=== PATIENT | female | born 1940 | race Caucasian/White ===

== ENCOUNTER → 2018-06-01 08:27 | Outpatient (CLI) | payer OTHER, SELFPAY ==
[2018-06-01 11:57] LABS: Absolute Lymphocyte Count 2.39 X10^3/ul (0.83-4.51); Absolute Neutrophil Count 1.6 X10^3/uL (2.0-7.7); Basophil# 0.02 X10^3/uL; Basophil% 0.4 % (0-1); Eosinophil# 0.08 X10^3/uL; Eosinophils% 1.8 % (0-5); Hemoglobin 12.6 g/dl (12.0-15.0); Lymphocyte # 2.39 X10^3/ul (4.0); Mean Corp Hgb Conc 31.5 g/gl (32-36); Mean Corpuscular Hgb 29.8 pg (27.0-32.0); Mean Corpuscular Volume 94.6 fL (81-99); Mean Platelet Vol. 10.2 fl (6.2-12.0); Monocyte# 0.42 X10^3/uL; Monocyte% 9.3 % (0-10); Neutrophil % 35.5 % (47-70); Platelet Count 282 K/mm3 (150-450); RBC Distribution Width CV 12.6 % (11.6-14.6); RBC Distribution Width SD 42.9 fl (35.1-43.9); Red Blood Count 4.23 M/mm3 (4.2-5.4); White Blood Count 4.5 K/mm3 (4.4-11.0)
[2018-06-01 12:04] LABS: POSITIVE COUNT NO; POSITIVE DIFFERENTIAL NO; POSITIVE MORPHOLOGY NO
[2018-06-01 12:12] LABS: ALB/GLOB Ratio 0.9 RATIO (0.9-2.4); AST(SGOT) 27 U/L (15-37); Alanine Aminotransfer ALT/SGPT 33 U/L (13-56); Albumin, Serum 3.6 g/dL (3.2-5.0); Alkaline Phosphatase 55 U/L (45-117); Anion Gap 6 (5-15); BUN 13 mg/dL (7-18); BUN/Creat Ratio 17.9 RATIO (10-20); Calcium,Total 8.7 mg/dL (8.5-10.1); Chloride 105 mmol/L (98-107); Cholesterol 168 mg/dL (200); Creatinine, Serum 0.73 mg/dL (0.55-1.02); EST Glomerular Filtration Rate 83 mL/min (>60); Est Glom Filt Rate - Afr Amer 100 mL/min (>60); Globulin 3.8 g/dL (2.2-4.2); Glucose 91 mg/dL (74-106); High Density Lipoprotein 55 mg/dL; Potassium 3.9 mmol/L (3.5-5.1); Protein, Total 7.4 g/dL (6.4-8.2); Sodium Level 142 mmol/L (136-145); Triglycerides 97 mg/dL; Very Low Density Lipoprotein 19 mg/dL (5-40)
== END ==
PROVIDERS: Family Provider Family Medicine; PCP Family Medicine; Visit Provider Family Medicine
DX: E78.5 Hyperlipidemia, unspecified (principal); R53.83 Other fatigue
CPT/HCPCS: 36415; 80053; 80061; 85025

== ENCOUNTER → 2018-12-27 13:20 | Outpatient (CLI) | payer MEDICARE, SELFPAY ==
--- NOTE | 2018-12-27 | LES_PTH ---
PATIENT: MARIE PRATT LOC: [facility] U#:[id number] AGE/SX: 85/F ROOM: RE12/27/[address]: Dr. Nichole Fisher DO : 1940 BED: DIS: SPEC #: [id number] RECD: 12/27/18 15:40 STATUS: BLAS JENNA #: [id number] PENNY: 12/27/18 00:[address]: Nichole Fisher DEPT: SURGICAL PATHOLOGY RECD BY: Fortunato Alfaro Tissues: Skin of arm Procedures: Surgery Specimen Level IV HEADER OPERATION: Excision lesion right upper arm PRE-OP DIAGNOSIS: SCC vs BCC TISSUE SUBMITTED: Right upper arm MICROSCOPIC DIAGNOSIS Skin lesion of right upper arm, biopsy: Minimal invasive squamous cell carcinoma, well differentiated and verrucoid type. Solar elastosis. See comment. AM:luke 12/29/18 COMMENT The lesion measures 4 mm in greatest dimension and is completely excised in the planes examined. MICROSCOPIC DESCRIPTION Slides are reviewed. GROSS DESCRIPTION Received is one container labeled with the patient's name and not further designated. The specimen consists of a single nodular fragment of light saini soft tissue measuring 0.6 x 0.5 x 0.3 cm. The specimen is inked, bisected and totally submitted in one cassette. / AM:luke 12/28/18 TC:0 CPT: 24167
== END ==
PROVIDERS: Family Provider Family Medicine; PCP Family Medicine; Referring Provider Family Medicine; Visit Provider Family Medicine
DX: C44.622 Squamous cell carcinoma of skin of right upper limb, including shoulder (principal)
CPT/HCPCS: 88305

== ENCOUNTER → 2019-08-15 08:17 | Outpatient (CLI) | payer MEDICARE, SELFPAY ==
[2019-02-20 09:53] VITALS: BMI 18.8
[2019-08-15 12:15] LABS: Absolute Lymphocyte Count 1.98 X10^3/uL (0.83-4.51); Absolute Neutrophil Count 2.3 X10^3/uL (2.0-7.7); Basophil# 0.04 X10^3/uL; Basophil% 0.8 % (0-1); Eosinophil# 0.08 X10^3/uL; Eosinophils% 1.7 % (0-5); Hematocrit 40.7 % (37-47); Lymphocyte # 1.98 X10^3/ul (4.0); Lymphocyte % 41.4 % (19-41); Mean Corp Hgb Conc 31.9 g/dL (32-36); Mean Corpuscular Hgb 29.9 pg (27.0-32.0); Mean Corpuscular Volume 93.6 fL (81-99); Mean Platelet Vol. 10.2 fl (6.2-12.0); Monocyte# 0.35 X10^3/uL; Monocyte% 7.3 % (0-10); NRBC Flagged by Analyzer 0 % (0-5); Neutrophil # 2.33 X10^3/uL (2.7-7.7); Neutrophil % 48.8 % (47-70); Platelet Count 268 K/mm3 (150-450); RBC Distribution Width CV 11.9 % (11.6-14.6); RBC Distribution Width SD 41.2 fl (35.1-43.9); Red Blood Count 4.35 M/mm3 (4.2-5.4); White Blood Count 4.8 K/mm3 (4.4-11.0)
[2019-08-15 12:49] LABS: AST(SGOT) 22 U/L (15-37); Alanine Aminotransfer ALT/SGPT 25 U/L (13-56); Albumin, Serum 3.7 g/dL (3.2-5.0); Alkaline Phosphatase 55 U/L (45-117); Anion Gap 3 (5-15); BUN 12 mg/dL (7-18); BUN/Creat Ratio 16.5 RATIO (10-20); Chloride 106 mmol/L (98-107); Cholesterol 178 mg/dL (200); Creatinine, Serum 0.73 mg/dL (0.55-1.02); EST Glomerular Filtration Rate 82 mL/min (>60); Est Glom Filt Rate - Afr Amer 99 mL/min (>60); Free T3 2.7 pg/mL (2.18-3.98); Globulin 3.7 g/dL (2.2-4.2); Glucose 90 mg/dL (74-106); High Density Lipoprotein 62 mg/dL; Potassium 3.9 mmol/L (3.5-5.1); Protein, Total 7.4 g/dL (6.4-8.2); Sodium Level 141 mmol/L (136-145); T4 Free Direct 0.97 ng/dL (0.76-1.46); Thyroid Stim Hormone (TSH) 3.52 uIU/mL (0.358-3.74); Triglycerides 69 mg/dL; Very Low Density Lipoprotein 14 mg/dL (5-40)
== END ==
PROVIDERS: Family Provider Family Medicine; PCP Family Medicine; Visit Provider Family Medicine
DX: E78.5 Hyperlipidemia, unspecified (principal); R53.83 Other fatigue
CPT/HCPCS: 36415; 80053; 80061; 84439; 84443; 84481; 85025

== ENCOUNTER → 2019-09-05 09:19 | Outpatient (CLI) | payer MEDICARE, SELFPAY ==
[2019-02-20 09:53] VITALS: BMI 18.8
--- NOTE | 2019-09-05 09:26 | BD_ITS ---
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 COMPARISON: Comparison is made with prior examination dated October 05, 2016. FINDINGS: Lumbar Spine (L1-L4): g/cm2 (0.877) / T-score (-2.5) / Z-score (-0.7) Findings are suggestive of osteoporosis with a high fracture risk. Left Femur Total: g/cm2 (0.794) / T-score (-1.7) / Z-score (0.2) Left Femoral Neck: g/cm2 (0.786) / T-score (-1.8) / Z-score (0.3) Right Femur Total: g/cm2 (0.812) / T-score (-1.6) / Z-score (0.4) Right Femoral Neck: g/cm2 (0.805) / T-score (-1.7) / Z-score (0.4) The T-Scores on the most recent prior examination were: Lumbar Spine (L1-L4): There has been worsening of bone density since the previous examination. Left Femur Total: which represents a worsening of 0.1%. Right Femur Total: which represents a worsening of 3.7%. BD/Dexa Bone Density Study IMPRESSION: The patient is considered osteoporotic as outlined below according to World Justin Organization (WHO) criteria with a high fracture risk. There has been worsening of bone density since the previous examination. Reference Information: The T-score is the number of standard deviations above or below the standard which is normal for young adults at their peak bone mineral density. The World Health Organization (WHO) interprets the T-scores as follows: Above -1 Normal bone density Between -1 and -2.5 Osteopenia Equal to / or below -2.5 Osteoporosis As a practical clinical guideline, osteopenia may be graded as follows: Mild -1 through -1.5 Moderate -1.6 through -2.0 Severe -2.1 through -2.4 The Z-score is the number of standard deviations above or below age-matched controls. A Z-score of less than -1.5 would be considered abnormal. References: 1. NIH Osteoporosis and Related Bone Diseases http://www.osteo.org 2. International Society for Clinical Densitometry http://www.iscd.org 3. National Osteoporosis Foundation http://www.nof.org Electronically Signed: Jd Courtney, at 16:54 EST , Service support ,
== END ==
LOC: OPBD 09:20
PROVIDERS: PCP Family Medicine; Referring Provider Family Medicine; Visit Provider Family Medicine
DX: Z78.0 Asymptomatic menopausal state (principal); M85.80 Other specified disorders of bone density and structure, unspecified site; M81.0 Age-related osteoporosis without current pathological fracture
CPT/HCPCS: 77080

== ENCOUNTER 2020-09-29 03:33 | Observation (INO) | payer MEDICARE, SELFPAY ==
[2020-09-29] VITALS (16 sets, daily range): BP systolic 91–174; BP diastolic 46–70; PULSE 60–147; RESP 10–20; TEMP 36.4–36.8; O2SAT 95–99; BMI 18.3; BMI 17.4
--- NOTE | 2020-09-29 03:41 | RAD_ITS ---
STUDY: X-RAY CHEST REASON FOR EXAM: Female, 80 years old. chest pain TECHNIQUE: AP COMPARISON: None. FINDINGS: The lungs are clear and expanded. There is no demonstrated pleural abnormality. Normal size heart. Normal mediastinum and sarah. Normal visualized pulmonary arteries. Normal visualized aortic arch and descending thoracic aorta. There are diffuse degenerative changes of the visualized thoracic spine. Normal visualized ribs, clavicles, and shoulders. There is no demonstrated abnormality of the visualized soft tissue structures of the upper abdomen. RAD/Chest 1 View (Portable) IMPRESSION: Negative x-ray examination of the chest. No focal lung consolidative changes. Electronically Signed: Gasper Ross MD at 5:04 EST Tel , Service support ,
--- NOTE | 2020-09-29 03:41 | EKG12_ITS ---
Test Reason : PALPITATIONS Blood Pressure : / mmHG Vent. Rate : 136 BPM Atrial Rate : 147 BPM P-R Int : 000 ms QRS Dur : 088 ms QT Int : 328 ms P-R-T Axes : 000 001 067 degrees QTc Int : 493 ms Atrial fibrillation with rapid ventricular response Nonspecific ST abnormality Abnormal ECG Confirmed by MEHRDAD GRACIA, EMA ([id number]), offline editor DESTINI TOVAR ([id number]) on 09/30/2020 10:34:39 AM Referred By: TANISHA Confirmed By:EMA CRONIN MD
[2020-09-29 03:49] LABS: Absolute Lymphocyte Count 3.04 X10^3/uL (0.83-4.51); Absolute Neutrophil Count 2.2 X10^3/uL (2.0-7.7); Basophil# 0.05 X10^3/uL; Basophil% 0.8 % (0-1); Eosinophil# 0.13 X10^3/uL; Eosinophils% 2.2 % (0-5); Hematocrit 41.6 % (37-47); Lymphocyte # 3.04 X10^3/ul (4.0); Lymphocyte % 51.5 % (19-41); Mean Corp Hgb Conc 31.3 g/dL (32-36); Mean Corpuscular Hgb 29.7 pg (27.0-32.0); Mean Platelet Vol. 9.5 fl (6.2-12.0); Monocyte# 0.52 X10^3/uL; Monocyte% 8.8 % (0-10); NRBC Flagged by Analyzer 0 % (0-5); Neutrophil # 2.15 X10^3/uL (2.7-7.7); Neutrophil % 36.5 % (47-70); Platelet Count 267 K/mm3 (150-450); RBC Distribution Width CV 11.8 % (11.6-14.6); RBC Distribution Width SD 41.1 fl (35.1-43.9); Red Blood Count 4.38 M/mm3 (4.2-5.4); White Blood Count 5.9 K/mm3 (4.4-11.0)
--- NOTE | 2020-09-29 03:53 | ED.DCSUM_ITS ---
- ER Visit Summary Date of Service: 09/29/20 Chief Complaint: Palpitations History of Present Illness: The patient is a [address] Fisher. Patient states approximately an hour and a half ago she had the onset of palpitations. She denies any chest pain. No nausea, vomiting, diaphoresis, shortness of breath. States that she has had atrial fibrillation twice in the past, but has never lasted this long. Review of systems: General: No fever, chills, cold sweats. Cardiovascular: No chest pain. Respiratory: No cough, shortness of breath, dyspnea on exertion. Gastrointestinal: No abdominal pain, nausea, vomiting, diarrhea, melena, or hematochezia. Genitourinary: No dysuria, frequency, hematuria. Skin: No rash. Neuro: No headache, numbness, weakness. Physical Examination: Vitals: Stable. Afebrile. General: Well-nourished and well-developed. Head: Normocephalic atraumatic. Neck: Supple, no lymphadenopathy. No JVD. Nontender. Cardiovascular: Tachycardic irregular rhythm. No murmurs. Respiratory: No respiratory distress. Clear to auscultation bilaterally. Abdominal: Soft, nontender, nondistended, normal bowel sounds. No guarding, rebound, or peritoneal signs. Back: Nontender. Extremities: Nontender, no edema. Skin: Normal color, no rash. Neurologic: Alert and oriented ?3. Cranial nerves II through XII are intact. Normal strength and sensation. Psych: Normal affect. Test Results: EKG shows A. fib at [address] changes. This is a change from 2001. CBC shows second neutrophils of 37 lymphocytes 52. Chem-7 shows a potassium of 3.2 and glucose 133. TSH is 7.68. Magnesium is 2.3. Troponin is negative. Chest x-ray shows chronic changes. Emergency Department Course and Treatment: Patient was given aspirin p.o. and Cardizem IV. Her rate decreased into the 80s, but she remained in atrial fibrillation. It then gradually increase back into the low 100s. She was given another 20 mg of Cardizem IV. She is resting more comfortably. Treatment Plan: Patient is quite sure that this began an hour and 1/2 to 2 hours before coming to the emergency department. However, she does not want to be cardioverted. She was discussed with Dr. Fiore and will be admitted for further evaluation and treatment. Disposition: Admitted in improved condition. Impression: 1. Atrial fibrillation with RVR. 2. Elevated TSH. This note was generated with [employer] dictation software. It may contain incorrect words, spelling, and punctuation that were not noted in review of the chart prior to signing ED Disposition - Plan for ED Patient: Referrals: Nichole Fisher DO [Primary Care Provider] -
[2020-09-29] MEDS: Aspirin 81 MG TAB.CHEW 324 MG PO (03:54)
[2020-09-29] MEDS: dilTIAZem 25 MG/5 ML Vial 20 MG IV BOLUS ×2 (03:54→04:54)
[2020-09-29 04:11] LABS: Anion Gap 6 (5-15); BUN 13 mg/dL (7-18); BUN/Creat Ratio 18.7 RATIO (10-20); Calcium,Total 9.1 mg/dL (8.5-10.1); Chloride 104 mmol/L (98-107); EST Glomerular Filtration Rate 86 mL/min (>60); Est Glom Filt Rate - Afr Amer 105 mL/min (>60); Estimated Creatinine Clearance 35.93 ml/min; Glucose 133 mg/dL (74-106); Magnesium 2.3 mg/dL (1.6-2.6); Potassium 3.2 mmol/L (3.5-5.1); Sodium Level 141 mmol/L (136-145); Thyroid Stim Hormone (TSH) 7.68 uIU/mL (0.358-3.74)
--- NOTE | 2020-09-29 04:53 | HP.PCM_ITS ---
Problem List (1) Atrial fibrillation with RVR Status: Acute (2) PAF (paroxysmal atrial fibrillation) Status: Chronic (3) Hypothyroidism Status: Chronic Qualifiers: Hypothyroidism type: unspecified Qualified Code(s): E03.9 - Hypothyroidism, unspecified History of Present Illness Date of Admission: 09/29/20 Chief Complaint: Palpitations The patient is a 80 y/o F w/ PMHx: GERD, PAF, Hypothyroidism who presents to the [facility] ED on 09/29/20 with history of awakening approximately 1.5 hours prior to ED presentation with racing heart with no associated chest discomfort, diaphoresis, dyspnea, sensation of palpitations prompting ED referral. Patient does have a history of paroxysmal atrial fibrillation prior but is never had episodes that have lasted as long. Work-up in the ED included T 97.8, heart rate initially 147, BP 174/70, respiratory rate 20, 99% on room air, CBC with WBC 5.9, hemoglobin 13, platelet 267 without marked shift, BMP with potassium 3.2, glucose 133, troponin less than 0.015, magnesium 2.3, TSH 7.68, chest x-ray with no acute cardiopulmonary findings, EKG with atrial fibrillation with RVR. In the ED patient administered Cardizem bolus 20 mg IV x1 as well as aspirin 324 mg p.o. x1. Past Medical History Past Medical History (Chronic Problems): Chronic Problems (Last Reviewed 05/19/20 @ 12:29 by Ronda Dunn) PAF (paroxysmal atrial fibrillation) (Chronic) Hypothyroidism (Chronic) Medical History: Medical History (Last Reviewed 05/19/20 @ 12:29 by Ronda Dunn) Glaucoma H40.9 Allergies oxytetracycline [From Terramycin] Allergy (Verified 09/29/20 03:33) Unknown Penicillins Allergy (Verified 09/29/20 03:33) Unknown Home Medications: Ambulatory Orders Medication Instructions Recorded timolol maleate 0.25 % eye drops 1 drp OPHTHALMIC BID 10/01/17 Levothyroxine [Synthroid] 25 mcg PO DAILY 09/29/20 Surgical History: cholecystectomy Psychiatric History: No pertinent psych hx GUIDANCE SERVICES COORDINATOR History: No pertinent GUIDANCE SERVICES COORDINATOR history Lives: Spouse/ Significant Other Smoking Status: Never smoker Tobacco Use: Non-smoker Alcohol: None Drugs: None - *Family History Maternal History Items: Heart Disease - PAF suspected. Paternal History Items: Cancer - Father with history of Lung CA, tobacco use history., Pulmonary Disease Review of Systems Constitutional: Reports: Fatigue. Denies: Anorexia, Chills, Fever, Malaise, Weakness, Weight Change HEENT: Denies: Head Aches, Sinus Congestion, Sinus Drainage Cardiovascular: Reports: Palpitations. Denies: Chest Pain Respiratory: Denies: Cough, Shortness of breath at rest, Sputum production Gastrointestinal: Denies: Abdominal Pain, Nausea, Vomiting Genitourinary: Denies: Dysuria Musculoskeletal: Denies: Joint Pain, Joint Tenderness Skin: Denies: Rash, Wounds Neurological: Denies: Numbness, Tingling, Focal weakness Psychiatric: Denies: Anxiety, Depression, Homicidal Ideations, Suicidal Ideations Hematologic/ Lymphatic: Denies: Easy Bruising, Easy Bleeding VTE Information - Inpt Only VTE Present on Admission: No VTE Mechan Device Prophylaxis: SCD's VTE Pharm Prophylaxis ordered?: Yes Patient Problems: Active and Suspected Problems (Last Reviewed 05/19/20 @ 12:29 by Ronda Dunn) Atrial fibrillation with RVR (Acute) Subjective: Seated upright in the ED bed, fatigued, notes feeling better with rate improvement. Objective: Physical Examination: General: awake, alert, oriented x 3 and cooperative, seated upright in the ED bed in no apparent distress, rate fluctuating between 80 and 110. Skin: normal color, turgor, no icterus, cyanosis. HEENT: AT/NC, EOMI, PERRLA, MMM, no carotid bruits or JVD noted. Lungs: CTA bilaterally, moderate effort, mild decrease BL bases, no rales, ronchi or wheezing. Heart: Irregular irregular; no gallop, rub audible. Abdomen: soft, NTTP, ND, normal BS, no HSM. Extremities: no cyanosis, clubbing, or edema. Neurological: patient awake, alert, oriented as noted; cognitive function intact; pupils equally reactive to light and accomodation; cranial nerves II-XII grossly normal, moving all 4 extremities, no focal deficits, strength preserved. Psychiatric: affect appears fatigued otherwise normal, no acute evidence of depressive or anxiety feelings. - Physical Exam Vitals/I&O's: Vital Signs Temp Pulse Resp BP Pulse Ox 97.8 F 95 13 130/69 H 97 09/29/20 03:34 09/29/20 04:37 03/01/21 04:37 09/29/20 04:37 09/29/20 04:37 Oxygen Delivery Method Room Air Weight: 110 lb 0.171 oz Body Mass Index (BMI) 18.3 Laboratory Results 09/29/20 03:40: WBC 5.9, RBC 4.38, Hgb 13.0, Hct 41.6, MCV 95.0, MCH 29.7, MCHC 31.3 L, RDW Std Deviation 41.1, RDW Coeff of Namita 11.8, Plt Count 267, MPV 9.5, Immature Gran % (Auto) 0.200, Neut % (Auto) 36.5 L, Lymph % (Auto) 51.5 H, Parke % (Auto) 8.8, Eos % (Auto) 2.2, Baso % (Auto) 0.8, Absolute Neuts (auto) 2.2, Absolute Lymphs (auto) 3.04, Nucleated RBC % 0 09/29/20 03:40: Sodium 141, Potassium 3.2 L, Chloride 104, Carbon Dioxide 31.0, Anion Gap 6, BUN 13, Creatinine 0.70, Estim Creat Clear Calc 35.93, Est GFR (MDRD) Af Amer 105, Est GFR (MDRD) Non-Af 86, BUN/Creatinine Ratio 18.7, Glucose 133 H, Calcium 9.1, Magnesium 2.3, Troponin I < 0.015, TSH 7.68 H Assessment/Plan All Active Problems (Last Reviewed 05/19/20 @ 12:29 by Ronda Dunn) Atrial fibrillation with RVR (Acute) Otitis media (Acute) Sinusitis, acute (Acute) The patient is a 80 y/o F w/ PMHx: GERD, PAF, Hypothyroidism who presents to the [facility] ED on 09/29/20 with history of awakening approximately 1.5 hours prior to ED presentation with racing heart with no associated chest discomfort, diaphoresis, dyspnea, sensation of palpitations prompting ED referral. 1. New onset, Paroxsymal atrial fibrillation: EKG in ED w/ atrial fibrillation w/ RVR. Patient administered cardizem bolus in ED. Will admit to PCU, maintain on telemetry, obtain cardiac enzyme serial set, obtain magnesium level, obtain ECHO, obtain TSH level. Will initiate therapeutic Lovenox. Given improvement of rate with IV Cardizem bolus will initiate oral beta-ginny therapy however if necessary may consider transition to Cardizem drip. 2. Hypokalemia: Admission K+ 3.2, magnesium normal level, supplementation given, repeat level in AM. 3. Hypothyroidism with abnormal TSH: Continue home synthroid regimen, TSH elevated 7.68, will obtain free T4. 4. GERD: We will maintain on famotidine. 5. DVT prophylaxis: SCDs, therapeutic Lovenox as noted. 6. CODE status: Patient BLAYNE is her who is present and living will is currently in place. Discussed CODE status at length including difference between FULL code, DNR-CCA and DNR-CC status. Following discussions about the differences in these status decision to remain Full Code status; however, she was hesitant and encouraged her and her spouse to further discuss these items following her discharge. Advanced Care Planning Face to Face Time: 16 minutes. OBSV E&M: 89749 Initial observation care L3 Procedures: 51867 Advncd Care Plan 30 Min
--- NOTE | 2020-09-29 05:58 | EKG12_ITS ---
Test Reason : RHYTHM CHANGE Blood Pressure : / mmHG Vent. Rate : 074 BPM Atrial Rate : 074 BPM P-R Int : 166 ms QRS Dur : 082 ms QT Int : 392 ms P-R-T Axes : 078 005 057 degrees QTc Int : 435 ms Normal sinus rhythm Normal ECG Confirmed by MEHRDAD GRACIA, EMA ([id number]), acquisition editor DESTINI TOVAR ([id number]) on 09/30/2020 10:37:29 AM Referred By: TANISHA Confirmed By:EMA CRONIN MD
--- NOTE | 2020-09-29 06:16 | ECHOD_ITS ---
Reason For Study: AFIB/FLUTTER Procedure This was a 2D Doppler, Color Flow transthoracic echocardiogram. Exam performed portable in patient room. Left Ventricle Normal LV size. Left ventricular systolic function is normal. The estimated ejection fraction is 65 %. Stage 3 diastolic dysfunction. No regional wall motion abnormalities noted. Right Ventricle Normal RV size. Normal systolic function. Atria Normal left atrium. Normal right atrium. Bubble contrast study negative for right to left interatrial shunt. Mitral Valve Normal mitral valve. Tricuspid Valve Normal tricuspid valve. Mild (1+) tricuspid valve insufficiency. Pulmonary artery systolic pressure is 26 mmHg. Aortic Valve Normal aortic valve. Trisinus/trileaflet aortic valve. Pulmonic Valve Normal pulmonic valve. Great Vessels Normal aortic root. The pulmonary artery is normal size. Normal inferior vena cava. Pericardium/Pleural No pericardial effusion. Medication Performed a rapid injection of agitated mix of 9 cc saline and 1cc air to assess for atrial septal defect. MMode/2D Measurements & Calculations LVIDd: 3.8 cm IVSd: 0.81 cm Ao root diam: 3.1 cm LVIDs: 2.4 cm LVPWd: 0.88 cm RVDd: 2.9 cm FS: 36.0 % LAV(MOD-bp): 33.3 ml LA A4 area: 13.0 cm2 LA dimension(2D): 2.8 cm LAV(MOD-bp) Indexed: 22.2 ml/m2 LAV(MOD-sp2): 37.6 ml LAV(MOD-sp4): 25.0 ml RA A4 area: 17.7 cm2 Time Measurements MV dec time: 0.20 sec Doppler Measurements & Calculations MV E max alex: 70.6 cm/sec Lat Peak E' Alex: 8.5 cm/sec Med Peak E' Alex: 7.8 cm/sec MV A max alex: 40.7 cm/sec E/E' lat: 8.3 E/E' med: 9.0 MV E/A: 1.7 Ao V2 max: 110.6 cm/sec LV V1 max: 82.3 cm/sec PA V2 max: 54.4 cm/sec Ao max P.9 mmHg LV V1 max P.7 mmHg Ao V2 mean: 80.3 cm/sec LV V1 mean P.5 mmHg Ao mean P.8 mmHg LV V1 mean: 58.8 cm/sec Ao V2 VTI: 25.0 cm LV V1 VTI: 20.4 cm TR max alex: 236.8 cm/sec TR max P.6 mmHg Interpretation Summary Normal LV size. Left ventricular systolic function is normal. The estimated ejection fraction is 65 %. Stage 3 diastolic dysfunction. Bubble contrast study negative for right to left interatrial shunt. Structurally normal valves. Ordering Physician: Delmi Fiore Referring Physician: Nichole Fisher Performed By: Marilu Wells, TAD, RVT
[2020-09-29 06:34] LABS: T4 Free Direct 1.05 ng/dL (0.76-1.46)
[2020-09-29] MEDS: Metoprolol Tartrate 25 MG Tablet PO ×2 (06:39→21:01)
[2020-09-29] MEDS: Levothyroxine 25 MCG TABLET PO (06:58)
[2020-09-29] MEDS: Enoxaparin 60 MG/0.6 ML Syringe 50 MG SC (07:58)
[2020-09-29] MEDS: Aspirin 81 MG TAB.CHEW PO (07:58)
[2020-09-29] MEDS: Famotidine 20 MG Tablet PO ×2 (07:58→21:00)
--- NOTE | 2020-09-29 08:08 | PCM.PN.BLA ---
Progress Note This is a 80 years old female patient presented to the emergency room because of palpitation, found to have new onset A. fib with RVR. Today, patient was seen and examined. She has no more complaints. She received IV Cardizem bolus. Now, she is in sinus rhythm, heart rate stable. She denies any more palpitation, no other complaints. Denied chest pain or shortness of breath. Her vital signs are stable. EKG reviewed, remarkable for A. fib with RVR, no acute ischemic changes. Troponin was negative x2. TSH was slight elevated, free T4 was normal. Potassium was 3.2. 2D echocardiogram ordered. She was started on metoprolol for rate control and Lovenox for anticoagulation. Plan to replace potassium, 2D echocardiogram, monitor, anticipate discharge home tomorrow. STROKE Vital Signs/Narrative: Vital Signs Temp Pulse Resp BP Pulse Ox 09/29/20 07:56 98.1 F 60 18 91/46 L 97 09/29/20 07:00 79 09/29/20 06:39 71 129/60 H 09/29/20 06:31 80 09/29/20 06:20 98.2 F 71 18 129/60 H 97 09/29/20 05:55 78 14 112/65 95 09/29/20 05:36 97.6 F L 79 20 H 119/58 L 96 09/29/20 05:03 73 10 L 101/52 L 97 09/29/20 04:54 113 H 20 H 138/65 H 95 09/29/20 04:37 95 13 130/69 H 97
[2020-09-29] MEDS: Potassium Chloride Oral Tablet 20 MEQ 60 MEQ PO (09:31)
[2020-09-29] MEDS: Acetaminophen 325 MG Tablet 650 MG PO (15:10)
[2020-09-29] MEDS: APIXABAN 5 MG TABLET PO (21:00)
[2020-09-29] MEDS: Timolol 0.25% 5ML OPTH.BTL 1 DRP OPHTHALMIC (21:01)
[2020-09-30 03:00] VITALS: BP 102/45; PULSE 62; PULSE 66; RESP 18; TEMP 36.7; O2SAT 99
[2020-09-30] MEDS: Levothyroxine 25 MCG TABLET PO (05:08)
[2020-09-30 06:09] LABS: Absolute Lymphocyte Count 2.25 X10^3/uL (0.83-4.51); Absolute Neutrophil Count 2.2 X10^3/uL (2.0-7.7); Basophil# 0.05 X10^3/uL; Eosinophil# 0.08 X10^3/uL; Eosinophils% 1.6 % (0-5); Hematocrit 37.7 % (37-47); Hemoglobin 11.9 g/dL (12.0-15.0); Lymphocyte # 2.25 X10^3/ul (4.0); Lymphocyte % 45.3 % (19-41); Mean Corp Hgb Conc 31.6 g/dL (32-36); Mean Corpuscular Hgb 30.2 pg (27.0-32.0); Mean Corpuscular Volume 95.7 fL (81-99); Mean Platelet Vol. 9.7 fl (6.2-12.0); Monocyte# 0.43 X10^3/uL; Monocyte% 8.7 % (0-10); NRBC Flagged by Analyzer 0 % (0-5); Neutrophil # 2.15 X10^3/uL (2.7-7.7); Neutrophil % 43.2 % (47-70); Platelet Count 251 K/mm3 (150-450); RBC Distribution Width CV 11.9 % (11.6-14.6); RBC Distribution Width SD 41.4 fl (35.1-43.9); Red Blood Count 3.94 M/mm3 (4.2-5.4)
[2020-09-30 06:35] LABS: AST(SGOT) 19 U/L (15-37); Alanine Aminotransfer ALT/SGPT 21 U/L (13-56); Albumin, Serum 3.2 g/dL (3.2-5.0); Alkaline Phosphatase 46 U/L (45-117); Anion Gap 5 (5-15); BUN 16 mg/dL (7-18); BUN/Creat Ratio 23.6 RATIO (10-20); Calcium,Total 8.7 mg/dL (8.5-10.1); Chloride 108 mmol/L (98-107); Cholesterol 157 mg/dL (200); Creatinine, Serum 0.68 mg/dL (0.55-1.02); EST Glomerular Filtration Rate 89 mL/min (>60); Est Glom Filt Rate - Afr Amer 107 mL/min (>60); Estimated Creatinine Clearance 34.28 ml/min; Globulin 3.3 g/dL (2.2-4.2); Glucose 95 mg/dL (74-106); High Density Lipoprotein 62 mg/dL; Potassium 4.3 mmol/L (3.5-5.1); Protein, Total 6.5 g/dL (6.4-8.2); Sodium Level 141 mmol/L (136-145); Triglycerides 56 mg/dL; Very Low Density Lipoprotein 11 mg/dL (5-40)
[2020-09-30 07:08] VITALS: PULSE 82
--- NOTE | 2020-09-30 08:37 | DCINST_ITS ---
- Discharge Diagnoses Current Active Problems: Current Active and Chronic Problems (Last Reviewed 05/19/20 @ 12:29 by Ronda Dunn) Atrial fibrillation with RVR (Acute) PAF (paroxysmal atrial fibrillation) (Chronic) Hypothyroidism (Chronic) You will use the following diet at home:: Cardiac Your food should be the consistency of: Regular Weight Bearing Status: Weight bearing as tolerated Call your doctor if you observe: Fever of 101 or Higher, Shortness of breath, Dizziness, Fainting spells, Chest pain, Increased palpitations (irregular heartbeat), Uncontrolled pain Instructions: Atrial Fibrillation, Apixaban Oral tablet Allergies/Adverse Reactions: Allergies oxytetracycline [From Terramycin] Allergy (Verified 09/29/20 06:22) Unknown Penicillins Allergy (Verified 09/29/20 06:22) Unknown Medications to take at Discharge timolol maleate 0.25 % eye drops 1 drp OPHTHALMIC QHS 10/01/17 Levothyroxine [Synthroid] 25 mcg PO DAILY 09/29/20 Apixaban [Eliquis] 5 mg PO BID #90 tab 09/30/20 Metoprolol Tartrate [Lopressor (beta ginny)] 25 mg PO BID #90 tab 09/30/20 The following prescriptions were given: Apixaban [Eliquis] 5 mg PO BID #90 tab Transmission Status: Pending to [facility] Metoprolol Tartrate [Lopressor (beta ginny)] 25 mg PO BID #90 tab Transmission Status: Pending to [facility] Primary Care Physician: Nichole Fisher DO [Primary Care Provider] - Please follow up with your Primary Care Physician in: 1 week. Test Results: Test results from this visit will be discussed in further detail at your follow- up appointment, if applicable. Please Follow Up With: Adi Tomas MD When: 2 weeks.
[2020-09-30 09:22] VITALS: BP 107/53; PULSE 66; RESP 16; TEMP 36.6; O2SAT 97
[2020-09-30 09:25] VITALS: PULSE 66
[2020-09-30] MEDS: Metoprolol Tartrate 25 MG Tablet PO (09:25)
[2020-09-30] MEDS: APIXABAN 5 MG TABLET PO (09:25)
[2020-09-30] MEDS: Famotidine 20 MG Tablet PO (09:26)
[2020-09-30] MEDS: Aspirin 81 MG TAB.CHEW PO (09:26)
--- NOTE | 2020-09-30 09:38 | CASEMGMT ---
HILTON VEGA to room with GARZA form at this time, explanation done-pt voices understanding, and signs GARZA form at this time. Original to chart and copy to pt at this time. Pt has MCR IP vs OBS booklet at bedside. Pt voices no further questions/concerns/needs. SStaten HILTON VEGA
--- NOTE | 2020-09-30 10:05 | PHA.DC.MC ---
Pharmacy Service has performed discharge medication reconciliation and counseling for this patient. 1. APIXABAN 5MG PO BID 2. METOPROLOL TARTRATE 25MG PO BID The patient's discharge medication list was reviewed for discrepancies and discrepancies were resolved. Home Medications timolol maleate 0.25 % eye drops 1 drp OPHTHALMIC QHS 10/01/17 Levothyroxine [Synthroid] 25 mcg PO DAILY 09/29/20 Apixaban [Eliquis] 5 mg PO BID #90 tab 09/30/20 Metoprolol Tartrate [Lopressor (beta ginny)] 25 mg PO BID #90 tab 09/30/20 The patient was counseled on the following discharge medications and changes in medications for homegoing were reviewed. The Reason for Use, instructions for use, and potential side effects were reviewed for all new medications. The patient's questions regarding all of their medications were answered. The patient was able to verbally demonstrate an understanding of their discharge medications.
--- NOTE | 2020-09-30 10:06 | CASEMGMT ---
Pt to be sent home on Eliquis at discharge and med previously e-scribed to [facility] retail pharmacy. Call to [facility] pharmacy and per Frederic, pt's co-pay for 45 day supply is $94. Eliquis 30 day free trial card tubed to retail pharmacy at this time. Pt updated on all, voices understanding. Pt voices no further concerns/needs. Jennifer CANELA CM
--- NOTE | 2020-09-30 11:49 | PCM.DC.SUM ---
Discharge Date and Diagnosis - Problem List Patient Problems: Active and Suspected Problems (Last Reviewed 05/19/20 @ 12:29 by Ronda Dunn) Atrial fibrillation with RVR (Acute) Date of Admission: 09/29/20 Date of Discharge: 09/30/20 - Primary Discharge Diagnosis Acute Problems: Active Problems (Last Reviewed 05/19/20 @ 12:29 by Ronda Dunn) New onset atrial fibrillation with RVR (Acute) - Secondary Discharge Diagnosis Chronic Problems: Chronic Problems (Last Reviewed 05/19/20 @ 12:29 by Ronda Dunn) PAF (paroxysmal atrial fibrillation) (Chronic) Hypothyroidism (Chronic) Hospital Course and Treatment Imaging Results: Clinical Impression(s) from Imaging Studies Chest X-Ray 09/29/20 03:41 IMPRESSION: Negative x-ray examination of the chest. No focal lung consolidative changes. Electronically Signed: Gasper Ross MD at 5:04 EST Tel , Service support , Operations: None Procedures: 2-D Echocardiogram, EKG Summary of Care Provided: Patient seen and examined on the day of discharge and appeared to be stable to be discharged home. She remained in sinus rhythm, heart rate has been stable. She has no complaints. Vital signs are stable. The patient is a 80 year old F presented to the emergency room because of palpitation and she was found to have new onset A. fib with RVR. She received IV Cardizem bolus in the ED and her heart rate slowed down. She converted back to sinus rhythm. She was started on metoprolol for rate control and on Lovenox injection twice daily for anticoagulation. She was at high risk for stroke based on [id number] score. She was switched to Eliquis 5 mg p.o. twice daily. Routine blood work was remarkable for mild hypokalemia. Her potassium was replaced and corrected. Other routine blood work was unremarkable. Serum calcium, magnesium were normal. LFT was unremarkable. Troponin was negative x3. TSH was slight elevated at 7.68 but her free T4 was normal. She did have a history of hypothyroidism and she has been on levothyroxine. 2D echocardiogram revealed normal LV size and function, ejection fraction 65%, stage III diastolic dysfunction and structurally normal heart valves. Patient remained stable and had no more complaints. She was discharged home in a stable medical condition, discharged on metoprolol for rate control and Eliquis for anticoagulation, plan to follow-up with cardiology in 2 weeks, recommended follow-up with PCP in 1 week. Patient Problems: Active and Suspected Problems (Last Reviewed 05/19/20 @ 12:29 by Ronda Dunn) Atrial fibrillation with RVR (Acute) - Physical Exam Vitals/I&O's: Vital Signs Temp Pulse Resp BP Pulse Ox 97.8 F 66 16 107/53 L 97 09/30/20 09:22 09/30/20 09:25 09/30/20 09:22 09/30/20 09:22 09/30/20 09:22 Oxygen Delivery Method Room Air Weight: 104 lb 15.04 oz Body Mass Index (BMI) 17.4 Intake and Output for Last 24 Hours 09/28/20 09/29/20 09/30/20 23:59 23:59 23:59 Intake Total 1020 / 1020 100 / 100 Balance 1020 / 1020 100 / 100 General: Alert, Oriented x3, Cooperative, No apparent distress HEENT: Atraumatic, PERRLA, EOMI, Normocephalic Oral: Moist Mucosa, No Gingival or Mucosal Lesions/ Ulcerations Neck: Supple, No JVD, Negative Carotid Bruits, Trachea Midline, Thyroid Normal Size and Texture Lungs: Clear to auscultation, Normal air movement, No rhonchi, No wheeze, No rales Cardiovascular: Regular rate, Regular Rhythm, Normal S1, Normal S2, PMI Normal Abdomen: Bowel Sounds Present, Soft, Non Tender, Non-Distended, No Hepato-splenomegaly Extremities: No clubbing, No cyanosis, No edema Skin: No rashes, No breakdown Lymphatic: No Cervical, Supraclavicular, or Inguinal Adenopathy Neurological: Cranial nerves II-XII grossly intact, Neuro grossly intact Psych/Mental Status: Normal Affect, Appropriate Laboratory Results 09/30/20 05:50: WBC 5.0, RBC 3.94 L, Hgb 11.9 L, Hct 37.7, MCV 95.7, MCH 30.2, MCHC 31.6 L, RDW Std Deviation 41.4, RDW Coeff of Namita 11.9, Plt Count 251, MPV 9.7, Immature Gran % (Auto) 0.200, Neut % (Auto) 43.2 L, Lymph % (Auto) 45.3 H, [place] % (Auto) 8.7, Eos % (Auto) 1.6, Baso % (Auto) 1.0, Absolute Neuts (auto) 2.2, Absolute Lymphs (auto) 2.25, Nucleated RBC % 0 09/30/20 05:50: Sodium 141, Potassium 4.3, Chloride 108 H, Carbon Dioxide 28.0, Anion Gap 5, BUN 16, Creatinine 0.68, Estim Creat Clear Calc 34.28, Est GFR (MDRD) Af Amer 107, Est GFR (MDRD) Non-Af 89, BUN/Creatinine Ratio 23.6 H, Glucose 95, Calcium 8.7, Total Bilirubin 0.40, AST 19, ALT 21, Alkaline Phosphatase 46, Total Protein 6.5, Albumin 3.2, Globulin 3.3, Albumin/Globulin Ratio 1.0, Triglycerides 56, Cholesterol 157, LDL Cholesterol 84, VLDL Cholesterol 11, HDL Cholesterol 62 Weight Bearing Status: Weight bearing as tolerated Call your doctor if you observe: Fever of 101 or Higher, Shortness of breath, Dizziness, Fainting spells, Chest pain, Increased palpitations (irregular heartbeat), Uncontrolled pain Home Medications: Medications to take at Discharge timolol maleate 0.25 % eye drops 1 drp OPHTHALMIC QHS 10/01/17 Levothyroxine [Synthroid] 25 mcg PO DAILY 09/29/20 Apixaban [Eliquis] 5 mg PO BID #90 tab 09/30/20 Metoprolol Tartrate [Lopressor (beta ginny)] 25 mg PO BID #90 tab 09/30/20 Following Prescriptions Were Given to Patient: Apixaban [Eliquis] 5 mg PO BID #90 tab Transmission Status: Received by [facility] Metoprolol Tartrate [Lopressor (beta ginny)] 25 mg PO BID #90 tab Transmission Status: Received by [facility] Primary Care Physician: Nichole Fisher DO [Primary Care Provider] - Please follow up with your Primary Care Physician in: 1 week. Please Follow Up With: Adi Tomas MD When: 2 weeks. Patient Instructions: Apixaban Oral tablet, Atrial Fibrillation Disposition: Home Minutes spent on discharge:: 27 Patient Condition:: Stable Medical Necessity - Tobacco Use Smoking Status: Never smoker Tobacco Use: Non-smoker Meaningful Use Info Meaningful Use Diagnoses (Choose all that apply): None applicable OBSV E&M: 71869 Observation care discharge
== END 2020-09-30 08:38 | disposition home or self-care (01) ==
LOC: ED 04:25 → PCU 05:37
PROVIDERS: Admitting Provider Family Medicine; Emergency Provider Emergency Medicine; PCP Family Medicine; Visit Provider Hospitalist
DX: I48.0 Paroxysmal atrial fibrillation (principal); E03.9 Hypothyroidism, unspecified; K21.9 Gastro-esophageal reflux disease without esophagitis; Z79.899 Other long term (current) drug therapy; E87.6 Hypokalemia
CPT/HCPCS: 36415; 71045; 80048; 80053; 80061; 83735; 84439; 84443; 84484; 85025; 93005; 93306; 96372; 96374; 96375; 99218; 99251; 99285; A4216; G0378; G0463

== ENCOUNTER → 2020-11-19 06:28 | Outpatient (CLI) | payer MEDICARE, SELFPAY ==
[2020-11-06 10:56] VITALS: BMI 18.9
--- NOTE | 2020-11-19 18:27 | STRESSREP ---
Stress Test Report Date: Procedure: Pharmacologic stress nuclear imaging study Indications: Atrial fibrillation; abnormal ECG Consent: Per the patient Procedure: The patient underwent pharmacologic (Regadenoson 0.4mg ) evaluation with a peak heart rate of 122 beats per minute (86%predicted maximal heart rate) and a peak blood pressure of 144/72 mmHg. The baseline ECG demonstrated sinus rhythm. The peak pharmacologic ECG demonstrated approximately 0.[address] segment depression in leads II, III, aVF, and V3 through V6 with subsequent resolution to baseline in recovery. There were no cardiac dysrhythmias pretest, during pharmacologic infusion, or recovery. There was no complaint of chest discomfort during pharmacologic infusion or recovery. The examination was discontinued secondary to completion of protocol. Impression: 1. Pharmacologic (Regadenoson) evaluation 2. Peak pharmacologic ECG with approximately 0.[address] segment depression in leads II, III, aVF, and V3 through V6 with subsequent resolution to baseline in recovery. 3. There were no cardiac dysrhythmias pretest, during pharmacologic infusion, or recovery. 4. Nuclear images pending Myocardial perfusion imaging study: Technique: The patient was injected with 11.5 millicuries of technetium 99m Cardiolite and subsequently rest SPECT Cardiolite nuclear imaging was obtained in the horizontal long, vertical long, and short axis views. The patient underwent pharmacologic (Regadenoson) evaluation with a peak heart rate of 122 beats per minute (86% percent predicted maximal heart rate) and a peak blood pressure of 144/72 mmHg. The patient was injected with 32.2 millicuries of technetium 99m Cardiolite and subsequently stress SPECT Cardiolite nuclear imaging was obtained in the horizontal long, vertical long, and short axis views. A gated Cardiolite study at peak stress was obtained. Interpretation: Rest and stress SPECT Cardiolite nuclear imaging status post realignment, normalization, and attenuation correction demonstrate relative uniform tracer uptake and myocardial perfusion appearing within normal limits. There is end systolic thickening and brightening. The gated Cardiolite study demonstrates myocardial thickening and inward wall motion. The reported LVEF is 95%. Impression: 1. Rest and stress SPECT Cardiolite nuclear imaging demonstrate relative uniform tracer uptake and myocardial perfusion appearing within normal limits. 2. The gated Cardiolite study reports an LVEF of 95%. This note was generated with LocalSort software. It may contain incorrect words, spelling, and punctuation that were not noted in checking the note before signing.
== END ==
PROVIDERS: PCP Family Medicine; Referring Provider Internal Medicine Cardiovascular Disease; Visit Provider Internal Medicine Cardiovascular Disease
DX: I48.91 Unspecified atrial fibrillation (principal); R94.31 Abnormal electrocardiogram [ECG] [EKG]
CPT/HCPCS: 78452; 93017; A9500; A4216; J2785

== ENCOUNTER → 2022-02-12 | Outpatient (CLI) | payer MEDICARE, SELFPAY ==
[2022-02-12 13:22] LABS: Anion Gap 4 (5-15); BUN 13 mg/dL (7-18); BUN/Creat Ratio 19.5 RATIO (10-20); Calcium,Total 9.3 mg/dL (8.5-10.1); Chloride 104 mmol/L (98-107); Creatinine, Serum 0.67 mg/dL (0.55-1.02); EST Glomerular Filtration Rate 91 mL/min (>60); Est Glom Filt Rate - Afr Amer 110 mL/min (>60); Glucose 125 mg/dL (74-106); Magnesium 2.3 mg/dL (1.6-2.6); Potassium 4.2 mmol/L (3.5-5.1); Sodium Level 138 mmol/L (136-145)
== END | disposition home or self-care (01) ==
PROVIDERS: PCP Family Medicine; Referring Provider Internal Medicine Cardiovascular Disease; Visit Provider Internal Medicine Cardiovascular Disease
DX: I48.0 Paroxysmal atrial fibrillation (principal)
CPT/HCPCS: 36415; 80048; 83735

== ENCOUNTER → 2023-02-14 | Outpatient (CLI) | payer MEDICARE, SELFPAY ==
[2023-02-14 16:28] LABS: Absolute Lymphocyte Count 2.87 X10^3/uL (0.83-4.51); Absolute Neutrophil Count 2.3 X10^3/uL (2.0-7.7); Basophil# 0.04 X10^3/uL; Basophil% 0.7 % (0-1); Eosinophil# 0.15 X10^3/uL; Eosinophils% 2.6 % (0-5); Hematocrit 40.8 % (37-47); Hemoglobin 12.8 g/dL (12.0-15.0); Lymphocyte # 2.87 X10^3/ul (0.83-4.51); Lymphocyte % 50.3 % (19-41); Mean Corp Hgb Conc 31.4 g/dL (32-36); Mean Corpuscular Volume 95.6 fL (81-99); Mean Platelet Vol. 9.8 fl (6.2-12.0); Monocyte# 0.38 X10^3/uL; Monocyte% 6.7 % (0-10); NRBC Flagged by Analyzer 0 % (0-5); Neutrophil # 2.26 X10^3/uL (2.7-7.7); Neutrophil % 39.5 % (47-70); Platelet Count 272 K/mm3 (150-450); RBC Distribution Width CV 12.1 % (11.6-14.6); RBC Distribution Width SD 42.6 fl (35.1-43.9); Red Blood Count 4.27 M/mm3 (4.2-5.4); White Blood Count 5.7 K/mm3 (4.4-11.0)
== END | disposition home or self-care (01) ==
LOC: LAB 15:54
PROVIDERS: PCP Family Medicine; Referring Provider Physician Assistant Medical; Visit Provider Physician Assistant Medical
DX: I48.91 Unspecified atrial fibrillation (principal)
CPT/HCPCS: 36415; 85025

== ENCOUNTER 2023-07-23 03:15 | Emergency (ER) | payer MEDICARE, SELFPAY ==
[2023-07-23 03:17] VITALS: BP 153/72; PULSE 71; RESP 16; TEMP 36.1; O2SAT 97; BMI 19.2
--- NOTE | 2023-07-23 03:21 | EKG12_ITS ---
Test Reason : DYSRHYTHMIA Blood Pressure : / mmHG Vent. Rate : 069 BPM Atrial Rate : 069 BPM P-R Int : 152 ms QRS Dur : 088 ms QT Int : 396 ms P-R-T Axes : 079 -12 064 degrees QTc Int : 424 ms Normal sinus rhythm Normal ECG Confirmed by MEHRDAD GRACIA, EMA ([id number]), assistant film editor ARSALAN MARKS ([id number]) on 08/02/2023 8:48:26 AM Referred By: LIZBETH Confirmed By:EMA CRONIN MD
[2023-07-23 03:42] LABS: Absolute Lymphocyte Count 3.56 X10^3/uL (0.83-4.51); Absolute Neutrophil Count 2.2 X10^3/uL (2.0-7.7); Basophil# 0.06 X10^3/uL; Basophil% 0.9 % (0-1); Eosinophil# 0.25 X10^3/uL; Eosinophils% 3.9 % (0-5); Hematocrit 41.6 % (37-47); Lymphocyte # 3.56 X10^3/ul (0.83-4.51); Lymphocyte % 55.1 % (19-41); Mean Corp Hgb Conc 31.3 g/dL (32-36); Mean Corpuscular Hgb 29.5 pg (27.0-32.0); Mean Corpuscular Volume 94.3 fL (81-99); Mean Platelet Vol. 9.8 fl (6.2-12.0); Monocyte# 0.43 X10^3/uL; Monocyte% 6.7 % (0-10); NRBC Flagged by Analyzer 0 % (0-5); Neutrophil # 2.15 X10^3/uL (2.7-7.7); Neutrophil % 33.2 % (47-70); Platelet Count 265 K/mm3 (150-450); RBC Distribution Width CV 11.9 % (11.6-14.6); RBC Distribution Width SD 41.6 fl (35.1-43.9); Red Blood Count 4.41 M/mm3 (4.2-5.4); White Blood Count 6.5 K/mm3 (4.4-11.0)
--- NOTE | 2023-07-23 03:45 | RAD_ITS ---
INDICATION: chest pain EXAMINATION/TECHNIQUE: X-RAY - XR Chest 1 View COMPARISON: Prior study dated: 09/29/2020 FINDINGS: LINES/DEVICES: Cardiac leads overlie the chest. LUNGS: The lungs are hyperexpanded. No consolidation, edema or effusion. No pneumothorax. MEDIASTINUM AND CARDIOVASCULAR STRUCTURES: Cardiac silhouette not enlarged. Central airways and mediastinal contour are unremarkable. BONES AND SOFT TISSUES: No acute abnormality. RAD/Chest 1 View (Portable) IMPRESSION: No acute pulmonary finding. Electronically Signed: Sonu De La Rosa MD at 4:26 EST ,
[2023-07-23 03:52] LABS: International Normalized Ratio 1.2; Prothrombin Time (Protime)PT. 15.4 SECONDS (11.7-14.9)
[2023-07-23 04:00] LABS: Anion Gap 6 (5-15); BUN 17 mg/dL (7-18); BUN/Creat Ratio 22.5 RATIO (10-20); Calcium,Total 9.3 mg/dL (8.5-10.1); Chloride 107 mmol/L (98-107); Creatinine, Serum 0.76 mg/dL (0.55-1.02); EST Glomerular Filtration Rate 78 mL/min (>60); Est Glom Filt Rate - Afr Amer 94 mL/min (>60); Estimated Creatinine Clearance 34.78 ml/min; Glucose 110 mg/dL (74-106); Potassium 3.5 mmol/L (3.5-5.1); Sodium Level 142 mmol/L (136-145); Troponin-I HS (w/2H Reflex) 6 pg/mL (3.0-54.0)
--- NOTE | 2023-07-23 04:29 | EX.ED.DYSGE1 ---
HPI History of Present Illness Chief Complaint: Palpitations Informant: patient Onset/Context/Timing Onset: Today Context: Sudden Onset Timing: Lasts (Approximately 90 minutes) Quality: Irregular Location: Chest Worsened by: Nothing Relieved by: Nothing Narrative Narrative: Patient presents with palpitations that began this morning. Patient states she woke up and felt like she was in atrial fibrillation. Patient states she has a history of paroxysmal atrial fibrillation. Patient states this lasted approxione and half hours. Patient states she felt her heart beating irregularly. Patient states nothing made it better nothing made it worse. Patient denies any chest pain or shortness of breath. Patient denies any nausea or vomiting. [facility] Medical History Atrial fibrillation with RVR Glaucoma Hypothyroidism PAF (paroxysmal atrial fibrillation) Home Medications levothyroxine 25 mcg tablet 25 mcg PO DAILY 09/29/20 [History Last Taken 09/28/20] latanoprost 0.005 % eye drops 1 drp ophthalmic (eye) DAILY 11/06/20 [History Last Taken Unknown] loratadine 10 mg tablet 10 mg PO DAILY 02/03/21 [History Last Taken Unknown] acetaminophen 325 mg tablet 325 mg PO ONCE PRN fever or pain 02/12/22 [History Last Taken Unknown] fluticasone propionate 50 mcg/actuation nasal spray,suspension 1 spray intranasal DAILY PRN allergy symptoms 02/12/22 [History Last Taken Unknown] metoprolol tartrate 25 mg tablet 25 mg PO BID #180 tabs 09/13/22 [Rx Last Taken Unknown] apixaban 5 mg tablet (Eliquis) 5 mg PO BID #60 tabs 01/27/23 [Rx Last Taken Unknown] Allergy/AdvReac Type Severity Reaction Status Date / Time oxytetracycline Allergy Unknown Verified 07/23/23 03:16 [From Terramycin] Penicillins Allergy Unknown Verified 07/23/23 03:16 Family History Mother Heart disease Paroxysmal atrial fibrillation Father Cancer Lung Sister Heart disease Surgical History History of cholecystectomy Social History Smoking Status: Never smoker alcohol intake: never substance use type: does not use caffeine: Yes Type: coffee Number of servings: 1 ROS ROS ED Constitutional Constitutional ED: Denies chills or fever(s) Eyes Eyes: Denies blurry vision or change in vision ENT ENT ED: Denies rhinorrhea or sore throat Cardiovascular Cardiovascular: Reports palpitations; Denies chest pain Respiratory/Chest Respiratory/Chest: Denies cough or dyspnea Gastrointestinal Gastrointestinal: Denies nausea or vomiting Genitourinary Genitourinary ED: Denies dysuria or hematuria Musculoskeletal Musculoskeletal: Denies back pain or neck pain Integumentary Denies abscess or rash Neurologic Neurologic: Denies headache(s) or weakness Allergic/Immunologic Allergic/Immunologic ED: Denies mouth swelling or urticaria EXAM Physical Exam Const Vital Signs: 07/23/23 03:17 07/23/23 06:06 07/23/23 06:07 Temperature 97 F L Temperature Source Temporal Pulse Rate 71 66 Respiratory Rate 16 16 Blood Pressure 153/72 H 118/66 Blood Pressure Mean 99 83 Pulse Ox 97 99 Oxygen Delivery Method Room Air 07/23/23 08:13 Temperature 97.6 F L Temperature Source Pulse Rate 64 Respiratory Rate 14 Blood Pressure 115/76 Blood Pressure Mean 89 Pulse Ox 98 Oxygen Delivery Method Positive well nourished and well developed General Appearance ED: well developed and NAD HEENT Reports moist mucous membranes Neck supple and no JVD Resp normal respiratory effort and clear to auscultation bilaterally Cardio regular rate and regular rhythm GI non-tender and non-distended Palpation: soft Neuro oriented x3, CN's II-XII intact bilaterally and no sensory deficits noted Sensorium / Orientation: alert Motor Exam: strength 5/5 throughout Psych mental status grossly normal MDM MDM MDM Narrative Medical decision making narrative: Differential diagnosis includes cardiac dysrhythmia, cardiac ischemia, electrolyte abnormality, pneumonia, anemia, and anxiety. EKG will be obtained to assess for cardiac dysrhythmia and cardiac ischemia. Chest x-ray will be obtained to assess for pneumonia and pneumothorax. CBC will be obtained to assess for leukocytosis and anemia. PT with INR will be obtained to assess for coagulopathy. Basic metabolic profile will be obtained to assess for electrolyte abnormality and renal function. High-sensitivity troponin will be obtained to assess for cardiac ischemia. 2-hour repeat high-sensitivity troponin will be obtained to assess for ongoing cardiac ischemia. Lab Data Attestation: I reviewed the patient's lab results. Lab results narrative: CBC was reviewed and was within normal limits. PT was INR was reviewed. Pro time was 15.4 and INR is 1.2. Basic metabolic profile was reviewed and was within normal limits. High-sensitivity troponin was reviewed and was normal at 6. 2-hour repeat high-sensitivity troponin was reviewed and was normal at 10. Labs: Laboratory Results - last 24 hr 07/23/23 07/23/23 03:34 06:00 WBC 6.5 RBC 4.41 Hgb 13.0 Hct 41.6 MCV 94.3 MCH 29.5 MCHC 31.3 L RDW Std Deviation 41.6 RDW Coeff of Namita 11.9 Plt Count 265 MPV 9.8 Immature Gran % (Auto) 0.200 Neut % (Auto) 33.2 L Lymph % (Auto) 55.1 H [place] % (Auto) 6.7 Eos % (Auto) 3.9 Baso % (Auto) 0.9 Absolute Neuts (auto) 2.2 Absolute Lymphs (auto) 3.56 Nucleated RBC % 0 PT 15.4 H INR 1.2 Sodium 142 Potassium 3.5 Chloride 107 Carbon Dioxide 29.0 Anion Gap 6 BUN 17 Creatinine 0.76 Estim Creat Clear Calc 34.78 Est GFR (MDRD) Af Amer 94 Est GFR (MDRD) Non-Af 78 BUN/Creatinine Ratio 22.5 H Glucose 110 H Calcium 9.3 Troponin I High Sens 6 10 Radiography Chest X-Ray - ED: 1 View, Read by ED Physician, Read by Radiologist and No Acute Disease Diagnostic Testing: Clinical Impression(s) from Imaging Studies Chest X-Ray 07/23/23 03:45 IMPRESSION: No acute pulmonary finding. Electronically Signed: Sonu De La Rosa MD at 4:26 EST , Portable 1 view chest x-ray was obtained. On my independent interpretation, lung mendoza are clear. There is normal cardiac silhouette. Bony thorax is normal. There is no acute process noted. Radiologist also interpreted the x-ray and agrees. EKG Initial EKG: Attestation: I personally reviewed and interpreted this EKG as follows: Interpretation: Sinus Rhythm (69) and No Acute Injury Pattern Comments: EKG was obtained. On my independent interpretation, it showed a normal sinus rhythm with a rate of 69. [place] interval, QRS interval, and QTc intervals were all normal. [address] was normal. There are no acute ST or T wave changes. Prior EKG tracings: available for review Prior: Unchanged (11/06/2020) Treatment and Re-Evaluation :: Patient was advised of her findings. Patient remained in normal sinus rhythm during her entire emergency department visit. Patient was advised to follow-up with her primary care physician and triage technician in 5 to 7 days. Patient was instructed return if worse in any way. Patient understood and was agreeable with the plan. All questions were answered. Discharge Plan Triage Chief Complaint: Palpitations ED Provider: Josemanuel Barbosa Dx/Rx/DC Orders Clinical Impression: PAF (paroxysmal atrial fibrillation), Heart palpitations Instructions: ED AFIB Prescriptions: No Action latanoprost 0.005 % drops 1 drp OPHTHALMIC DAILY loratadine 10 mg tablet 10 mg PO DAILY fluticasone propionate 50 mcg/actuation spray,suspension 1 spray intranasal DAILY PRN (Reason: allergy symptoms) acetaminophen 325 mg tablet 325 mg PO ONCE PRN (Reason: fever or pain) levothyroxine 25 MCG tablet 25 mcg PO DAILY metoprolol tartrate 25 mg tablet 25 mg PO BID Qty: 180 3RF Eliquis 5 mg tablet 5 mg PO BID Qty: 60 11RF Primary Care Provider: Adolph Omer Referrals: Adolph Omer MD [Primary Care Provider] - 5-7 Days Disposition Disposition: Home, Self Care Discharge Date/Time: 07/23/23 08:14
[2023-07-23 05:39] LABS: Reflex Troponin-HS? (from REC) Y
[2023-07-23 06:07] VITALS: BP 118/66; PULSE 66; RESP 16; O2SAT 99
[2023-07-23 06:32] LABS: Troponin-I HS 10 pg/mL (3.0-54.0)
[2023-07-23 08:13] VITALS: BP 115/76; PULSE 64; RESP 14; TEMP 36.4; O2SAT 98
== END 2023-07-23 08:14 | disposition home or self-care (01) ==
PROVIDERS: Emergency Provider Emergency Medicine; PCP Family Medicine; Visit Provider Emergency Medicine
DX: I48.0 Paroxysmal atrial fibrillation (principal); E03.9 Hypothyroidism, unspecified; Z79.01 Long term (current) use of anticoagulants; Z79.890 Hormone replacement therapy; Z79.899 Other long term (current) drug therapy
CPT/HCPCS: 71045; 80048; 84484; 85025; 85610; 93005; 99284; A4216

== ENCOUNTER → 2024-02-08 | Outpatient (CLI) | payer MEDICARE, SELFPAY ==
[2024-02-08 13:16] LABS: Absolute Lymphocyte Count 2.12 X10^3/uL (0.83-4.51); Absolute Neutrophil Count 2.3 X10^3/uL (2.0-7.7); Basophil# 0.03 X10^3/uL; Basophil% 0.6 % (0-1); Eosinophil# 0.11 X10^3/uL; Eosinophils% 2.2 % (0-5); Hemoglobin 12.8 g/dL (12.0-15.0); Lymphocyte # 2.12 X10^3/ul (0.83-4.51); Lymphocyte % 42.4 % (19-41); Mean Corpuscular Hgb 29.9 pg (27.0-32.0); Mean Corpuscular Volume 93.5 fL (81-99); Mean Platelet Vol. 10.2 fl (6.2-12.0); Monocyte# 0.37 X10^3/uL; Monocyte% 7.4 % (0-10); NRBC Flagged by Analyzer 0 % (0-5); Neutrophil # 2.34 X10^3/uL (2.7-7.7); Neutrophil % 46.8 % (47-70); Platelet Count 249 K/mm3 (150-450); RBC Distribution Width SD 41.2 fl (35.1-43.9); Red Blood Count 4.28 M/mm3 (4.2-5.4)
[2024-02-08 13:52] LABS: Anion Gap 5 (5-15); BUN 14 mg/dL (7-18); BUN/Creat Ratio 19.5 RATIO (10-20); Calcium,Total 9.3 mg/dL (8.5-10.1); Chloride 103 mmol/L (98-107); Creatinine, Serum 0.72 mg/dL (0.55-1.02); EST Glomerular Filtration Rate 83 mL/min (>60); Est Glom Filt Rate - Afr Amer 100 mL/min (>60); Glucose 97 mg/dL (74-106); Potassium 4.9 mmol/L (3.5-5.1); Sodium Level 137 mmol/L (136-145)
== END | disposition home or self-care (01) ==
PROVIDERS: PCP Family Medicine; Referring Provider Internal Medicine Cardiovascular Disease; Visit Provider Internal Medicine Cardiovascular Disease
DX: I48.0 Paroxysmal atrial fibrillation (principal)
CPT/HCPCS: 36415; 80048; 85025

== ENCOUNTER 2024-08-05 02:48 | Emergency (ER) | payer MEDICARE, SELFPAY ==
[2024-08-05 02:49] VITALS: BP 154/97; PULSE 122; RESP 16; TEMP 36.6; O2SAT 96; BMI 17.6
--- NOTE | 2024-08-05 03:11 | EKG12_ITS ---
Test Reason : PALPS Blood Pressure : */* mmHG Vent. Rate : 104 BPM Atrial Rate : * BPM P-R Int : * ms QRS Dur : 74 ms QT Int : 350 ms P-R-T Axes : * 24 62 degrees QTcB Int : 460 ms Atrial fibrillation with rapid ventricular response Nonspecific ST abnormality Abnormal ECG When compared with ECG of 23-Jul-2023 03:20, Atrial fibrillation has replaced Sinus rhythm Vent. rate has increased by 35 bpm Confirmed by Juan Manuel Abebe ([id number]), assistant editor DESTINI TOVAR ([id number]) on 08/07/2024 1:32:07 PM Referred By: Confirmed By: Juan Manuel Abebe
[2024-08-05 03:18] LABS: Absolute Lymphocyte Count 3.72 X10^3/uL (0.83-4.51); Basophil# 0.06 X10^3/uL; Basophil% 0.9 % (0-1); Eosinophils% 3.1 % (0-5); Hematocrit 39.8 % (37-47); Hemoglobin 13.1 g/dL (12.0-15.0); Lymphocyte # 3.72 X10^3/ul (0.83-4.51); Lymphocyte % 58.4 % (19-41); Mean Corp Hgb Conc 32.9 g/dL (32-36); Mean Corpuscular Hgb 30.3 pg (27.0-32.0); Mean Corpuscular Volume 91.9 fL (81-99); Mean Platelet Vol. 9.9 fl (6.2-12.0); Monocyte# 0.41 X10^3/uL; Monocyte% 6.4 % (0-10); NRBC Flagged by Analyzer 0 % (0-5); Neutrophil # 1.97 X10^3/uL (2.7-7.7); Platelet Count 254 K/mm3 (150-450); RBC Distribution Width CV 11.9 % (11.6-14.6); RBC Distribution Width SD 40.5 fl (35.1-43.9); Red Blood Count 4.33 M/mm3 (4.2-5.4); White Blood Count 6.4 K/mm3 (4.4-11.0)
[2024-08-05 03:22] VITALS: BP 125/75; PULSE 96
[2024-08-05] MEDS: dilTIAZem 25 MG/5 ML Vial 15 MG IV BOLUS (03:23)
[2024-08-05] MEDS: 0.9% Normal Saline (1000mL) 1,000 ML 999 ML IV (03:24)
[2024-08-05 03:28] VITALS: BP 87/57; PULSE 67; RESP 20; O2SAT 97
[2024-08-05 03:30] VITALS: BP 93/58; PULSE 69; RESP 23; O2SAT 97
[2024-08-05 03:43] LABS: Anion Gap 4 (5-15); BUN 11 mg/dL (7-18); BUN/Creat Ratio 14.5 RATIO (10-20); Calcium,Total 9.6 mg/dL (8.5-10.1); Chloride 108 mmol/L (98-107); Creatinine, Serum 0.76 mg/dL (0.55-1.02); EST Glomerular Filtration Rate 77 mL/min (>60); Est Glom Filt Rate - Afr Amer 93 mL/min (>60); Estimated Creatinine Clearance 40.54 ml/min; Glucose 132 mg/dL (74-106); Magnesium 2.3 mg/dL (1.6-2.6); Potassium 3.3 mmol/L (3.5-5.1); Sodium Level 142 mmol/L (136-145)
--- NOTE | 2024-08-05 04:38 | EDS_ITS ---
HPI History of Present Illness Chief Complaint: Palpitations Informant: patient and spouse/S.O. Narrative Narrative: Patient is an 84-year-old female with past medical history of paroxysmal atrial fibrillation currently on Eliquis and hypothyroidism. She states she awoke this evening to go to the bathroom and after laying back down began to feel like her heart was racing and skipping beats. She states that her honing machine operator semiautomatic informed her when this occurs she can take another half dose of her metoprolol. She states she did this but there was no resolution of her symptoms and therefore she comes in for evaluation. Patient states that prior to the palpitations beginning she is felt normal and denies any recent fevers chills nausea vomiting diarrhea or known sick contacts [facility] Medical History Hypothyroidism PAF (paroxysmal atrial fibrillation) Atrial fibrillation with RVR Glaucoma Home Medications ?Medication ?Instructions ?Recorded ?Last Taken ?Type levothyroxine 25 mcg tablet 25 mcg PO DAILY 09/29/20 09/28/20 History latanoprost 0.005 % eye drops 1 drp ophthalmic (eye) DAILY 11/06/20 Unknown History acetaminophen 325 mg tablet 325 mg PO ONCE PRN fever or pain 02/12/22 Unknown History loratadine 10 mg tablet 10 mg PO DAILY PRN allergy symptoms 08/12/23 Unknown History apixaban 5 mg tablet (Eliquis) 5 mg PO BID #60 tabs 01/24/24 Unknown Rx metoprolol tartrate 50 mg tablet 25 mg (1/2 x 50 mg) PO BID #90 tabs 07/02/24 Unknown Rx Allergy/AdvReac Type Severity Reaction Status Date / Time oxytetracycline (From Allergy Unknown Verified 08/05/24 02:55 Terramycin) Penicillins Allergy Unknown Verified 08/05/24 02:55 Family History Mother Heart disease Paroxysmal atrial fibrillation Father Cancer Lung Sister Heart disease Surgical History History of cholecystectomy Social History Smoking Status: Never smoker alcohol intake: never substance use type: does not use caffeine: Yes Type: coffee Number of servings: 1 ROS ROS ED Constitutional Constitutional ED: Denies chills or fever(s) Eyes Eyes: Denies blurry vision or change in vision ENT ENT ED: Denies sore throat Cardiovascular Cardiovascular: Reports palpitations and racing heartbeat; Denies chest pain Respiratory/Chest Respiratory/Chest: Denies cough or dyspnea Gastrointestinal Gastrointestinal: Denies abdominal pain, diarrhea, nausea or vomiting Genitourinary Genitourinary ED: Denies dysuria Musculoskeletal Musculoskeletal: Denies myalgias Integumentary Denies rash Neurologic Neurologic: Denies headache(s) Hematologic/Lymphatic Hematologic/Lymphatic: Reports easy bleeding and easy bruising EXAM Physical Exam Const Vital Signs: 08/05/24 02:49 08/05/24 03:22 08/05/24 03:28 Temperature 97.8 F Temperature Source Oral Pulse Rate 122 H 96 67 Respiratory Rate 16 20 H Blood Pressure 154/97 H 125/75 H 87/57 L Blood Pressure Mean 116 91 67 Pulse Ox 96 97 Oxygen Delivery Method Room Air Room Air 08/05/24 03:30 Temperature Temperature Source Pulse Rate 69 Respiratory Rate 23 H Blood Pressure 93/58 L Blood Pressure Mean 69 Pulse Ox 97 Oxygen Delivery Method Room Air Positive well nourished and well developed General Appearance ED: well developed; Negative for pallor HEENT HEENT Narrative: Normocephalic atraumatic Eyes PERRL and EOMs intact bilaterally General Eye ED: Negative for scleral icterus Neck supple Resp normal respiratory effort and clear to auscultation bilaterally Cardio Rate: other Other Details: Irregularly irregular rhythm with slightly tachycardic rate consistent with atrial fibrillation GI normal to inspection, nondistended, normoactive bowel sounds, non-tender, non- distended and no masses Auscultation: normoactive bowel sounds Palpation: soft Extremity normal to inspection Extremity Narrative: No asymmetric edema no pitting edema negative Homans' sign bilaterally Neuro oriented x3, CN's II-XII intact bilaterally and no sensory deficits noted Sensorium / Orientation: alert Motor Exam: strength 5/5 throughout Psych mental status grossly normal Skin no rashes or lesions noted General Skin Exam: Negative for jaundice or pallor MDM MDM MDM Narrative Medical decision making narrative: Patient arrived to the ER mildly hypertensive and tachycardic. EKG displayed atrial fibrillation technically with RVR as she was over 100. However chart review reveals she does have a past medical history of this. In order to check for potential cause such as acute blood loss anemia acute kidney injury or electrolyte abnormality basic labs were obtained. Labs revealed no clinically significant finding. As patient is currently on metoprolol and had a bout of breakthrough A-fib I did elect to give her a dose of Cardizem. Cardizem reduce the heart rate but despite washing the patient in the ER for 1 to 2 hours the there was no spontaneous conversion. I discussed electrical synchronized cardioversion with the patient. She is hemodynamically stable and mentating normally and she is low risk for clot formation/stroke or PE as she is on Eliquis. Therefore this time we will hold off on performing cardioversion and have her take her metoprolol at home to control her heart rate and see if she converts spontaneously over the next few days. Plan of care was discussed with patient and significant other and they are agreeable to it History & Record Review Discussion w/independent historian: Patient and Significant other Lab Data Attestation: I reviewed the patient's lab results. Labs: Laboratory Results - last 24 hr 08/05/24 03:06 WBC 6.4 RBC 4.33 Hgb 13.1 Hct 39.8 MCV 91.9 MCH 30.3 MCHC 32.9 RDW Std Deviation 40.5 RDW Coeff of Namita 11.9 Plt Count 254 MPV 9.9 Immature Gran % (Auto) 0.200 Neut % (Auto) 31.0 L Lymph % (Auto) 58.4 H [place] % (Auto) 6.4 Eos % (Auto) 3.1 Baso % (Auto) 0.9 Absolute Neuts (auto) 2.0 Absolute Lymphs (auto) 3.72 Nucleated RBC % 0 Sodium 142 Potassium 3.3 L Chloride 108 H Carbon Dioxide 31.0 Anion Gap 4 L BUN 11 Creatinine 0.76 Estim Creat Clear Calc 40.54 Est GFR (MDRD) Af Amer 93 Est GFR (MDRD) Non-Af 77 BUN/Creatinine Ratio 14.5 Glucose 132 H Calcium 9.6 Magnesium 2.3 TSH 7.060 H Discharge Plan Triage Chief Complaint: Palpitations ED Provider: Tai Clark Dx/Rx/DC Orders Clinical Impression: PAF (paroxysmal atrial fibrillation), Hypothyroidism, Current use of intermediate project manager anticoagulation Instructions: AFib Dc Prescriptions: No Action latanoprost 0.005 % drops 1 drp OPHTHALMIC DAILY loratadine 10 mg tablet 10 mg PO DAILY PRN (Reason: allergy symptoms) acetaminophen 325 mg tablet 325 mg PO ONCE PRN (Reason: fever or pain) levothyroxine 25 MCG tablet 25 mcg PO DAILY Eliquis 5 mg tablet 5 mg PO BID Qty: 60 11RF metoprolol tartrate 50 mg tablet 25 mg PO BID Qty: 90 3RF Primary Care Provider: Adolph Omer Referrals: Adolph Omer MD [Primary Care Provider] - Juan Manuel Abebe MD [Med Staff - Active Staff] - Activity Restrictions/Additional Instructions: For the next 2 or 3 days please increase your metoprolol/heart medication to 3 times a day in order to help control your heart rate and hopefully lead to spo ntaneous cardioversion. If adding the extra dose of your heart medication makes you feel lightheaded or weak then you may go back to the twice a day dosing. Please follow-up with your honing machine operator semiautomatic for repeat evaluation and return to the ER should you have any further concern Print Language: Faroese Disposition Disposition: Home, Self Care
[2024-08-05 04:49] VITALS: BP 102/52; PULSE 65; RESP 16; TEMP 36.6; O2SAT 97
== END 2024-08-05 04:52 | disposition home or self-care (01) ==
PROVIDERS: Emergency Provider Emergency Medicine; PCP Family Medicine; Visit Provider Emergency Medicine
DX: I48.0 Paroxysmal atrial fibrillation (principal); E03.9 Hypothyroidism, unspecified; H40.9 Unspecified glaucoma; Z79.01 Long term (current) use of anticoagulants; Z79.890 Hormone replacement therapy; Z79.899 Other long term (current) drug therapy
CPT/HCPCS: 80048; 83735; 84443; 85025; 93005; 96361; 96374; 99283; A4216

== ENCOUNTER 2024-10-11 03:40 | Emergency (ER) | payer MEDICARE, SELFPAY ==
[2024-10-11 03:42] VITALS: BP 155/81; PULSE 122; RESP 16; TEMP 36.5; O2SAT 98; BMI 17.7
--- NOTE | 2024-10-11 04:15 | EKG12_ITS ---
Test Reason : Blood Pressure : */* mmHG Vent. Rate : 109 BPM Atrial Rate : * BPM P-R Int : * ms QRS Dur : 86 ms QT Int : 328 ms P-R-T Axes : * -3 64 degrees QTcB Int : 441 ms Atrial fibrillation with rapid ventricular response with premature ventricular or aberrantly conducted complexes Nonspecific ST abnormality Abnormal ECG Confirmed by ELIZABETH GRACIA, TC ([id number]), editor trade journal DESTINI TOVAR ([id number]) on 10/15/2024 10:54:12 AM Referred By: Confirmed By: TC JOHNSON MD
--- NOTE | 2024-10-11 04:30 | RAD_ITS ---
PROCEDURE: CHEST PA AND LATERAL REASON FOR EXAM: PALPITATIONS TECHNIQUE: Frontal and lateral views of the chest. COMPARISON: Chest x-ray dated 07/23/2023. FINDINGS: The lungs are hyperlucent and hyperexpanded. This may be due to COPD type changes. This is stable finding. There is no pneumothorax. No focal consolidation is seen within the lungs. The cardiac silhouette is within normal limits. No acute osseous abnormalities identified. RAD/Chest PA and Lateral IMPRESSION: No new infiltrate or consolidation is seen within the lungs. Reading Location: [id number]
[2024-10-11 04:41] VITALS: BP 113/78; PULSE 108; RESP 16; O2SAT 97
[2024-10-11 04:46] LABS: Absolute Lymphocyte Count 3.99 X10^3/uL (0.83-4.51); Absolute Neutrophil Count 1.9 X10^3/uL (2.0-7.7); Basophil# 0.06 X10^3/uL; Basophil% 0.9 % (0-1); Eosinophil# 0.24 X10^3/uL; Eosinophils% 3.6 % (0-5); Hematocrit 41.2 % (37-47); Hemoglobin 13.3 g/dL (12.0-15.0); Lymphocyte # 3.99 X10^3/ul (0.83-4.51); Lymphocyte % 60.2 % (19-41); Mean Corp Hgb Conc 32.3 g/dL (32-36); Mean Corpuscular Hgb 29.9 pg (27.0-32.0); Mean Corpuscular Volume 92.6 fL (81-99); Mean Platelet Vol. 10.5 fl (6.2-12.0); Monocyte# 0.47 X10^3/uL; Monocyte% 7.1 % (0-10); NRBC Flagged by Analyzer 0 % (0-5); Neutrophil # 1.86 X10^3/uL (2.7-7.7); Platelet Count 284 K/mm3 (150-450); RBC Distribution Width SD 40.9 fl (35.1-43.9); Red Blood Count 4.45 M/mm3 (4.2-5.4); White Blood Count 6.6 K/mm3 (4.4-11.0)
[2024-10-11 05:00] VITALS: BP 111/72; PULSE 97; RESP 18; O2SAT 96
[2024-10-11] MEDS: Metoprolol Tartrate 5 MG/5 ML Vial IV ×2 (05:05→05:22)
[2024-10-11 05:21] VITALS: BP 116/73; PULSE 95; RESP 16; O2SAT 97
--- NOTE | 2024-10-11 05:24 | EX.ED.DYSGE1 ---
HPI History of Present Illness Chief Complaint: Palpitations Informant: patient Narrative Narrative: Patient is a 4-year-old female with history of hypothyroidism and proximal atrial fibrillation presenting with palpitations. Patient states she got up to use restroom tonight and felt that her heart was racing. She took an extra dose of her metoprolol (25 mg) but continued to feel that her heart was going fast. She is also on Eliquis states has been compliant. She states she has had similar episodes in the past and had come to the ER for rate control. She denies associated chest pain, shortness of breath or swelling of her legs. She states she has been in her normal state of health and overall been feeling well. States she was actually quite active yesterday. She did have an increased 2 months ago of her thyroid medication from 20 to 50 mcg. States she had labs on Tuesday for this but does not know the results. No other complaints or concerns reported at this time. Prior similar symptoms: Yes [facility] Medical History Hypothyroidism PAF (paroxysmal atrial fibrillation) Atrial fibrillation with RVR Glaucoma Home Medications ?Medication ?Instructions ?Recorded ?Last Taken ?Type latanoprost 0.005 % eye drops 1 drp ophthalmic (eye) DAILY 11/06/20 Unknown History acetaminophen 325 mg tablet 325 mg PO ONCE PRN fever or pain 02/12/22 Unknown History loratadine 10 mg tablet 10 mg PO DAILY PRN allergy symptoms 08/12/23 Unknown History apixaban 5 mg tablet (Eliquis) 5 mg PO BID #60 tabs 01/24/24 Unknown Rx metoprolol tartrate 50 mg tablet 25 mg (1/2 x 50 mg) PO BID #90 tabs 07/02/24 Unknown Rx levothyroxine 50 mcg tablet 50 mcg PO DAILY 10/11/24 Unknown History Allergy/AdvReac Type Severity Reaction Status Date / Time oxytetracycline (From Allergy Unknown Verified 10/11/24 03:41 Terramycin) Penicillins Allergy Unknown Verified 10/11/24 03:41 Family History Mother Heart disease Paroxysmal atrial fibrillation Father Cancer Lung Sister Heart disease Surgical History History of cholecystectomy Social History Smoking Status: Never smoker alcohol intake: never substance use type: does not use caffeine: Yes Type: coffee Number of servings: 1 ROS ROS ED Constitutional Constitutional ED: Denies chills or fever(s) Eyes Eyes: Denies blurry vision Cardiovascular Cardiovascular: Reports palpitations and racing heartbeat; Denies chest pain Respiratory/Chest Respiratory/Chest: Denies cough or dyspnea Gastrointestinal Gastrointestinal: Denies abdominal pain, nausea or vomiting Neurologic Neurologic: Denies paresthesias or weakness Hematologic/Lymphatic Hematologic/Lymphatic: Reports easy bleeding, easy bruising and other Details: On Eliquis EXAM Physical Exam Const Vital Signs: 10/11/24 03:42 10/11/24 03:46 10/11/24 04:41 Temperature 97.7 F L Temperature Source Oral Pulse Rate 122 H 108 H Respiratory Rate 16 16 Respiratory Effort Normal Non-Labored Respiratory Pattern Normal Blood Pressure 155/81 H 113/78 Blood Pressure Mean 105 89 Pulse Ox 98 97 Oxygen Delivery Method Room Air Room Air 10/11/24 05:00 10/11/24 05:21 10/11/24 06:00 Temperature Temperature Source Pulse Rate 97 95 89 Respiratory Rate 18 16 16 Respiratory Effort Respiratory Pattern Blood Pressure 111/72 116/73 112/78 Blood Pressure Mean 85 87 89 Pulse Ox 96 97 96 Oxygen Delivery Method Room Air Room Air Room Air Positive well nourished and well developed General Appearance ED: well developed and NAD; Negative for pallor HEENT Reports moist mucous membranes Eyes PERRL Neck supple and no JVD Chest Wall inspection of chest normal and palpation of chest normal Resp normal respiratory effort and clear to auscultation bilaterally Auscultation: Negative for rales or rhonchi Cardio no murmurs Rate: tachycardic Rhythm: abnormal rhythm irregularly irregular GI normal to inspection, nondistended, normoactive bowel sounds and non-tender Extremity normal to inspection General Extremety ED: Negative for edema General Extremity: Negative for edema Neuro oriented x3 Sensorium / Orientation: alert Motor Exam: Negative for general weakness Psych mental status grossly normal Mood & Affect: anxious Skin no rashes or lesions noted General Skin Exam: Negative for pallor MDM MDM MDM Narrative Medical decision making narrative: Patient evaluated for palpitations and racing heartbeat. She is tachycardic upon arrival and mildly hypertensive. She denies any chest pain, shortness of breath or other associated symptoms. Differential includes atrial fibrillation with RVR, symptomatic anemia, dehydration, thyroid abnormality, SILVINA. EKG does not show any ischemic changes low suspicion for ACS. Patient is given IV metoprolol for further rate control. Will obtain basic labs include CBC and BMP and reevaluate. Patient received 2 doses of 5 mg IV metoprolol. She is improvement of her heart rate. It remains asymptomatic. Has no chest pain. Workup largely normal and her TSH is now normalized. Two-view chest x-ray viewed by myself as well as radiology does not show any acute process. She is not have any electrolyte abnormalities. Case discussed with cardiology, Dr. Abebe, who recommends increasing her metoprolol to 50 mg twice daily and close outpatient follow-up. Patient is agreeable with this. Is discharged home in improved and stable condition. Is given return precautions History & Record Review Additional record(s) reviewed:: Prior outpatient record (Cardiology visit from 08/22/2024-plan to take additional dose of metoprolol if recurrence of A-fib with fast heart rate. Can consider antiarrhythmic if this continue) Lab Data Attestation: I reviewed the patient's lab results. Labs: Laboratory Results - last 24 hr 10/11/24 03:48 WBC 6.6 RBC 4.45 Hgb 13.3 Hct 41.2 MCV 92.6 MCH 29.9 MCHC 32.3 RDW Std Deviation 40.9 RDW Coeff of Namita 12.0 Plt Count 284 MPV 10.5 Immature Gran % (Auto) 0.200 Neut % (Auto) 28.0 L Lymph % (Auto) 60.2 H [place] % (Auto) 7.1 Eos % (Auto) 3.6 Baso % (Auto) 0.9 Absolute Neuts (auto) 1.9 L Absolute Lymphs (auto) 3.99 Nucleated RBC % 0 Sodium 142 Potassium 3.3 Chloride 102 Carbon Dioxide 24.6 Anion Gap 15 BUN 16 Creatinine 0.85 Estim Creat Clear Calc 38.24 L Est GFR (MDRD) Non-Af 68 BUN/Creatinine Ratio 18.3 Glucose 142 H Calcium 9.6 Magnesium 2.2 TSH 2.820 Radiography Diagnostic Testing: Clinical Impression(s) from Imaging Studies Chest X-Ray 10/11/24 04:30 IMPRESSION: No new infiltrate or consolidation is seen within the lungs. Reading Location: [id number] Rhythm Strip Rhythm Strip: A-fib Rate: 109 Ectopy: PVC(s) EKG Initial EKG: Attestation: I personally reviewed and interpreted this EKG as follows: Interpretation: Atrial Fibrillation Comments: Atrial fibrillation at a rate of 109 bpm Normal axis PVC present Normal QRS and QTc Normal ST segments Prior EKG tracings: available for review Prior: Unchanged Discharge Plan Triage Chief Complaint: Palpitations ED Provider: Brittany Jimenez Dx/Rx/DC Orders Clinical Impression: PAF (paroxysmal atrial fibrillation) Instructions: ED AFIB Prescriptions: No Action latanoprost 0.005 % drops 1 drp OPHTHALMIC DAILY loratadine 10 mg tablet 10 mg PO DAILY PRN (Reason: allergy symptoms) acetaminophen 325 mg tablet 325 mg PO ONCE PRN (Reason: fever or pain) levothyroxine 50 mcg tablet 50 mcg PO DAILY Eliquis 5 mg tablet 5 mg PO BID Qty: 60 11RF metoprolol tartrate 50 mg tablet 25 mg PO BID Qty: 90 3RF Primary Care Provider: Sebastian Teixeira Referrals: Sebastian Teixeira MD [Primary Care Provider] - Juan Manuel Abebe MD [Med Staff - Active Staff] - Activity Restrictions/Additional Instructions: Please increase your metoprolol to 50 mg (1 entire tablet) twice a day. Call the cardiology office later this afternoon to set an appointment for close follow-up. Let them know you are seen in the ER and Dr. Abebe wanted you seen soon. Print Language: Lao Disposition Disposition: Home, Self Care
[2024-10-11 06:00] VITALS: BP 112/78; PULSE 89; RESP 16; O2SAT 96
[2024-10-11 06:08] LABS: Anion Gap 15 (5-15); BUN 16 mg/dL (4-19); BUN/Creat Ratio 18.3 RATIO (10-20); Calcium,Total 9.6 mg/dL (7.6-11.0); Carbon Dioxide 24.6 mmol/L (21.0-32.0); Chloride 102 mmol/L (98-108); Creatinine, Serum 0.85 mg/dL (0.70-1.20); EST Glomerular Filtration Rate 68 (>60); Estimated Creatinine Clearance 38.24 ml/min (50-250); Glucose 142 mg/dL (70-99); Magnesium 2.2 mg/dL (1.5-2.2); Potassium 3.3 mmol/L (3.3-5.1); Sodium Level 142 mmol/L (133-145)
[2024-10-11 07:00] VITALS: BP 104/69; PULSE 94; PULSE 95; RESP 16; TEMP 36.7; O2SAT 96
== END 2024-10-11 07:16 | disposition home or self-care (01) ==
PROVIDERS: Emergency Provider Emergency Medicine; PCP Family Medicine; Visit Provider Emergency Medicine
DX: I48.0 Paroxysmal atrial fibrillation (principal); H40.9 Unspecified glaucoma; Z79.01 Long term (current) use of anticoagulants; Z79.899 Other long term (current) drug therapy
CPT/HCPCS: 71046; 80048; 83735; 84443; 85025; 93005; 96374; 99284; A4216

== ENCOUNTER → 2024-11-22 | Outpatient (CLI) | payer MEDICARE, SELFPAY ==
[2024-11-22 18:01] LABS: Anion Gap 8 (5-15); BUN 13 mg/dL (4-19); Calcium,Total 9.3 mg/dL (7.6-11.0); Carbon Dioxide 28.6 mmol/L (21.0-32.0); Chloride 102 mmol/L (98-108); Creatinine, Serum 0.61 mg/dL (0.70-1.20); EST Glomerular Filtration Rate 89 (>60); Glucose 102 mg/dL (70-99); Magnesium 2.4 mg/dL (1.5-2.2); Potassium 4.1 mmol/L (3.3-5.1); Sodium Level 138 mmol/L (133-145)
== END | disposition home or self-care (01) ==
LOC: LAB 16:12
PROVIDERS: PCP Family Medicine; Referring Provider Nurse Practitioner Family; Visit Provider Nurse Practitioner Family
DX: I48.0 Paroxysmal atrial fibrillation (principal)
CPT/HCPCS: 36415; 80048; 83735

== ENCOUNTER 2025-01-03 07:29 | Emergency (ER) | payer MEDICARE, SELFPAY ==
[2025-01-03 07:30] VITALS: BP 117/76; PULSE 89; RESP 17; TEMP 36.5; O2SAT 98; BMI 17.4
--- NOTE | 2025-01-03 07:55 | EKG12_ITS ---
Test Reason : Blood Pressure : */* mmHG Vent. Rate : 92 BPM Atrial Rate : * BPM P-R Int : * ms QRS Dur : 82 ms QT Int : 352 ms P-R-T Axes : * -7 39 degrees QTcB Int : 435 ms Atrial fibrillation Abnormal ECG Confirmed by ELIZABETH GRACIA, TC ([id number]), photographic editor DESTINI TOVAR ([id number]) on 01/07/2025 6:25:05 AM Referred By: Confirmed By: TC JOHNSON MD
--- NOTE | 2025-01-03 07:55 | EX.ED.DYSGE1 ---
HPI History of Present Illness Chief Complaint: Palpitations Informant: patient and spouse/S.O. Narrative Narrative: 84-year-old female presenting to the emergency room with a chief complaint of atrial fibrillation. Patient has a history of paroxysmal atrial fibrillation states that her last known A-fib was in September. She states that she is on apixaban as well as metoprolol. Over the past couple days she has been doing well and outside mulching. This morning she got up to utilize the bathroom and when she got back in bed she felt her heart racing. She states she took an extra dose of her metoprolol and lay down. States her A-fib continues. She denies any chest pain or significant shortness of breath. She denies fever or cough. She notes that she does not wish a cardioversion. She would like to know more information about electrophysiology and ablation. She denies missing any doses of her apixaban in the last month. [facility] Medical History Hypothyroidism PAF (paroxysmal atrial fibrillation) Atrial fibrillation with RVR Glaucoma Home Medications ?Medication ?Instructions ?Recorded ?Last Taken ?Type latanoprost 0.005 % eye drops 1 drp ophthalmic (eye) Q 11/06/20 01/02/25 History acetaminophen 325 mg tablet 325 mg PO ONCE PRN fever or pain 02/12/22 Unknown History levothyroxine 50 mcg tablet 50 mcg PO DAILY 10/17/24 01/03/25 History apixaban 2.5 mg tablet 2.5 mg PO BID #60 tabs 11/26/24 01/02/25 Rx metoprolol tartrate 50 mg tablet 50 mg PO BID #180 tabs 01/02/25 01/03/25 Rx Allergy/AdvReac Type Severity Reaction Status Date / Time oxytetracycline (From Allergy Unknown Verified 01/03/25 07:30 Terramycin) Penicillins Allergy Unknown Verified 01/03/25 07:30 Family History Mother Heart disease Paroxysmal atrial fibrillation Father Cancer Lung Sister Heart disease Surgical History History of cholecystectomy Social History Smoking Status: Never smoker alcohol intake: never substance use type: does not use caffeine: Yes Type: coffee Number of servings: 1 ROS ROS ED Constitutional Constitutional ED: Denies chills, fever(s) or weight loss Eyes Eyes: Denies change in vision or diplopia ENT ENT ED: Denies ear pain, rhinorrhea or sore throat Cardiovascular Cardiovascular: Reports palpitations and racing heartbeat; Denies chest pain or orthopnea Respiratory/Chest Respiratory/Chest: Denies cough, dyspnea or orthopnea Gastrointestinal Gastrointestinal: Denies abdominal pain, diarrhea, nausea or vomiting Genitourinary Genitourinary ED: Denies dysuria, hematuria or urinary frequency Musculoskeletal Musculoskeletal: Denies arthralgias or myalgias Integumentary Denies abscess or rash Neurologic Neurologic: Denies headache(s) or weakness Psychiatric Psychiatric: Denies anxiety, depression, suicidal ideation or suicidal thoughts Endocrine Endocrinology: Denies polydipsia, polyphagia or polyuria Allergic/Immunologic Allergic/Immunologic ED: Denies mouth swelling, tongue swelling or urticaria EXAM Physical Exam Const Vital Signs: 01/03/25 07:30 01/03/25 08:30 01/03/25 09:00 Temperature 97.7 F L Temperature Source Temporal Pulse Rate 89 97 98 Respiratory Rate 17 18 18 Blood Pressure 117/76 108/55 L 110/65 Blood Pressure Mean 89 72 80 Pulse Ox 98 99 99 Oxygen Delivery Method Room Air 01/03/25 10:00 Temperature Temperature Source Pulse Rate 100 Respiratory Rate 18 Blood Pressure 95/60 Blood Pressure Mean 71 Pulse Ox 99 Oxygen Delivery Method Positive well nourished and well developed General Appearance ED: well developed and NAD HEENT Reports normocephalic, head/scalp atraumatic and moist mucous membranes Eyes PERRL and EOMs intact bilaterally Neck no lymphadenopathy, supple and no JVD Resp normal respiratory effort and clear to auscultation bilaterally Cardio no murmurs Rate: tachycardic Rhythm: abnormal rhythm irregularly irregular GI normal to inspection, nondistended, normoactive bowel sounds and non-tender Palpation: soft Back/Spine no CVA tenderness and normal ROM Extremity normal to inspection General Extremety ED: Negative for edema General Extremity: Negative for edema Neuro oriented x3 and CN's II-XII intact bilaterally Sensorium / Orientation: alert Motor Exam: strength 5/5 throughout Psych mental status grossly normal Mood & Affect: Negative for depressed or tearful Skin no rashes or lesions noted and no wounds MDM MDM MDM Narrative Medical decision making narrative: Differential diagnosis includes but not limited to cardiac dysrhythmia electrolyte abnormalities thyroid abnormality dehydration On the monitor the patient is in A-fib with RVR with rates ranging from 90-120. EKG confirms atrial fibrillation. Basic blood work including TSH magnesium sodium and potassium is within normal limits. Patient received two 5 mg doses of metoprolol and heart rate has been 90-100. Blood pressure has been around 100 systolic. Patient states that she is typically around [id number] systolic. I spoke with on-call cardiology Dr. Fonseca. She can increase to 75 mg twice a day and follow-up in the office. Patient had questions regarding cardiac ablation therapy which I will defer to cardiology for. History & Record Review Discussion w/independent historian: Patient and Significant other Additional record(s) reviewed:: Prior outpatient record, Prior ED visit and Prior labs Lab Data Attestation: I reviewed the patient's lab results. Labs: Laboratory Results - last 24 hr 01/03/25 07:40 WBC 4.8 RBC 4.46 Hgb 13.5 Hct 41.0 MCV 91.9 MCH 30.3 MCHC 32.9 RDW Std Deviation 40.0 RDW Coeff of Namita 11.9 Plt Count 256 MPV 10.2 Immature Gran % (Auto) 0.000 Neut % (Auto) 51.6 Lymph % (Auto) 38.2 Hunt % (Auto) 6.9 Eos % (Auto) 2.7 Baso % (Auto) 0.6 Absolute Neuts (auto) 2.5 Absolute Lymphs (auto) 1.82 Nucleated RBC % 0 Sodium 141 Potassium 3.6 Chloride 104 Carbon Dioxide 24.8 Anion Gap 13 BUN 16 Creatinine 0.76 Estim Creat Clear Calc 40.02 L Est GFR (MDRD) Non-Af 78 BUN/Creatinine Ratio 20.5 H Glucose 117 H Calcium 9.1 Magnesium 2.2 TSH 1.770 EKG Initial EKG: Attestation: I personally reviewed and interpreted this EKG as follows: Comments: Atrial fibrillation with ventricular rate of 92 bpm. Management Discussion w/another healthcare provider: Certified Medical Records Coder (Dr. Fonseca) Discharge Plan Triage Chief Complaint: Palpitations ED Provider: Shiva Sims Dx/Rx/DC Orders Clinical Impression: PAF (paroxysmal atrial fibrillation), Anticoagulated, Heart palpitations Instructions: AFib Prescriptions: No Action latanoprost 0.005 % drops 1 drp OPHTHALMIC QHS acetaminophen 325 mg tablet 325 mg PO ONCE PRN (Reason: fever or pain) levothyroxine 50 mcg tablet 50 mcg PO DAILY apixaban 2.5 mg tablet 2.5 mg PO BID Qty: 60 11RF metoprolol tartrate 50 mg tablet 50 mg PO BID Qty: 180 3RF Primary Care Provider: Sebastian Teixeira Referrals: Sebastian Teixeira MD [Primary Care Provider] - Juan Manuel Abebe MD [Med Staff - Active Staff] - As soon as possible Activity Restrictions/Additional Instructions: While you are in atrial fibrillation you may wish to increase your metoprolol to 75 mg twice a day. The stamp on your new prescription pills which reads C 74 is metoprolol 50 mg. Please continue your Eliquis. 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
[2025-01-03] MEDS: Metoprolol Tartrate 5 MG/5 ML Vial IV ×2 (08:02→09:36)
[2025-01-03 08:06] LABS: Absolute Lymphocyte Count 1.82 X10^3/uL (0.83-4.51); Absolute Neutrophil Count 2.5 X10^3/uL (2.0-7.7); Basophil# 0.03 X10^3/uL; Basophil% 0.6 % (0-1); Eosinophil# 0.13 X10^3/uL; Eosinophils% 2.7 % (0-5); Hemoglobin 13.5 g/dL (12.0-15.0); Lymphocyte # 1.82 X10^3/ul (0.83-4.51); Lymphocyte % 38.2 % (19-41); Mean Corp Hgb Conc 32.9 g/dL (32-36); Mean Corpuscular Hgb 30.3 pg (27.0-32.0); Mean Corpuscular Volume 91.9 fL (81-99); Mean Platelet Vol. 10.2 fl (6.2-12.0); Monocyte# 0.33 X10^3/uL; Monocyte% 6.9 % (0-10); NRBC Flagged by Analyzer 0 % (0-5); Neutrophil # 2.45 X10^3/uL (2.7-7.7); Neutrophil % 51.6 % (47-70); Platelet Count 256 K/mm3 (150-450); RBC Distribution Width CV 11.9 % (11.6-14.6); Red Blood Count 4.46 M/mm3 (4.2-5.4); White Blood Count 4.8 K/mm3 (4.4-11.0)
[2025-01-03 08:30] VITALS: BP 108/55; PULSE 97; RESP 18; O2SAT 99
[2025-01-03 09:00] VITALS: BP 110/65; PULSE 98; RESP 18; O2SAT 99
[2025-01-03 09:27] LABS: Anion Gap 13 (5-15); BUN 16 mg/dL (4-19); BUN/Creat Ratio 20.5 RATIO (10-20); Calcium,Total 9.1 mg/dL (7.6-11.0); Carbon Dioxide 24.8 mmol/L (21.0-32.0); Chloride 104 mmol/L (98-108); Creatinine, Serum 0.76 mg/dL (0.70-1.20); EST Glomerular Filtration Rate 78 (>60); Estimated Creatinine Clearance 40.02 ml/min (50-250); Glucose 117 mg/dL (70-99); Magnesium 2.2 mg/dL (1.5-2.2); Potassium 3.6 mmol/L (3.3-5.1); Sodium Level 141 mmol/L (133-145)
[2025-01-03 10:00] VITALS: BP 95/60; PULSE 100; RESP 18; O2SAT 99
[2025-01-03 11:00] VITALS: BP 98/59; PULSE 90; RESP 18; O2SAT 99
[2025-01-03 11:03] VITALS: BP 98/59; PULSE 94; RESP 16; TEMP 36.6; O2SAT 98
== END 2025-01-03 11:15 | disposition home or self-care (01) ==
PROVIDERS: Emergency Provider Emergency Medicine; PCP Family Medicine; Visit Provider Emergency Medicine
DX: I48.0 Paroxysmal atrial fibrillation (principal); R00.2 Palpitations; E03.9 Hypothyroidism, unspecified; Z79.01 Long term (current) use of anticoagulants; Z79.890 Hormone replacement therapy; Z79.899 Other long term (current) drug therapy
CPT/HCPCS: 80048; 83735; 84443; 85025; 93005; 96374; 96375; 99284; A4216

== ENCOUNTER 2025-01-26 02:03 | Emergency (ER) | payer MEDICARE, SELFPAY ==
[2025-01-26] VITALS (18 sets, daily range): BP systolic 100–141; BP diastolic 56–101; PULSE 87–100; RESP 12–25; TEMP 36.4–36.7; O2SAT 95–100; BMI 17.5
--- NOTE | 2025-01-26 02:06 | EDS_ITS ---
HPI History of Present Illness Chief Complaint: Palpitations [facility] Medical History Hypothyroidism PAF (paroxysmal atrial fibrillation) Atrial fibrillation with RVR Glaucoma Home Medications ?Medication ?Instructions ?Recorded ?Last Taken ?Type latanoprost 0.005 % eye drops 1 drp ophthalmic (eye) Q HS 11/06/20 01/02/25 History acetaminophen 325 mg tablet 325 mg PO ONCE PRN fever o r pain 02/12/22 Unknown History levothyroxine 50 mcg tablet 50 mcg PO DAILY 10/17/24 0 01/03/25 History apixaban 2.5 mg tablet 2.5 mg PO BID #60 tabs 11/2601/02/25 Rx metoprolol tartrate 50 mg tablet 50 mg PO BID #180 tab s 01/02/25 01/03/25 Rx Allergy/AdvReac Type Severity Reaction Status Date / Time oxytetracycline (From Allergy Unknown Verified 01/26/25 02:06 Terramycin) Penicillins Allergy Unknown Verified 01/26/25 02:06 Family History Mother Heart disease Paroxysmal atrial fibrillation Father Cancer Lung Sister Heart disease Surgical History History of cholecystectomy Social History Smoking Status: Never smoker alcohol intake: never substance use type: does not use caffeine: Yes Type: coffee Number of servings: 1 EXAM Physical Exam Const Vital Signs: 01/26/25 02:03 01/26/25 02:06 01/26/25 02:13 Temperature 98.1 F Temperature Source Oral Pulse Rate 93 Respiratory Rate 18 Respiratory Effort Normal Non-Labored Blood Pressure 141/71 H Blood Pressure Mean 94 Pulse Ox 97 Oxygen Delivery Method Room Air Room Air 01/26/25 02:23 01/26/25 02:30 01/26/25 02:38 Temperature Temperature Source Pulse Rate 94 92 Respiratory Rate 22 H 22 H Respiratory Effort Blood Pressure 121/74 H 129/79 H Blood Pressure Mean 89 95 Pulse Ox 96 98 Oxygen Delivery Method 01/26/25 02:40 01/26/25 02:45 01/26/25 02:46 Temperature Temperature Source Pulse Rate 95 91 98 Respiratory Rate 25 H 24 H 16 Respiratory Effort Blood Pressure 129/79 H 134/101 H 134/101 H Blood Pressure Mean 95 112 112 Pulse Ox 98 100 98 Oxygen Delivery Method Room Air Room Air 01/26/25 03:00 01/26/25 03:03 01/26/25 03:16 Temperature Temperature Source Pulse Rate 91 88 100 Respiratory Rate 18 13 16 Respiratory Effort Blood Pressure 124/67 H 117/71 Blood Pressure Mean 84 86 Pulse Ox 97 100 Oxygen Delivery Method Room Air 01/26/25 03:20 01/26/25 03:30 01/26/25 03:46 Temperature Temperature Source Pulse Rate 93 94 98 Respiratory Rate 17 16 12 Respiratory Effort Blood Pressure 117/71 Blood Pressure Mean 82 Pulse Ox 98 100 Oxygen Delivery Method 01/26/25 03:52 01/26/25 03:53 01/26/25 04:00 Temperature Temperature Source Pulse Rate 94 93 87 Respiratory Rate 21 H 17 19 H Respiratory Effort Blood Pressure 123/56 H 123/56 H Blood Pressure Mean 76 78 Pulse Ox 97 97 95 Oxygen Delivery Method Room Air 01/26/25 04:06 Temperature Temperature Source Pulse Rate 95 Respiratory Rate 17 Respiratory Effort Blood Pressure 123/56 H Blood Pressure Mean 78 Pulse Ox 98 Oxygen Delivery Method MDM MDM MDM Narrative Medical decision making narrative: HISTORY OF PRESENT ILLNESS: Chief complaint: Palpitations 84-year-old female history of A-fib, hypothyroidism presents with palpitations says my A-fib is acting up again. She states this began this evening. Denies chest pain or shortness of breath. Denies leg swelling. Denies missed doses of Eliquis or metoprolol. Notes she actually took an extra dose of metoprolol just prior to arrival. REVIEW OF SYSTEMS: Pertinent positives: Palpitations Pertinent negatives: Chest pain PHYSICAL EXAM: Nursing triage notes reviewed, Vital signs reviewed Constitutional: please see mdm HENT: MMM Eyes: Pupils equal round and reactive to light, Extraocular muscles intact Neck: No stridor, no JVD, full neck ROM Lungs: Clear to auscultation, No wheezing or rales. No increased work of breathing, no conversational dyspnea, no accessory muscle use, no nasal flaring. No respiratory distress noted Heart: Irregularly irregular rate and rhythm, No murmurs, No rubs and No gallops, 2+ distal pulses (radial, femoral, posterior tibial) in all extremities Abdomen: Soft, there is no tenderness, rigidity, rebound or guarding, no obvious peritoneal signs, no palpable pulsatile abdominal masses, no auscultated abdominal bruit : No CVAT Extremities: No edema Neuro: No new focal neurological deficits, cranial nerves II through XII intact, 5/5 strength in all present extremities. Intact sensation to light touch in all present extremities, 2+ reflexes bilateral patella tendons. Skin: No rash or lesions noted MEDICAL DECISION MAKING: Chief Complaint: please see HPI External records reviewed: Reviewed prior outpatient cardiology note. Reviewed echocardiogram from 2020 which shows ejection fraction of 65% Factors affecting care: as per HPI Social determinants of health: none History obtained from others: none Consults: none MDM Narrative: The patient was initially hemodynamically stable, afebrile and nontoxic- appearing. Exam with irregularly irregular rhythm. Otherwise no other focal cardiopulmonary abnormalities. I considered the following differential diagnosis: Arrhythmia (A-fib), anemia, electrolyte disturbance, ACS, pneumonia, thyroid dysfunction I obtained a broad lab and imaging workup to further determine if the patient was suffering from a life-threatening etiology. Initially treated the patient with 500 cc bolus and metoprolol to the IV ALL IMAGES (IF OBTAINED) HAVE BEEN PERSONALLY REVIEWED AND INTERPRETED BY MYSELF. EKG with atrial fibrillation rate of 104, normal axis, normal intervals, no STEMI CBC without leukocytosis, severe anemia, no thrombocytopenia. BMP without evidence of significant electrolyte abnormalities, no anion gap, no acute kidney injury. TSH within normal limits making thyroid dysfunction less likely High-sensitivity troponin is negative, no evidence of myocardial ischemia x2 (ACS ruled out based on high-sensitivity troponin protocol) I have personally reviewed the patient's chest x-ray. Chest x-ray is unremarkable for pulmonary edema, pneumothorax, pneumonia or focal cardiopulmonary abnormality. (Radiologist agrees with my interpretation) The synthesis of the patient's history, physical exam, labs images suggest A-fib as a precipitating cause for palpitations. Upon reassessment metoprolol and fluids patient noted symptomatic improvement however she still in A-fib she was encouraged to continue metoprolol and Eliquis. She was given cardiology and EP follow-up. The patient and/or family, caregivers express understanding. The patient and/or family, caregivers agrees with the plan. Shared decision making: I will have a discussion with the patient and or visitors regarding risk/benefits of further testing or admission. They will be made aware of of the risk/benefits inherent in this decision they will be given the opportunity to voice understanding. Total critical care time today provided was at least 0 minutes. This excludes separately billable procedures. Critical care time (if documented) is secondary to the patient having high probability of clinically significant/life threatening deterioration in the patient's condition which required my urgent intervention. Impression: 1. Palpitations 2. History of atrial fibrillation 3. History of chronic anticoagulation Dispo: Discharge home This note was generated with [employer]aste[employer] dictation software. It may contain incorrect words, spelling, and punctuation that were not noted in review of the chart prior to signing. Lab Data Labs: Laboratory Results - last 24 hr 01/26/25 01/26/25 02:05 04:03 WBC 6.3 RBC 4.50 Hgb 13.5 Hct 41.2 MCV 91.6 MCH 30.0 MCHC 32.8 RDW Std Deviation 40.1 RDW Coeff of Namita 12.0 Plt Count 254 MPV 9.7 Immature Gran % (Auto) 0.200 Neut % (Auto) 41.9 L Lymph % (Auto) 47.9 H [place] % (Auto) 6.7 Eos % (Auto) 2.5 Baso % (Auto) 0.8 Absolute Neuts (auto) 2.6 Absolute Lymphs (auto) 3.02 Nucleated RBC % 0 Sodium 139 Potassium 3.8 Chloride 101 Carbon Dioxide 26.5 Anion Gap 12 BUN 13 Creatinine 0.79 Estim Creat Clear Calc 40.21 L Est GFR (MDRD) Non-Af 74 BUN/Creatinine Ratio 16.3 Glucose 116 H Calcium 9.7 Troponin T High Sens < 6 Troponin T Hi Sens 2 Hr 7 TSH 2.540 Free T4 1.60 H Radiography Diagnostic Testing: Clinical Impression(s) from Imaging Studies Chest X-Ray 01/26/25 02:08 IMPRESSION: No acute findings Reading Location: [facility] Discharge Plan Triage Chief Complaint: Palpitations ED Provider: Phil Miller Dx/Rx/DC Orders Instructions: ED AFIB Prescriptions: No Action latanoprost 0.005 % drops 1 drp OPHTHALMIC QHS acetaminophen 325 mg tablet 325 mg PO ONCE PRN (Reason: fever or pain) levothyroxine 50 mcg tablet 50 mcg PO DAILY apixaban 2.5 mg tablet 2.5 mg PO BID Qty: 60 11RF metoprolol tartrate 50 mg tablet 50 mg PO BID Qty: 180 3RF Primary Care Provider: Sebastian Teixeira Referrals: Sebastian Teixeira MD [Primary Care Provider] - Activity Restrictions/Additional Instructions: Thank you for trusting us with your care today! Your exam, labs images were consistent with atrial fibrillation. The remainder of your labs are reassuring in terms of significant anemia, electrolyte imbala nce, thyroid dysfunction or damage to your heart. You are safe for discharge at this time. Please continue take metoprolol and Eliquis as prescribed. You should take your morning dose. Please return to the emergency department if your symptoms change or worsen. Please follow with your dance choreographer for further outpatient evaluation and management. If you are interested in electrophysiology (EP/research electrician of the heart) evaluation you can call [phone] to make an appointment Print Language: Danish Disposition Disposition: Home, Self Care
--- NOTE | 2025-01-26 02:08 | RAD_ITS ---
PROCEDURE: CHEST 1 VIEW (PORTABLE) 01/26/2025 REASON FOR EXAM: CHEST PAIN TECHNIQUE: Frontal view of the chest. COMPARISON: 10/11/2024 FINDINGS: Scoliosis. Borderline enlarged heart. Well inflated overall. Linear scar/atelectasis medial left base. No consolidation, pneumothorax, or pleural effusion. RAD/Chest 1 View (Portable) IMPRESSION: No acute findings Reading Location: [facility]
[2025-01-26 02:20] LABS: Absolute Lymphocyte Count 3.02 X10^3/uL (0.83-4.51); Absolute Neutrophil Count 2.6 X10^3/uL (2.0-7.7); Basophil# 0.05 X10^3/uL; Basophil% 0.8 % (0-1); Eosinophil# 0.16 X10^3/uL; Eosinophils% 2.5 % (0-5); Hematocrit 41.2 % (37-47); Hemoglobin 13.5 g/dL (12.0-15.0); Lymphocyte # 3.02 X10^3/ul (0.83-4.51); Lymphocyte % 47.9 % (19-41); Mean Corp Hgb Conc 32.8 g/dL (32-36); Mean Corpuscular Volume 91.6 fL (81-99); Mean Platelet Vol. 9.7 fl (6.2-12.0); Monocyte# 0.42 X10^3/uL; Monocyte% 6.7 % (0-10); NRBC Flagged by Analyzer 0 % (0-5); Neutrophil # 2.64 X10^3/uL (2.7-7.7); Neutrophil % 41.9 % (47-70); Platelet Count 254 K/mm3 (150-450); RBC Distribution Width SD 40.1 fl (35.1-43.9); White Blood Count 6.3 K/mm3 (4.4-11.0)
[2025-01-26] MEDS: 0.9% Normal Saline (500mL Bag) 500 ML 999 ML IV (02:27)
[2025-01-26] MEDS: Metoprolol Tartrate 5 MG/5 ML Vial IV ×3 (02:27→02:44)
--- OUTSIDE RECORDS SUMMARY | 2025-01-26 02:27 | XMS RPT_ITS | CCD ---
Author Organization [facility] CliniSynv Care Team Providers Care Suction Plate Roller Hand Name Role Phone Maharaj TAIL BOARD MAN Pauline E Unavailable Unavailable Maharaj BABAK Pauline E Unavailable Unavailable Heri Teixeira MD Primary Care Provider Heri Teixeira MD Primary Care Provider Heri Teixeira MD Primary Care Provider Dr. Adolph Omer Primary Care Provider Dr. Adolph Omer Referring Provider RANDALL Cespedes Attending Provider Dr. Adolph Omer Primary Care Provider Dr. Adolph Omer Referring Provider RANDALL Cespedes Attending Provider Doctor, No Consulting Unavailable Doctor, No Primary Care Unavailable Juan Manuel Norman Attending Unavailable Doctor, No Consulting Unavailable Doctor, No Primary Care Unavailable Delon Roman Attending Unavailable Heri Teixeira MD Primary Care Provider Podlogar SLICE PLUG CUTTER OPERATOR.HSE COORDINATOR, Connie Unavailable Knoble SLICE PLUG CUTTER OPERATOR.HSE COORDINATOR, Jonah Unavailable Dr. Adolph Omer MD Primary Care Provider Dr. Tai Clark DO Attending Provider Dr. Tai Clark DO Emergency Provider Dr. Adolph Omer MD Referring Provider Romy Cespedes Attending Provider Dr. Sebastian Teixeira MD Primary Care Provider Tony AMADOR, Dr. Soto Emergency Provider Faith SLICE PLUG CUTTER OPERATOR.HSE COORDINATOR, Jonah Unavailable Puneet GRACIA, Dr. Cortes Primary Care Provider Dr. Brittany Jimenez DO Attending Provider Puneet GRACIA, Dr. Cortes Referring Provider Lalo Ndiaye Attending Provider [phone] Bijal Amor Attending Provider Unavailable Roof HIGH SCHOOL GUIDANCE COUNSELOR-C, Rex H Attending Provider Grace HIGH SCHOOL GUIDANCE COUNSELOR-C, Rex H Referring Provider Dr. Shiva Sims DO Emergency Provider Kan GRACIA, Dr. Farfan Referring Provider Macario HIGH SCHOOL GUIDANCE COUNSELOR-C, Jolie Attending Provider Faith SLICE PLUG CUTTER OPERATOR.HSE COORDINATOR, Jonah Unavailable Bijal Amor Attending Unavailable Bursley, Sebastian Primary Care Unavailable Macario LOUIS, Jolie Attending Unavailable Bursley, Sebastian Primary Care Unavailable Kan, Adolph Referring Unavailable Juan Manuel Abebe Attending Unavailable Bursley, Sebastian Primary Care Unavailable Demiter, Lalo Referring Unavailable Bursley, Sebastian Primary Care Unavailable Roof HIGH SCHOOL GUIDANCE COUNSELOR, Rex H Attending Unavailable Roof HIGH SCHOOL GUIDANCE COUNSELOR, Rex H Referring Unavailable Bursley, Sebastian Primary Care Unavailable Shiva Sims Attending Unavailable Bursley, Sebastian Primary Care Unavailable Roof HIGH SCHOOL GUIDANCE COUNSELOR, Rex H Attending Unavailable Roof HIGH SCHOOL GUIDANCE COUNSELOR, Rex H Referring Unavailable Bursley, Sebastian Primary Care Unavailable Bursley, Sebastian Referring Unavailable Demiter, Lalo Attending Unavailable Bursley, Sebastian Primary Care Unavailable Bursley, Sebastian Referring Unavailable Roof HIGH SCHOOL GUIDANCE COUNSELOR, Rex H Attending Unavailable Juan Manuel Abebe Attending Unavailable Juan Manuel Abebe Referring Unavailable Kan, Adolph Primary Care Unavailable Tai Clark Attending Unavailable Kan, Adolph Primary Care Unavailable Bursley, Sebastian Primary Care Unavailable Brittany Jimenez Attending Unavailable Kan, Adolph Referring Unavailable Romy Cespedes Attending Unavail able Kan, Adolph Primary Care Unavailable Romy Cespedes Attending Unavail able Bursley, Sebastian Primary Care Unavailable Adolph Omer Referring Unavailable HERI TEIXEIRA Referring Unavailab HERI Nguyen Primary Care Unavailab HERI Nguyen Referring Unavailab HERI Nguyen Primary Care Unavailab le HERI TEIXEIRA Attending Unavailab HERI Nguyen Primary Care Unavailab HERI Nguyen Attending Unavailab le SELF Referring Unavailable HERI TEIXEIRA Primary Care Unavailab HERI Nguyen Attending Unavailab HERI Nguyen Primary Care Unavailab carla CANOJONAH NELSON Attending Unavailable HERI TEIXEIRA Primary Care Unavailab le Allergies Allergy Classification Reported Allergen(s) Allergy Type Date of Onset Reaction(s) Facility (2 sources) oxytetracycline drug allergy 12-31-19 16 hands peeled [facility] Work Phone: (2 sources) penicillin v drug allergy 11-11-19 16 Rash [facility] Work Phone: (4 sources) Penicillins; Translations: [PENICILLINS] Drug Allergy 01-05-20 06 Intolerance [facility] (9 sources) teramycin [Other] Propensity to adverse reactions 01-05-20 06 [facility] (15 sources) Penicillins Drug Allergy 01-05-20 06 Intolerance [facility] (17 sources) Oxytetracycline; Translations: [OXYTETRACYCLINE] Drug Allergy 02-13-20 22 Intolerance [facility] (6 sources) Penicillins Allergy to substance 02-13-20 22 Unknown [facility] (3 sources) Oxytetracycline Drug Allergy 11-06-19 24 [facility] (3 sources) Penicillins Drug allergy (disorder) 11-06-19 24 [facility] (2 sources) Penicillins Drug Allergy 01-05-20 06 Intolerance [facility] Medications Current Medications Medication Drug Class(es) Dates Sig (Normalized) Sig (Original) acetaminophen 325 mg oral tablet (6 sources) Start: 02-12-2022 take 1 tablet by mouth once as needed for pain Acetaminophen 325 mg tablet Active 325 mg PO ONCE as needed for fever or pain February 12, 2022 12:00am apixaban 2.5 mg oral tablet (20 sources) Factor Xa Inhibitor Start: 11-26-2024 take 1 tablet by mouth twice daily Apixaban 2.5 mg tablet Active 2.5 mg PO TWICE A DAY 60 November 26, 2024 8:42am Start: 09-30-2020 End: 11-26-2024 take 1 tablet by mouth twice daily apixaban (ELIQUIS) 5 mg tab(s) Take 1 tablet by mouth twice daily. 10/31/2020 Active Comment on above: Take 1 tablet by sanya th twice daily. Zkcmiqv-Ehboppkse-Fl tamin D2 500-50-100 mg-mg-unit ORAL Chew (20 sources) Start: take 1 tablet by mouth once daily Lazvenz-Zzgcdzfhg-I itamin D2 500-50-100 mg-mg-unit ORAL Chew Take one(1) tablet two(2) times daily. 0 05/15/2007 Active Comment on above: Take one(1) tablet t wo(2) times daily. latanoprost 0.05 mg/ml ophthalmic solution (6 sources) Prostaglandin Analog Start: Latanoprost 0.005 % drops Active 1 NMA OPHTHALMIC AT BEDTIME November 06, 2020 12:00am metoprolol tartrate 50 mg oral tablet (20 sources) beta-Adrenergic Ginny Start: End: take 1 tablet by mouth twice daily Metoprolol Tartrate 50 mg tablet Active 50 mg PO TWICE A DAY 180 January 02, 2025 2:15pm Start: 08-10-2024 take 0.5 tablet by m outh twice daily metoprolol tartrate, short acting, (LOPRESSOR) 50 mg tablet Take 0.5 tablets by mouth two times a day. 08/10/2024 Active Start: 02-13-2024 End: 10-17-2024 Metoprolol Tartrate 50 mg ta blet Discontinued 25 mg PO TWICE A DAY July 02, 2024 2:00pm October 17, 2024 9:27am Start: 12-21-2023 End: 08-10-2024 take 1 tablet by mouth twice daily Metoprolol Tartrate 50 mg tablet Discontinued 50 mg PO TWICE A DAY January 26, 2024 10:52am February 13, 2024 1:52pm Start: 11-28-2023 End: 01-26-2024 take 2 tablets by mouth twice daily Metoprolol Tartrate 25 mg tablet Discontinued 50 mg PO TWICE A DAY November 28, 2023 10:34am January 26, 2024 10:53am Start: 09-30-2020 End: 12-21-2023 take 1 tablet by mouth twice daily Metoprolol Tartrate 25 mg tablet Discontinued 25 mg PO TWICE A DAY 180 October 27, 2023 4:00pm November 28, 2023 10:35am Comment on above: Take 25 mg by mouth twice daily. multivitamin (DAILY MULTIVITAMIN) ORAL Tab (20 sources) Start: take 1 tablet by mouth once daily multivitamin (DAILY MULTIVITAMIN) ORAL Tab Take one(1) tablet daily. 0 05/15/2007 Active Comment on above: Take one(1) tablet d aily. levothyroxine sodium 0.05 mg oral tablet (20 sources) l-Thyroxine Start: End: take 2 tablets by mouth once daily Levothyroxine 25 mcg tablet Discontinued 50 ug PO DAILY August 22, 2024 9:31am October 11, 2024 3:46am Start: 08-10-2024 End: 05-08-2025 take 1 tablet by mouth once daily levothyroxine (SYNTHROID) 50 mcg tablet Indications: Hypothyroidism, acquired Take 1 tablet by mouth once daily. 90 tablet 1 11/09/2024 05/08/2025 Active Start: 09-29-2020 End: 08-22-2024 take 1 tablet by mouth once daily Levothyroxine 25 MCG tablet Discontinued 25 ug PO DAILY September 29, 2020 1:00am August 22, 2024 9:31am Start: 11-11-2015 End: 11-17-2015 take 1 tablet by mouth once daily LEVOTHYROXINE SODIUM 25 MCG TABS One tablet by mouth daily LEVOTHYROXINE SODIUM [id number] Dillon Chiang DO End: 04-12-2022 take 1 capsule by mouth once daily LEVOTHYROXINE SODIUM (SYNTHROID ORAL) Take 1 capsule by mouth once daily. 25 mcgs 0 04/12/2022 Discontinued take 1 capsule by [facility] once daily LEVOTHYROXINE SODIUM (SYNTHROID ORAL) Take 1 capsule by mouth once daily. 25 mcgs 0 Active Comment on above: Take 1 capsule by mo uth once daily. 25 mcgs Take 1 tablet by sanya th once daily. 25 mcgs tiZANidine 2 mg oral capsule (1 source) Central alpha-2 Adrenergic Agonist Start: 01-14-2025 take 1 capsule by mouth every twelve hours as needed tiZANidine HCl (ZANAFLEX) 2 mg capsule Take 1 capsule by mouth two times a day as needed for muscle spasm. 60 capsule 01/14/2025 Active Completed/Discontinued Medications Medication Drug Class(es) Dates Sig (Normalized) Sig (Original) azithromycin 250 mg oral tablet (16 sources) Macrolide Antimicrobial Start: 07-13-2018 End: 05-19-2020 Azithromycin 250 mg tablet Discontinued 250 mg PO daily July 13, 2018 1:00am May 19, 2020 12:29pm 2 tablets today, then 1 tablet daily on days 2 through 11 Start: 10-01-2017 End: 10-06-2017 Azithromycin 250 mg tablet D iscontinued 250 mg PO daily 6 October 01, 2017 1:00am October 05, 2017 1:00am October 06, 2017 1:06am Take 2 tabs once on day one then take one tablet once daily for the next 4 days. Start: 12-31-2015 End: 03-18-2017 ZITHROMAX Z-REINA 250 MG TABS take as directed on pack AZITHROMYCIN [id number] Christie Wilson PA-C calcium carbonate / vitamin D (4 sources) Start: 11-11-2015 End: 03-18-2017 take 1 tablet by mouth twice daily CALCIUM 500/VITAMIN D 500-125 MG-UNIT TABS One tablet by mouth twice daily CALCIUM CARBONATE-VITAMIN D [id number] Pauline Maharaj LPN Start: 11-11-2015 take 1 tablet by sanya th twice daily CALCIUM 500/VITAMIN D 500-125 MG-UNIT TABS One tablet by mouth twice daily CALCIUM CARBONATE-VITAMIN D [id number] Dillon Chiang DO fish oil (4 sources) Start: 11-11-2015 End: 03-18-2017 take 1 capsule by mouth once daily FISH OIL 1000 MG CAPS one capsule by mouth daily OMEGA-3 FATTY ACIDS [id number] Pauline Maharaj LPN Start: 11-11-2015 take 1 capsule by mo [facility] once daily FISH OIL 1000 MG CAPS one capsule by mouth daily OMEGA-3 FATTY ACIDS [id number] Dillon Chiang DO fluticasone propionate 0.05 mg/actuat metered dose nasal spray (20 sources) Corticosteroid Start: 02-12-2022 Fluticasone Pr opionate Active 1 SPRAY INTRANASAL DAILY February 11, 2022 11:00pm Start: 11-06-2021 End: 08-05-2024 take 2 spray(s) by mouth once daily fluticasone (FLONASE) 50 mcg/actuation nasal spray Indications: Post-nasal drainage Use 2 Sprays in each nostril once daily. Rinse mouth after use. 16 g 2 11/06/2021 Active Comment on above: Use 2 Sprays in each nostril once daily. Rinse mouth after use. guaiFENesin 600 mg oral tablet (2 sources) Start: 03-18-2017 MUCINEX 600 MG [id number] take as directed GUAIFENESIN [id number] Pauline Maharaj LPN loratadine 10 mg oral tablet (20 sources) Start: 02-03-2021 End: 10-17-2024 take 1 tablet by mouth once daily as needed Loratadine 10 mg tablet Discontinued 10 mg PO DAILY as needed for allergy symptoms August 12, 2023 11:27am October 17, 2024 8:57am Start: 11-11-2015 End: 03-18-2017 take 1 tablet by mouth once daily CLARITIN 10 MG TABS One tablet by mouth daily LORATADINE [id number] Dillon Hatfiledutzkya AMADOR MULTIPLE VITAMINS-MINERALS (4 sources) Start: 11-11-2015 End: 03-18-2017 take 1 tablet by mouth once daily MULTIVITAMIN ADULT TABS One tablet by mouth daily MULTIPLE VITAMINS-MINERALS [id number] Pauline Maharaj LPN Start: 11-11-2015 take 1 tablet by sanya once daily MULTIVITAMIN ADULT TABS One tablet by mouth daily MULTIPLE VITAMINS-MINERALS [id number] Dillon Chiang DO predniSONE 20 mg oral tablet (4 sources) Start: 06-04-2023 End: 06-09-2023 take 2 tablets by mouth once daily Prednisone 20 mg tablet Discontinued 40 mg PO DAILY 05 05June 04, 2023 12:00am June 08, 2023 1:00am June 09, 2023 1:05am Start: 06-04-2023 End: 06-09-2023 take 40 mg by mouth once daily Prednisone Discontinued 40 MG PO DAILY 05 05June 03, 2023 11:00pm June 09, 2023 12:05am sulfamethoxazole 800 mg / trimethoprim 160 mg oral tablet (18 sources) Dihydrofolate Reductase Inhibitor Antibacterial, Sulfonamide Antimicrobial Start: 05-19-2020 End: 05-26-2020 Sulfamethoxazole-Trimethopri m (Bactrim Ds) 800-160 mg tablet Discontinued 1 {tbl} PO Q12H 14 May 19, 2020 12:00am May 25, 2020 12:00am May 26, 2020 12:03am Start: 02-20-2019 End: 02-27-2019 Sulfamethoxazole-Trimethopri m (Bactrim Ds) 800-160 mg tablet Discontinued 1 {tbl} PO Q12H 14 7 February 20, 2019 12:00am February 26, 2019 12:00am February 27, 2019 12:07am Start: 04-07-2018 End: 04-14-2018 Sulfamethoxazole-Trimethopri m (Bactrim Ds) 800-160 mg tablet Discontinued 1 {tbl} PO Q12H 14 April 07, 2018 12:00am April 13, 2018 12:00am April 14, 2018 12:10am timolol 2.5 mg/ml ophthalmic solution (20 sources) beta-Adrenergic Ginny Start: 10-01-2017 End: 11-06-2020 take 0.25 drop(s) into the eye(s) at bedtime Timolol Maleate (Timoptic) 0.25 % drops Discontinued 1 NMA OPHTHALMIC AT BEDTIME October 01, 2017 1:00am November 06, 2020 10:57am Start: 10-01-2017 End: 11-06-2020 take 0.25 drop(s) into the eye(s) at bedtime Timolol Maleate (Timoptic) 0.25 % drops Discontinued 1 DRP OPHTHALMIC AT BEDTIME October 01, 2017 12:00am November 06, 2020 9:57am Start: 03-18-2017 TIMOLOL MALEAT E 0.25 % SOLG take as directed TIMOLOL MALEATE [id number] Pauline E Nicko LUUN Start: 08-08-2006 TIMOPTIC 0.5 % EYE DROPS One drop in each eye at night. 0 08/08/2006 Active Comment on above: One drop in each eye at night. B COMPLEX VITAMINS (4 sources) Start: 11-11-2015 take 1 tablet by mouth once daily VITAMIN B COMPLEX TABS One tablet by mouth daily B COMPLEX VITAMINS [id number] Dillon Chiang DO Start: 11-11-2015 End: 03-18-2017 take 1 tablet by mouth once daily VITAMIN B COMPLEX TABS One tablet by mouth daily B COMPLEX VITAMINS [id number] Pauline Rodgers Maharaj TAIL BOARD MAN Problems Active Problems Problem Classification Problem Date Documented Date Episodic/Chronic Cardiac dysrhythmias (20 sources) Paroxysmal atrial fibrillation; Translations: [Paroxysmal atrial fibrillation] Onset: 02-27-2021 Chronic Cardiac dysrhythmias (7 sources) Palpitations; Translations: [Palpitations] Onset: 01-15-2025 07-23-2023 Episodic Disorders of lipid metabolism (20 sources) Hyperlipidemia; Translations: [Hyperlipidemia, unspecified] Onset: 08-08-2006 08-08-2006 Chronic Glaucoma (20 sources) Unspecified glaucoma; Translations: [Unspecified glaucoma] Onset: 08-08-2006 08-08-2006 Chronic Other aftercare (3 sources) Long-term current use of anticoagulant; Translations: [detention (current) use of anticoagulants] 08-13-2024 Episodic Other aftercare (2 sources) Drug therapy finding; Translations: [detention (current) use of anticoagulants] 01-03-2025 Episodic Other connective tissue disease (6 sources) Cramp in lower limb; Translations: [Cramp and spasm] 02-12-2022 Episodic Other ear and sense organ disorders (1 source) Impacted cerumen in right ear; Translations: [Impacted cerumen, right ear] 12-21-2023 Episodic Other ear and sense organ disorders (1 source) Impacted cerumen of bilateral ears; Translations: [Impacted cerumen, bilateral] 12-21-2023 Episodic Other injuries and conditions due to external causes (2 sources) Injury of toe of left foot; Translations: [Unspecified injury of left foot, initial encounter] Episodic Other nervous system disorders (1 source) Numbness and tingling sensation of skin; Translations: [Anesthesia of skin] 01-14-2025 Episodic Other nervous system disorders (1 source) Anesthesia of skin; Translations: [Numbness and tingling sensation of skin] Onset: 01-14-2025 Episodic Other nervous system disorders (1 source) Paresthesia of skin; Translations: [Numbness and tingling sensation of skin] Onset: 01-14-2025 Episodic Other upper respiratory disease (2 sources) Allergic rhinitis; Translations: [Allergic rhinitis, unspecified] Onset: 11-11-2015 11-11-2015 Chronic Other upper respiratory infections (1 source) Nasal discharge; Translations: [Postnasal drip] Episodic Otitis media and related conditions (1 source) Dysfunction of bilateral eustachian tubes; Translations: [Other specified disorders of Eustachian tube, bilateral] Episodic Residual codes; unclassified (1 source) Postmenopausal state; Translations: [Asymptomatic menopausal state] Episodic Spondylosis; intervertebral disc disorders; other back problems (1 source) Acute low back pain; Translations: [Acute right-sided low back pain without sciatica] 01-14-2025 Episodic Thyroid disorders (14 sources) Hypothyroidism; Translations: [Acquired hypothyroidism] Onset: 11-11-2015 11-11-2015 Chronic Unclassified (1 source) Acute right-sided low back pain without sciatica; Translations: [Acute right-sided low back pain without sciatica] Onset: 01-14-2025 Past or Other Problems Problem Classification Problem Date Documented Da te Episodic/Chronic Allergic reactions (20 sources) Radiation-induced dermatosis; Translations: [Other skin changes due to chronic exposure to nonionizing radiation] Onset: 03-11-2008 06-04-2010 Episodic Fluid and electrolyte disorders (2 sources) Hypokalemia; Translations: [Hypokalemia] Onset: 08-10-2024 08-10-2024 Episodic Other and unspecified benign neoplasm (20 sources) Senile angioma; Translations: [Hemangioma of skin and subcutaneous tissue] Onset: 11-24-2013 11-24-2013 Episodic Other bone disease and musculoskeletal deformities (3 sources) Disorder of skeletal system; Translations: [Disorder of bone, unspecified] Onset: 08-08-2006 08-08-2006 Episodic Other bone disease and musculoskeletal deformities (18 sources) Senile osteopenia; Translations: [Other specified disorders of bone density and structure, unspecified site] Onset: 08-08-2006 Episodic Other ear and sense organ disorders (2 sources) Impacted cerumen; Translations: [Impacted cerumen, bilateral] Onset: 11-11-2015 11-11-2015 Episodic Other non-epithelial cancer of skin (20 sources) History of malignant neoplasm of skin; Translations: [Personal history of other malignant neoplasm of skin] Onset: 03-11-2008 03-11-2008 Episodic Other nutritional; endocrine; and metabolic disorders (2 sources) Dyslipidemia; Translations: [Hyperlipidemia, unspecified] Onset: 11-11-2015 Resolved: 11-25-2015 11-11-2015 Chronic Other screening for suspected conditions (not mental disorders or infectious disease) (20 sources) Patient encounter status; Translations: [Encounter for screening for lipoid disorders] Onset: 08-08-2006 Episodic Other skin disorders (20 sources) Actinic keratosis; Translations: [Actinic keratosis] Onset: 03-11-2008 06-04-2010 Episodic Other skin disorders (20 sources) Seborrheic keratosis; Translations: [Other seborrheic keratosis] Onset: 03-11-2008 11-21-2013 Episodic Other skin disorders (20 sources) Scar conditions and fibrosis of skin; Translations: [Scar conditions and fibrosis of skin] Onset: 03-11-2008 03-11-2008 Episodic Other skin disorders (20 sources) Inflamed seborrheic keratosis; Translations: [Inflamed seborrheic keratosis] Onset: 06-06-2009 12-21-2011 Episodic Other skin disorders (20 sources) Sebaceous cyst of skin; Translations: [Sebaceous cyst] Onset: 06-06-2009 06-06-2009 Episodic Other skin disorders (20 sources) Solar lentigo; Translations: [Other melanin hyperpigmentation] Onset: 11-24-2013 11-24-2013 Episodic Other skin disorders (11 sources) Disorder of skin pigmentation; Translations: [Disorder of pigmentation, unspecified] Onset: 03-11-2008 Resolved: 11-21-2013 11-21-2013 Episodic Residual codes; unclassified (20 sources) Family history of breast cancer; Translations: [Family history of malignant neoplasm of breast] Onset: 08-08-2006 08-08-2006 Episodic Varicose veins of lower extremity (2 sources) Varicose veins of lower extremity; Translations: [Asymptomatic varicose veins of unspecified lower extremity] Onset: 11-11-2015 11-11-2015 Episodic Viral infection (20 sources) Verruca vulgaris; Translations: [Viral wart, unspecified] Onset: 06-06-2009 06-06-2010 Episodic Results Test Name Value Interpretation Reference Range Facility CNOVon 01-14-2025 CNOV Office Visit (FAMPWS ) MARIE ASHLEY ([id number]) 1940 F Date Time Provider Department 01/14/25 10:00 AM HERI TEIXEIRA During your visit today, we recorded the following information about you: Pulse Blood pressure Weight Height 60/minute 110/62 48 kg 1.625 m Heri Teixeira MD 01/14/2025 10:25 AM Signed Chief Complaint Patient presents with: Hip Pain Recording using Posse software for draft documentation of the visit was discussed with the patient/authorized dairy supplies sales representative; all questions welcomed and answered. Patient/authorized dairy supplies sales representative agreed to proceed HPI Marie Ashley is a 84 year old female who presents here today for Above Complaints.. Right Hip Pain: - Onset last week. - Described as soreness in the right lower back, with numbness radiating down the right leg to the toes. - Numbness also noted in the big toes bilaterally. - Pain rated as 5/10 today. - Aggravated by sitting in a soft chair and bending without flexing knees. - Denies pain with coughing or sneezing. - No significant improvement with Tylenol; some relief with topical arthritis cream. - Pain remains unchanged over the past week. - Denies radicular pain down the leg. - Denies loss of bowel or bladder control. - Denies groin numbness. - Denies leg weakness; reports soreness in legs. - Recent episode of foot cramping upon waking, resolved with movement. - Recent labs showed normal magnesium and potassium levels. - Recent increase in physical activity, including mulching, involving frequent bending. Past medical history, appointments, medications, allergies reviewed. Previous Medical History PAST MEDICAL HISTORY Diagnosis Date Acquired hypothyroidism Herpes zoster without complication Osteopenia Other specified glaucoma Paroxysmal atrial fibrillation (HCC) [facility] cardiology Previous Surgical History PAST SURGICAL HISTORY Procedure Laterality Date CHOLECYSTECTOMY 02/05/2002 Family History FAMILY HISTORY Problem Relation Age of Onset Heart Mother Cancer Father lung Breast Cancer Sister Hypertension Maternal Grandmother Tuberculosis Maternal Grandfather Stroke Paternal Grandfather Patient Allergies ALLERGIES Allergen Reactions Penicillins Intolerance Teramycin [Oxytetra* Intolerance Rash Current Medications Current Outpatient Medications on File Prior to Visit Medication Sig levothyroxine (SYNTHROID) 50 mcg tablet Take 1 tablet by mouth once daily. metoprolol tartrate, short acting, (LOPRESSOR) 50 mg tablet Take 0.5 tablets by mouth two times a day. loratadine (CLARITIN) 10 mg tablet Take 10 mg by mouth once daily. As needed fluticasone (FLONASE) 50 mcg/actuation nasal spray Use 2 Sprays in each nostril once daily. Rinse mouth after use. apixaban (ELIQUIS) 5 mg tab(s) Take 1 tablet by mouth twice daily. (Patient taking differently: Take 2.5 mg by mouth two times a day.) multivitamin (DAILY MULTIVITAMIN) ORAL Tab Take one(1) tablet daily. Buatorz-Zkqkkjgkh-Qyzct in D2 500-50-100 mg-mg-unit ORAL Chew Take one(1) tablet two(2) times daily. TIMOPTIC 0.5 % EYE DROPS One drop in each eye at night. No current facility-administered medications on file prior to visit. Social History Social History Tobacco Use Smoking status: Never Smokeless tobacco: Never Vaping Use Vaping status: Never Used Substance Use Topics Alcohol use: No Drug use: No Review of Symptoms REVIEW OF SYSTEMS See HPI EXAM: BP 110/62 Pulse 60 Ht 162.5 cm (5' 3.98) Wt 48 kg (105 lb 12.8 oz) SpO2 98% BMI 18.17 kg/m? General Appearance: Well appearing, alert, in no acute distress, well-hydrated, well nourished.. Skin: Skin color, texture, turgor normal, no suspicious rashes or lesions. Back:no pain to palpation of vertebrae, good flexion and extension, good range of motion, reflexes are 2+ and symmetric, motor and sensory appear to be normal, no evidence of scoliosis. Positive TTP over right lumbar paraspinal muscles. Positive SLR on right. HIP: Location: Right Range of motion: WNL Tenderness over trochanteric bursa: No Pain with movement: No. Health Maintenance List Advance Directive Discussion due on 08/01/2024 Medicare Advantage Annual Wellness Visit Never done Depression Screening due on 12/20/2024 Anxiety Screening due on 12/20/2024 DTaP,Tdap,Td Vaccine(1 - Tdap) due on 08/10/2025 RSV Vaccine(1 - 1-dose 75+ series) due on 08/10/2025 Shingrix Vaccine(1 of 2) due on 08/10/2025 Covid-19 Vaccine( - season) due on 08/10/2025 Pneumococcal Vaccine: 50+(2 of 2 - PCV) due on 08/10/2025 Influenza Vaccine(Season Ended) due on 04/01/2025 Diabetes Screening due on 10/27/2025 Bone Density Screening Addressed 1. Acute right-sided low back pain without sciatica (M54.50) 2. Numbness and tingling sensation of skin (R20.0) - On (more content not included)... Normal [facility] Cardiology Visit Reporton Cardiology Visit Report [facility] [address] [place] [address]. [address] [place], [place] [id number] OFFICE VISIT Date of Service: 01/04/25 MR#: [id number] Acct: [id number] Name: MARIE ASHLEY Rep #: [id number] : 1940 Provider: MARAL leong Age/Sex: 84/F Location: [facility] Status: Signed HPI HPI History of Present Illness Details: Marie Ashley is an 84-year-old female who presents to office today for an urgent appointment. Patient presented to the emergency room yesterday with atrial fibrillation. Patient attempted extra dose of metoprolol 25 mg but continued to notice rapid heart rate. Patient has a known history of paroxysmal atrial fibrillation. She has a history of atrial fibrillation on rate limiting medication and anticoagulant. Patient has a history of hypothyroidism in which her TSH was elevated in August 2024 and patient's hypothyroid medication was increased. From a cardiac standpoint, the patient is doing well. She does acknowledge slight palpations. She describes this as a hard beat. She denies chest pain, pressure or heaviness. She denies SOB, Orthopnea, and PND. She does not have bleeding issues; no blood in urine, stool, or nosebleeds. She does acknowledge a slight decrease in energy level. She denies any myalgias, or claudication. She does not have edema, or sudden weight gain. She denies lightheadedness, dizziness, syncopal or near syncopal episodes, and headaches. Intake Vital Signs 02/13/24 13:32 01/03/25 07:30 01/04/25 07:16 Height 5 ft 4 in 5 ft 5 in 5 ft 5 in Weight: 106 lb BMI 17.6 BP 105/61 Blood Pressure Location Lt brachial Position Sitting Respiration 18 Pulse 60 Pulse Source Monitor Pulse Oximetry (%) 96 Intake Visit Reasons: 1 Y FU Record Producer Required: No Is patient in pain?: No Allergies oxytetracycline (From Terramycin) Allergy (Verified 01/04/25 13:22) Unknown Penicillins Allergy (Verified 01/04/25 13:22) Unknown Medications ???Medication ???Instructions ???Recorded ???Confirmed ???Type latanoprost 0.005 % eye drops 1 drp ophthalmic (eye) [facility] 1 01/04/25 History acetaminophen 325 mg tablet 325 mg PO ONCE PRN fever or pain 0 02/12/22 01/04/25 History levothyroxine 50 mcg tablet 50 mcg PO DAILY 10/17/24 01/04/25 History apixaban 2.5 mg tablet 2.5 mg PO BID #60 tabs 11/26/24 Rx metoprolol tartrate 50 mg tablet 50 mg PO BID #180 tabs 01/02/25 Rx Ejection fraction %: 65 Have you fallen in the past year?: No [facility] Medical History Hypothyroidism PAF (paroxysmal atrial fibrillation) Atrial fibrillation with RVR Glaucoma Surgical History History of cholecystectomy Family History Mother Heart disease Paroxysmal atrial fibrillation Father Cancer Lung Sister Heart disease Social History Smoking Status: Never smoker alcohol intake: never substance use type: does not use caffeine: Yes Type: coffee Number of servings: 1 ROS Const Const: Positive for fatigue and weakness; Negative for headache(s) or frequent falls Eyes Eyes: Negative for blurry vision ENT ENT: Negative for headache(s), dizziness or Nosebleed/epistaxis Cardio Chest Pain: No Palpitations: Yes Edema: None Muscle aches with walking: None Resp Respiratory: Negative for SOB with activity, SOB at rest or SOB orthopnea SOB lying down GI GI: Negative nausea, vomiting, heartburn, bright, red blood in stools or black,tarry stools : Negative for hematuria Neuro Neuro: Positive for weakness; Negative for dizziness, lightheadedness, near syncope, syncope, frequent falls, headache(s) or blurry vision Endo Endo: Positive for fatigue Cardiology Exam Const Appearance: cooperative, healthy appearing, comfortable and no acute distress Nutritional Appearance: average body habitus, well nourished and thin Orientation: alert, awake and oriented x3 Head Head: normal to inspection Ears: hearing grossly normal bilaterally Nose: external nose normal Face and Sinus: face symmetric Eyes General: appearance normal, both eyes and all related structures Eyelids: eyelids normal EOM: EOM intact bilaterally Neck Neck: normal visual inspection and no JVD Carotids: normal carotid upstroke Chest Chest inspection: normal inspection of the chest, symmetric chest movement and normal respiratory effort; Negative cough Auscultation: Bilateral: Clear to Auscultation Cardio Rate: regular rate Rhythm: regular rhythm Heart sounds: S1 normal and S2 normal; Negative rub, gallop or murmur GI GI: normal to inspection (more content not included)... Normal [facility] 12 Lead EKGon 01-03-2025 12 Lead EKG [facility] Cardiovascular Services [address] [place] [address] 12 Lead EKG 01/03/25 0740 MR#: [id number] Acct: [id number] Name: MARIE ASHLEY Rep #: [id number] : 1940 84 From: Sujata Fonseca MD Attending Dr: Status: DEP ER Ordering Dr: Shiva Sims DO Date: 01/03/25 Location: ED Sex: F C Admitted: Test Reason : Blood Pressure : */* mmHG Vent. Rate : 92 BPM Atrial Rate : * BPM P-R Int : * ms QRS Dur : 82 ms QT Int : 352 ms P-R-T Axes : * -7 39 degrees QTcB Int : 435 ms Atrial fibrillation Abnormal ECG Confirmed by ELIZABETH GRACIA, TC ([id number]), editor publications DESTINI TOVAR ([id number]) on 01/07/2025 6:25:05 AM Referred By: Confirmed By: TC FONSECA MD 01/07/25624 Date Sujata Fonseca MD CC: Dr. Sebastian Teixeira MD; Dr. Shiva Sims, Signed Normal [facility] Absolute lymphocyte countOrd ered By: Shiva Sims on 01-03-2025 Lymphocytes Auto (Unsp spec) [#/Vol] 1.82 10*3/uL 0.83-4.51 [facility] Absolute neutrophil countOrd ered By: Shiva Sims on 01-03-2025 Neutrophils (Bld) [#/Vol] 2.5 10*3/uL 2.0-7.7 [facility] Anion gap in Serum or Plasma Ordered By: Shiva Sims on 01-03-2025 Anion gap [Moles/Vol] 13 mmol/L 5-15 [facility] Automated lymphocyte count a s percentage of total leukocytesOrdered By: Shiva Sims on 01-03-2025 Lymphocytes/100 WBC Auto (Unsp spec) 38.2 % - [facility] BUN/creatinine ratioOrdered By: Shiva Sims on 01-03-2025 Urea nitrogen/Creatinine [Mass ratio] 20.5 mg/mg High - [facility] Basic Metabolic Profile (BMP )on 01-03-2025 BUN/CRE 20.5 RATIO High - [facility] Comment on above: Performed By: #### L 500.2500, L100.0100, L501.5200, L501.9520 ####[facility] [address] [place], [address] Calcium [Mass/Vol] 9.1 mg/dL Normal 7.6-11.0 [facility] Comment on above: Performed By: #### L 500.2500, L100.0100, L501.5200, L501.9520 ####[facility] [address] [place], [address] Chloride [Moles/Vol] 104 mmol/L Normal 98-108 [facility] Comment on above: Performed By: #### L 500.2500, L100.0100, L501.5200, L501.9520 ####[facility] [address] [place], [address] CO2 [Moles/Vol] 24.8 mmol/L Normal 21.0-32.0 [facility] Comment on above: Performed By: #### L 500.2500, L100.0100, L501.5200, L501.9520 ####[facility] [address] [place], [address] Creatinine [Mass/Vol] 0.76 mg/dL Normal 0.70-1.20 [facility] Comment on above: Performed By: #### L 500.2500, L100.0100, L501.5200, L501.9520 ####[facility] [address] [place], [address] ECRCL 40.02 ml/min Low 50-250 [facility] Comment on above: Performed By: #### L 500.2500, L100.0100, L501.5200, L501.9520 ####[facility] [address] [place], [address] GAP 13 Normal 5-15 [facility] Comment on above: Performed By: #### L 500.2500, L100.0100, L501.5200, L501.9520 ####[facility] [address] [place], [address] GFR/1.73 sq M.predicted among non-blacks MDRD (S/P/Bld) [Vol rate/Area] 78 mL/min/{1.73_m2} Normal >60 [facility] Comment on above: Result Comment: mL/m in/1.73m2 CKD-EPI Creatinine Equation (2020) Performed By: #### L 500.2500, L100.0100, L501.5200, L501.9520 ####[facility] [address] [place], [address] Glucose [Mass/Vol] 117 mg/dL High 70-99 [facility] Comment on above: Performed By: #### L 500.2500, L100.0100, L501.5200, L501.9520 ####[facility] [address] [place], [address] Potassium [Moles/Vol] 3.6 mmol/L Normal 3.3-5.1 [facility] Comment on above: Performed By: #### L 500.2500, L100.0100, L501.5200, L501.9520 ####[facility] [address] [place], [address] Sodium [Moles/Vol] 141 mmol/L Normal 133-145 [facility] Comment on above: Performed By: #### L 500.2500, L100.0100, L501.5200, L501.9520 ####[facility] [address] [place], [address] Urea nitrogen [Mass/Vol] 16 mg/dL Normal 4-19 [facility] Comment on above: Performed By: #### L 500.2500, L100.0100, L501.5200, L501.9520 ####[facility] [address] [place], [address] Basophil percentageOrdered B y: Shiva Sims on 01-03-2024 Basophils/100 WBC (Bld) 0.6 % 0-1 [facility] CBC W/Diff, Automatedon -2024 Absolute Lymph 1.82 X10 3/uL Normal 0.83-4.51 [facility] Comment on above: Performed By: #### L 500.2500, L100.0100, L501.5200, L501.9520 ####[facility] [address] [place], [address] Absolute Neut 2.5 X10 3/uL Normal 2.0-7.7 [facility] Comment on above: Performed By: #### L 500.2500, L100.0100, L501.5200, L501.9520 ####[facility] [address] [place], [address] Basophils/100 WBC (Bld) 0.6 % Normal 0-1 [facility] Comment on above: Performed By: #### L 500.2500, L100.0100, L501.5200, L501.9520 ####[facility] [address] [place], [address] Eosinophils/100 WBC (Bld) 2.7 % Normal 0-5 [facility] Comment on above: Performed By: #### L 500.2500, L100.0100, L501.5200, L501.9520 ####[facility] [address] [place], [address] Erythrocyte distribution width (RBC) [Ratio] 11.9 % Normal 11.6-14.6 [facility] Comment on above: Performed By: #### L 500.2500, L100.0100, L501.5200, L501.9520 ####[facility] [address] [place], [address] Hematocrit (Bld) [Volume fraction] 41.0 % Normal 37-47 [facility] Comment on above: Performed By: #### L 500.2500, L100.0100, L501.5200, L501.9520 ####[facility] [address] [place], [address] Hemoglobin (Bld) [Mass/Vol] 13.5 g/dL Normal 12.0-15.0 [facility] Comment on above: Performed By: #### L 500.2500, L100.0100, L501.5200, L501.9520 ####[facility] [address] [place], [address] IG% 0.000 Normal 0.0-0.9 [facility] Comment on above: Result Comment: IG% - Immature Granulocytes (promyelocytes, myelocytes and metamyelocytes) > 1% indicates that a LEFT SHIFT is Present. Performed By: #### L 500.2500, L100.0100, L501.5200, L501.9520 ####[facility] [address] [place], [address] Lymphocytes/100 WBC (Bld) 38.2 % Normal 19-41 [facility] Comment on above: Performed By: #### L 500.2500, L100.0100, L501.5200, L501.9520 ####[facility] [address] [place], [address] MCH (RBC) [Entitic mass] 30.3 pg Normal 27.0-32.0 [facility] Comment on above: Performed By: #### L 500.2500, L100.0100, L501.5200, L501.9520 ####[facility] [address] [place], [address] MCHC (RBC) [Mass/Vol] 32.9 g/dL Normal 32-36 [facility] Comment on above: Performed By: #### L 500.2500, L100.0100, L501.5200, L501.9520 ####[facility] [address] [place], [address] MCV (RBC) [Entitic vol] 91.9 fL Normal 81-99 [facility] Comment on above: Performed By: #### L 500.2500, L100.0100, L501.5200, L501.9520 ####[facility] [address] [place], [address] Monocytes/100 WBC (Bld) 6.9 % Normal 0-10 [facility] Comment on above: Performed By: #### L 500.2500, L100.0100, L501.5200, L501.9520 ####[facility] [address] [place], [address] Neutrophils/100 WBC (Bld) 51.6 % Normal 47-70 [facility] Comment on above: Performed By: #### L 500.2500, L100.0100, L501.5200, L501.9520 ####[facility] [address] [place], [address] Nucleated RBC (Bld) [#/Vol] 0 10*3/uL Normal 0-5 [facility] Comment on above: Performed By: #### L 500.2500, L100.0100, L501.5200, L501.9520 ####[facility] [address] [place], [address] Platelet mean volume (Bld) [Entitic vol] 10.2 fL Normal 6.2-12.0 [facility] Comment on above: Performed By: #### L 500.2500, L100.0100, L501.5200, L501.9520 ####[facility] [address] [place], [address] Platelets (Bld) [#/Vol] 256 10*3/uL Normal 150-450 [facility] Comment on above: Performed By: #### L 500.2500, L100.0100, L501.5200, L501.9520 ####[facility] [address] [place], [address] RBC (Bld) [#/Vol] 4.46 10*6/uL Normal 4.2-5.4 [facility] Comment on above: Performed By: #### L 500.2500, L100.0100, L501.5200, L501.9520 ####[facility] [address] [place], [address] RDW SD 40.0 fl Normal 35.1-43.9 [facility] Comment on above: Performed By: #### L 500.2500, L100.0100, L501.5200, L501.9520 ####[facility] [address] [place], [address] WBC (Bld) [#/Vol] 4.8 10*3/uL Normal 4.4-11.0 [facility] Comment on above: Performed By: #### L 500.2500, L100.0100, L501.5200, L501.9520 ####[facility] [address] [place], [address] Carbon dioxide, total [Moles /volume] in Central venous bloodOrdered By: Shiva Sims on 01-03-2025 CO2 [Moles/Vol] 24.8 mmol/L 21.0-32.0 [facility] Chloride assayOrdered By: Petr Sims on 01-03-2025 Chloride [Moles/Vol] 104 mmol/L 98-108 [facility] Emergency Department Summary on 01-03-2025 Emergency Department Summary [facility] Medical Records Department [address] [place] [address] Emergency Department Summary 01/03/25 MR#: [id number] Acct: [id number] Name: MARIE ASHLEY Rep #: [id number] : 1940 84 From: Shiva Sims DO PCP: Dr. Sebastian Teixeira MD Status:DEP ER Location: ED HPI History of Present Illness Chief Complaint: Palpitations Informant: patient and spouse/S.O. Narrative Narrative: 84-year-old female presenting to the emergency room with a chief complaint of atrial fibrillation. Patient has a history of paroxysmal atrial fibrillation states that her last known A-fib was in September. She states that she is on apixaban as well as metoprolol. Over the past couple days she has been doing well and outside mulching. This morning she got up to utilize the bathroom and when she got back in bed she felt her heart racing. She states she took an extra dose of her metoprolol and lay down. States her A-fib continues. She denies any chest pain or significant shortness of breath. She denies fever or cough. She notes that she does not wish a cardioversion. She would like to know more information about electrophysiology and ablation. She denies missing any doses of her apixaban in the last month. [facility] Medical History Hypothyroidism PAF (paroxysmal atrial fibrillation) Atrial fibrillation with RVR Glaucoma Home Medications ???Medication ???Instructions ???Recorded ???Last Taken ???Type latanoprost 0.005 % eye drops 1 drp ophthalmic (eye) [facility] 1 01/02/25 History acetaminophen 325 mg tablet 325 mg PO ONCE PRN fever or pain 0 02/12/22 Unknown History levothyroxine 50 mcg tablet 50 mcg PO DAILY 10/17/24 01/03/25 History apixaban 2.5 mg tablet 2.5 mg PO BID #60 tabs 11/26/24 Rx metoprolol tartrate 50 mg tablet 50 mg PO BID #180 tabs 01/02/25 Rx Allergy/AdvReac Type Severity Reaction Status Date / Time oxytetracycline (From Allergy Unknown Verified 01/03/25 07:30 Terramycin) Penicillins Allergy Unknown Verified 01/03/25 07:30 Family History Mother Heart disease Paroxysmal atrial fibrillation Father Cancer Lung Sister Heart disease Surgical History History of cholecystectomy Social History Smoking Status: Never smoker alcohol intake: never substance use type: does not use caffeine: Yes Type: coffee Number of servings: 1 ROS ROS ED Constitutional Constitutional ED: Denies chills, fever(s) or weight loss Eyes Eyes: Denies change in vision or diplopia ENT ENT ED: Denies ear pain, rhinorrhea or sore throat Cardiovascular Cardiovascular: Reports palpitations and racing heartbeat; Denies chest pain or orthopnea Respiratory/Chest Respiratory/Chest: Denies cough, dyspnea or orthopnea Gastrointestinal Gastrointestinal: Denies abdominal pain, diarrhea, nausea or vomiting Genitourinary Genitourinary ED: Denies dysuria, hematuria or urinary frequency Musculoskeletal Musculoskeletal: Denies arthralgias or myalgias Integumentary Denies abscess or rash Neurologic Neurologic: Denies headache(s) or weakness Psychiatric Psychiatric: Denies anxiety, depression, suicidal ideation or suicidal thoughts Endocrine Endocrinology: Denies polydipsia, polyphagia or polyuria Allergic/Immunologic Allergic/Immunologic ED: Denies mouth swelling, tongue swelling or urticaria EXAM Physical Exam Const Vital Signs: 01/03/25 07:30 01/03/25 08:30 01/03/25 09:00 Temperature 97.7 F L Temperature Source Temporal Pulse Rate 89 97 98 Respiratory Rate 17 18 18 Blood Pressure 117/76 108/55 L 110/65 Blood Pressure Mean 89 72 80 Pulse Ox 98 99 99 Oxygen Delivery Method Room Air 01/03/25 10:00 Temperature Temperature Source Pulse Rate 100 Respiratory Rate 18 Blood Pressure 95/60 Blood Pressure Mean 71 Pulse Ox 99 Oxygen Delivery Method Positive well nourished and well developed General Appearance ED: well developed and NAD HEENT Reports normocephalic, head/scalp atraumatic and moist mucous membranes Eyes PERRL and EOMs intact bilaterally Neck no lymphadenopathy, supple and no JVD Resp normal respiratory effort and clear to auscultation bilaterally Cardio no murmurs Rate: tachycardic Rhythm: abnormal rhythm irregularly irregular GI normal to inspection, nondistended, normoactive bowel sounds and non-tender Palpation: soft Back/Spine no CVA tenderness and normal ROM Extremity normal to inspection General Extremety ED: Negative for edema General Extremity: Negative for edema Neuro o (more content not included)... Normal [facility] Eosinophil percentageOrdered By: Shiva Sims on 01-03-2025 Eosinophils/100 WBC (Bld) 2.7 % 0-5 [facility] Erythrocyte distribution wid th ratioOrdered By: Shiva Sims on 01-03-2025 Erythrocyte distribution width (RBC) [Ratio] 11.9 % 11.6-14.6 [facility] Erythrocyte distribution wid th standard deviationOrdered By: Shiva Sims on 01-03-2025 Erythrocyte distribution width (RBC) [Ratio] 40.0 fl 35.1-43.9 [facility] Glomerular filtration rate ( GFR) estimation/1.73 sq m using serum, plasma, or whole bOrdered By: Shiva Sims on 01-03-2025 GFR/1.73 sq M.predicted among non-blacks MDRD (S/P/Bld) [Vol rate/Area] 78 mL/min/{1.73_m2} >60 [facility] Comment on above: mL/min/1.73m2 CKD-EP I Creatinine Equation (2020) Hematocrit Auto (Bld) [Volum e fraction]Ordered By: Shiva Sism on 01-03-2025 Hematocrit (Bld) [Volume fraction] 41.0 % 37-47 [facility] Hemoglobin measurementOrdere d By: Shiva Sims on 01-03-2025 Hemoglobin (Bld) [Mass/Vol] 13.5 g/dL 12.0-15.0 [facility] Immature granulocytes/100 WB C Auto (Bld)Ordered By: Shiva Sims on 01-03-2025 Immature granulocytes/100 WBC (Bld) 0.000 % 0.0-0.9 [facility] Comment on above: IG% - Immature Granu locytes (promyelocytes, myelocytes and metamyelocytes) > 1% indicates that a LEFT SHIFT is Present. MCV (mean corpuscular volume ) determinationOrdered By: Shiva Sims on 01-03-2025 MCV (RBC) [Entitic vol] 91.9 fL 81-99 [facility] Magnesiumon 01-03-2025 Magnesium [Mass/Vol] 2.2 mg/dL Normal 1.5-2.2 [facility] Comment on above: Performed By: #### L 500.2500, L100.0100, L501.5200, L501.9520 ####[facility] [address] [place], [address] Magnesium measurement (mass/ volume)Ordered By: Shiva Sims on 01-03-2025 Magnesium (Unsp spec) [Mass/Vol] 2.2 mg/dL 1.5-2.2 [facility] Mean corpuscular hemoglobin (MCH) determinationOrdered By: Shiva Sims on 01-03-2025 MCH (RBC) [Entitic mass] 30.3 pg 27.0-32.0 [facility] Mean corpuscular hemoglobin concentration (MCHC) determinationOrdered By: Shiva Sims on 01-03-2025 MCHC (RBC) [Mass/Vol] 32.9 g/dL 32-36 [facility] Mean platelet volume determi nationOrdered By: Shiva Sims on 01-03-2025 Platelet mean volume (Bld) [Entitic vol] 10.2 fL 6.2-12.0 [facility] Monocyte percentageOrdered B y: Shiva Sims on 01-03-2025 Monocytes/100 WBC (Bld) 6.9 % 0-10 [facility] Neutrophil percentageOrdered By: Shiva Sims on 01-03-2025 Neutrophils/100 WBC (Bld) 51.6 % 47-70 [facility] Nucleated red blood cell per centageOrdered By: Shiva Sims on 01-03-2025 Nucleated RBC/100 WBC (Bld) [Ratio] 0 % 0-5 [facility] Platelet countOrdered By: Petr Sims on 01-03-2025 Platelets (Bld) [#/Vol] 256 10*3/uL 150-450 [facility] Potassium measurement (mass/ volume)Ordered By: Shiva Sims on 01-03-2025 Potassium (Unsp spec) [Mass/Vol] 3.6 mmol/L 3.3-5.1 [facility] RBC Auto (Bld) [#/Vol]Ordere d By: Shiva Sims on 01-03-2025 RBC (Bld) [#/Vol] 4.46 10*6/uL 4.2-5.4 [facility] Serum creatinine measurement (mass/volume)Ordered By: Shiva Sims on 01-03-2025 Creatinine [Mass/Vol] 0.76 mg/dL 0.70-1.20 [facility] Serum glucose measurement (m ass/volume)Ordered By: Shiva Sims on 01-03-2025 Glucose [Mass/Vol] 117 mg/dL High 70-99 [facility] Serum or plasma calcium estevan urement (mass/volume)Ordered By: Shiva Sims on 01-03-2025 Calcium [Mass/Vol] 9.1 mg/dL 7.6-11.0 [facility] Serum or plasma urea nitroge n measurement (mass/volume)Ordered By: Shiva Sims on 01-03-2025 Urea nitrogen [Mass/Vol] 16 mg/dL 4-19 [facility] Sodium levelOrdered By: Isaac Sims on 01-03-2025 Sodium [Moles/Vol] 141 mmol/L 133-145 [facility] TSH DL <= 0.005 mIU/L QnOrde red By: Shiva Sims on 01-03-2025 TSH Qn 1.770 uIU/mL 0.300-4.200 [facility] Thyroid Stim Hormone (TSH)on 01-03-2025 TSH 1.770 uIU/mL Normal 0.300-4.200 [facility] Comment on above: Performed By: #### L 500.2500, L100.0100, L501.5200, L501.9520 ####[facility] [address] [place], [address] White blood cell (WBC) count Ordered By: Shiva Sims on 01-03-2025 WBC (Bld) [#/Vol] 4.8 10*3/uL 4.4-11.0 [facility] Anion gap in Serum or Plasma Ordered By: Rex Edwards on 11-22-2024 Anion gap [Moles/Vol] 8 mmol/L - [facility] BUN/creatinine ratioOrdered By: Rex Edwards on 11-22-2024 Urea nitrogen/Creatinine [Mass ratio] 21.0 mg/mg High 05-20 [facility] Basic Metabolic Profile (BMP )on 11-22-2024 BUN/CRE 21.0 RATIO High 05-20 [facility] Comment on above: Performed By: #### L 501.5200, L500.2500 ####[facility] [address] [place], [address] Calcium [Mass/Vol] 9.3 mg/dL Normal 7.6-11.0 [facility] Comment on above: Performed By: #### L 501.5200, L500.2500 ####[facility] [address] [place], [address] Chloride [Moles/Vol] 102 mmol/L Normal 98-108 [facility] Comment on above: Performed By: #### L 501.5200, L500.2500 ####[facility] [address] [place], [address] CO2 [Moles/Vol] 28.6 mmol/L Normal 21.0-32.0 [facility] Comment on above: Performed By: #### L 501.5200, L500.2500 ####[facility] [address] [place], [address] Creatinine [Mass/Vol] 0.61 mg/dL Low 0.70-1.20 [facility] Comment on above: Performed By: #### L 501.5200, L500.2500 ####[facility] [address] [place], [address] GAP 8 Normal 5-15 [facility] Comment on above: Performed By: #### L 501.5200, L500.2500 ####[facility] [address] [place], [address] GFR/1.73 sq M.predicted among non-blacks MDRD (S/P/Bld) [Vol rate/Area] 89 mL/min/{1.73_m2} Normal >60 [facility] Comment on above: Result Comment: mL/m in/1.73m2 CKD-EPI Creatinine Equation (2020) Performed By: #### L 501.5200, L500.2500 ####[facility] [address] [place], [address] Glucose [Mass/Vol] 102 mg/dL High 70-99 [facility] Comment on above: Performed By: #### L 501.5200, L500.2500 ####[facility] [address] [place], [address] Potassium [Moles/Vol] 4.1 mmol/L Normal 3.3-5.1 [facility] Comment on above: Performed By: #### L 501.5200, L500.2500 ####[facility] [address] [place], [address] Sodium [Moles/Vol] 138 mmol/L Normal 133-145 [facility] Comment on above: Performed By: #### L 501.5200, L500.2500 ####[facility] [address] [place], [address] Urea nitrogen [Mass/Vol] 13 mg/dL Normal 4-19 [facility] Comment on above: Performed By: #### L 501.5200, L500.2500 ####[facility] [address] [place], [address] Carbon dioxide, total [Moles /volume] in Central venous bloodOrdered By: Rex Edwards on 11-22-2024 CO2 [Moles/Vol] 28.6 mmol/L 21.0-32.0 [facility] Cardiology Visit Reporton Cardiology Visit Report [facility] [address] [place] [address] OFFICE VISIT Date of Service: 11/22/24 MR#: [id number] Acct: [id number] Name: MARIE ASHLEY Rep #: [id number] : 1940 Provider: MARAL rodriguez Age/Sex: 84/F Location: [facility] Status: Signed HPI HPI History of Present Illness Details: Marie Ashley is an 84-year-old female who presents to office today for an urgent appointment. Patient presented to the emergency room 10/11/2024 with concerns of palpitations and rapid heart rate. Patient reported she got up to use the restroom overnight and felt her heart racing when returning to bed. Patient attempted extra dose of metoprolol 25 mg but continued to notice rapid heart rate. Patient has a known history of paroxysmal atrial fibrillation. EKG performed in the ED revealed atrial fibrillation with RVR. Patient required 2 doses of IV metoprolol in which heart rate improved. Insurance Clerk recommended increasing metoprolol to 50 mg twice daily with close outpatient follow-up. Of note, electrolytes were WNL and TSH was WNL in the ED. She has a history of atrial fibrillation on rate limiting medication and anticoagulant. Patient has a history of hypothyroidism in which her TSH was elevated in August 2024 and patient's hypothyroid medication was increased. She contacted our office earlier today expressing concerns that her heart was acting funny along with low blood pressure. She was asked to present for further evaluation. She denies chest, arm, jaw, or neck discomfort. She denies palpitations, bilateral lower extremity edema, or claudication. She acknowledges shortness breath with activity and shortness of breath at rest. She denies orthopnea, cough, or PND. She denies lightheadedness, dizziness, near-syncope, or syncope. She denies fatigue. Intake Vital Signs 10/17/24 07:29 11/22/24 15:16 Height 5 ft 5 in 5 ft 5 in Weight: 105 lb 105 lb BMI 17.4 17.4 BP 108/65 106/65 Blood Pressure Location Lt brachial Lt brachial Position Sitting Sitting Respiration 18 18 Pulse 62 59 L Pulse Source Monitor Monitor Pulse Oximetry (%) 99 96 Intake Visit Reasons: Hypotension Record Producer Required: No Is patient in pain?: No Allergies oxytetracycline (From Terramycin) Allergy (Verified 11/22/24 15:39) Unknown Penicillins Allergy (Verified 11/22/24 15:39) Unknown Medications ???Medication ???Instructions ???Recorded ???Confirmed ???Type latanoprost 0.005 % eye drops 1 drp ophthalmic (eye) DAILY 11/0611/22/24 History acetaminophen 325 mg tablet 325 mg PO ONCE PRN fever or pain 0 02/12/22 11/22/24 History levothyroxine 50 mcg tablet 25 mcg PO DAILY 10/17/24 11/22/24 History metoprolol tartrate 50 mg tablet 50 mg PO BID #90 tabs 10/17/24 Rx apixaban 5 mg tablet (Eliquis) 5 mg PO BID #60 tabs 11/19/2410/31 Rx Ejection fraction %: 65 Have you fallen in the past year?: No PFSH Medical History Hypothyroidism PAF (paroxysmal atrial fibrillation) Atrial fibrillation with RVR Glaucoma Surgical History History of cholecystectomy Family History Mother Heart disease Paroxysmal atrial fibrillation Father Cancer Lung Sister Heart disease Social History Smoking Status: Never smoker alcohol intake: never substance use type: does not use caffeine: Yes Type: coffee Number of servings: 1 ROS Const Const: Negative for fatigue, weakness, headache(s) or frequent falls Eyes Eyes: Negative for blurry vision ENT ENT: Negative for headache(s), dizziness or Nosebleed/epistaxis Cardio Chest Pain: No Palpitations: No Edema: None Muscle aches with walking: None Resp Respiratory: Positive for SOB with activity and SOB at rest; Negative for SOB orthopnea SOB lying down GI GI: Negative nausea, vomiting, heartburn, bright, red blood in stools or black,tarry stools : Negative for hematuria Musc Musc: Negative for muscle aches/ myalgia Skin Skin: Negative non-healing lesions or rash Neuro Neuro: Negative for dizziness, lightheadedness, near syncope, syncope, frequent falls, headache(s), weakness or blurry vision Endo Endo: Negative for fatigue Allergy Allergy/Immunology: Negative for rash Cardiology Exam Const Appearance: cooperative, healthy appearing, comfortable and no acute distress Nutritional Appearance: average body habitus and well nourished Orientation: alert, awake and oriented x3 Head Head: normal to inspection Ears: hearing grossly normal bilaterally Nose: external nose normal Face and Sinus: face symmetr (more content not included)... Normal [facility] Chloride assayOrdered By: Agnes Edwards on 11-22-2024 Chloride [Moles/Vol] 102 mmol/L 98-108 [facility] Glomerular filtration rate ( GFR) estimation/1.73 sq m using serum, plasma, or whole bOrdered By: Rex Edwards on 11-22-2024 GFR/1.73 sq M.predicted among non-blacks MDRD (S/P/Bld) [Vol rate/Area] 89 mL/min/{1.73_m2} >60 [facility] Comment on above: mL/min/1.73m2 CKD-EP I Creatinine Equation (2020) Magnesiumon 11-22-2024 Magnesium [Mass/Vol] 2.4 mg/dL High 1.5-2.2 [facility] Comment on above: Performed By: #### L 501.9150, L500.2500 ####[facility] [address] [place], [address] Magnesium measurement (mass/ volume)Ordered By: Rex Edwards on 11-22-2024 Magnesium (Unsp spec) [Mass/Vol] 2.4 mg/dL High 1.5-2.2 [facility] Potassium measurement (mass/ volume)Ordered By: Rex Edwards on 11-22-2024 Potassium (Unsp spec) [Mass/Vol] 4.1 mmol/L 3.3-5.1 [facility] Serum creatinine measurement (mass/volume)Ordered By: Rex Edwards on 11-22-2024 Creatinine [Mass/Vol] 0.61 mg/dL Low 0.70-1.20 [facility] Serum glucose measurement (m ass/volume)Ordered By: Rex Edwards on 11-22-2024 Glucose [Mass/Vol] 102 mg/dL High 70-99 [facility] Serum or plasma calcium estevan urement (mass/volume)Ordered By: Rex Edwards on 11-22-2024 Calcium [Mass/Vol] 9.3 mg/dL 7.6-11.0 [facility] Serum or plasma urea nitroge n measurement (mass/volume)Ordered By: Rex Edwards on 11-22-2024 Urea nitrogen [Mass/Vol] 13 mg/dL 4-19 [facility] Sodium levelOrdered By: Rex Edwards on 11-22-2024 Sodium [Moles/Vol] 138 mmol/L 133-145 [facility] CNOVon 11-09-2024 [facility] MARIE ASHLEY Rajan ([id number]) 1940 F Date Time Provider Department 11/09/24 10:40 AM HERI TEIXEIRAOLGA During your visit today, we recorded the following information about you: Pulse Respiration Blood pressure Weight 54/minute 16/minute 100/58 48.3 kg Heri Teixeira MD 11/13/2024 7:50 AM Signed Chief Complaint Patient presents with: Follow Up: 3 month HPI Marie Rajan Dion is a 84 year old female who presents here today for Above Complaints. Noted patient evaluated in the ER last month for A fib with RVR and Dr. Abebe increased her dosage of metoprolol to 50 mg BID. Has had a f/u with [facility] cardiology since then and they recommended she continue on this regimen. Not checking HR at home. BP running in the 100-120/60's. Denies lightheadedness or dizziness, chest pain, SOB, palpitations, LE edema. No bleeding symptoms with the eliquis. CBC normal in the ER. Has f/u with cardiology in January. TSH 2.8 in the ER. Taking synthroid daily without side effects. Needs refill. Past medical history, appointments, medications, allergies reviewed. Previous Medical History PAST MEDICAL HISTORY Diagnosis Date Acquired hypothyroidism Herpes zoster without complication Osteopenia Other specified glaucoma Paroxysmal atrial fibrillation (HCC) [facility] cardiology Previous Surgical History PAST SURGICAL HISTORY Procedure Laterality Date CHOLECYSTECTOMY 02/05/2002 Family History FAMILY HISTORY Problem Relation Age of Onset Heart Mother Cancer Father lung Breast Cancer Sister Hypertension Maternal Grandmother Tuberculosis Maternal Grandfather Stroke Paternal Grandfather Patient Allergies ALLERGIES Allergen Reactions Penicillins Intolerance Teramycin [Oxytetra* Intolerance Rash Current Medications Current Outpatient Medications on File Prior to Visit Medication Sig metoprolol tartrate, short acting, (LOPRESSOR) 50 mg tablet Take 0.5 tablets by mouth two times a day. levothyroxine (SYNTHROID) 50 mcg tablet Take 1 tablet by mouth once daily. loratadine (CLARITIN) 10 mg tablet Take 10 mg by mouth once daily. As needed fluticasone (FLONASE) 50 mcg/actuation nasal spray Use 2 Sprays in each nostril once daily. Rinse mouth after use. apixaban (ELIQUIS) 5 mg tab(s) Take 1 tablet by mouth twice daily. multivitamin (DAILY MULTIVITAMIN) ORAL Tab Take one(1) tablet daily. Sdnpphw-Xlojrrrwt-Bsono in D2 500-50-100 mg-mg-unit ORAL Chew Take one(1) tablet two(2) times daily. TIMOPTIC 0.5 % EYE DROPS One drop in each eye at night. No current facility-administered medications on file prior to visit. Social History Social History Tobacco Use Smoking status: Never Smokeless tobacco: Never Vaping Use Vaping status: Never Used Substance Use Topics Alcohol use: No Drug use: No Review of Symptoms REVIEW OF SYSTEMS GENERAL: No weight loss, malaise or fevers RESPIRATORY: Negative for cough, hemoptysis, wheezing, COPD, dyspnea or shortness of breath CARDIOVASCULAR: Negative for chest pain, leg swelling, hypertension, CHF or palpitations GI: No nausea, vomiting, or diarrhea SKIN: Negative for lesions, rash, and itching EXAM: BP 100/58 Pulse (!) 54 Resp 16 Wt 48.3 kg (106 lb 6.4 oz) SpO2 98% BMI 18.28 kg/m? General Appearance: Well appearing, alert, in no acute distress, well-hydrated, well nourished.. Skin: Skin color, texture, turgor normal, no suspicious rashes or lesions. Ears: External ears normal, canals clear. TMs normal. Lungs: Lungs clear to auscultation. No wheezing, rhonchi, rales.. Heart: RRR without murmur, gallop, or rubs. No ectopy. Abdomen: Normal abdominal exam, Abdomen soft, non-tender. Bowel sounds normal. No masses, organomegaly. Extremities: No deformities, edema, skin discoloration, clubbing or cyanosis. Good capillary refill. . Health Maintenance List Advance Directive Discussion due on 08/01/2024 Influenza Vaccine(1) due on 01/28/2025 DTaP,Tdap,Td Vaccine(1 - Tdap) due on 08/10/2025 RSV Vaccine(1 - 1-dose 75+ series) due on 08/10/2025 Shingrix Vaccine(1 of 2) due on 08/10/2025 Covid-19 Vaccine(1 - 2023- season) due on 08/10/2025 Pneumococcal Vaccine: 50+(2 of 2 - PCV) due on 08/10/2025 Depression Screening due on 12/20/2024 Anxiety Screening due on 12/20/2024 Diabetes Screening due on 10/27/2025 Bone Density Screening Addressed Data reviewed Latest Ref Rng 08/08/2023 08/10/2024 10/08/2024 TSH 0.270 - 4.200 mIU/L 1.400 0.544 Magnesium 1.7 - 2.3 mg/dL 2.3 Potassium 3.7 - 5.1 mmol/L 4.2 ASSESSMENT/PLAN: 1. Paroxysmal atrial fibrillation (HCC) - ICD9: 427.31, ICD10: I48.0 (primary diagnosis) Asymptomatic. Rate controlled on current regimen. Continue anticoagulation with Eliquis. F/u with cardiology recommendations. 2. Hypothyroidism, acquired - ICD9: 244.9, ICD10: E03.9 - Instructed pa (more content not included)... Normal [facility] 12 Lead EKG performed by [facility] on 10-17-2024 12 Lead EKG performed by [facility] [address] [place] [address] 12 Lead EKG performed by [facility] 10/17/24825 MR#: [id number] Acct: [id number] Name: MARIE ASHLEY Rep #: [id number] : 1940 84 From: Lalo PEREIRA Attending Dr: RANDALL Pringle Status: DEP AM B Ordering Dr: Lalo Pichardo Date: 10/17/24 Location: [facility] Sex: F C Admitted: BMS/12 Lead EKG performed by [facility] ECG Report Interpretation ---Sinus Rhythm -RSR(V1) -nondiagnostic. PROBABLY NORMALElectronically signed on 10/18/2024 at 07:35 by Jordan [employer] Software Version 8610 10/18/2440 Date Lalo PEREIRA CC: Dr. Sebastian Teixeira MD Date Dictated: 10/17/24825 Date Transcribed: 10/17/24825 Policyholder Information Clerk: RHODA Signed Normal [facility] Cardiology Visit Reporton Cardiology Visit Report [facility] [address] [place] [address] OFFICE VISIT Date of Service: 10/17/24 MR#: [id number] Acct: [id number] Name: MARIE ASHLEY Rep #: [id number] : 1940 Provider: RANDALL Pringle Age/Sex: 84/F Location: [facility] Status: Signed I reviewed the document and I agree with the assessment and plan as outlined. HPI HPI History of Present Illness Details: Marie Ashley is an 84-year-old female who presents to office today for hospital follow-up. Patient presented to the emergency room 10/11/2024 with concerns of palpitations and rapid heart rate. Patient reported she got up to use the restroom overnight and felt her heart racing when returning to bed. Patient attempted extra dose of metoprolol 25 mg but continued to notice rapid heart rate. Patient has a known history of paroxysmal atrial fibrillation. EKG performed in the ED revealed atrial fibrillation with RVR. Patient required 2 doses of IV metoprolol in which heart rate improved. Insurance Clerk recommended increasing metoprolol to 50 mg twice daily with close outpatient follow-up. Of note, electrolytes were WNL and TSH was WNL in the ED. Patient has a history of atrial fibrillation on rate limiting medication and anticoagulant. Patient has a history of hypothyroidism in which her TSH was elevated in August 2024 and patient's hypothyroid medication was increased. In office today, patient reports doing well since ED visit. Patient denies any recurrence of atrial fibrillation or frequent palpitations since ED visit. Patient expresses concerns that the 3 episodes of atrial fibrillation she has experienced/noticed over the last 1 year may be associated with her getting worked up/worried at home. Patient reports taking a calm supplement to help with her anxiety at home. Further ROS below. Intake Vital Signs 10/11/24 03:42 10/17/24 07:29 Height 5 ft 5 in 5 ft 5 in Weight: 105 lb BMI 17.4 BP 108/65 Blood Pressure Location Lt brachial Position Sitting Respiration 18 Pulse 62 Pulse Source Monitor Pulse Oximetry (%) 99 Intake Visit Reasons: S/P [facility] 10/11 Record Producer Required: No Is patient in pain?: No Allergies oxytetracycline (From Terramycin) Allergy (Verified 10/11/24 03:41) Unknown Penicillins Allergy (Verified 10/11/24 03:41) Unknown Medications ???Medication ???Instructions ???Recorded ???Confirmed ???Type latanoprost 0.005 % eye drops 1 drp ophthalmic (eye) DAILY 11/0610/17/24 History acetaminophen 325 mg tablet 325 mg PO ONCE PRN fever or pain 0 02/12/22 10/17/24 History apixaban 5 mg tablet (Eliquis) 5 mg PO BID #60 tabs 01/24/2409/29 Rx levothyroxine 50 mcg tablet 25 mcg PO DAILY 10/17/24 10/17/24 History metoprolol tartrate 50 mg tablet 50 mg PO BID #90 tabs 10/17/24 Rx Ejection fraction %: 65 Have you fallen in the past year?: No PFSH Medical History Hypothyroidism PAF (paroxysmal atrial fibrillation) Atrial fibrillation with RVR Glaucoma Surgical History History of cholecystectomy Family History Mother Heart disease Paroxysmal atrial fibrillation Father Cancer Lung Sister Heart disease Social History Smoking Status: Never smoker alcohol intake: never substance use type: does not use caffeine: Yes Type: coffee Number of servings: 1 ROS Const Const: Negative for fatigue, weakness, headache(s) or frequent falls Eyes Eyes: Negative for blurry vision ENT ENT: Negative for headache(s), dizziness or Nosebleed/epistaxis Cardio Chest Pain: No Palpitations: Yes (ocasionally) Edema: None Muscle aches with walking: None Resp Respiratory: Negative for SOB with activity, SOB at rest or SOB orthopnea SOB lying down GI GI: Negative nausea, vomiting, heartburn, bright, red blood in stools or black,tarry stools : Negative for hematuria Neuro Neuro: Negative for dizziness, lightheadedness, near syncope, syncope, frequent falls, headache(s), weakness or blurry vision Endo Endo: Negative for fatigue Cardiology Exam Const Appearance: no acute distress and well developed; Negative diaphoretic or ill appearing Nutritional Appearance: average body habitus Orientation: alert and oriented x3 Ambulating without assistive device Head Head: normocephalic and atraumatic Nose: external nose normal and Negative epistaxis Face and Sinus: face symmetric Eyes General: appearance normal, both eyes and all related structures Conjunctivae: Negative scleral icterus EOM: EOM intact bilaterally Neck Neck: no JVD Neck Mass (more content not included)... Normal [facility] CNOVon 10-15-2024 CNOV Office Visit ([facility] ) MARIE ASHLEY ([id number]) 1940 F Date Time Provider Department 10/15/24 1:20 PM JONAH VALIENTEWS During your visit today, we recorded the following information about you: Pulse Blood pressure Weight 59/minute 119/71 47 kg Jonah Valiente, ANTONIA.HSE COORDINATOR 10/15/2024 1:51 PM Signed Chief Complaint No chief complaint on file. [facility] Marie Ashley is a 84 year old female who presents here today for Above Complaints.. Patient presents today for hospital follow up. Patient was in the emergency department for Afib. She was discharged the same day patient states she has been feeling good she has been taking Metop 50mg twice per day. Patient states she hasn't had any episode of afib since being in the emergency department. Patient denies lightheaded, dizziness and chest pain. Past medical history, appointments, medications, allergies reviewed. Previous Medical History PAST MEDICAL HISTORY Diagnosis Date Acquired hypothyroidism Herpes zoster without complication Osteopenia Other specified glaucoma Paroxysmal atrial fibrillation (HCC) [facility] cardiology Previous Surgical History PAST SURGICAL HISTORY Procedure Laterality Date CHOLECYSTECTOMY 02/05/2002 Family History FAMILY HISTORY Problem Relation Age of Onset Heart Mother Cancer Father lung Breast Cancer Sister Hypertension Maternal Grandmother Tuberculosis Maternal Grandfather Stroke Paternal Grandfather Patient Allergies ALLERGIES Allergen Reactions Penicillins Intolerance Teramycin [Oxytetra* Intolerance Rash Current Medications Current Outpatient Medications on File Prior to Visit Medication Sig metoprolol tartrate, short acting, (LOPRESSOR) 50 mg tablet Take 0.5 tablets by mouth two times a day. levothyroxine (SYNTHROID) 50 mcg tablet Take 1 tablet by mouth once daily. loratadine (CLARITIN) 10 mg tablet Take 10 mg by mouth once daily. As needed fluticasone (FLONASE) 50 mcg/actuation nasal spray Use 2 Sprays in each nostril once daily. Rinse mouth after use. apixaban (ELIQUIS) 5 mg tab(s) Take 1 tablet by mouth twice daily. multivitamin (DAILY MULTIVITAMIN) ORAL Tab Take one(1) tablet daily. Hfxwgbs-Knoewioml-Ryvyi in D2 500-50-100 mg-mg-unit ORAL Chew Take one(1) tablet two(2) times daily. TIMOPTIC 0.5 % EYE DROPS One drop in each eye at night. No current facility-administered medications on file prior to visit. Social History Social History Tobacco Use Smoking status: Never Smokeless tobacco: Never Vaping Use Vaping status: Never Used Substance Use Topics Alcohol use: No Drug use: No Review of Symptoms REVIEW OF SYSTEMS GENERAL: No weight loss, malaise or fevers RESPIRATORY: Negative for cough, hemoptysis, wheezing, COPD, dyspnea or shortness of breath CARDIOVASCULAR: Negative for chest pain, leg swelling, hypertension, CHF or palpitations EXAM: BP 119/71 Pulse (!) 59 Wt 47 kg (103 lb 9.9 oz) BMI 17.80 kg/m? General Appearance: Well appearing, alert, in no acute distress, well-hydrated, well nourished.. Lungs: Lungs clear to auscultation. No wheezing, rhonchi, rales.. Heart: RRR without murmur, gallop, or rubs. No ectopy. Health Maintenance List Advance Directive Discussion due on 08/01/2024 Influenza Vaccine(1) due on 01/28/2025 DTaP,Tdap,Td Vaccine(1 - Tdap) due on 08/10/2025 RSV Vaccine(1 - 1-dose 75+ series) due on 08/10/2025 Shingrix Vaccine(1 of 2) due on 08/10/2025 Covid-19 Vaccine(1 - season) due on 08/10/2025 Pneumococcal Vaccine: 50+(2 of 2 - PCV) due on 08/10/2025 Depression Screening due on 12/20/2024 Anxiety Screening due on 12/20/2024 Diabetes Screening due on 10/27/2025 Bone Density Screening Addressed ASSESSMENT/PLAN: 1. Paroxysmal atrial fibrillation (HCC) - ICD9: 427.31, ICD10: I48.0 -Continue current medications -Follow up with cardiology as scheduled 10/17 Jonah Valiente APRN.HSE COORDINATOR Allergies As of Date: 10/15/2024 Noted Allergy Reaction PENICILLINS 01/04/2006 5 - Intolerance TERAMYCIN (OXYTETRACYCLINE) 12/21/2023 5 - Intolerance Comments: Rash Date Reviewed: 10/15/2024 Reviewed by: Radha Schmitz MA - Fully Assessed Reason for Visit: ER F/U [41] Primary Visit Diagnosis:Paroxysmal atrial fibrillation (HCC) [I48.0] Prescriptions as of 10/15/2024 - metoprolol tartrate, short acting, (LOPRESSOR) 50 mg tablet Take 0.5 tablets by mouth two times a day. - levothyroxine (SYNTHROID) 50 mcg tablet Take 1 tablet by mouth once daily. - loratadine (CLARITIN) 10 mg tablet Take 10 mg by mouth once daily. As needed - fluticasone (FLONASE) 50 mcg/actuation nasal spray Use 2 Sprays in each nostril once daily. Rinse mouth after use. - apixaban (ELIQUIS) 5 mg tab(s) Take 1 tablet by mouth twice daily. - multivitamin (DAILY MULTIVITAMIN) ORAL Tab Take one(1) tablet daily. - Mkqhpgf-Bzqsowbwh-Zgjfp in (more content not included)... Normal [facility] 12 Lead EKGon 10-11-2024 12 Lead EKG [facility] Cardiovascular Services [address] [place] [address] 12 Lead EKG 10/11/24 0341 MR#: [id number] Acct: [id number] Name: MARIE ASHLEY Rep #: [id number] : 1940 84 From: Sujata Fonseca MD Attending Dr: Status: DEP ER Ordering Dr: Brittany Jimenez DO Date: 10/11/24 Location: ED Sex: F C Admitted: Test Reason : Blood Pressure : */* mmHG Vent. Rate : 109 BPM Atrial Rate : * BPM P-R Int : * ms QRS Dur : 86 ms QT Int : 328 ms P-R-T Axes : * -3 64 degrees QTcB Int : 441 ms Atrial fibrillation with rapid ventricular response with premature ventricular or aberrantly conducted complexes Nonspecific ST abnormality Abnormal ECG Confirmed by ELIZABTEH GRACIA, TC ([id number]), editor publications DESTINI TOVAR ([id number]) on 10/15/2024 10:54:12 AM Referred By: Confirmed By: TC FONSECA MD 10/15/24 1054 Date Sujata Fonseca MD CC: Dr. Sebastian Teixeira MD; Dr. Brittany Jimenez, DO Signed Normal [facility] Absolute lymphocyte countOrd ered By: Brittany Jimenez on 10-11-2024 Lymphocytes Auto (Unsp spec) [#/Vol] 3.99 10*3/uL 0.83-4.51 [facility] Absolute neutrophil countOrd ered By: Brittany Jimenez on 10-11-2024 Neutrophils (Bld) [#/Vol] 1.9 10*3/uL Low 2.0-7.7 [facility] Anion gap in Serum or Plasma Ordered By: Brittany Jimenez on 10-11-2024 Anion gap [Moles/Vol] 15 mmol/L 5-15 [facility] Automated lymphocyte count a s percentage of total leukocytesOrdered By: Brittany Jimenez on 10-11-2024 Lymphocytes/100 WBC Auto (Unsp spec) 60.2 % High 19-41 [facility] BUN/creatinine ratioOrdered By: Brittany Jimenez on 10-11-2024 Urea nitrogen/Creatinine [Mass ratio] 18.3 mg/mg 10- [facility] Basic Metabolic Profile (BMP )on 10-11-2024 BUN/CRE 18.3 RATIO Normal - [facility] Comment on above: Performed By: #### L 501.5200, L100.0100, L501.9220, L500.2500 #### [facility] [address] [place], [address] Calcium [Mass/Vol] 9.6 mg/dL Normal 7.6-11.0 [facility] Comment on above: Performed By: #### L 501.5200, L100.0100, L501.9520, L500.2500 #### [facility] [address] [place], [address] Chloride [Moles/Vol] 102 mmol/L Normal 98-108 [facility] Comment on above: Performed By: #### L 501.5200, L100.0100, L501.9520, L500.2500 #### [facility] [address] [place], [address] CO2 [Moles/Vol] 24.6 mmol/L Normal 21.0-32.0 [facility] Comment on above: Performed By: #### L 501.5200, L100.0100, L501.9520, L500.2500 #### [facility] [address] [place], [address] Creatinine [Mass/Vol] 0.85 mg/dL Normal 0.70-1.20 [facility] Comment on above: Performed By: #### L 501.5200, L100.0100, L501.9520, L500.2500 #### [facility] [address] [place], [address] ECRCL 38.24 ml/min Low 50-250 [facility] Comment on above: Performed By: #### L 501.5200, L100.0100, L501.9520, L500.2500 #### [facility] [address] [place], [address] GAP 15 Normal 5-15 [facility] Comment on above: Performed By: #### L 501.5200, L100.0100, L501.9520, L500.2500 #### [facility] [address] [place], [address] GFR/1.73 sq M.predicted among non-blacks MDRD (S/P/Bld) [Vol rate/Area] 68 mL/min/{1.73_m2} Normal >60 [facility] Comment on above: Result Comment: mL/m in/1.73m2 CKD-EPI Creatinine Equation (2020) Performed By: #### L 501.5200, L100.0100, L501.9520, L500.2500 #### [facility] [address] [place], [address] Glucose [Mass/Vol] 142 mg/dL High 70-99 [facility] Comment on above: Performed By: #### L 501.5200, L100.0100, L501.9520, L500.2500 #### [facility] [address] [place], [address] Potassium [Moles/Vol] 3.3 mmol/L Normal 3.3-5.1 [facility] Comment on above: Performed By: #### L 501.5200, L100.0100, L501.9520, L500.2500 #### [facility] [address] [place], [address] Sodium [Moles/Vol] 142 mmol/L Normal 133-145 [facility] Comment on above: Performed By: #### L 501.5200, L100.0100, L501.9520, L500.2500 #### [facility] [address] [place], [address] Urea nitrogen [Mass/Vol] 16 mg/dL Normal 4-19 [facility] Comment on above: Performed By: #### L 501.5200, L100.0100, L501.9520, L500.2500 #### [facility] [address] [place], [address] Basophil percentageOrdered B y: Brittanymichela Jimenez on 10-11-2024 Basophils/100 WBC (Bld) 0.9 % 0-1 [facility] CBC W/Diff, Automatedon 09-29 Absolute Lymph 3.99 X10 3/uL Normal 0.83-4.51 [facility] Comment on above: Performed By: #### L 501.5200, L100.0100, L501.9520, L500.2500 #### [facility] [address] [place], [address] Absolute Neut 1.9 X10 3/uL Low 2.0-7.7 [facility] Comment on above: Performed By: #### L 501.5200, L100.0100, L501.9520, L500.2500 #### [facility] [address] [place], [address] Basophils/100 WBC (Bld) 0.9 % Normal 0-1 [facility] Comment on above: Performed By: #### L 501.5200, L100.0100, L501.9520, L500.2500 #### [facility] [address] [place], [address] Eosinophils/100 WBC (Bld) 3.6 % Normal 0-5 [facility] Comment on above: Performed By: #### L 501.5200, L100.0100, L501.9520, L500.2500 #### [facility] [address] [place], [address] Erythrocyte distribution width (RBC) [Ratio] 12.0 % Normal 11.6-14.6 [facility] Comment on above: Performed By: #### L 501.5200, L100.0100, L501.9520, L500.2500 #### [facility] [address] [place], [address] Hematocrit (Bld) [Volume fraction] 41.2 % Normal 37-47 [facility] Comment on above: Performed By: #### L 501.5200, L100.0100, L501.9520, L500.2500 #### [facility] [address] [place], [address] Hemoglobin (Bld) [Mass/Vol] 13.3 g/dL Normal 12.0-15.0 [facility] Comment on above: Performed By: #### L 501.5200, L100.0100, L501.9520, L500.2500 #### [facility] [address] [place], [address] IG% 0.200 Normal 0.0-0.9 [facility] Comment on above: Result Comment: IG% - Immature Granulocytes (promyelocytes, myelocytes and metamyelocytes) > 1% indicates that a LEFT SHIFT is Present. Performed By: #### L 501.5200, L100.0100, L501.9520, L500.2500 #### [facility] [address] [place], [address] Lymphocytes/100 WBC (Bld) 60.2 % High 19-41 [facility] Comment on above: Performed By: #### L 501.5200, L100.0100, L501.9520, L500.2500 #### [facility] [address] [place], [address] MCH (RBC) [Entitic mass] 29.9 pg Normal 27.0-32.0 [facility] Comment on above: Performed By: #### L 501.5200, L100.0100, L501.9520, L500.2500 #### [facility] [address] [place], [address] MCHC (RBC) [Mass/Vol] 32.3 g/dL Normal 32-36 [facility] Comment on above: Performed By: #### L 501.5200, L100.0100, L501.9520, L500.2500 #### [facility] [address] [place], [address] MCV (RBC) [Entitic vol] 92.6 fL Normal 81-99 [facility] Comment on above: Performed By: #### L 501.5200, L100.0100, L501.9520, L500.2500 #### [facility] [address] [place], [address] Monocytes/100 WBC (Bld) 7.1 % Normal 0-10 [facility] Comment on above: Performed By: #### L 501.5200, L100.0100, L501.9520, L500.2500 #### [facility] [address] [place], [address] Neutrophils/100 WBC (Bld) 28.0 % Low 47-70 [facility] Comment on above: Performed By: #### L 501.5200, L100.0100, L501.9520, L500.2500 #### [facility] [address] [place], [address] Nucleated RBC (Bld) [#/Vol] 0 10*3/uL Normal 0-5 [facility] Comment on above: Performed By: #### L 501.5200, L100.0100, L501.9520, L500.2500 #### [facility] [address] [place], [address] Platelet mean volume (Bld) [Entitic vol] 10.5 fL Normal 6.2-12.0 [facility] Comment on above: Performed By: #### L 501.5200, L100.0100, L501.9520, L500.2500 #### [facility] [address] [place], [address] Platelets (Bld) [#/Vol] 284 10*3/uL Normal 150-450 [facility] Comment on above: Performed By: #### L 501.5200, L100.0100, L501.9520, L500.2500 #### [facility] [address] [place], [address] RBC (Bld) [#/Vol] 4.45 10*6/uL Normal 4.2-5.4 [facility] Comment on above: Performed By: #### L 501.5200, L100.0100, L501.9520, L500.2500 #### [facility] [address] [place], [address] RDW SD 40.9 fl Normal 35.1-43.9 [facility] Comment on above: Performed By: #### L 501.5200, L100.0100, L501.9520, L500.2500 #### [facility] [address] [place], [address] WBC (Bld) [#/Vol] 6.6 10*3/uL Normal 4.4-11.0 [facility] Comment on above: Performed By: #### L 501.5200, L100.0100, L501.9520, L500.2500 #### [facility] [address] [place], [address] Carbon dioxide, total [Moles /volume] in Central venous bloodOrdered By: Brittany Jimenez on 10-11-2024 CO2 [Moles/Vol] 24.6 mmol/L 21.0-32.0 [facility] Chest PA and Lateralon 10-11 Chest PA and Lateral [facility] Imaging Services [address] [place] [address] Chest PA and Lateral MR#: [id number] Acct: [id number] Name: MARIE ASHLEY Rep #: [id number] : 1940 F 84 From: Juan Manuel Rodriguez i, MD PCP: Dr. Sebastian Teixeira MD Status: PRE ER Study: Chest PA and Lateral Date of Exam: 10/11/24 Exam# [id number] Ordering Dr: Brittany Jimenez DO PROCEDURE: CHEST PA AND LATERAL REASON FOR EXAM: PALPITATIONS TECHNIQUE: Frontal and lateral views of the chest. COMPARISON: Chest x-ray dated 07/23/2023. FINDINGS: The lungs are hyperlucent and hyperexpanded. This may be due to COPD type changes. This is stable finding. There is no pneumothorax. No focal consolidation is seen within the lungs. The cardiac silhouette is within normal limits. No acute osseous abnormalities identified. RAD/Chest PA and Lateral IMPRESSION: No new infiltrate or consolidation is seen within the lungs. Reading Location: [id number] CC: Dr. Sebastian Teixeira MD; Dr. Brittany Jimenez DO Policyholder Information Clerk: Signed Normal [facility] Chloride assayOrdered By: Vic Jimenez on 10-11-2024 Chloride [Moles/Vol] 102 mmol/L 98-108 [facility] Emergency Department Summary on 10-11-2024 Emergency Department Summary [facility] Medical Records Department [address] [place] [address] Emergency Department Summary 10/11/24 MR#: [id number] Acct: [id number] Name: MARIE ASHLEY Rep #: [id number] : 1940 84 From: Brittany Jimenez DO PCP: Dr. Sebastian Teixeira MD Status:REG ER Location: ED HPI History of Present Illness Chief Complaint: Palpitations Informant: patient Narrative Narrative: Patient is a 4-year-old female with history of hypothyroidism and proximal atrial fibrillation presenting with palpitations. Patient states she got up to use restroom tonight and felt that her heart was racing. She took an extra dose of her metoprolol (25 mg) but continued to feel that her heart was going fast. She is also on Eliquis states has been compliant. She states she has had similar episodes in the past and had come to the ER for rate control. She denies associated chest pain, shortness of breath or swelling of her legs. She states she has been in her normal state of health and overall been feeling well. States she was actually quite active yesterday. She did have an increased 2 months ago of her thyroid medication from 20 to 50 mcg. States she had labs on Tuesday for this but does not know the results. No other complaints or concerns reported at this time. Prior similar symptoms: [facility] Medical History Hypothyroidism PAF (paroxysmal atrial fibrillation) Atrial fibrillation with RVR Glaucoma Home Medications ???Medication ???Instructions ???Recorded ???Last Taken ???Type latanoprost 0.005 % eye drops 1 drp ophthalmic (eye) DAILY 11/06 Unknown History acetaminophen 325 mg tablet 325 mg PO ONCE PRN fever or pain 0 02/12/22 Unknown History loratadine 10 mg tablet 10 mg PO DAILY PRN allergy symptom s 08/12/23 Unknown History apixaban 5 mg tablet (Eliquis) 5 mg PO BID #60 tabs 01/24/24 Unkn own Rx metoprolol tartrate 50 mg tablet 25 mg (1/2 x 50 mg) PO BID #90 tab s 07/02/24 Unknown Rx levothyroxine 50 mcg tablet 50 mcg PO DAILY 10/11/24 Unknown H istory Allergy/AdvReac Type Severity Reaction Status Date / Time oxytetracycline (From Allergy Unknown Verified 10/11/24 03:41 Terramycin) Penicillins Allergy Unknown Verified 10/11/24 03:41 Family History Mother Heart disease Paroxysmal atrial fibrillation Father Cancer Lung Sister Heart disease Surgical History History of cholecystectomy Social History Smoking Status: Never smoker alcohol intake: never substance use type: does not use caffeine: Yes Type: coffee Number of servings: 1 ROS ROS ED Constitutional Constitutional ED: Denies chills or fever(s) Eyes Eyes: Denies blurry vision Cardiovascular Cardiovascular: Reports palpitations and racing heartbeat; Denies chest pain Respiratory/Chest Respiratory/Chest: Denies cough or dyspnea Gastrointestinal Gastrointestinal: Denies abdominal pain, nausea or vomiting Neurologic Neurologic: Denies paresthesias or weakness Hematologic/Lymphatic Hematologic/Lymphatic: Reports easy bleeding, easy bruising and other Details: On Eliquis EXAM Physical Exam Const Vital Signs: 10/11/24 03:42 10/11/24 03:46 10/11/24 04:41 Temperature 97.7 F L Temperature Source Oral Pulse Rate 122 H 108 H Respiratory Rate 16 16 Respiratory Effort Normal Non-Labored Respiratory Pattern Normal Blood Pressure 155/81 H 113/78 Blood Pressure Mean 105 89 Pulse Ox 98 97 Oxygen Delivery Method Room Air Room Air 10/11/24 05:00 10/11/24 05:21 10/11/24 06:00 Temperature Temperature Source Pulse Rate 97 95 89 Respiratory Rate 18 16 16 Respiratory Effort Respiratory Pattern Blood Pressure 111/72 116/73 112/78 Blood Pressure Mean 85 87 89 Pulse Ox 96 97 96 Oxygen Delivery Method Room Air Room Air Room Air Positive well nourished and well developed General Appearance ED: well developed and NAD; Negative for pallor HEENT Reports moist mucous membranes Eyes PERRL Neck supple and no JVD Chest Wall inspection of chest normal and palpation of chest normal Resp normal respiratory effort and clear to auscultation bilaterally Auscultation: Negative for rales or rhonchi Cardio no murmurs Rate: tachycardic Rhythm: abnormal rhythm irregularly irregular GI normal to inspection, nondistended, normoactive bowel sounds and non-tender Extremity normal to inspection General Extremety ED: Negative for edema General Extremity: Negative for edema Neuro oriented x3 Sensorium / Orientation: alert Motor Exam: Negative for general (more content not included)... Normal [facility] Eosinophil percentageOrdered By: Brittany Jimenez on 10-11-2024 Eosinophils/100 WBC (Bld) 3.6 % 0-5 [facility] Erythrocyte distribution wid th ratioOrdered By: Brittany Jimenez on 10-11-2024 Erythrocyte distribution width (RBC) [Ratio] 12.0 % 11.6-14.6 [facility] Erythrocyte distribution wid th standard deviationOrdered By: Brittany Jimenez on 10-11-2024 Erythrocyte distribution width (RBC) [Entitic vol] 40.9 fL 35.1-43.9 [facility] Erythrocyte distribution width (RBC) [Ratio] 40.9 fl 35.1-43.9 [facility] Estimation of creatinine antonia aranceOrdered By: Brittany Jimenez on 10-11-2024 Estimated Creatinine Clearance Calc 38.24 ml/min Low 50-250 [facility] GFR/1.73 sq M.predicted nori g non-blacks MDRD (S/P/Bld) [Vol rate/Area]Ordered By: Brittany Jimenez on 10-11-2024 Estimated GFR (MDRD) Non-Af Amer 68 >60 [facility] Comment on above: mL/min/1.73m2 CKD-EP I Creatinine Equation (2020) Glomerular filtration rate ( GFR) estimation/1.73 sq m using serum, plasma, or whole bOrdered By: Brittany Jimenez on 10-11-2024 GFR/1.73 sq M.predicted among non-blacks MDRD (S/P/Bld) [Vol rate/Area] 68 mL/min/{1.73_m2} >60 [facility] Comment on above: mL/min/1.73m2 CKD-EP I Creatinine Equation (2020) Hematocrit Auto (Bld) [Volum e fraction]Ordered By: Brittany Jimenez on 10-11-2024 Hematocrit (Bld) [Volume fraction] 41.2 % 37-47 [facility] Hemoglobin measurementOrdere d By: Brittany Jimenez on 10-11-2024 Hemoglobin (Bld) [Mass/Vol] 13.3 g/dL 12.0-15.0 [facility] Immature granulocytes/100 WB C Auto (Bld)Ordered By: Brittany Jimenez on 10-11-2024 Immature granulocytes/100 WBC (Bld) 0.200 % 0.0-0.9 [facility] Comment on above: IG% - Immature Granu locytes (promyelocytes, myelocytes and metamyelocytes) > 1% indicates that a LEFT SHIFT is Present. Lymphocytes Auto (Unsp spec) [#/Vol]Ordered By: Brittany Jimenez on 10-11-2024 Lymphocytes (Bld) [#/Vol] 3.99 10*3/uL 0.83-4.51 [facility] Lymphocytes/100 WBC Auto (Un sp spec)Ordered By: Brittany Jimenez on 10-11-2024 Lymphocytes/100 WBC (Bld) 60.2 % High 19-41 [facility] MCV (mean corpuscular volume ) determinationOrdered By: Brittany Jimenez on 10-11-2024 MCV (RBC) [Entitic vol] 92.6 fL 81-99 [facility] Magnesiumon 03-13-2025 Magnesium [Mass/Vol] 2.2 mg/dL Normal 1.5-2.2 [facility] Comment on above: Performed By: #### L 501.5200, L100.0100, L501.9520, L500.2500 #### [facility] [address] [place], [place], [address] Magnesium (Unsp spec) [Mass/ Vol]Ordered By: Brittany Jimenez on 10-11-2024 Magnesium [Mass/Vol] 2.2 mg/dL 1.5-2.2 [facility] Magnesium measurement (mass/ volume)Ordered By: Brittany Jimenez on 10-11-2024 Magnesium (Unsp spec) [Mass/Vol] 2.2 mg/dL 1.5-2.2 [facility] Mean corpuscular hemoglobin (MCH) determinationOrdered By: Brittany Jimenez on 10-11-2024 MCH (RBC) [Entitic mass] 29.9 pg 27.0-32.0 [facility] Mean corpuscular hemoglobin concentration (MCHC) determinationOrdered By: Brittany Jimenez on 10-11-2024 MCHC (RBC) [Mass/Vol] 32.3 g/dL 32-36 [facility] Mean platelet volume determi nationOrdered By: Brittany Jimenez on 10-11-2024 Platelet mean volume (Bld) [Entitic vol] 10.5 fL 6.2-12.0 [facility] Monocyte percentageOrdered B y: Brittany Jimenez on 10-11-2024 Monocytes/100 WBC (Bld) 7.1 % 0-10 [facility] Neutrophil percentageOrdered By: Brittany Jimenez on 10-11-2024 Neutrophils/100 WBC (Bld) 28.0 % Low 47-70 [facility] Nucleated red blood cell per centageOrdered By: Brittany Jimenez on 10-11-2024 Nucleated RBC/100 WBC (Bld) [Ratio] 0 % 0-5 [facility] Platelet countOrdered By: Vic Jimenez on 10-11-2024 Platelets (Bld) [#/Vol] 284 10*3/uL 150-450 [facility] Potassium (Unsp spec) [Mass/ Vol]Ordered By: Brittany Jimenez on 10-11-2024 Potassium [Moles/Vol] 3.3 mmol/L 3.3-5.1 [facility] Potassium measurement (mass/ volume)Ordered By: Brittany Jimenez on 10-11-2024 Potassium (Unsp spec) [Mass/Vol] 3.3 mmol/L 3.3-5.1 [facility] RBC Auto (Bld) [#/Vol]Ordere d By: Brittany Jimenez on 10-11-2024 RBC (Bld) [#/Vol] 4.45 10*6/uL 4.2-5.4 [facility] Serum creatinine measurement (mass/volume)Ordered By: Brittany Jimenez on 10-11-2024 Creatinine [Mass/Vol] 0.85 mg/dL 0.70-1.20 [facility] Serum glucose measurement (m ass/volume)Ordered By: Brittany Jimenez on 10-11-2024 Glucose [Mass/Vol] 142 mg/dL High 70-99 [facility] Serum or plasma calcium estevan urement (mass/volume)Ordered By: Brittany Jimenez on 10-11-2024 Calcium [Mass/Vol] 9.6 mg/dL 7.6-11.0 [facility] Serum or plasma urea nitroge n measurement (mass/volume)Ordered By: Brittany Jimenez on 10-11-2024 Urea nitrogen [Mass/Vol] 16 mg/dL 4-19 [facility] Sodium levelOrdered By: Jerica Jimenez on 10-11-2024 Sodium [Moles/Vol] 142 mmol/L 133-145 [facility] TSH DL <= 0.005 mIU/L QnOrde red By: Brittany Jimenez on 10-11-2024 Thyroid Stimulating Hormone (TSH) 2.820 uIU/mL 0.300-4.200 [facility] TSH Qn 2.820 uIU/mL 0.300-4.200 [facility] Thyroid Stim Hormone (TSH)on 10-11-2024 TSH 2.820 uIU/mL Normal 0.300-4.200 [facility] Comment on above: Performed By: #### L 501.5200, L100.0100, L501.9520, L500.2500 #### [facility] [address] [place], [address] White blood cell (WBC) count Ordered By: Brittany Jimenez on 10-11-2024 WBC (Bld) [#/Vol] 6.6 10*3/uL 4.4-11.0 [facility] TSH SerPl-aCncon 10-08-2024 TSH Qn 0.544 m[IU]/L Normal 0.270-4.200 [facility] Comment on above: Order Comment: Speci men Type: BLOOD SPECIMEN Ordering Facility: [facility] Address: [address] [place] [address] Performed By: #### 3 016-3 #### [facility] CLIA [id number] [address] [place] [address] OF [facility] Cardiology Visit Reporton Cardiology Visit Report [facility] [address] [place], [place] [address] OFFICE VISIT Date of Service: 08/22/24 MR#: [id number] Acct: [id number] Name: MARIE ASHLEY Rep #: [id number] : 1940 Provider: RANDALL Tobin Age/Sex: 84/F Location: [facility] Status: Signed HPI HPI History of Present Illness Details: Marie Ashley 84-year-old female with a history of paroxysmal atrial fibrillation. In July 23, 2023, she presented to the emergency room after awakening and felt that she was in atrial fibrillation. She presented to the emergency department and EKG at that point in time showed a normal sinus rhythm and was within normal limits. The patient is tolerating her long-term oral anticoagulation with Eliquis without incident. She was in the emergency room earlier this month with paroxysmal atrial fibrillation with RVR. She does have questions about this ER visit. She did have her blood work rechecked since her K+ was low and her TSH was hypo. PCP adjusted her thyroid medication. She notes that her last episode of atrial fibrillation was last October. So it is almost been a year. She does not have any chest pain, worsening shortness of breath, lower extremity edema. When her blood pressure is low she is lightheaded. She does increase her fluids during that time. Intake Vital Signs 08/05/24 02:49 08/22/24 08:12 08/22/24 08:30 Height 5 ft 5 in 5 ft 5 in 5 ft 5 in Weight: 105 lb 6 oz BMI 17.5 BP 113/70 Blood Pressure Location Lt brachial Position Sitting Respiration 18 Pulse 67 Pulse Source Monitor Temp 97.8 F Temperature Source Oral Pulse Oximetry (%) 98 Oxygen Delivery Method room air Intake Visit Reasons: S/P 08/05 [facility] ER Is patient in pain?: No Allergies oxytetracycline (From Terramycin) Allergy (Verified 08/22/24 08:32) Unknown Penicillins Allergy (Verified 08/22/24 08:32) Unknown Medications ???Medication ???Instructions ???Recorded ???Confirmed ???Type latanoprost 0.005 % eye drops 1 drp ophthalmic (eye) DAILY 11/06/20 08/22/24 History acetaminophen 325 mg tablet 325 mg PO ONCE PRN fever or pain 02/12/22 08/22/24 History loratadine 10 mg tablet 10 mg PO DAILY PRN allergy symptoms 08/12/23 08/22/24 History apixaban 5 mg tablet (Eliquis) 5 mg PO BID #60 tabs 01/24/24 08/22/24 Rx metoprolol tartrate 50 mg tablet 25 mg (1/2 x 50 mg) PO BID #90 tabs 07/02/24 08/22/24 Rx levothyroxine 25 mcg tablet 50 mcg PO DAILY 08/22/24 08/22/24 History Have you fallen in the past year?: No Nurse's Note: F/U from ER afib with rvr. [facility] Medical History Hypothyroidism PAF (paroxysmal atrial fibrillation) Atrial fibrillation with RVR Glaucoma Surgical History History of cholecystectomy Family History Mother Heart disease Paroxysmal atrial fibrillation Father Cancer Lung Sister Heart disease Social History Smoking Status: Never smoker alcohol intake: never substance use type: does not use caffeine: Yes Type: coffee Number of servings: 1 ROS Const Const: Negative for fatigue, weakness, headache(s), frequent falls, excessive sweating, weight gain or weight loss Eyes Eyes: Negative for blind spots, loss of peripheral vision, transient loss of vision, blurry vision, change in vision or double vision ENT ENT: Negative for headache(s), dizziness, tinnitus, Nosebleed/epistaxis or balance problems Cardio Chest Pain: No Palpitations: No Edema: None Muscle aches with walking: None Resp Respiratory: Negative for SOB with activity, SOB at rest, SOB orthopnea SOB lying down or Cough GI GI: Negative nausea, vomiting, heartburn, bloating, vomiting blood/hematemesis, bright, red blood in stools or black,tarry stools : Negative for hematuria Musc Musc: Negative for muscle aches/ myalgia, muscle weakness, joint pain or balance problems Skin Skin: Negative rash or wounds Neuro Neuro: Negative for dizziness, lightheadedness, near syncope, syncope, orthostatic symptoms, frequent falls, headache(s), weakness, confusion, memory loss, restless legs, blurry vision or double vision Hank Hematologic/Lymphatic: Negative for easy bleeding or easy bruising Endo Endo: Negative for fatigue, cold intolerance, heat intolerance or excessive sweating Psych Psych: Negative for anxiety or depression Allergy Allergy/Immunology: Negative for rash Cardiology Exam Const Appearance: cooperative Nutritional Appearance: thin Orientation: alert and oriented x3 Head Head: normal to inspection Ears: hearing grossly normal bilaterally Nose: external nose normal Face and Sin (more content not included)... Normal [facility] [place] 08-13-2024 [place] Telephone (FAMWS) ROOT,MARIE D ([id number]) 1940 F Date Time Provider Department 08/13/24 HERI TEIXEIRA During your visit today, we recorded the following information about you: Nathaly Smith MA 08/13/2024 9:04 AM Signed ----- Message from Heri Teixeira MD sent at 08/13/2024 7:02 AM EST ----- Normal potassium level. No change in regimen. Nathaly Smith MA 08/13/2024 9:06 AM Signed Pt notified and voiced understanding. Nathaly Smith MA Allergies As of Date: 08/13/2024 Noted Allergy Reaction PENICILLINS 01/04/2006 5 - Intolerance TERAMYCIN (OXYTETRACYCLINE) 12/21/2023 5 - Intolerance Comments: Rash Date Reviewed: 08/10/2024 Reviewed by: Jasmyn Hein LPN - Fully Assessed Reason for Visit: Results [95] Prescriptions as of 08/13/2024 - metoprolol tartrate, short acting, (LOPRESSOR) 50 mg tablet Take 0.5 tablets by mouth two times a day. - levothyroxine (SYNTHROID) 50 mcg tablet Take 1 tablet by mouth once daily. - loratadine (CLARITIN) 10 mg tablet Take 10 mg by mouth once daily. As needed - fluticasone (FLONASE) 50 mcg/actuation nasal spray Use 2 Sprays in each nostril once daily. Rinse mouth after use. - apixaban (ELIQUIS) 5 mg tab(s) Take 1 tablet by mouth twice daily. - multivitamin (DAILY MULTIVITAMIN) ORAL Tab Take one(1) tablet daily. - Omgzylj-Qsargmsxm-Pglsl in D2 500-50-100 mg-mg-unit ORAL Chew Take one(1) tablet two(2) times daily. - TIMOPTIC 0.5 % EYE DROPS One drop in each eye at night. 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] 03/11/2008 Seborrheic Keratoses [L82.1] 03/11/2008 SOLAR LENTIGINES///DYSCHROMIA OTHER [L81.9] 03/11/2008 11/21/2013 SCAR AND FIBROSIS OF SKIN [L90.5] 03/11/2008 H/O BCC////PERS HX SKIN MALIGNANCY NEC [Z85.828]03/11/2008 ACTINIC DAMAGE///CHR SOLAR SKIN DAMAGE NOS [L57*03/11/2008 Irritated//Inflamed Seborrheic Keratoses [L82.0]06/06/2009 Viral Warts, Unspecified: component of some Fernando*06/06/2009 Sebaceous Cyst [L72.3] 06/06/2009 Actinic skin damage [L57.8] 12/21/2011 Solar Lentigines [L81.4] 11/24/2013 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] 11/24/2013 Paroxysmal atrial fibrillation (HCC) [I48.0] 02/27/2021 Other specified glaucoma [H40.89] Encounter Status:Closed by NATHALY SMITH on 08/13/24 [facility] CNOVon 08-10-2024 CNOV Office Visit (FAMPWS ) MARIE ASHLEY ([id number]) 1940 F Date Time Provider Department 08/10/24 9:20 AM HERI TEIXEIRAPOLGA During your visit today, we recorded the following information about you: Pulse Respiration Blood pressure Weight 69/minute 16/minute 108/60 48.2 kg Heri Teixeira MD 08/10/2024 10:27 AM Signed Chief Complaint Patient presents with: ER F/U: [facility] 08/05/24 HPI Marie Ashley is a 84 year old female who presents here today for ER Follow Up. Patient evaluated at [facility] ED on 08/05 for complaint of palpitations with isthory of paroxysmal a fib. Started same day. Tried taking additional 1/2 dose of her metoprolol without improvement. HR on arrival to the ER was 122 bpm. Exam showed irregular rate and rhythm with mild tachycardia. EKG showed a fib with RVR rate 104 bpm. Obtained labs with normal CBC, and magnesium. TSH elevated at 7. 060. Potassium low on CMP at 3.3. given dose of cardizem in the ER which improved HR to 67 prior to discharge. Recommended taking additional 1/2 tablet of metoprolol each day and f/u with cardiology and our office on discharge. Since discharge, patient states that she has been taking metoprolol 25 mg 3 times per day. Had not had any recurrent palpitations until this morning. Woke up with symptoms of fast heartbeat and took 25 mg of metoprolol and symptoms resolved after 15-20 minutes. Able to fall back asleep at that time. Denies chest pain, SOB, LE edema. No recent change in diet and only drinks 1 cup of coffee per day. Compliant with anticoagulation without bleeding or bruising. Patient has appointment with cardiology on 08/22 for further evaluation. Patient has been compliant with her synthroid on a daily basis despite high TSH. Admits to dry skin, constipation, cold intolerance, fatigue. Denies weight changes. Past medical history, appointments, medications, allergies reviewed. Previous Medical History PAST MEDICAL HISTORY Diagnosis Date Acquired hypothyroidism Herpes zoster without complication Osteopenia Other specified glaucoma Paroxysmal atrial fibrillation (HCC) [facility] cardiology Previous Surgical History PAST SURGICAL HISTORY Procedure Laterality Date CHOLECYSTECTOMY 02/05/2002 Family History FAMILY HISTORY Problem Relation Age of Onset Heart Mother Cancer Father lung Breast Cancer Sister Hypertension Maternal Grandmother Tuberculosis Maternal Grandfather Stroke Paternal Grandfather Patient Allergies ALLERGIES Allergen Reactions Penicillins Intolerance Teramycin [Oxytetra* Intolerance Rash Current Medications Current Outpatient Medications on File Prior to Visit Medication Sig loratadine (CLARITIN) 10 mg tablet Take 10 mg by mouth once daily. As needed metoprolol tartrate, short acting, (LOPRESSOR) 50 mg tablet Take 1 tablet by mouth two times a day. (Patient taking differently: Take 25 mg by mouth two times a day.) levothyroxine (SYNTHROID) 25 mcg tablet Take 1 tablet by mouth once daily. 25 mcgs fluticasone (FLONASE) 50 mcg/actuation nasal spray Use 2 Sprays in each nostril once daily. Rinse mouth after use. apixaban (ELIQUIS) 5 mg tab(s) Take 1 tablet by mouth twice daily. multivitamin (DAILY MULTIVITAMIN) ORAL Tab Take one(1) tablet daily. Xrjbsnc-Bqkrxkyyc-Lcpqb in D2 500-50-100 mg-mg-unit ORAL Chew Take one(1) tablet two(2) times daily. TIMOPTIC 0.5 % EYE DROPS One drop in each eye at night. No current facility-administered medications on file prior to visit. Social History Social History Tobacco Use Smoking status: Never Smokeless tobacco: Never Vaping Use Vaping status: Never Used Substance Use Topics Alcohol use: No Drug use: No Review of Symptoms REVIEW OF SYSTEMS See HPI EXAM: BP 108/60 Pulse 69 Resp 16 Wt 48.2 kg (106 lb 3.2 oz) SpO2 97% BMI 18.24 kg/m? General Appearance: Well appearing, alert, in no acute distress, well-hydrated, well nourished.. Skin: Skin color, texture, turgor normal, no suspicious rashes or lesions. Neck: Supple, no adenopathy; thyroid symmetric, normal size, no bruits. Lungs: Lungs clear to auscultation. No wheezing, rhonchi, rales.. Heart: RRR without murmur, gallop, or rubs. No ectopy. Abdomen: Normal abdominal exam, Abdomen soft, non-tender. Bowel sounds normal. No masses, organomegaly. Extremities: No deformities, edema, skin discoloration, clubbing or cyanosis. Good capillary refill. . Health Maintenance List DTaP,Tdap,Td Vaccine(1 - Tdap) Never done Shingrix Vaccine(1 of 2) Never done Pneumococcal Vaccine: 50+(2 of 2 - PCV) due on 08/08/2007 RSV Vaccine(1 - 1-dose 75+ series) Never done Influenza Vaccine(1) Never done Covid-19 Vaccine( - season) Never done Advance Directive Discussion due on 08/01/2024 Depression Screening due on 12/20/2024 Anxiety Screening due on 12/20/2024 Diab (more content not included)... Normal [facility] POTASSIUMon 08-10-2024 Potassium [Moles/Vol] 4.2 mmol/L Normal 3.7-5.1 [facility] Comment on above: Order Comment: Speci men Type: BLOOD SPECIMENOrdering Facility: [facility] Address: [address] [place] [address] Performed By: #### K 1 ####[facility] LABCLIA [id number] [id number] CNPNon 08-08-2024 CNPN Telephone (FAMPWS) MARIE ASHLEY ([id number]) 1940 F Date Time Provider Department 08/08/24 [facility] During your visit today, we recorded the following information about you: Jasmyn Hein LPN 08/08/2024 1:25 PM Addendum Message left for patient to return call to schedule ER F/U appointment (1 week)with Dr Teixeira or Connie. BABAK Haji Stephanie, RN 08/08/2024 1:37 PM Signed Jasmyn from [facility] calls and reports that patient came into office today complaining of weakness. Patient was seen in [facility] ER on 08/05/2024 and had labs and cardiac work up. Patient is ok from a cardiac stand point. Patients Potassium is on the low side and Patient's TSH was 7.06. Jasmyn scheduled ER follow up with provider on 08/10/2024 and will let patient who still is in office know when appointment is. Jasmyn is faxing over [facility] Notes. HILTON Giraldo Christopher B, MD 08/08/2024 1:59 PM Signed Reviewed. Please make sure we have ER records available. Allergies As of Date: 08/08/2024 Noted Allergy Reaction PENICILLINS 01/04/2006 5 - Intolerance TERAMYCIN (OXYTETRACYCLINE) 12/21/2023 5 - Intolerance Comments: Rash Date Reviewed: 12/21/2023 Reviewed by: Romy Alfaro LPN - Fully Assessed Reason for Visit: ER follow up appointment [Other] Prescriptions as of 08/21/2024 - metoprolol tartrate, short acting, (LOPRESSOR) 50 mg tablet Take 0.5 tablets by mouth two times a day. - levothyroxine (SYNTHROID) 50 mcg tablet Take 1 tablet by mouth once daily. - loratadine (CLARITIN) 10 mg tablet Take 10 mg by mouth once daily. As needed - fluticasone (FLONASE) 50 mcg/actuation nasal spray Use 2 Sprays in each nostril once daily. Rinse mouth after use. - apixaban (ELIQUIS) 5 mg tab(s) Take 1 tablet by mouth twice daily. - multivitamin (DAILY MULTIVITAMIN) ORAL Tab Take one(1) tablet daily. - Nlmqhhe-Luopcojca-Kneuz in D2 500-50-100 mg-mg-unit ORAL Chew Take one(1) tablet two(2) times daily. - TIMOPTIC 0.5 % EYE DROPS One drop in each eye at night. Problem List As Of Date 08/08/2024 Noted Resolved HYPERGLYCEMIA [R79.89] 08/08/2006 HYPERLIPIDEMIA NEC/NOS [E78.5] 08/08/2006 Osteopenia, senile [M85.80] 08/08/2006 GLAUCOMA NOS [H40.9] 08/08/2006 FAMILY HX BREAST MALIG [Z80.3] 08/08/2006 ACTINIC KERATOSES (Premalignant AK's) [L57.0] 03/11/2008 Seborrheic Keratoses [L82.1] 03/11/2008 SOLAR LENTIGINES///DYSCHROMIA OTHER [L81.9] 03/11/2008 11/21/2013 SCAR AND FIBROSIS OF SKIN [L90.5] 03/11/2008 H/O BCC////PERS HX SKIN MALIGNANCY NEC [Z85.828]03/11/2008 ACTINIC DAMAGE///CHR SOLAR SKIN DAMAGE NOS [L57*03/11/2008 Irritated//Inflamed Seborrheic Keratoses [L82.0]06/06/2009 Viral Warts, Unspecified: component of some Fernando*06/06/2009 Sebaceous Cyst [L72.3] 06/06/2009 Actinic skin damage [L57.8] 12/21/2011 Solar Lentigines [L81.4] 11/24/2013 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] 11/24/2013 Paroxysmal atrial fibrillation (HCC) [I48.0] 02/27/2021 Other specified glaucoma [H40.89] Encounter Status:Closed by JASMYN HEIN on 08/21/24 Normal [facility] 12 Lead EKGon 08-05-2024 12 Lead EKG [facility] [address] [place] [address] 12 Lead EKG 08/05/24 0257 MR#: [id number] Acct: [id number] Name: MARIE ASHLEY Rep #: [id number] : 1940 84 From: Juan Manuel Abebe MD Attending Dr: Status: DEP ER Ordering Dr: Tai Clark DO Date: 08/05/24 Location: ED Sex: F C Admitted: Test Reason : PALPS Blood Pressure : */* mmHG Vent. Rate : 104 BPM Atrial Rate : * BPM P-R Int : * ms QRS Dur : 74 ms QT Int : 350 ms P-R-T Axes : * 24 62 degrees QTcB Int : 460 ms Atrial fibrillation with rapid ventricular response Nonspecific ST abnormality Abnormal ECG When compared with ECG of 23-Jul-2023 03:20, Atrial fibrillation has replaced Sinus rhythm Vent. rate has increased by 35 bpm Confirmed by Juan Manuel Abebe ([id number]), editor publications DESTINI TOVAR ([id number]) on 08/07/2024 1:32:07 PM Referred By: Confirmed By: Juan Manuel Abebe 08/07/24 1332 Date Juan Manuel Abebe MD CC: Dr. Adolph Omer MD; Tai Clark DO Signed Normal [facility] Absolute neutrophil countOrd ered By: Tai Clark on 08-05-2024 Neutrophils (Bld) [#/Vol] 2.0 10*3/uL 2.0-7.7 [facility] Basic Metabolic Profile (BMP )on 08-05-2024 BUN/CRE 14.5 RATIO Normal 10-20 [facility] Comment on above: Performed By: #### L 501.5200, L500.2500, L501.9520 ####[facility] [address] [place], [address] CA,Total 9.6 mg/dL Normal 8.5-10.1 [facility] Comment on above: Performed By: #### L 501.5200, L500.2500, L501.9520 ####[facility] [address] [place], [address] Chloride [Moles/Vol] 108 mmol/L High 98-107 [facility] Comment on above: Performed By: #### L 501.5200, L500.2500, L501.9520 ####[facility] [address] [place], [address] CO2 [Moles/Vol] 31.0 mmol/L Normal 21.0-32.0 [facility] Comment on above: Performed By: #### L 501.5200, L500.2500, L501.9520 ####[facility] [address] [place], [address] Creatinine [Mass/Vol] 0.76 mg/dL Normal 0.55-1.02 [facility] Comment on above: Result Comment: The validity of the calculated GFR GFRAA in patients over 70 years has not been determined. Clinical correlation is essential. Performed By: #### L 501.5200, L500.2500, L501.9520 ####[facility] [address] [place], [address] ECRCL 40.54 ml/min Normal [facility] Comment on above: Performed By: #### L 501.5200, L500.2500, L501.9520 ####[facility] [address] [place], [address] EST GFR - AA 93 mL/min Normal >60 [facility] Comment on above: Result Comment: Afri can [place] GFR Calc Performed By: #### L 501.5200, L500.2500, L501.9520 ####[facility] [address] [place], [address] GAP 4 Low 5-15 [facility] Comment on above: Performed By: #### L 501.5200, L500.2500, L501.9520 ####[facility] [address] [place], [address] GFR/1.73 sq M.predicted among non-blacks MDRD (S/P/Bld) [Vol rate/Area] 77 mL/min/{1.73_m2} Normal >60 [facility] Comment on above: Result Comment: Non- GFR Calc Performed By: #### L 501.5200, L500.2500, L501.9520 ####[facility] [address] [place], [address] Glucose [Mass/Vol] 132 mg/dL High 74-106 [facility] Comment on above: Result Comment: Fast ing Glucose result greater than or equal to 126 mg/dL suggests DIABETES MELLITUS per A.D.A. criteria. Performed By: #### L 501.5200, L500.2500, L501.9520 ####[facility] [address] [place], [address] Potassium [Moles/Vol] 3.3 mmol/L Low 3.5-5.1 [facility] Comment on above: Performed By: #### L 501.5200, L500.2500, L501.9520 ####[facility] [address] [place], [address] Sodium [Moles/Vol] 142 mmol/L Normal 136-145 [facility] Comment on above: Performed By: #### L 501.5200, L500.2500, L501.9520 ####[facility] [address] [place], [address] Urea nitrogen [Mass/Vol] 11 mg/dL Normal 7-18 [facility] Comment on above: Performed By: #### L 501.5200, L500.2500, L501.9520 ####[facility] [address] [place], [address] Basophil percentageOrdered B y: Tai Clark on 08-05-2024 Basophils/100 WBC (Bld) 0.9 % 0-1 [facility] Blood urea nitrogen (BUN)/cr eatinine ratioOrdered By: Tai Clark on 08-05-2024 Urea nitrogen/Creatinine [Mass ratio] 14.5 mg/mg 10-20 [facility] CBC W/Diff, Automatedon Absolute Lymph 3.72 X10 3/uL Normal 0.83-4.51 [facility] Comment on above: Performed By: #### L 100.0100 ####[facility] [address] [place], [address] Absolute Neut 2.0 X10 3/uL Normal 2.0-7.7 [facility] Comment on above: Performed By: #### L 100.0100 ####[facility] [address] [place], [address] Basophils/100 WBC (Bld) 0.9 % Normal 0-1 [facility] Comment on above: Performed By: #### L 100.0100 ####[facility] [address] [place], [address] Eosinophils/100 WBC (Bld) 3.1 % Normal 0-5 [facility] Comment on above: Performed By: #### L 100.0100 ####[facility] [address] [place], [address] Erythrocyte distribution width (RBC) [Ratio] 11.9 % Normal 11.6-14.6 [facility] Comment on above: Performed By: #### L 100.0100 ####[facility] [address] [place], [address] Hematocrit (Bld) [Volume fraction] 39.8 % Normal 37-47 [facility] Comment on above: Performed By: #### L 100.0100 ####[facility] [address] [place], [address] Hemoglobin (Bld) [Mass/Vol] 13.1 g/dL Normal 12.0-15.0 [facility] Comment on above: Performed By: #### L 100.0100 ####[facility] [address] [place], [address] IG% 0.200 Normal 0.0-0.9 [facility] Comment on above: Result Comment: IG% - Immature Granulocytes (promyelocytes, myelocytes and metamyelocytes) > 1% indicates that a LEFT SHIFT is Present. Performed By: #### L 100.0100 ####[facility] [address] [place], [address] Lymphocytes/100 WBC (Bld) 58.4 % High 19-41 [facility] Comment on above: Performed By: #### L 100.0100 ####[facility] [address] [place], [address] MCH (RBC) [Entitic mass] 30.3 pg Normal 27.0-32.0 [facility] Comment on above: Performed By: #### L 100.0100 ####[facility] [address] [place], [address] MCHC (RBC) [Mass/Vol] 32.9 g/dL Normal 32-36 [facility] Comment on above: Performed By: #### L 100.0100 ####[facility] [address] [place], [address] MCV (RBC) [Entitic vol] 91.9 fL Normal 81-99 [facility] Comment on above: Performed By: #### L 100.0100 ####[facility] [address] [place], [address] Monocytes/100 WBC (Bld) 6.4 % Normal 0-10 [facility] Comment on above: Performed By: #### L 100.0100 ####[facility] [address] [place], [address] Neutrophils/100 WBC (Bld) 31.0 % Low 47-70 [facility] Comment on above: Performed By: #### L 100.0100 ####[facility] [address] [place], [address] Nucleated RBC (Bld) [#/Vol] 0 10*3/uL Normal 0-5 [facility] Comment on above: Performed By: #### L 100.0100 ####[facility] [address] [place], [address] Platelet mean volume (Bld) [Entitic vol] 9.9 fL Normal 6.2-12.0 [facility] Comment on above: Performed By: #### L 100.0100 ####[facility] [address] [place], [address] Platelets (Bld) [#/Vol] 254 10*3/uL Normal 150-450 [facility] Comment on above: Performed By: #### L 100.0100 ####[facility] [address] [place], [address] RBC (Bld) [#/Vol] 4.33 10*6/uL Normal 4.2-5.4 [facility] Comment on above: Performed By: #### L 100.0100 ####[facility] [address] [place], [address] RDW SD 40.5 fl Normal 35.1-43.9 [facility] Comment on above: Performed By: #### L 100.0100 ####[facility] [address] [place], [address] WBC (Bld) [#/Vol] 6.4 10*3/uL Normal 4.4-11.0 [facility] [facility] Comment on above: Performed By: #### L 100.0100 ####[facility] [address] [place], [address] Carbon dioxide measurementOr dered By: Tai Clark on 08-05-2024 CO2 [Moles/Vol] 31.0 mmol/L 21.0-32.0 [facility] Chloride measurementOrdered By: Tai Clark on 08-05-2024 Chloride [Moles/Vol] 108 mmol/L High 98-107 [facility] Emergency Department Summary on 08-05-2024 Emergency Department Summary [facility] Medical Records Department [address] [place] [address] Emergency Department Summary 08/05/24 MR#: [id number] Acct: [id number] Name: MARIE ASHLEY Rep #: [id number] : 1940 84 From: Tai Clark DO PCP: Dr. Adolph Omer MD Status:DEP ER Location: ED HPI History of Present Illness Chief Complaint: Palpitations Informant: patient and spouse/S.O. Narrative Narrative: Patient is an 84-year-old female with past medical history of paroxysmal atrial fibrillation currently on Eliquis and hypothyroidism. She states she awoke this evening to go to the bathroom and after laying back down began to feel like her heart was racing and skipping beats. She states that her dynamic balancer informed her when this occurs she can take another half dose of her metoprolol. She states she did this but there was no resolution of her symptoms and therefore she comes in for evaluation. Patient states that prior to the palpitations beginning she is felt normal and denies any recent fevers chills nausea vomiting diarrhea or known sick contacts [facility] Medical History Hypothyroidism PAF (paroxysmal atrial fibrillation) Atrial fibrillation with RVR Glaucoma Home Medications ???Medication ???Instructions ???Recorded ???Last Taken ???Type levothyroxine 25 mcg tablet 25 mcg PO DAILY 09/29/20 09/28/20 History latanoprost 0.005 % eye drops 1 drp ophthalmic (eye) DAILY 11/06/20 Unknown History acetaminophen 325 mg tablet 325 mg PO ONCE PRN fever or pain 02/12/22 Unknown History loratadine 10 mg tablet 10 mg PO DAILY PRN allergy symptoms 08/12/23 Unknown History apixaban 5 mg tablet (Eliquis) 5 mg PO BID #60 tabs 01/24/24 Unknown Rx metoprolol tartrate 50 mg tablet 25 mg (1/2 x 50 mg) PO BID #90 tabs 07/02/24 Unknown Rx Allergy/AdvReac Type Severity Reaction Status Date / Time oxytetracycline (From Allergy Unknown Verified 08/05/24 02:55 Terramycin) Penicillins Allergy Unknown Verified 08/05/24 02:55 Family History Mother Heart disease Paroxysmal atrial fibrillation Father Cancer Lung Sister Heart disease Surgical History History of cholecystectomy Social History Smoking Status: Never smoker alcohol intake: never substance use type: does not use caffeine: Yes Type: coffee Number of servings: 1 ROS ROS ED Constitutional Constitutional ED: Denies chills or fever(s) Eyes Eyes: Denies blurry vision or change in vision ENT ENT ED: Denies sore throat Cardiovascular Cardiovascular: Reports palpitations and racing heartbeat; Denies chest pain Respiratory/Chest Respiratory/Chest: Denies cough or dyspnea Gastrointestinal Gastrointestinal: Denies abdominal pain, diarrhea, nausea or vomiting Genitourinary Genitourinary ED: Denies dysuria Musculoskeletal Musculoskeletal: Denies myalgias Integumentary Denies rash Neurologic Neurologic: Denies headache(s) Hematologic/Lymphatic Hematologic/Lymphatic: Reports easy bleeding and easy bruising EXAM Physical Exam Const Vital Signs: 08/05/24 02:49 08/05/24 03:22 08/05/24 03:28 Temperature 97.8 F Temperature Source Oral Pulse Rate 122 H 96 67 Respiratory Rate 16 20 H Blood Pressure 154/97 H 125/75 H 87/57 L Blood Pressure Mean 116 91 67 Pulse Ox 96 97 Oxygen Delivery Method Room Air Room Air 08/05/24 03:30 Temperature Temperature Source Pulse Rate 69 Respiratory Rate 23 H Blood Pressure 93/58 L Blood Pressure Mean 69 Pulse Ox 97 Oxygen Delivery Method Room Air Positive well nourished and well developed General Appearance ED: well developed; Negative for pallor HEENT HEENT Narrative: Normocephalic atraumatic Eyes PERRL and EOMs intact bilaterally General Eye ED: Negative for scleral icterus Neck supple Resp normal respiratory effort and clear to auscultation bilaterally Cardio Rate: other Other Details: Irregularly irregular rhythm with slightly tachycardic rate consistent with atrial fibrillation GI normal to inspection, nondistended, normoactive bowel sounds, non-tender, non-distended and no masses Auscultation: normoactive bowel sounds Palpation: soft Extremity normal to inspection Extremity Narrative: No asymmetric edema no pitting edema negative Homans' sign bilaterally Neuro oriented x3, CN's II-XII intact bilaterally and no sensory deficits noted Sensorium / Orientation: alert Motor Exam: strength 5/5 throughout Psych mental status grossly normal Skin no rashes or lesions noted General Skin Exam: Negative for ja (more content not included)... Normal [facility] Eosinophil percentageOrdered By: Tai Clark on 08-05-2024 Eosinophils/100 WBC (Bld) 3.1 % 0-5 [facility] Erythrocyte distribution wid th ratioOrdered By: Tai Clark on 08-05-2024 Erythrocyte distribution width (RBC) [Ratio] 11.9 % 11.6-14.6 [facility] Erythrocyte distribution wid th standard deviationOrdered By: Tai Clark on 08-05-2024 Erythrocyte distribution width (RBC) [Entitic vol] 40.5 fL 35.1-43.9 [facility] Estimated glomerular filtrat ion rate (GFR) AmericanOrdered By: Tai Clark on 08-05-2024 Estimated GFR (MDRD) Amer 93 mL/min >60 [facility] Comment on above: GFR Calc Estimation of creatinine antonia aranceOrdered By: Tai Clark on 08-05-2024 Estimated Creatinine Clearance Calc 40.54 ml/min [facility] Glomerular filtration rate ( GFR) estimationOrdered By: Tai Clark on 08-05-2024 Estimated GFR (MDRD) Non-Af Amer 77 mL/min >60 [facility] Comment on above: Non- GFR Calc Glucose measurementOrdered B y: Tai Clark on 08-05-2024 Glucose [Mass/Vol] 132 mg/dL High 74-106 [facility] Comment on above: Fasting Glucose resu lt greater than or equal to 126 mg/dL suggests DIABETES MELLITUS per A.D.A. criteria. Hematocrit Auto (Bld) [Volum e fraction]Ordered By: Tai Clark on 08-05-2024 Hematocrit (Bld) [Volume fraction] 39.8 % 37-47 [facility] Hemoglobin measurementOrdere d By: Tai Clark on 08-05-2024 Hemoglobin (Bld) [Mass/Vol] 13.1 g/dL 12.0-15.0 [facility] Immature granulocytes/100 WB C Auto (Bld)Ordered By: Tai Clark on 08-05-2024 Immature granulocytes/100 WBC (Bld) 0.200 % 0.0-0.9 [facility] Comment on above: IG% - Immature Granu locytes (promyelocytes, myelocytes and metamyelocytes) > 1% indicates that a LEFT SHIFT is Present. Lymphocytes Auto (Unsp spec) [#/Vol]Ordered By: Tai Clark on 08-05-2024 Lymphocytes (Bld) [#/Vol] 3.72 10*3/uL 0.83-4.51 [facility] Lymphocytes/100 WBC Auto (Un sp spec)Ordered By: Tai Clark on 08-05-2024 Lymphocytes/100 WBC (Bld) 58.4 % High 19-41 [facility] MCV (mean corpuscular volume ) determinationOrdered By: Tai Clark on 08-05-2024 MCV (RBC) [Entitic vol] 91.9 fL 81-99 [facility] Magnesiumon 08-05-2024 Magnesium [Mass/Vol] 2.3 mg/dL Normal 1.6-2.6 [facility] Comment on above: Performed By: #### L 501.5200, L500.2500, L501.9520 ####[facility] [address] [place], [address] Magnesium measurementOrdered By: Tai Clark on 08-05-2024 Magnesium [Mass/Vol] 2.3 mg/dL 1.6-2.6 [facility] Mean corpuscular hemoglobin (MCH) determinationOrdered By: Tai Clark on 08-05-2024 MCH (RBC) [Entitic mass] 30.3 pg 27.0-32.0 [facility] Mean corpuscular hemoglobin concentration (MCHC) determinationOrdered By: Tai Clark on 08-05-2024 MCHC (RBC) [Mass/Vol] 32.9 g/dL 32-36 [facility] Mean platelet volume determi nationOrdered By: Tai Clark on 08-05-2024 Platelet mean volume (Bld) [Entitic vol] 9.9 fL 6.2-12.0 [facility] Monocyte percentageOrdered B y: Tai Clark on 08-05-2024 Monocytes/100 WBC (Bld) 6.4 % 0-10 [facility] Neutrophil percentageOrdered By: Tai Clark on 08-05-2024 Neutrophils/100 WBC (Bld) 31.0 % Low 47-70 [facility] Nucleated red blood cell per centageOrdered By: Tai Clark on 08-05-2024 Nucleated RBC/100 WBC (Bld) [Ratio] 0 % 0-5 [facility] Platelet countOrdered By: Kimi Clark on 08-05-2024 Platelets (Bld) [#/Vol] 254 10*3/uL 150-450 [facility] Potassium measurementOrdered By: Tai Clark on 08-05-2024 Potassium [Moles/Vol] 3.3 mmol/L Low 3.5-5.1 [facility] RBC Auto (Bld) [#/Vol]Ordere d By: Tai Clark on 08-05-2024 RBC (Bld) [#/Vol] 4.33 10*6/uL 4.2-5.4 [facility] Serum anion gap measurementO rdered By: Tai Clark on 08-05-2024 Anion gap [Moles/Vol] 4 mmol/L Low 5-15 [facility] Serum or plasma calcium estevan urement (mass/volume)Ordered By: Tai Clark on 08-05-2024 Calcium [Mass/Vol] 9.6 mg/dL 8.5-10.1 [facility] Serum or plasma creatinine m easurement (mass/volume)Ordered By: Tai Clark on 08-05-2024 Creatinine [Mass/Vol] 0.76 mg/dL 0.55-1.02 [facility] Comment on above: The validity of the calculated GFR & GFRAA in patients over 70 years has not been determined. Clinical correlation is essential. Serum or plasma urea nitroge n measurement (mass/volume)Ordered By: Tai Clark on 08-05-2024 Urea nitrogen [Mass/Vol] 11 mg/dL 7-18 [facility] Sodium levelOrdered By: Elvis Clark on 08-05-2024 Sodium [Moles/Vol] 142 mmol/L 136-145 [facility] TSH QnOrdered By: Tierra on 08-05-2024 Thyroid Stimulating Hormone (TSH) 7.060 uIU/mL High 0.358-3.740 [facility] Thyroid Stim Hormone (TSH)on 08-05-2024 TSH 7.060 uIU/mL High 0.358-3.740 [facility] Comment on above: Performed By: #### L 501.5200, L500.2500, L501.9520 ####[facility] [address] [place], [address] White blood cell (WBC) count Ordered By: Tai Clark on 08-05-2024 WBC (Bld) [#/Vol] 6.4 10*3/uL 4.4-11.0 [facility] Cardiology Visit Reporton Cardiology Visit Report [facility] [address] [place], [place] [address] OFFICE VISIT Date of Service: 02/13/24 MR#: [id number] Acct: [id number] Name: MARIE ASHLEY Rep #: [id number] : 1940 Provider: RANDALL Tobin Age/Sex: 83/F Location: [facility] Status: Signed HPI [facility] History of Present Illness Details: Marie Ashley 83-year-old female who presents here today for a cardiovascular follow-up for paroxysmal atrial fibrillation. In July 23, 2023, she presented to the emergency room after awakening and felt that she was in atrial fibrillation. She presented to the emergency department and EKG at that point in time showed a normal sinus rhythm and was within normal limits. The patient is tolerating her long-term oral anticoagulation with Eliquis without incident. Pt feels that since her metoprolol was increased she feels more fatigued. She does sleep okay. She does not have any lightheadedness/dizzine ss/syncope. She does not have any worsening SOB or CP. She does not have any bleeding issues. Intake Vital Signs 02/14/23 15:17 11/28/23 10:32 02/13/24 13:28 02/13/24 13:32 Height 5 ft 4 in 5 ft 4 in 5 ft 4 in 5 ft 4 in Weight: 105 lb BMI 18.0 BP 104/66 Blood Pressure Location Lt brachial Position Sitting Respiration 18 Pulse 56 L Pulse Source Monitor Pulse Oximetry (%) 97 Intake Visit Reasons: 1 y fu Record Producer Required: No Is patient in pain?: No Allergies oxytetracycline (From Terramycin) Allergy (Verified 02/13/24 13:29) Unknown Penicillins Allergy (Verified 02/13/24 13:29) Unknown Medications ???Medication ???Instructions ???Recorded ???Confirmed ???Type levothyroxine 25 mcg tablet 25 mcg PO DAILY 09/29/20 02/13/24 History latanoprost 0.005 % eye drops 1 drp ophthalmic (eye) DAILY 11/06/20 02/13/24 History acetaminophen 325 mg tablet 325 mg PO ONCE PRN fever or pain 02/12/22 02/13/24 History fluticasone propionate 50 1 spray intranasal DAILY PRN 02/12/22 02/13/24 History mcg/actuation nasal allergy symptoms spray,suspension loratadine 10 mg tablet 10 mg PO DAILY PRN 08/12/23 02/13/24 History apixaban 5 mg tablet (Eliquis) 5 mg PO BID #60 tabs 01/24/24 02/13/24 Rx metoprolol tartrate 50 mg tablet 25 mg (1/2 x 50 mg) PO BID #90 tabs 02/13/24 02/13/24 Rx Have you fallen in the past year?: No PFSH Medical History Hypothyroidism PAF (paroxysmal atrial fibrillation) Atrial fibrillation with RVR Glaucoma Surgical History History of cholecystectomy Family History Mother Heart disease Paroxysmal atrial fibrillation Father Cancer Lung Sister Heart disease Social History Smoking Status: Never smoker alcohol intake: never substance use type: does not use caffeine: Yes Type: coffee Number of servings: 1 ROS Const Const: Negative for fatigue, weakness, headache(s), frequent falls, excessive sweating, weight gain or weight loss Eyes Eyes: Negative for blind spots, loss of peripheral vision, transient loss of vision, blurry vision, change in vision or double vision ENT ENT: Negative for headache(s), dizziness, tinnitus, Nosebleed/epistaxis or balance problems Cardio Chest Pain: No Palpitations: No Edema: None Muscle aches with walking: None Resp Respiratory: Negative for SOB with activity, SOB at rest, SOB orthopnea SOB lying down or Cough GI GI: Negative nausea, vomiting, heartburn, bloating, vomiting blood/hematemesis, bright, red blood in stools or black,tarry stools : Negative for hematuria Musc Musc: Negative for muscle aches/ myalgia, muscle weakness, joint pain or balance problems Skin Skin: Negative rash or wounds Neuro Neuro: Negative for dizziness, lightheadedness, near syncope, syncope, orthostatic symptoms, frequent falls, headache(s), weakness, confusion, memory loss, restless legs, blurry vision or double vision Hank Hematologic/Lymphatic: Negative for easy bleeding or easy bruising Endo Endo: Negative for fatigue, cold intolerance, heat intolerance or excessive sweating Psych Psych: Negative for anxiety or depression Allergy Allergy/Immunology: Negative for rash Cardiology Exam Const Appearance: cooperative Nutritional Appearance: thin Orientation: alert and oriented x3 Head Head: normal to inspection Ears: hearing grossly normal bilaterally Nose: external nose normal Face and Sinus: face symmetric Eyes General: appearance normal, both eyes and all related structures Eyelids: eyelids normal Conjunctivae: conjunctivae normal Pupils: PERR (more content not included)... Normal [facility] Basic Metabolic Profile (BMP )on 02-08-2024 BUN/CRE 19.5 RATIO Normal 10-20 [facility] Comment on above: Order Comment: one w [place] prior to offfice visit Performed By: #### L 500.2500, L100.0100 ####[facility] [address] [place], [address] CA,Total 9.3 mg/dL Normal 8.5-10.1 [facility] Comment on above: Order Comment: one w [place] prior to offfice visit Performed By: #### L 500.2500, L100.0100 ####[facility] [address] [place], [address] Chloride [Moles/Vol] 103 mmol/L Normal 98-107 [facility] Comment on above: Order Comment: one w [place] prior to offfice visit Performed By: #### L 500.2500, L100.0100 ####[facility] [address] [place], [address] CO2 [Moles/Vol] 29.0 mmol/L Normal 21.0-32.0 [facility] Comment on above: Order Comment: one w [place] prior to offfice visit Performed By: #### L 500.2500, L100.0100 ####[facility] [address] [place], [address] Creatinine [Mass/Vol] 0.72 mg/dL Normal 0.55-1.02 [facility] Comment on above: Order Comment: one w [place] prior to offfice visit Result Comment: The validity of the calculated GFR GFRAA in patients over 70 years has not been determined. Clinical correlation is essential. Performed By: #### L 500.2500, L100.0100 ####[facility] [address] [place], [address] EST GFR - AA 100 mL/min Normal >60 [facility] Comment on above: Order Comment: one w [place] prior to offfice visit Result Comment: Afri can [place] GFR Calc Performed By: #### L 500.2500, L100.0100 ####[facility] [address] [place], [address] GAP 5 Normal 5-15 [facility] Comment on above: Order Comment: one w [place] prior to offfice visit Performed By: #### L 500.2500, L100.0100 ####[facility] [address] [place], [address] GFR/1.73 sq M.predicted among non-blacks MDRD (S/P/Bld) [Vol rate/Area] 83 mL/min/{1.73_m2} Normal >60 [facility] Comment on above: Order Comment: one w [place] prior to offfice visit Result Comment: Non- GFR Calc Performed By: #### L 500.2500, L100.0100 ####[facility] [address] [place], [address] Glucose [Mass/Vol] 97 mg/dL Normal 74-106 [facility] Comment on above: Order Comment: one w [place] prior to offfice visit Performed By: #### L 500.2500, L100.0100 ####[facility] [address] [place], [address] Potassium [Moles/Vol] 4.9 mmol/L Normal 3.5-5.1 [facility] Comment on above: Order Comment: one w [place] prior to offfice visit Performed By: #### L 500.2500, L100.0100 ####[facility] [address] [place], [address] Sodium [Moles/Vol] 137 mmol/L Normal 136-145 [facility] Comment on above: Order Comment: one w [place] prior to offfice visit Performed By: #### L 500.2500, L100.0100 ####[facility] [address] [place], [address] Urea nitrogen [Mass/Vol] 14 mg/dL Normal 7-18 [facility] Comment on above: Order Comment: one w kan[place] prior to offfice visit Performed By: #### L 500.2500, L100.0100 ####[facility] [address] [place], [address] CBC W/Diff, Automatedon 07-1 0-2023 Absolute Lymph 2.12 X10 3/uL Normal 0.83-4.51 [facility] Comment on above: Order Comment: Comme nts: Week piror to next office visit Performed By: #### L 500.2500, L100.0100 ####[facility] [address] [place], [address] Absolute Neut 2.3 X10 3/uL Normal 2.0-7.7 [facility] Comment on above: Order Comment: Comme nts: Week piror to next office visit Performed By: #### L 500.2500, L100.0100 ####[facility] [address] [place], [address] Basophils/100 WBC (Bld) 0.6 % Normal 0-1 [facility] Comment on above: Order Comment: Comme nts: Week piror to next office visit Performed By: #### L 500.2500, L100.0100 ####[facility] [address] [place], [address] Eosinophils/100 WBC (Bld) 2.2 % Normal 0-5 [facility] Comment on above: Order Comment: Comme nts: Week piror to next office visit Performed By: #### L 500.2500, L100.0100 ####[facility] [address] [place], [address] Erythrocyte distribution width (RBC) [Ratio] 12.0 % Normal 11.6-14.6 [facility] Comment on above: Order Comment: Comme nts: Week piror to next office visit Performed By: #### L 500.2500, L100.0100 ####[facility] [address] [place], [address] Hematocrit (Bld) [Volume fraction] 40.0 % Normal 37-47 [facility] Comment on above: Order Comment: Comme nts: Week piror to next office visit Performed By: #### L 500.2500, L100.0100 ####[facility] [address] [place], [address] Hemoglobin (Bld) [Mass/Vol] 12.8 g/dL Normal 12.0-15.0 [facility] Comment on above: Order Comment: Comme nts: Week piror to next office visit Performed By: #### L 500.2500, L100.0100 ####[facility] [address] [place], [address] IG% 0.600 Normal 0.0-0.9 [facility] Comment on above: Order Comment: Comme nts: Week piror to next office visit Result Comment: IG% - Immature Granulocytes (promyelocytes, myelocytes and metamyelocytes) > 1% indicates that a LEFT SHIFT is Present. Performed By: #### L 500.2500, L100.0100 ####[facility] [address] [place], [address] Lymphocytes/100 WBC (Bld) 42.4 % High 19-41 [facility] Comment on above: Order Comment: Comme nts: Week piror to next office visit Performed By: #### L 500.2500, L100.0100 ####[facility] [address] [place], [address] MCH (RBC) [Entitic mass] 29.9 pg Normal 27.0-32.0 [facility] Comment on above: Order Comment: Comme nts: Week piror to next office visit Performed By: #### L 500.2500, L100.0100 ####[facility] [address] [place], [address] MCHC (RBC) [Mass/Vol] 32.0 g/dL Normal 32-36 [facility] Comment on above: Order Comment: Comme nts: Week piror to next office visit Performed By: #### L 500.2500, L100.0100 ####[facility] [address] [place], [address] MCV (RBC) [Entitic vol] 93.5 fL Normal 81-99 [facility] Comment on above: Order Comment: Comme nts: Week piror to next office visit Performed By: #### L 500.2500, L100.0100 ####[facility] [address] [place], [address] Monocytes/100 WBC (Bld) 7.4 % Normal 0-10 [facility] Comment on above: Order Comment: Comme nts: Week piror to next office visit Performed By: #### L 500.2500, L100.0100 ####[facility] [address] [place], [address] Neutrophils/100 WBC (Bld) 46.8 % Low 47-70 [facility] Comment on above: Order Comment: Comme nts: Week piror to next office visit Performed By: #### L 500.2500, L100.0100 ####[facility] [address] [place], [address] Nucleated RBC (Bld) [#/Vol] 0 10*3/uL Normal 0-5 [facility] Comment on above: Order Comment: Comme nts: Week piror to next office visit Performed By: #### L 500.2500, L100.0100 ####[facility] [address] [place], [address] Platelet mean volume (Bld) [Entitic vol] 10.2 fL Normal 6.2-12.0 [facility] Comment on above: Order Comment: Comme nts: Week piror to next office visit Performed By: #### L 500.2500, L100.0100 ####[facility] [address] [place], [address] Platelets (Bld) [#/Vol] 249 10*3/uL Normal 150-450 [facility] Comment on above: Order Comment: Comme nts: Week piror to next office visit Performed By: #### L 500.2500, L100.0100 ####[facility] [address] [place], [address] RBC (Bld) [#/Vol] 4.28 10*6/uL Normal 4.2-5.4 [facility] Comment on above: Order Comment: Comme nts: Week piror to next office visit Performed By: #### L 500.2500, L100.0100 ####[facility] [address] [place], [address] RDW SD 41.2 fl Normal 35.1-43.9 [facility] Comment on above: Order Comment: Comme nts: Week piror to next office visit Performed By: #### L 500.2500, L100.0100 ####[facility] [address] [place], [address] WBC (Bld) [#/Vol] 5.0 10*3/uL Normal 4.4-11.0 [facility] Comment on above: Order Comment: Comme nts: Week piror to next office visit Performed By: #### L 500.2500, L100.0100 ####[facility] [id number] [place], [address] CNPVania 02-07-2024 [facility] MARIE ASHLEY ([id number]) 1940 F Date Time Provider Department 02/07/24 HERI TEIXEIRA [facility] During your visit today, we recorded the following information about you: Tricia Weir, RN 02/07/2024 11:25 AM Signed Patient reports she has appt with heart doctor at [facility] on Tuesday. Reports she was instructed to have labs done at [facility]. Asking if she should fast for the labs ordered by heart doctor. Advised patient to call [facility] to ask if she needs to be fasting for the labs ordered. Patient agreeable. Given phone number. Allergies As of Date: 02/07/2024 Noted Allergy Reaction PENICILLINS 01/04/2006 5 - Intolerance TERAMYCIN (OXYTETRACYCLINE) 12/21/2023 5 - Intolerance Comments: Rash Date Reviewed: 12/21/2023 Reviewed by: Romy Alfaro LPN - Fully Assessed Reason for Visit: Patient Question [6537] Prescriptions as of 02/07/2024 - loratadine (CLARITIN) 10 mg tablet Take 10 mg by mouth once daily. As needed - metoprolol tartrate, short acting, (LOPRESSOR) 50 mg tablet Take 1 tablet by mouth two times a day. - levothyroxine (SYNTHROID) 25 mcg tablet Take 1 tablet by mouth once daily. 25 mcgs - fluticasone (FLONASE) 50 mcg/actuation nasal spray Use 2 Sprays in each nostril once daily. Rinse mouth after use. - apixaban (ELIQUIS) 5 mg tab(s) Take 1 tablet by mouth twice daily. - multivitamin (DAILY MULTIVITAMIN) ORAL Tab Take one(1) tablet daily. - Afrfqqg-Xjumgviya-Lmqty in D2 500-50-100 mg-mg-unit ORAL Chew Take one(1) tablet two(2) times daily. - TIMOPTIC 0.5 % EYE DROPS One drop in each eye at night. 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] 03/11/2008 Seborrheic Keratoses [L82.1] 03/11/2008 SOLAR LENTIGINES///DYSCHROMIA OTHER [L81.9] 03/11/2008 11/21/2013 SCAR AND FIBROSIS OF SKIN [L90.5] 03/11/2008 H/O BCC////PERS HX SKIN MALIGNANCY NEC [Z85.828]03/11/2008 ACTINIC DAMAGE///CHR SOLAR SKIN DAMAGE NOS [L57*03/11/2008 Irritated//Inflamed Seborrheic Keratoses [L82.0]06/06/2009 Viral Warts, Unspecified: component of some Fernando*06/06/2009 Sebaceous Cyst [L72.3] 06/06/2009 Actinic skin damage [L57.8] 12/21/2011 Solar Lentigines [L81.4] 11/24/2013 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] 11/24/2013 Paroxysmal atrial fibrillation (HCC) [I48.0] 02/27/2021 Other specified glaucoma [H40.89] Encounter Status:Closed by Tricia WEIR on 02/07/24 Normal [facility] COMPLETE BLOOD COUNTon 11-05 ABSOLUTE BASOPHILS 0 /cmm Normal <216 [facility] Comment on above: Performed By: #### C BC #### MAIN LAB CLIA:[id number] [address] [place] [address], [place] [address] ABSOLUTE EOSINOPHILS 100 /cmm Normal <432 [facility] Comment on above: Performed By: #### C BC #### MAIN LAB CLIA:[id number] [address] [place] [address], [place] [address] ABSOLUTE LYMPHS 1500 /cmm Normal [phone] [facility] Comment on above: Performed By: #### C BC #### MAIN LAB CLIA:[id number] [address] [place] [address], [place] [address] ABSOLUTE MONOCYTES 300 /cmm Normal 96-972 [facility] Comment on above: Performed By: #### C BC #### MAIN [facility] CLIA:[id number] [address] [place] [address], [place] [address] ABSOLUTE SEGS 3800 /cmm Normal 0079-5142 [facility] Comment on above: Performed By: #### C BC #### MAIN [facility] CLIA:[id number] [address] [place] [address], [place] [address] Basophils/100 WBC (Bld) 0.5 % Normal <2.0 [facility] Comment on above: Performed By: #### C BC #### MAIN [facility] CLIA:[id number] [address] [place] [address], [place] [address] Eosinophils/100 WBC (Bld) 1.2 % Normal <4.0 [facility] Comment on above: Performed By: #### C BC #### MAIN [facility] CLIA:[id number] [address] [place] [address], [place] [address] Erythrocyte distribution width (RBC) [Ratio] 12.8 % Normal 11.5-14.5 [facility] Comment on above: Performed By: #### C BC #### MAIN [facility] CLIA:[id number] [address] [place] [address], [place] [address] Hematocrit (Bld) [Volume fraction] 40.3 % Normal 38.0-47.0 [facility] Comment on above: Performed By: #### C BC #### MAIN [facility] CLIA:[id number] [address] [place] [address] Hemoglobin (Bld) [Mass/Vol] 13.4 g/dL Normal 12.0-16.4 [facility] Comment on above: Performed By: #### C BC #### MAIN [facility] CLIA:[id number] [address] [place] [address] Lymphocytes/100 WBC (Bld) 26.7 % Normal 20.0-44.0 [facility] Comment on above: Performed By: #### C BC #### MAIN [facility] CLIA:[id number] [address] [place] [address] MCH (RBC) [Entitic mass] 30.4 pg Normal 27.0-31.0 [facility] Comment on above: Performed By: #### C BC #### MA[facility] CLIA:[id number] [address] [place] [address] MCV (RBC) [Entitic vol] 91 fL Normal 80-96 [facility] Comment on above: Performed By: #### C BC #### MAIN [facility] CLIA:[id number] [address] [place] [address] MEAN CORPUSCULAR HGB CONC 33.3 g/dL Normal 32.0-36.0 [facility] Comment on above: Performed By: #### C BC #### MAIN [facility] CLIA:[id number] [address] [place] [address] Monocytes/100 WBC (Bld) 5.5 % Normal 2.0-9.0 [facility] Comment on above: Performed By: #### C BC #### MAIN [facility] CLIA:[id number] [address] [place] [address] Neutrophils/100 WBC (Bld) 66.1 % Normal 50.0-70.0 [facility] Comment on above: Performed By: #### C BC #### MA[facility] CLIA:[id number] [address] [place] [address] PLATELET COUNT 247 10 3/uL Normal 130-400 [facility] Comment on above: Performed By: #### C BC #### MAIN [facility] CLIA:[id number] [address] [place] [address], [place] [address] RED BLOOD COUNT 4.42 10 6/uL Normal 4.20-5.40 [facility] Comment on above: Performed By: #### C BC #### MAIN LAB CLIA:[id number] [address] [place] [address], [place] [address] WHITE BLOOD COUNT 5.8 10 3/uL Normal 4.8-10.8 [facility] Comment on above: Performed By: #### C BC #### MAIN [facility] CLIA:[id number] [address] [place] [address], [place] [address] COMPREHENSIVE METABOLIC PANE [facility] 11-06-2023 Albumin [Mass/Vol] 4.3 g/dL Normal 3.5-5.2 [facility] Comment on above: Performed By: #### C MP, MG #### MAIN LAB CLIA:[id number] [address] [place] [address] Albumin/Globulin [Mass ratio] 1.6 {ratio} High 1-1.4 [facility] Comment on above: Performed By: #### C MP, MG #### MA[facility] CLIA:[id number] [address] [place] [address] ALP [Catalytic activity/Vol] 57 U/L Normal 35-104 [facility] Comment on above: Performed By: #### C MP, MG #### MA[facility] CLIA:[id number] [address] [place] [address] 73127 ALT [Catalytic activity/Vol] 9 U/L Normal 0-35 [facility] Comment on above: Performed By: #### C MP, MG #### MA[facility] CLIA:[id number] [address] [place] [address] Anion gap [Moles/Vol] 14 mmol/L Normal 9-18 [facility] Comment on above: Performed By: #### C MP, MG #### MA[facility] CLIA:[id number] [address] [place] [address] 21172 AST [Catalytic activity/Vol] 28 U/L Normal 0-35 [facility] Comment on above: Performed By: #### C MP, MG #### MA[facility] CLIA:[id number] [address] [place] [address] 19151 Bilirubin [Mass/Vol] 0.2 mg/dL Normal 0.0-1.2 [facility] Comment on above: Performed By: #### C MP, MG #### MAIN [facility] CLIA:[id number] [address] [place] [address]85 Calcium [Mass/Vol] 9.2 mg/dL Normal 8.8-10.2 [facility] Comment on above: Performed By: #### C MP, MG #### MA[facility] CLIA:[id number] [address] [place] [address] Chloride [Moles/Vol] 103 mmol/L Normal 98-107 [facility] Comment on above: Performed By: #### C MP, MG #### MA[facility] CLIA:[id number] [address] [place] [address] 26668 CO2 [Moles/Vol] 26 mmol/L Normal 22-29 [facility] Comment on above: Performed By: #### C MP, MG #### MAIN [facility] CLIA:[id number] [address] [place] [address] Creatinine [Mass/Vol] 0.70 mg/dL Normal 0.50-0.90 [facility] Comment on above: Performed By: #### C MP, MG #### MA[facility] CLIA:[id number] [address] [place] [address] GFR >=60 Normal >60 mL/min [facility] Comment on above: Result Comment: eGFR is calculated using the CKD-EPI equation. Result is intended only for patients between 18 and 71 years of age and is corrected for age, race, and gender. eGFR should NOT be used for pharmacy dosing. Performed By: #### C MP, MG #### MAIN [facility] CLIA:[id number] [address] [place] [address] Globulin (S) [Mass/Vol] 2.7 g/dL Normal 2.3-3.5 [facility] Comment on above: Performed By: #### C MP, MG #### MA[facility] CLIA:[id number] [address] [place] [address]1481 Glucose [Mass/Vol] 154 mg/dL High 70-99 [facility] Comment on above: Result Comment: Norm al Fasting Glucose Range 70-99 mg/dL Performed By: #### C MP, MG #### MA[facility] CLIA:[id number] [address] [place] [address] Potassium [Moles/Vol] 3.9 mmol/L Normal 3.5-5.1 [facility] Comment on above: Performed By: #### C MP, MG #### MA[facility] CLIA:[id number] [address] [place] [address] 06993 Protein [Mass/Vol] 7.0 g/dL Normal 6.4-8.3 [facility] Comment on above: Performed By: #### C MP, MG #### MAIN [facility] CLIA:[id number] [address] [place] [address] Sodium [Moles/Vol] 139 mmol/L Normal 136-145 [facility] Comment on above: Performed By: #### C MP, MG #### MA[facility] CLIA:[id number] [address] [place] [address] 89001 Urea nitrogen [Mass/Vol] 18 mg/dL Normal 8-23 [facility] Comment on above: Performed By: #### C MP, MG #### MA[facility] CLIA:[id number] [address] [place] [address] Urea nitrogen/Creatinine [Mass ratio] 25.7 mg/mg Normal [facility] Comment on above: Performed By: #### C MP, MG #### MAIN [facility] CLIA:[id number] [address] [place] [address] Emergency Room Visit Reporto n 11-06-2023 Emergency Room Visit Report [address] [address] - MARIE ASHLEY 1940 (83 F) [id number] Juan Manuel Norman DO ED Report #: [id number] (Signed) PCP: No Doctor Emergency Room Visit Report Visit Date: 11/06/23 Report Date/Time: 11/06/23 0456 HPI Arrival Condition on Arrival: Stable GEOFF Level: 3 Information Source: patient Mode of Arrival: walk-in Limitations: no limitations Travel/Ebola Screening Traveled Out Of Country In Last 30 Days: No (Or) Been in Contact With Ill Person Who Has Traveled: No COVID Screening Patient States Having COVID Symptoms: No History of Present Illness Complaint: a. fib Description of Symptoms: Patient with history of a. fib, reports she is having a spell of a fib and feels weak. Date of Onset (approx): 11/06/23 Time of Onset (approx): 02:30 Provider HPI Details 83-year-old female presents emergency department with concern for AFib. She is known history of AFib in his anticoagulated taking metoprolol b.i.d. already. She states she woke up around 2-230 a.m. feeling palpitations and felt herself flip into AFib. Feels weak and tired but declines chest pain or difficulty in breathing Pain Assessment general: Intensity: 0 Description: None Behavior: Calm Immunizations Immunizations Up to Date: no Flu Vaccine: no Pneumonia Vaccine: no COVID-19: Received at Least 1 Dose of Updated mRNA Vaccine: No Allergies/Home Meds Allergy to Contrast: No Allergy to Iodine/Shellfish: No Allergies Allergy/AdvReac Type Severity Reaction Status Date / Time oxytetracycline Allergy Unverified 11/06/23 04:41 [From Terramycin] Penicillins Allergy Unverified 11/06/23 04:41 Home Medications Medication Instructions Recorded Confirmed apixaban 5 mg tablet (Eliquis) 5 mg PO BID 11/06/23 11/06/23 latanoprost 0.005 % eye drops 1 drp OU QPM 11/06/23 11/06/23 levothyroxine 25 mcg tablet 25 mcg PO DAILY 11/06/23 11/06/23 metoprolol tartrate 25 mg tablet 25 mg PO BID 11/06/23 11/06/23 metoprolol tartrate 50 mg tablet 50 mg PO BID 10 days #20 tabs 11/06/23 multivitamin 1 cap PO DAILY 11/06/23 11/06/23 Reproductive History Post Menopausal: Yes Past Medical/Family/Social Hx PFSH Medical History Medical History (Updated 11/06/23 @ 07:20 by Juan Manuel Norman DO) A-fib Surgical History Surgical History (Updated 11/06/23 @ 04:44 by Bladimir Mukherjee RN) History of cholecystectomy General MDM Laboratory 11/06/23 Range/Units 05:14 WBC 5.8 (4.8-10.8) 10 3/uL RBC 4.42 (4.20-5.40) 10 6/uL Hgb 13.4 (12.0-16.4) g/dL Hct 40.3 (38.0-47.0) % MCV 91 (80-96) fL MCH 30.4 (27.0-31.0) pg MCHC 33.3 (32.0-36.0) g/dL RDW 12.8 (11.5-14.5) Plt Count 247 (130-400) 10 3/uL Neut % (Auto) 66.1 (50.0-70.0) % Lymph % (Auto) 26.7 (20.0-44.0) % Hale % (Auto) 5.5 (2.0-9.0) % Eos % (Auto) 1.2 (<4.0) % Baso % (Auto) 0.5 (<2.0) % Abs Neuts cells/mm3 3800 (5428-2325) /cmm Lymphocytes # 1500 (960-4752) /cmm Monocytes # 300 (96-972) /cmm Eosinophils # 100 (<432) /cmm Basophils # 0 (<216) /cmm PT 14.4 H (11.5-13.9) sec INR 1.2 H (0.9-1.1) APTT 33.3 (22.2-34.2) sec Sodium 139 (136-145) mmol/L Potassium 3.9 (3.5-5.1) mmol/L Chloride 103 (98-107) mmol/L Carbon Dioxide 26 (22-29) mmol/L Anion Gap 14 (9-18) BUN 18 (8-23) mg/dL Creatinine 0.70 (0.50-0.90) mg/dL GFR Calculation >=60 (>60 mL/min) /1.73 m2 BUN/Creatinine Ratio 25.7 Glucose 154 H (70-99) mg/dL Calcium 9.2 (8.8-10.2) mg/dL Magnesium 2.1 (1.6-2.4) mg/dL Total Bilirubin 0.2 (0.0-1.2) mg/dL AST 28 (0-35) U/L ALT 9 (0-35) U/L Alkaline Phosphatase 57 (35-104) U/L Troponin T High Sens 7 (<14) ng/L Total Protein 7.0 (6.4-8.3) g/dL Albumin 4.3 (3.5-5.2) g/dL Globulin 2.7 (2.3-3.5) g/dL Albumin/Globulin Ratio 1.6 H (1-1.4) ratio Treatment and Disposition (Course) Vital Signs: Arrival Temperature 98.1 F 11/06/23 04:36 Pulse Rate 75 11/06/23 04:36 Respiratory Rate 16 11/06/23 04:36 Blood Pressure 131/68 11/06/23 04:36 Pulse Oximetry 97 11/06/23 04:36 Oxygen Delivery Device Room Air 11/06/23 04:36 Current/Last Documented Temperature 98.1 F 11/06/23 04:40 Pulse Rate 103 H 11/06/23 07:00 Respiratory Rate 17 11/06/23 07:00 Blood Pressure 115/58 L 11/06/23 07:00 Pulse Oximetry 94 11/06/23 07:00 Oxygen Delivery Device Room Air 11/06/23 04:51 Height/Weight/BMI Height 5 ft 5 in Weight 48.988 kg Body Mass Index 17.9 Course Narrative: this is a 83-year-old female with a known history of AFib presents emergency department in AFib with RVR. Patient responded to a dose of her home metoprolol plus metoprolol pushes and heart rate is now right around 100. She is d (more content not included)... Normal [facility] MAGNESIUMon 11-06-2023 Magnesium [Mass/Vol] 2.1 mg/dL Normal 1.6-2.4 [facility] Comment on above: Performed By: #### C MP, MG #### MAIN LAB CLIA:[id number] [address] [place] [address]85 PARTIAL THROMBOPLASTIN TIMEo n 11-06-2023 aPTT Coag (Bld) [Time] 33.3 s Normal 22.2-34.2 [facility] Comment on above: Order Comment: None Result Comment: Hepa rin therapeutic range is 79-94 seconds. Performed By: #### P T, PTT #### MAIN LAB CLIA:[id number] [address] [place] [address] PROTHROMBIN TIMEon INR Coag (PPP) [Relative time] 1.2 {INR} High 0.9-1.1 [facility] Comment on above: Order Comment: None Result Comment: The established reference range is for adult population only. Performed By: #### P T, PTT #### MAIN LAB CLIA:[id number] [address] [place] [address] PT Coag (PPP) [Time] 14.4 s High 11.5-13.9 [facility] Comment on above: Order Comment: None Performed By: #### P T, PTT #### MAIN LAB CLIA:[id number] [address] [place] [address] 40851 TROPONIN T,HIGH-SENSITIVITYo n 11-06-2023 TROPONIN T,HIGH-SENSITIVITY 7 ng/L Normal <14 [facility] Comment on above: Performed By: #### T ROPHS #### MAIN LAB CLIA:[id number] [address] [place] [address] 65641 Absolute lymphocyte countOrd ered By: ED PROVIDER on 07-23-2023 Lymphocytes Auto (Unsp spec) [#/Vol] 3.56 10*3/uL 0.83-4.51 [facility] Basophil percentageOrdered B y: ED PROVIDER on 07-23-2023 Basophils/100 WBC (Bld) 0.9 % 0-1 [facility] Chloride [Moles/Vol] 107 mmol/L 98-107 [facility] Eosinophils/100 WBC (Bld) 3.9 % 0-5 [facility] Glucose [Mass/Vol] 110 mg/dL 74-106 [facility] Comment on above: Fasting Glucose resu lt from 100 to 125 mg/dL suggests IMPAIRED HOMEOSTASIS per A.D.A. criteria. Neutrophils (Bld) [#/Vol] 2.2 10*3/uL 2.0-7.7 [facility] Neutrophils/100 WBC (Bld) 33.2 % 47-70 [facility] Potassium [Moles/Vol] 3.5 mmol/L 3.5-5.1 [facility] Sodium [Moles/Vol] 142 mmol/L 136-145 [facility] WBC (Bld) [#/Vol] 6.5 10*3/uL 4.4-11.0 [facility] Blood erythrocytes count (nu mber/volume)Ordered By: ED PROVIDER on 07-23-2023 RBC (Bld) [#/Vol] 4.41 10*6/uL 4.2-5.4 [facility] Blood hemoglobin measurement (mass/volume)Ordered By: ED PROVIDER on 07-23-2023 Hemoglobin (Bld) [Mass/Vol] 13.0 g/dL 12.0-15.0 [facility] Blood lymphocytes/100 leukoc ytesOrdered By: ED PROVIDER on 07-23-2023 Lymphocytes/100 WBC (Bld) 55.1 % 19-41 [facility] Blood monocytes/100 leukocyt esOrdered By: ED PROVIDER on 07-23-2023 Monocytes/100 WBC (Bld) 6.7 % 0-10 [facility] Blood platelet mean volumeOr dered By: ED PROVIDER on 07-23-2023 Platelet mean volume (Bld) [Entitic vol] 9.8 fL 6.2-12.0 [facility] Determination of erythrocyte mean corpuscular volume (MCV)Ordered By: ED PROVIDER on 07-23-2023 MCV (RBC) [Entitic vol] 94.3 fL 81-99 [facility] Hematocrit Auto (Bld) [Volum e fraction]Ordered By: ED PROVIDER on 07-23-2023 Hematocrit (Bld) [Volume fraction] 41.6 % 37-47 [facility] INR in Blood by Coagulation assayOrdered By: ED PROVIDER on 07-23-2023 INR Coag (Bld) [Relative time] 1.2 {INR} [facility] Laboratory - Chemistry and C hemistry - challengeOrdered By: ED PROVIDER on 07-23-2023 CO2 [Moles/Vol] 29.0 mmol/L 21.0-32.0 [facility] Urea nitrogen/Creatinine [Mass ratio] 22.5 mg/mg 10-20 [facility] Laboratory - CoagulationOrde red By: ED PROVIDER on 07-23-2023 PT Coag (PPP) [Time] 15.4 s 11.7-14.9 [facility] - Hematology and Cell countsOrdered By: ED PROVIDER on 07-23-2023 Erythrocyte distribution width (RBC) [Entitic vol] 41.6 fL 35.1-43.9 [facility] Erythrocyte distribution width (RBC) [Ratio] 11.9 % 11.6-14.6 [facility] Immature granulocytes/100 WBC (Bld) 0.200 % 0.0-0.9 [facility] Comment on above: IG% - Immature Granu locytes (promyelocytes, myelocytes and metamyelocytes) > 1% indicates that a LEFT SHIFT is Present. MCH (RBC) [Entitic mass] 29.5 pg 27.0-32.0 [facility] Nucleated RBC/100 WBC (Bld) [Ratio] 0 % 0-5 [facility] MCHC Auto (RBC) [Mass/Vol]Or dered By: ED PROVIDER on 07-23-2023 MCHC (RBC) [Mass/Vol] 31.3 g/dL 32-36 [facility] No Panel InformationOrdered By: ED PROVIDER on 07-23-2023 Troponin I High Sensitivity 10 pg/mL 3.0-54.0 [facility] Comment on above: Please Note: New Annetta t Units and Gender Specific Reference Ranges. For more information see Policy Stat Procedure [place] High Sensitivity Troponin (TNIH) and attachments. Estimated Creatinine Clearance Calc 34.78 ml/min [facility] Estimated GFR (MDRD) Amer 94 mL/min >60 [facility] Comment on above: GFR Calc Estimated GFR (MDRD) Non-Af Amer 78 mL/min >60 [facility] Comment on above: Non- GFR Calc Platelets bldOrdered By: ED PROVIDER on 07-23-2023 Platelets (Bld) [#/Vol] 265 10*3/uL 150-450 [facility] Serum or plasma calcium estevan urement (mass/volume)Ordered By: ED PROVIDER on 07-23-2023 Calcium [Mass/Vol] 9.3 mg/dL 8.5-10.1 [facility] Serum or plasma creatinine m easurement (mass/volume)Ordered By: ED PROVIDER on 07-23-2023 Creatinine [Mass/Vol] 0.76 mg/dL 0.55-1.02 [facility] Comment on above: The validity of the calculated GFR & GFRAA in patients over 70 years has not been determined. Clinical correlation is essential. Serum or plasma urea nitroge n measurement (mass/volume)Ordered By: ED PROVIDER on 07-23-2023 Urea nitrogen [Mass/Vol] 17 mg/dL 7-18 [facility] Thin prep Papanicolaou smear with manual screeningOrdered By: ED PROVIDER on 07-23-2023 Thin prep Papanicolaou smear with manual screening 6 5-15 [facility] Absolute lymphocyte countOrd ered By: Romy Briscoe on 02-14-2023 Lymphocytes Auto (Unsp spec) [#/Vol] 2.87 10*3/uL 0.83-4.51 [facility] Basophil percentageOrdered B y: Romy Briscoe on 02-14-2023 Basophils/100 WBC (Bld) 0.7 % 0-1 [facility] Eosinophils/100 WBC (Bld) 2.6 % 0-5 [facility] Neutrophils (Bld) [#/Vol] 2.3 10*3/uL 2.0-7.7 [facility] Neutrophils/100 WBC (Bld) 39.5 % 47-70 [facility] WBC (Bld) [#/Vol] 5.7 10*3/uL 4.4-11.0 [facility] Blood erythrocytes count (nu mber/volume)Ordered By: Romy Briscoe on 02-14-2023 RBC (Bld) [#/Vol] 4.27 10*6/uL 4.2-5.4 [facility] Blood hemoglobin measurement (mass/volume)Ordered By: Romy Briscoe on 02-14-2023 Hemoglobin (Bld) [Mass/Vol] 12.8 g/dL 12.0-15.0 [facility] Blood lymphocytes/100 leukoc ytesOrdered By: Romy Briscoe on 02-14-2023 Lymphocytes/100 WBC (Bld) 50.3 % 19-41 [facility] Blood monocytes/100 leukocyt esOrdered By: Romy Briscoe on 02-14-2023 Monocytes/100 WBC (Bld) 6.7 % 0-10 [facility] Blood platelet mean volumeOr dered By: Romy Briscoe on 02-14-2023 Platelet mean volume (Bld) [Entitic vol] 9.8 fL 6.2-12.0 [facility] Determination of erythrocyte mean corpuscular volume (MCV)Ordered By: Romy Briscoe on 02-14-2023 MCV (RBC) [Entitic vol] 95.6 fL 81-99 [facility] Hematocrit Auto (Bld) [Volum e fraction]Ordered By: Romy Briscoe on 02-14-2023 Hematocrit (Bld) [Volume fraction] 40.8 % 37-47 [facility] Laboratory - Hematology and Cell countsOrdered By: Romy Briscoe on 02-14-2023 Erythrocyte distribution width (RBC) [Entitic vol] 42.6 fL 35.1-43.9 [facility] Erythrocyte distribution width (RBC) [Ratio] 12.1 % 11.6-14.6 [facility] Immature granulocytes/100 WBC (Bld) 0.200 % 0.0-0.9 [facility] Comment on above: IG% - Immature Granu locytes (promyelocytes, myelocytes and metamyelocytes) > 1% indicates that a LEFT SHIFT is Present. MCH (RBC) [Entitic mass] 30.0 pg 27.0-32.0 [facility] Nucleated RBC/100 WBC (Bld) [Ratio] 0 % 0-5 [facility] MCHC Auto (RBC) [Mass/Vol]Or dered By: Romy Briscoe on 02-14-2023 MCHC (RBC) [Mass/Vol] 31.4 g/dL 32-36 [facility] Platelets bldOrdered By: Anmol Briscoe on 02-14-2023 Platelets (Bld) [#/Vol] 272 10*3/uL 150-450 [facility] XR FOOT GENERAL 3V AP/LAT/OB L LEFTon 01-04-2023 [facility] XR Foot - left AP and Latera l and obliqueon 01-04-2023 IMPRESSION: No acute osseous abnormality Policyholder Information Clerk: ERIC Transcribe Date/Time: Jan 04 2023 2:54P Dictated by : ESEQUIEL CENTENO MD This examination was interpreted and the report reviewed and electronically signed by: ESEQUIEL CENTENO MD on Jan 04 2023 2:58PM EST DIVISION OF RADIOLOGY * * *Final Report* * * DATE OF EXAM: Jan 04 2023 2:51PM WOX [id number] - XR FOOT 3V AP/LAT/OBL LT / PROCEDURE REASON: Injury of toe on left foot, initial encounter * * * * Physician Interpretation * * * * EXAMINATION: XR FOOT 3V AP/LAT/OBL LT CLINICAL HISTORY: Trauma Technique: XR FOOT 3V AP/LAT/OBL LT -- LEFT with 3 views on 3 images Comparison: None RESULT: No acute fracture or dislocation. Joint spaces are maintained. DIVISION OF RADIOLOGY Provider, [facility] - 01/04/2023 * * *Final Report* * * DATE OF EXAM: Jan 04 2023 2:51PM WOX [id number] - XR FOOT 3V AP/LAT/OBL LT / PROCEDURE REASON: Injury of toe on left foot, initial encounter * * * * Physician Interpretation * * * * EXAMINATION: XR FOOT 3V AP/LAT/OBL LT CLINICAL HISTORY: Trauma Technique: XR FOOT 3V AP/LAT/OBL LT -- LEFT with 3 views on 3 images Comparison: None RESULT: No acute fracture or dislocation. Joint spaces are maintained. IMPRESSION IMPRESSION: No acute osseous abnormality Policyholder Information Clerk: PSCB Transcribe Date/Time: Jan 04 2023 2:54P Dictated by : ESEQUIEL CENTENO MD This examination was interpreted and the report reviewed and electronically signed by: ESEQUIEL CENTENO MD on Jan 04 2023 2:58PM EST [facility] Radiology Study observation (narrative) [facility] XR Foot - left AP and Latera l and obliqueOrdered By: Ccf Provider on 01-04-2023 [facility] Office Visit: UC: Earshahzad - Documentation of current medications (procedure) Done Invalid Interpretation Code [facility] Work Phone: Fall risk assessment No Invalid Interpretation Code [facility] Work Phone: Tobacco smoking status NHIS Never Invalid Interpretation Code [facility] Work Phone: Tobacco use CPHS Never smoker Invalid Interpretation Code [facility] Work Phone: Lab Report: Lipid Profileon 11-15-2015 Cholesterol 191 mg/dL Invalid Interpretation Code 200 [facility] Work Phone: HDL Cholesterol 60 mg/dL Invalid Interpretation Code [facility] Work Phone: LDL Cholesterol 113 mg/dL Invalid Interpretation Code 0-130 [facility] Work Phone: Triglyceride 90 mg/dL Invalid Interpretation Code [facility] Work Phone: very low density lipoproteins 18 mg/dL Invalid Interpretation Code 5-40 [facility] Work Phone: Lab Report: Thyroid Stim Hor abigail (TSH)on 11-15-2015 Thyroid stimulating hormone (TSH) 1.70 u[iU]/mL Invalid Interpretation Code 0.358-3.74 [facility] Work Phone: Vital Signs Date Time Vital Sign Value Performing Clinician Mingo ware 01-14-2025 09:58-0400 Body height 162.5 cm Heri Teixeira MD Work Phone: [facility] 01-14-2025 09:58-0400 Body mass index (BMI) [Ratio] 18.17 kg/m2 Heri Teixeira MD Work Phone: [facility] 01-14-2025 09:58-0400 Body weight 47.99 kg Heri Teixeira MD Work Phone: [facility] 01-14-2025 09:58-0400 Diastolic blood pressure 62 mm[Hg] Heri Teixeira MD Work Phone: [facility] 01-14-2025 09:58-0400 Heart rate 60 /min Heri Teixeira MD Work Phone: [facility] 01-14-2025 09:58-0400 SaO2% (BldA) [Mass fraction] 98 % Heri Teixeira MD Work Phone: [facility] 01-14-2025 09:58-0400 Systolic blood pressure 110 mm[Hg] Heri Teixeira MD Work Phone: [facility] 01-04-2025 07:16-0400 Body height 165.[address] Sebastian Teixeira MD Work Phone: 4(453)205-602080 [place] [address] 01-04-2025 07:16-0400 Body mass index (BMI) [Ratio] 17.6 kg/m2 Dr. Sebastian Teixeira MD Work Phone: 6(696)921-638280 [place] [address] 01-04-2025 07:16-0400 Body weight 48.[address] Sebastian Teixiera MD Work Phone: 4(347)573-038180 [place] [address] 01-04-2025 07:16-0400 Diastolic blood pressure 61 mm[Hg] Dr. Sebastian Teixeira MD Work Phone: 8(758)158-352180 [place] [address] 01-04-2025 07:16-0400 Heart rate 60 /min Dr. Sebastian Teixeira MD Work Phone: 0(737)222-612880 [place] [address] 01-04-2025 07:16-0400 Respiratory rate 18 /min Dr. Sebastian Teixeira MD Work Phone: 3(394)726-357480 [place] [address] 01-04-2025 07:16-0400 SaO2% (BldA) [Mass fraction] 96 % Dr. Sebastian Teixeira MD Work Phone: 3(201)182-026880 [place] [address] 01-04-2025 07:16-0400 Systolic blood pressure 105 mm[Hg] Dr. Sebastian Teixeira MD Work Phone: 2(082)855-370280 [place] [address] 01-03-2025 11:03-0400 Body temperature 97.9 [degF] Dr. Sebastian Teixeira MD Work Phone: 8(811)816-775280 [place] [address] 01-03-2025 11:03-0400 Diastolic blood pressure 59 mm[Hg] Dr. Sebastian Teixeira MD Work Phone: 3(080)842-315180 [place] [address] 01-03-2025 11:03-0400 Heart rate 94 /min Dr. Sebastian Teixeira MD Work Phone: 8(320)165-021880 [place] [address] 01-03-2025 11:03-0400 Respiratory rate 16 /min Dr. Sebastian Teixeira MD Work Phone: 5(408)275-689680 [place] [address] 01-03-2025 11:03-0400 SaO2% (BldA) [Mass fraction] 98 % Dr. Sebastian Teixeira MD Work Phone: 9(888)436-258180 [place] [address] 01-03-2025 11:03-0400 Systolic blood pressure 98 mm[Hg] Dr. Sebastian Teixeira MD Work Phone: 8(520)020-352180 [place] [address] 01-03-2025 07:30-0400 Body height 165.[address] Sebastian Teixeira MD Work Phone: 0(647)819-217980 [place] [address] 01-03-2025 07:30-0400 Body mass index (BMI) [Ratio] 17.4 kg/m2 Dr. Sebastian Teixeira MD Work Phone: 3(255)368-376280 [place] [address] 01-03-2025 07:30-0400 Body weight 47.[address] Sebastian Teixeira MD Work Phone: 9(798)786-793380 [place] [address] 11-22-2024 15:16-0400 Body mass index (BMI) [Ratio] 17.4 kg/m2 Dr. Sebastian Teixeira MD Work Phone: 0(079)699-748080 [place] [address] 11-22-2024 15:16-0400 Body weight 47.[address] Sebastian Teixeira MD Work Phone: 8(422)838-069680 [place] [address] 11-22-2024 15:16-0400 Diastolic blood pressure 65 mm[Hg] Dr. Sebastian Teixeira MD Work Phone: 8(108)675-600580 [place] [address] 11-22-2024 15:16-0400 Heart rate 59 /min Dr. Sebastian Teixeira MD Work Phone: [facility] 11-22-2024 15:16-0400 Respiratory rate 18 /min Dr. Sebastian Teixeira MD Work Phone: [facility] 11-22-2024 15:16-0400 SaO2% (BldA) [Mass fraction] 96 % Dr. Sebastian Teixeira MD Work Phone: [facility] 11-22-2024 15:16-0400 Systolic blood pressure 106 mm[Hg] Dr. Sebastian Teixeira MD Work Phone: [facility] 11-09-2024 10:47-0400 Body mass index (BMI) [Ratio] 18.28 kg/m2 Heri Teixeira MD Work Phone: [facility] 11-09-2024 10:47-0400 Body weight 48.26 kg Heri Teixeira MD Work Phone: [facility] 11-09-2024 10:47-0400 Diastolic blood pressure 58 mm[Hg] Heri Teixeira MD Work Phone: [facility] 11-09-2024 10:47-0400 Heart rate 54 /min Heri Teixeira MD Work Phone: [facility] 11-09-2024 10:47-0400 Respiratory rate 16 /min Heri Teixeira MD Work Phone: [facility] 11-09-2024 10:47-0400 SaO2% (BldA) [Mass fraction] 98 % Heri Teixeira MD Work Phone: [facility] 11-09-2024 10:47-0400 Systolic blood pressure 100 mm[Hg] Heri Teixeira MD Work Phone: [facility] 10-17-2024 07:29-0400 Body mass index (BMI) [Ratio] 17.4 kg/m2 Dr. Sebastian Teixeira MD Work Phone: [facility] 10-17-2024 07:29-0400 Body weight 47.[address] Sebastian Teixeira MD Work Phone: [facility] 10-17-2024 07:29-0400 Diastolic blood pressure 65 mm[Hg] Dr. Sebastian Teixeira MD Work Phone: [facility] 10-17-2024 07:29-0400 Heart rate 62 /min Dr. Sebastian Teixeira MD Work Phone: 8(435)384-655794 [place] [address] 10-17-2024 07:29-0400 Respiratory rate 18 /min Dr. Sebastian Teixeira MD Work Phone: 3(616)817-473894 [place] [address] 10-17-2024 07:29-0400 SaO2% (BldA) [Mass fraction] 99 % Dr. Sebastian Teixeira MD Work Phone: 5(599)517-948694 [place] [address] 10-17-2024 07:29-0400 Systolic blood pressure 108 mm[Hg] Dr. Sebastian Teixeira MD Work Phone: 7(531)787-866094 [place] [address] 10-15-2024 13:12-0400 Body mass index (BMI) [Ratio] 17.8 kg/m2 Jonah Valiente APRN.HSE COORDINATOR Work Phone: 3(733)004-530559 [place] [address] 10-15-2024 13:12-0400 Body weight 47 kg Jonah Valiente APRN.HSE COORDINATOR Work Phone: [facility] 10-15-2024 13:12-0400 Diastolic blood pressure 71 mm[Hg] Jonah Valiente APRN.HSE COORDINATOR Work Phone: [facility] 10-15-2024 13:12-0400 Heart rate 59 /min Jonah Valiente APRN.HSE COORDINATOR Work Phone: [facility] 10-15-2024 13:12-0400 Systolic blood pressure 119 mm[Hg] Jonah Valiente APRN.HSE COORDINATOR Work Phone: [facility] 10-11-2024 07:00-0400 Body temperature 98.1 [degF] Dr. Adolph Omer MD Work Phone: [facility] 10-11-2024 07:00-0400 Diastolic blood pressure 69 mm[Hg] Dr. Adolph Omer MD Work Phone: 2(594)183-407580 [place] [address] 10-11-2024 07:00-0400 Heart rate 95 /min Dr. Adolph Omer MD Work Phone: 6(110)086-978580 [place] [address] 10-11-2024 07:00-0400 Respiratory rate 16 /min Dr. Adolph Omer MD Work Phone: 5(320)331-299380 [place] [address] 10-11-2024 07:00-0400 SaO2% (BldA) [Mass fraction] 96 % Dr. Adolph Omer MD Work Phone: 3(697)631-328580 [place] [address] 10-11-2024 07:00-0400 Systolic blood pressure 104 mm[Hg] Dr. Adolph Omer MD Work Phone: 7(417)944-200480 [place] [address] 10-11-2024 03:42-0400 Body height 165.[address] Adolph Omer MD Work Phone: 0(586)372-894080 [place] [address] 10-11-2024 03:42-0400 Body mass index (BMI) [Ratio] 17.7 kg/m2 Dr. Adolph Omer MD Work Phone: 7(510)056-300080 [place] [address] 10-11-2024 03:42-0400 Body weight 48.[address] Adolph Omer MD Work Phone: 8(632)841-973780 [place] [address] 08-22-2024 08:30-0500 Body mass index (BMI) [Ratio] 17.5 kg/m2 Dr. Adolph Omer MD Work Phone: 4(295)796-644380 [place] [address] 08-22-2024 08:30-0500 Body temperature 97.8 [degF] Dr. Adolph Omer MD Work Phone: 4(417)903-399380 [place] [address] 08-22-2024 08:30-0500 Body weight 47.[address] Adolph Omer MD Work Phone: 6(312)954-422780 [place] [address] 08-22-2024 08:30-0500 Diastolic blood pressure 70 mm[Hg] Dr. Adolph Omer MD Work Phone: 4(035)687-363780 [place] [address] 08-22-2024 08:30-0500 Heart rate 67 /min Dr. Adolph Omer MD Work Phone: [facility] 08-22-2024 08:30-0500 Respiratory rate 18 /min Dr. Adolph Omer MD Work Phone: [facility] 08-22-2024 08:30-0500 SaO2% (BldA) [Mass fraction] 98 % Dr. Adolph Omer MD Work Phone: [facility] 08-22-2024 08:30-0500 Systolic blood pressure 113 mm[Hg] Dr. Adolph Omer MD Work Phone: 9(895)348-566980 [place] [address] 08-10-2024 09:12-0500 Body mass index (BMI) [Ratio] 18.24 kg/m2 Heri Teixeira MD Work Phone: [facility] 08-10-2024 09:12-0500 Body weight 48.17 kg Heri Teixeira MD Work Phone: [facility] 08-10-2024 09:12-0500 Diastolic blood pressure 60 mm[Hg] Heri Teixeira MD Work Phone: [facility] 08-10-2024 09:12-0500 Heart rate 69 /min Heri Teixeira MD Work Phone: [facility] 08-10-2024 09:12-0500 Respiratory rate 16 /min Heri Teixeira MD Work Phone: [facility] 08-10-2024 09:12-0500 SaO2% (BldA) [Mass fraction] 97 % Heri Teixeira MD Work Phone: [facility] 08-10-2024 09:12-0500 Systolic blood pressure 108 mm[Hg] Heri Teixeira MD Work Phone: [facility] 08-05-2024 04:49-0500 Body temperature 97.8 [degF] Dr. Adolph Omer MD Work Phone: [facility] 08-05-2024 04:49-0500 Diastolic blood pressure 52 mm[Hg] Dr. Adolph Omer MD Work Phone: 5(951)057-848794 [place] [address] 08-05-2024 04:49-0500 Heart rate 65 /min Dr. Adolph Omer MD Work Phone: 7(833)747-710280 [place] [address] 08-05-2024 04:49-0500 Respiratory rate 16 /min Dr. Adolph Omer MD Work Phone: 5(396)604-656180 [place] [address] 08-05-2024 04:49-0500 SaO2% (BldA) [Mass fraction] 97 % Dr. Adolph Omer MD Work Phone: 3(027)724-534580 [place] [address] 08-05-2024 04:49-0500 Systolic blood pressure 102 mm[Hg] Dr. Adolph Omer MD Work Phone: 6(411)494-581780 [place] [address] 08-05-2024 02:49-0500 Body mass index (BMI) [Ratio] 17.6 kg/m2 Dr. Adolph Omer MD Work Phone: 6(323)934-163394 [place] [address] 08-05-2024 02:49-0500 Body weight 48.[address] Adolph Omer MD Work Phone: [facility] 12-21-2023 11:08-0400 Body mass index (BMI) [Ratio] 18.24 kg/m2 Connie Podlogar SLICE PLUG CUTTER OPERATOR.HSE COORDINATOR Work Phone: [facility] 12-21-2023 11:08-0400 Body weight 48.17 kg Connie Podlogar SLICE PLUG CUTTER OPERATOR.HSE COORDINATOR Work Phone: [facility] 12-21-2023 11:08-0400 Diastolic blood pressure 64 mm[Hg] Connie Podlogar SLICE PLUG CUTTER OPERATOR.HSE COORDINATOR Work Phone: [facility] 12-21-2023 11:08-0400 Heart rate 50 /min Connie Podlogar SLICE PLUG CUTTER OPERATOR.HSE COORDINATOR Work Phone: [facility] 12-21-2023 11:08-0400 Respiratory rate 16 /min Connie Podlogar SLICE PLUG CUTTER OPERATOR.HSE COORDINATOR Work Phone: [facility] 12-21-2023 11:08-0400 SaO2% (BldA) [Mass fraction] 98 % Connie Avilalogflorinda SLICE PLUG CUTTER OPERATOR.HSE COORDINATOR Work Phone: [facility] 12-21-2023 11:08-0400 Systolic blood pressure 112 mm[Hg] Connie Lira SLICE PLUG CUTTER OPERATOR.HSE COORDINATOR Work Phone: [facility] 07-23-2023 08:13-0500 Body temperature 97.6 [degF] Dr. Adolph Omer Work Phone: [facility] 07-23-2023 08:13-0500 Diastolic blood pressure 76 mm[Hg] Dr. Adolph Omer Work Phone: 9(633)378-562480 [place] [address] 07-23-2023 08:13-0500 Heart rate 64 /min Dr. Adolph Omer Work Phone: 0(885)498-546380 [place] [address] 07-23-2023 08:13-0500 Respiratory rate 14 /min Dr. Adolph Omer Work Phone: [facility] 07-23-2023 08:13-0500 SaO2% (BldA) [Mass fraction] 98 % Dr. Adolph Omer Work Phone: [facility] 07-23-2023 08:13-0500 Systolic blood pressure 115 mm[Hg] Dr. Adolph Omer Work Phone: 7(617)098-765394 [place] [address] 07-23-2023 03:17-0500 Body height 162.[address] Adolph Omer Work Phone: [facility] 07-23-2023 03:17-0500 Body mass index (BMI) [Ratio] 19.2 kg/m2 Dr. Adolph Omer Work Phone: 4(959)102-237094 [place] [address] 07-23-2023 03:17-0500 Body weight 50.[address] Adolph Omer Work Phone: 6(925)505-985094 [place] [address] 06-04-2023 10:35-0400 Body mass index (BMI) [Ratio] 18.5 kg/m2 Dr. Adolph Omer Work Phone: 7(896)266-368794 [place] [address] 06-04-2023 10:35-0400 Body weight 48.[address] Adolph Omer Work Phone: 0(243)747-785380 [place] [address] 06-04-2023 10:35-0400 Diastolic blood pressure 64 mm[Hg] Dr. Adolph Omer Work Phone: 9(932)217-675980 [place] [address] 06-04-2023 10:35-0400 Heart rate 73 /min Dr. Adolph Omer Work Phone: 6(620)671-314080 [place] [address] 06-04-2023 10:35-0400 Respiratory rate 16 /min Dr. Adolph Omer Work Phone: 4(688)008-529780 [place] [address] 06-04-2023 10:35-0400 SaO2% (BldA) [Mass fraction] 94 % Dr. Adolph Omer Work Phone: 0(313)261-234580 [place] [address] 06-04-2023 10:35-0400 Systolic blood pressure 104 mm[Hg] Dr. Adolph Omer Work Phone: 7(340)570-649580 [place] [address] 02-14-2023 15:17-0400 Body height 162.[address] Adolph mOer Work Phone: 3(872)364-805980 [place] [address] 02-14-2023 15:17-0400 Body mass index (BMI) [Ratio] 18.5 kg/m2 Dr. Adolph Omer Work Phone: 2(103)086-758180 [place] [address] 02-14-2023 15:17-0400 Body weight 48.[address] Adolph Omer Work Phone: 3(775)358-828780 [place] [address] 02-14-2023 15:17-0400 Diastolic blood pressure 68 mm[Hg] Dr. Adolph Omer Work Phone: 5(700)214-334080 [place] [address] 02-14-2023 15:17-0400 Respiratory rate 18 /min Dr. Adolph Omer Work Phone: 4(112)963-476380 [place] [address] 02-14-2023 15:17-0400 SaO2% (BldA) [Mass fraction] 97 % Dr. Adolph Omer Work Phone: [facility] 02-14-2023 15:17-0400 Systolic blood pressure 115 mm[Hg] Dr. Adolph Omer Work Phone: [facility] 01-04-2023 14:12-0400 Body weight 48.72 kg Connie Podlogar SLICE PLUG CUTTER OPERATOR.HSE COORDINATOR Work Phone: [facility] 01-04-2023 14:12-0400 Diastolic blood pressure 58 mm[Hg] Connie Podlogar SLICE PLUG CUTTER OPERATOR.HSE COORDINATOR Work Phone: [facility] 01-04-2023 14:12-0400 Heart rate 64 /min Connie Podlogar SLICE PLUG CUTTER OPERATOR.HSE COORDINATOR Work Phone: [facility] 01-04-2023 14:12-0400 Respiratory rate 16 /min Connie Podlogar SLICE PLUG CUTTER OPERATOR.HSE COORDINATOR Work Phone: [facility] 01-04-2023 14:12-0400 SaO2% (BldA) [Mass fraction] 95 % Connie Podlogar SLICE PLUG CUTTER OPERATOR.HSE COORDINATOR Work Phone: [facility] 01-04-2023 14:12-0400 Systolic blood pressure 102 mm[Hg] Connie Podlogar SLICE PLUG CUTTER OPERATOR.HSE COORDINATOR Work Phone: [facility] 11-08-2022 07:55-0400 Body weight 49.99 kg Heri Teixeira MD Work Phone: [facility] 11-08-2022 07:55-0400 Diastolic blood pressure 64 mm[Hg] Heri Teixeira MD Work Phone: [facility] 11-08-2022 07:55-0400 Heart rate 70 /min Heri Teixeira MD Work Phone: [facility] 11-08-2022 07:55-0400 Respiratory rate 16 /min Heri Teixeira MD Work Phone: [facility] 11-08-2022 07:55-0400 SaO2% (BldA) [Mass fraction] 99 % Heri Teixeira MD Work Phone: [facility] 11-08-2022 07:55-0400 Systolic blood pressure 120 mm[Hg] Heri Teixeira MD Work Phone: [facility] 10-15-2022 10:18-0400 Body temperature 98.4 [degF] Connie Podlogar SLICE PLUG CUTTER OPERATOR.HSE COORDINATOR Work Phone: [facility] 10-15-2022 10:18-0400 Body weight 49.71 kg Connie Podlogar SLICE PLUG CUTTER OPERATOR.HSE COORDINATOR Work Phone: [facility] 10-15-2022 10:18-0400 Diastolic blood pressure 72 mm[Hg] Connie Podlogar SLICE PLUG CUTTER OPERATOR.HSE COORDINATOR Work Phone: [facility] 10-15-2022 10:18-0400 Heart rate 71 /min Connie Podlogar SLICE PLUG CUTTER OPERATOR.HSE COORDINATOR Work Phone: [facility] 10-15-2022 10:18-0400 Respiratory rate 16 /min Connie Podlogar SLICE PLUG CUTTER OPERATOR.HSE COORDINATOR Work Phone: [facility] 10-15-2022 10:18-0400 SaO2% (BldA) [Mass fraction] 95 % Connie Podlogar SLICE PLUG CUTTER OPERATOR.HSE COORDINATOR Work Phone: [facility] 10-15-2022 10:18-0400 Systolic blood pressure 114 mm[Hg] Connie Podlogar SLICE PLUG CUTTER OPERATOR.HSE COORDINATOR Work Phone: [facility] 11-06-2021 13:46-0400 Body height 162.5 cm Connie Podlogar SLICE PLUG CUTTER OPERATOR.HSE COORDINATOR Work Phone: [facility] 11-06-2021 13:46-0400 Body weight 50.17 kg Connie Podlogar SLICE PLUG CUTTER OPERATOR.HSE COORDINATOR Work Phone: [facility] 11-06-2021 13:46-0400 Diastolic blood pressure 64 mm[Hg] Connie Podlogar SLICE PLUG CUTTER OPERATOR.HSE COORDINATOR Work Phone: [facility] 11-06-2021 13:46-0400 Heart rate 65 /min Connie Podlogar SLICE PLUG CUTTER OPERATOR.HSE COORDINATOR Work Phone: [facility] 11-06-2021 13:46-0400 Respiratory rate 18 /min Connie Podlogar SLICE PLUG CUTTER OPERATOR.HSE COORDINATOR Work Phone: [facility] 11-06-2021 13:46-0400 SaO2% (BldA) [Mass fraction] 98 % Connie Podlogar SLICE PLUG CUTTER OPERATOR.HSE COORDINATOR Work Phone: [facility] 11-06-2021 13:46-0400 Systolic blood pressure 106 mm[Hg] Connie Podlogar SLICE PLUG CUTTER OPERATOR.HSE COORDINATOR Work Phone: [facility] 03-18-2017 10:01-0400 BMI (Body Mass Index) 18.77 kg/m2 Pauline Maharaj [facility] Work Phone: 03-18-2017 10:01-0400 Body Temperature 98.1 [degF] Pauline Maharaj [facility] Work Phone: 03-18-2017 10:01-0400 BP Diastolic 58 mm[Hg] [facility]ar[facility] Work Phone: 03-18-2017 10:01-0400 BP Systolic 122 mm[Hg] Pauline Maharaj [employer] [facility] Work Phone: 03-18-2017 10:01-0400 Height 165.1 cm Pauline Maharaj [facility] Work Phone: 03-18-2017 10:01-0400 Pulse (Heart Rate) 79 /min Pauline Maharaj [facility] Work Phone: 03-18-2017 10:01-0400 Respiratory Rate 16 /min Pauline Maharaj [facility] Work Phone: 03-18-2017 10:01-0400 Weight 51.17 kg Pauline Maharaj [facility] Work Phone: 12-31-2015 14:29-0400 BSA (Body Surface Area) 1.57 m2 Pauline Maharaj [facility] Work Phone: Encounters Encounter Date Encounter Type Care Provider Facility Start: 01-14-2025 End: 01-14-2025 Patient encounter procedure Heri Teixeira MD Work Phone: [facility] Comment on above: Acute right-sided lo w back pain without sciatica (Primary Dx); Numbness and tingling sensation of skin Start: 01-14-2025 End: 01-14-2025 ambulatory HERI TEIXEIRA Facility:[facility] Start: 01-04-2025 End: 01-04-2025 Patient encounter procedure Jolie Sorto [employer] GUIDANCE COUNSELOR-C -[facility] Work Phone: Start: 01-04-2025 End: 01-04-[address] Sebastian Teixeira MD Work Phone: [facility] Work Phone: Start: 01-03-2025 End: 01-03-2025 Emergency department patient visit Dr. Sebastian Teixeira MD Work Phone: -Emergency Department Work Phone: Start: 11-30-2024 ambulatory Juan Manuel Abebe Facility :[facility] Start: 11-30-2024 ambulatory Sebastian Teixeira Fac lity:[facility] Start: 11-30-2024 Registered Referred Rex Edwards [employer] GUIDANCE COUNSELOR-C -Cardiovascular Services Work Phone: Start: 11-22-2024 End: 11-22-2024 Patient encounter procedure Rex Edwards NP-C -[facility] Work Phone: Start: 11-22-2024 Non-patient / Non-visit Bijal boland -[facility] Work Phone: Start: 11-22-2024 End: 11-22-2024 ambulatory Sebastian Teixeira Facility:[facility] Start: 11-22-2024 End: 11-22-2024 ambulatory Sebastian Teixeira Facility:[facility] Start: 11-09-2024 End: 11-09-2024 Patient encounter procedure Heri Teixeira MD Work Phone: [facility] Comment on above: Paroxysmal atrial fi brillation (HCC) (Primary Dx); Hypothyroidism, acquired Start: 11-09-2024 End: 11-09-2024 ambulatory HERI TEIXEIRA Facility:[facility] Start: 10-17-2024 End: 10-17-2024 Patient encounter procedure Lalo Pichardo PA -[facility] Work Phone: Start: 10-17-2024 End: 10-17-2024 ambulatory Sebastian Teixeira Facility:[facility] Start: 10-15-2024 End: 10-15-2024 Patient encounter procedure Joanh Valiente APRN.CNP Work Phone: [facility] Comment on above: Paroxysmal atrial fi brillation (HCC) (Primary Dx) Start: 10-15-2024 End: 10-15-2024 ambulatory JONAH VALIENTE Facility:[facility] Start: 10-11-2024 End: 10-11-2024 Emergency department patient visit Dr. Adolph Omer MD Work Phone: -Emergency Department Work Phone: Start: 10-09-2024 End: 10-09-2024 Follow-up encounter Heri Teixeira MD Work Phone: [facility] Start: 10-08-2024 End: 10-08-2024 ambulatory HERI TEIXEIRA Facility:[facility] Start: 08-22-2024 End: 08-22-2024 Patient encounter procedure Romy PEREIRA -[employer] [facility] Work Phone: Start: 08-22-2024 End: 08-22-2024 ambulatory Romy PEREIRA Facility:[facility] Start: 08-13-2024 End: 08-13-2024 Telephone encounter Heri Teixeira MD Work Phone: [facility] Comment on above: Results Start: 08-10-2024 End: 08-10-2024 ambulatory HERI TEIXEIRA Facility:[facility] Start: 08-10-2024 End: 08-10-2024 Patient encounter procedure Heri Teixeira MD Work Phone: [facility] Comment on above: Paroxysmal atrial fi brillation (HCC) (Primary Dx); Hypothyroidism, acquired; Hypokalemia Start: 08-10-2024 End: 08-10-2024 ambulatory HERI TEIXEIRA Facility:[facility] Start: 08-08-2024 End: 08-21-2024 Telephone encounter Heri Teixeira MD Work Phone: [facility] Comment on above: ER follow up appoint ment Start: 08-05-2024 End: 08-05-2024 Emergency department patient visit Tai Clark -Emergency Department Work Phone: Start: 02-13-2024 End: 02-13-2024 ambulatory Adolph Omer Facility:[facility] Start: 02-08-2024 End: 02-08-2024 ambulatory Juan Manuel Abebe Facility:[facility] Start: 02-07-2024 Telephone encounter Sebastian Teixeira MD Work Phone: [facility] Comment on above: Patient Question Start: 12-21-2023 Telephone encounter Sebastian Teixeira MD Work Phone: [facility] Comment on above: Refill Request Start: 12-21-2023 End: 12-21-2023 Patient encounter procedure Connie Lira APRN.CNP Work Phone: [facility] Comment on above: Hypothyroidism, acqu ired (Primary Dx); Depression screening; Impacted cerumen of right ear; Bilateral impacted cerumen; Paroxysmal atrial fibrillation (HCC) Start: 11-06-2023 ambulatory No Doctor Facility:[facility] Start: 11-06-2023 End: 11-06-2023 Emergency department patient visit No Doctor Facility:[facility] Start: 07-23-2023 End: 07-23-2023 Emergency department patient visit Dr. Adolph Omer Work Phone: [facility] Work Phone: Start: 06-04-2023 End: 06-04-[address] Adolph Omer Work Phone: [facility] Work Phone: Start: 03-09-2023 Refill Heri Teixeira MD Work Phone: [facility] Comment on above: Refill Request Start: 02-14-2023 End: 02-14-[address] Adolph Omer Work Phone: [facility] Work Phone: Start: 02-14-2023 End: 02-14-[address] Adolph Omer Work Phone: [facility] Work Phone: Start: 01-04-2023 End: 01-04-2023 Subsequent hospital visit by physician [facility] Work Phone: Radiology Comment on above: Injury of toe on lef t foot, initial encounter [S99.922A] Start: 01-04-2023 End: 01-04-2023 Patient encounter procedure Connie Lira APRN.HSE COORDINATOR Work Phone: [facility] Comment on above: Injury of toe on lef t foot, initial encounter (Primary Dx) Start: 01-04-2023 Telephone encounter Connie deutsch APRN.HSE COORDINATOR Work Phone: [facility] Comment on above: Results (Left foot x -ray ) Start: 11-08-2022 Telephone encounter Sebastian Teixeira MD Work Phone: [facility] Comment on above: Orders Start: 11-08-2022 End: 11-08-2022 Patient encounter procedure Heri Teixeira MD Work Phone: [facility] Comment on above: Paroxysmal atrial fi brillation (HCC) (Primary Dx); Hypothyroidism, acquired; Osteopenia, senile; Asymptomatic postmenopausal status Start: 10-27-2022 Telephone encounter Connie deutsch APRN.HSE COORDINATOR Work Phone: [facility] Comment on above: Results Start: 10-15-2022 End: 10-15-2022 Patient encounter procedure Connie Lira APRN.HSE COORDINATOR Work Phone: [facility] Comment on above: Eustachian tube dysf unction, bilateral (Primary Dx) Start: 04-12-2022 Refill Heri Teixeira MD Work Phone: [facility] Comment on above: Refill Request Start: 11-06-2021 End: 11-06-2021 Patient encounter procedure Connie Lira SLICE PLUG CUTTER OPERATOR.HSE COORDINATOR Work Phone: [facility] Comment on above: Routine physical exa mination (Primary Dx); Hypothyroidism, acquired; Screening for hyperlipidemia; Paroxysmal atrial fibrillation (HCC); Post-nasal drainage Start: 11-06-2021 End: 11-06-2021 Physical examination Connie Avilalogflorinda SLICE PLUG CUTTER OPERATOR.HSE COORDINATOR Work Phone: [facility] Procedures Date Procedure Procedure Detail Performing Clinician Start: 01-03-[address] Sebastian Teixeira MD Work Phone: Start: 10-17-2024 Evaluation of diagno stic study results Dr. Sebastian Teixeira MD Work Phone: Start: 10-11-2024 X-ray of chest, PA a nd lateral views Dr. Adolph Omer MD Work Phone: Start: 10-11-[address] Sebastian Teixeira MD Work Phone: Start: 12-21-2023 Adult depression scr eening assessment [facility] [place] Work Phone: Start: 07-23-2023 Plain chest X-ray Dr. John Omer Work Phone: Start: 01-04-2023 Radex foot complete minimum 3 views Connie Podlogflorinda SLICE PLUG CUTTER OPERATOR.HSE COORDINATOR Work Phone: Start: 11-06-2021 Adult depression scr eening assessment Connie Podlogar SLICE PLUG CUTTER OPERATOR.HSE COORDINATOR Work Phone: Start: 03-18-2017 End: 03-18-2017 Remove impacted ear wax Carrillo PEREIRA Work Phone: Start: 11-11-2015 End: 11-17-2015 Lipid panel [AGGREGATE] Dillon Chiang DO Work Phone: Start: 11-11-2015 End: 11-17-2015 Thyroid stimulating hormone (TSH) Dillon Chiang DO Work Phone: Plan of Treatment Date Care Activity Detail Author Start: 10-27-2025 DIABETES SCREEN DIABETES SCREEN [facility] Start: 10-27-2025 Diabetes Screening Diabetes Screenin g [facility] Start: 08-10-2025 Covid-19 Vaccine ( season) Covid-19 Vaccine ( season) [facility] Comment on above: Postponed from 04/01 (Declined at this time) Start: 08-10-2025 Pneumococcal Vaccine : 50+ (2 of 2 - PCV) Pneumococcal Vaccine: 50+ (2 of 2 - PCV) [facility] Comment on above: Postponed from 08/08 (Declined at this time) Start: 08-10-2025 RSV Vaccine (1 - 1-d ose 75+ series) RSV Vaccine (1 - 1-dose 75+ series) [facility] Comment on above: Postponed from 05/07 (Declined at this time) Start: 08-10-2025 Shingrix Vaccine (1 of 2) Shingrix Vaccine (1 of 2) [facility] Comment on above: Postponed from 05/07 (Declined at this time) Start: 08-10-2025 Urine microalbumin profile DTaP,Tdap,Td Vaccine (1 - Tdap) [facility] Comment on above: Postponed from 05/07 (Declined at this time) Start: 05-10-2025 End: 05-10-2025 Patient encounter procedure 05/10/2025 10:00 AM EDT Office Visit [facility] [address] [place] [address] PodlogarConnie APRN.HSE COORDINATOR [address] [place], [place] [id number] 6 month follow up [facility] Comment on above: 6 month follow up Start: 04-01-2025 Influenza vaccination Influenz a Vaccine (Season Ended) [facility] Start: 01-28-2025 Influenza vaccination Influenza Vacc ine (#1) [facility] Comment on above: Postponed from 04/01 (Declined at this time) Start: 01-03-2025 [facility] Start: 12-20-2024 Anxiety Screening Anxiety Screening [facility] Start: 12-20-2024 Depression Screening Depression Scre ening [facility] Start: 11-09-2024 End: 11-09-2024 Patient encounter procedure 11/09/2024 10:40 AM EDT Office Visit [facility] [address] [place], [place] [id number] Heri Teixeira MD [address] [place] [address] 3 month follow up [facility] Comment on above: 3 month follow up Start: 11-07-2024 DIABETES SCREEN DIABETES SCREEN [facility] Start: 10-11-2024 [facility] Start: 10-08-2024 End: 01-07-2025 Thyrotropin [Units/volume] in Serum or Plasma THYROID STIMULATING HORMONE Lab Routine Hypothyroidism, acquired Expected: 10/08/2024, Expires: 01/07/2025 [facility] Comment on above: Expected: 10/08/2024 , Expires: 01/07/2025 Start: 08-10-2024 End: 11-09-2024 Potassium [Moles/volume] in Serum or Plasma [facility] Work Phone: Comment on above: Expected: 08/10/2024 , Expires: 11/09/2024 Start: 08-08-2024 RSV Vaccine (1 - 1-d ose 60+ series) RSV Vaccine (1 - 1-dose 60+ series) [facility] Comment on above: Postponed from 05/07 (Declined at this time) Start: 08-05-2024 [facility] Start: 08-01-2024 Advance Directive Discussion Advance Directive Discussion [facility] Start: 08-01-2024 Medicare Advantage Annual Wellness Visit Medicare Advantage Annual Wellness Visit [facility] Start: 04-01-2024 Covid-19 Vaccine () Covid-19 Vaccine () [facility] Start: 04-01-2024 Influenza vaccination [facility] Start: 11-09-2023 COVID-19 VACCINE (#1) COVID-19 VACCI NE (#1) [facility] Comment on above: Postponed from 11/05 (Declined at this time) Start: 11-09-2023 PNEUMOCOCCAL: 65+ (2 - PCV) PNEUMOCOCCAL: 65+ (2 - PCV) [facility] Comment on above: Postponed from 08/08 (Declined at this time) Start: 11-09-2023 SHINGRIX VACCINE (1 of 2) SHINGRIX VACCINE (1 of 2) [facility] Comment on above: Postponed from 05/07 (Declined at this time) Start: 11-09-2023 Urine microalbumin profile DTAP,TDAP,TD (1 - Tdap) [facility] Comment on above: Postponed from 05/07 (Declined at this time) Start: 08-01-2023 Advance Directive Discussion Advance Directive Discussion [facility] Start: 07-24-2023 [facility] Start: 07-23-2023 [facility] Start: 07-23-2023 [facility] Start: 04-01-2023 Covid-19 Vaccine ( season) Covid-19 Vaccine ( season) [facility] Start: 04-01-2023 Influenza vaccination [facility] Start: 11-06-2022 Adult depression screening assessment DEPRESSION SCREENING [facility] Start: 11-06-[address]CAR STARTER KIAN DISEASE VISIT ANNUAL PCP TEAM CHRONIC DISEASE VISIT [facility] Start: 11-06-2022 COVID-19 VACCINE (#1) COVID-19 VACCI NE (#1) [facility] Comment on above: Postponed from 11/05 (Declined at this time) Start: 11-06-2022 COVID-19 VACCINE (1) COVID-19 VACCIN E (1) [facility] Comment on above: Postponed from 05/07 (Declined at this time) Start: 11-06-2022 SHINGRIX VACCINE (1 of 2) SHINGRIX VACCINE (1 of 2) [facility] Comment on above: Postponed from 05/07 (Declined at this time) Start: 11-06-2022 Urine microalbumin profile DTAP,TDAP,TD (1 - Tdap) [facility] Comment on above: Postponed from 05/07 (Declined at this time) Start: 10-15-2022 End: 12-15-2022 CBC W Auto Differential panel - Blood CBC + DIFF Lab Routine Expected: 10/15/2022, Expires: 12/15/2022 [facility] Work Phone: Comment on above: Expected: 10/15/2022 , Expires: 12/15/2022 Start: 10-15-2022 End: 12-15-2022 Comprehensive metabolic 2000 panel - Serum or Plasma COMP METABOLIC PANEL Lab Routine Expected: 10/15/2022, Expires: 12/15/2022 [facility] Work Phone: Comment on above: Expected: 10/15/2022 , Expires: 12/15/2022 Start: 10-15-2022 End: 12-15-2022 Lipid 1996 panel - Serum or Plasma LIPID PANEL BASIC Lab Routine Expected: 10/15/2022, Expires: 12/15/2022 [facility] Work Phone: Comment on above: Expected: 10/15/2022 , Expires: 12/15/2022 Start: 10-15-2022 End: 12-15-2022 Thyrotropin [Units/volume] in Serum or Plasma TSH BLD Lab Routine Expected: 10/15/2022, Expires: 12/15/2022 [facility] Work Phone: Comment on above: Expected: 10/15/2022 , Expires: 12/15/2022 Start: 08-01-2022 ADVANCE DIRECTIVE DISCUSSION ADVANCE DIRECTIVE DISCUSSION [facility] Start: 08-01-2022 DEPRESSION ASSESSMENT DEPRESSION ASS ESSMENT [facility] Start: 04-01-2022 Influenza vaccination [facility] Start: 11-06-2021 End: 01-06-2022 Comprehensive metabolic 2000 panel - Serum or Plasma COMP METABOLIC PANEL Lab Routine Paroxysmal atrial fibrillation (HCC) Expected: 11/06/2021, Expires: 01/06/2022 [facility] Work Phone: Comment on above: Expected: 11/06/2021 , Expires: 01/06/2022 Start: 11-06-2021 End: 01-06-2022 LIPID PANEL BASIC LIPID PANEL BASIC Lab Routine Screening for hyperlipidemia Expected: 11/06/2021, Expires: 01/06/2022 [facility] Work Phone: Comment on above: Expected: 11/06/2021 , Expires: 01/06/2022 Start: 11-06-2021 End: 01-06-2022 Thyrotropin [Units/volume] in Serum or Plasma TSH BLD Lab Routine Hypothyroidism, acquired Expected: 11/06/2021, Expires: 01/06/2022 [facility] Work Phone: Comment on above: Expected: 11/06/2021 , Expires: 01/06/2022 Start: 08-01-2021 ADVANCE DIRECTIVE DISCUSSION ADVANCE DIRECTIVE DISCUSSION [facility] Start: 03-18-2017 End: 03-18-2017 Appointment Appointment [facility] Work Phone: Start: 11-11-2015 End: 11-17-2015 Lipid panel [AGGREGATE] *Lipid Profile [facility] Work Phone: Start: 11-11-2015 End: 11-11-2015 Remove impacted ear wax Ear wax removal [facility] Work Phone: Start: 11-11-2015 End: 11-17-2015 Thyroid stimulating hormone (TSH) *TSH [facility] Work Phone: Start: 10-10-2009 DIABETES SCREEN DIABETES SCREEN [facility] Start: 08-08-2007 Pneumococcal Vaccine : 65+ (2 of 2 - PCV) Pneumococcal Vaccine: 65+ (2 of 2 - PCV) [facility] Start: 08-08-2007 PNEUMOCOCCAL: 65+ (2 - PCV) PNEUMOCOCCAL: 65+ (2 - PCV) [facility] Start: 1991 Shingrix Vaccine (1 of 2) Shingrix Vaccine (1 of 2) [facility] Start: 1960 Urine microalbumin profile DTaP,Tdap,Td Vaccine (1 - Tdap) [facility] End: 12-08-2023 DXA-AXIAL SKELETON DXA-AXIAL SKELETON Radiology Routine Asymptomatic postmenopausal status Osteopenia, senile 1 Occurrences starting 11/08/2022 until 12/08/2023 [facility] Work Phone: Comment on above: 1 Occurrences starti ng 11/08/2022 until 12/08/2023 Patient Education [facility] Work Phone: Patient referral [facility] Work Phone: Removal impacted cerumen irrigation/lvg unilat AMBULATORY EAR LAVAGE/IRRIGATION Procedures Routine Impacted cerumen of right ear Ordered: 12/21/2023 [facility] Work Phone: Comment on above: Ordered: 12/21/2023 [facility] [place] [facility] [place] [facility] Immunizations Immunization Date Immunization Notes Care Provider Jerrod drummond 08-08-2006 pneumococcal polysaccharide vaccine, 23 valent Connie Podlogar SLICE PLUG CUTTER OPERATOR.HSE COORDINATOR Work Phone: [facility] Work Phone: Payers Date Payer Category Payer Medicare (Managed Care) M[employer] BH[employer] DV[employer]AGE O [id number] 2024 Medicare [id number] 2023 Self-pay [id number] [id number] Private Health Insurance [id number] 2020 Medicare HUMANA MEDICARE HUMANA GOLD PLUS [id number] 2020-Present [phone] [address] [address] [place] [address] [facility] [id number] 2020 Medicare [id number] Medicare MEDICARE PART A B [id number] Unknown [id number] Unknown [id number] .[id number] Unknown [id number] .[id number] Unknown [id number] .2.462 Unknown [id number] .2.462 Unknown [id number] .[id number] Unknown [id number] .[id number] Unknown [id number] .[id number] Unknown [id number] .2.462 Unknown [id number] .2.462 Unknown [id number] .[id number] Unknown [id number] .[id number] Unknown [id number] .2.462 Unknown [id number] .2.462 Unknown [id number] .[id number] Social History Date Type Detail Facility Start: 10-31-2020 End: 10-15-2022 Tobacco smoking status NHIS Never smoked tobacco [facility] Start: 11-06-2021 End: 01-14-2025 Alcohol intake Current non-drinker of alcohol (finding) [facility] Start: 1940 Sex Assigned At Not on file [facility] Start: 10-27-2021 End: 11-06-2021 Exposure to SARS-CoV-2 (event) Not sure [facility] Start: 10-31-2020 End: 10-15-2022 Tobacco use and exposure Smokeless tobacco non-user [facility] Work Phone: Start: 1940 Sex Assigned At Female [facility] Start: 02-14-2023 End: 07-23-2023 Tobacco smoking status NHIS Unknown if ever smoked [facility] Start: 09-29-2020 None [facility] Start: 09-29-2020 Spouse/ Signif icant Other [facility] Start: 09-29-2020 Non-smoker [facility] Start: 11-08-2022 End: 08-08-2023 History of Social function [facility] Work Phone: Start: 11-08-2022 End: 08-08-2023 Tobacco use panel [facility] Work Phone: Adult Depression Screening Assessment 0 [facility] Work Phone: Start: 10-11-2024 Sex Female (finding) [facility] Functional Status Date Assessment Result Facility 11-21-2013 Are you deaf, or do you have serious difficulty hearing No 11/21/2013 1:32 PM Vandana Osborn Lpn No [facility] 11-21-2013 Are you blind, or do you have serious difficulty seeing, even when wearing glasses No 11/21/2013 1:32 PM Vandana Osborn Lpn No [facility] 11-21-2013 Do you have serious difficulty walking or climbing stairs No 11/21/2013 1:32 PM EDT Daniella Modern DancerVandana bernard [facility] 11-21-2013 Do you have difficul ty dressing or bathing No 11/21/2013 1:32 PM EDT Daniella Modern DancerVandana bernard [facility] 11-21-2013 Because of a physica l, mental, or emotional condition, do you have difficulty doing errands alone such as visiting a physician's office or shopping No 11/21/2013 1:32 PM EDT Smithafrancisca NievesVandana [facility] Mental Status Date Assessment Result Facility 01-03-2025 Cognitive function Level Of Cons ciousness Awake;Alert;Appropriate [facility] Work Phone: 10-11-2024 Cognitive function Voice/Name [facility] Work Phone: 08-05-2024 Cognitive function Level Of Cons ciousness Awake;Alert;Appropriate;Fol lows Commands [facility] Work Phone: 07-23-2023 Cognitive function Level Of Cons ciousness Awake;Alert;Appropriate [facility] Work Phone: 11-21-2013 Because of a physica l, mental, or emotional condition, do you have serious difficulty concentrating, remembering, or making decisions No 11/21/2013 1:32 PM EDT Daniella NievesVandana [facility] Clinical Notes 03-11-2008 to 01-14-2025 Patient Heri Carr MD - 01/14/2025 10:02 AM EDTPatient Heri Carr MD - 11/09/2024 10:48 AM EDT Note Date & Type Note Facility 01-14-2025 Instructions Heri Teixeira MD - 01/14/2025 10:17 AM EDT - Begin Zanaflex (tizanidine) 2 mg twice daily as needed for muscle tightness; it can cause drowsiness, so consider taking the first dose at bedtime to gauge how it affects you before driving or using machinery. - Continue Tylenol for pain as needed. - Apply ice or heat to your lower back for 15-20 minutes at a time, using whichever feels better for relief. - Continue using your Arthritis Cream overnight on the sore area if it helps. - Perform the prescribed lower back stretching and strengthening exercises each day. - Stay active with normal walking and daily chores, but avoid repeated heavy bending, lifting, or mulching for now. - If your symptoms do not noticeably improve within 2-3 weeks, call our office to arrange a physical therapy referral. - Go to the emergency department right away if you develop any of the following: - Sudden, severe back pain rated 10 out of 10 - Loss of bladder or bowel control - Numbness in your groin area - Sudden weakness in one of your legs documented in this encounter [facility] 01-14-2025 Note HNO ID: [id number] Author: HERI TEIXEIRA MD Service: ? 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 Patient/authorized dairy supplies sales representative agreed to proceed HPI Marie Ashley is a 84 year old female who presents here today for Above Complaints.. Right Hip Pain: - Onset last week. - Described as soreness in the right lower back, with numbness radiating down the right leg to the toes. - Numbness also noted in the big toes bilaterally. - Pain rated as 5/10 today. - Aggravated by sitting in a soft chair and bending without flexing knees. - Denies pain with coughing or sneezing. - No significant improvement with Tylenol; some relief with topical arthritis cream. - Pain remains unchanged over the past week. - Denies radicular pain down the leg. - Denies loss of bowel or bladder control. - Denies groin numbness. - Denies leg weakness; reports soreness in legs. - Recent episode of foot cramping upon waking, resolved with movement. - Recent labs showed normal magnesium and potassium levels. - Recent increase in physical activity, including mulching, involving frequent bending. Past medical history, appointments, medications, allergies reviewed. Previous Medical History PAST MEDICAL HISTORY Diagnosis Date Acquired hypothyroidism Herpes zoster without complication Osteopenia Other specified glaucoma Paroxysmal atrial fibrillation (HCC) [facility] cardiology Previous Surgical History PAST SURGICAL HISTORY Procedure Laterality Date CHOLECYSTECTOMY 02/05/2002 Family History FAMILY HISTORY Problem Relation Age of Onset Heart Mother Cancer Father lung Breast Cancer Sister Hypertension Maternal Grandmother Tuberculosis Maternal Grandfather Stroke Paternal Grandfather Patient Allergies ALLERGIES Allergen Reactions Penicillins Intolerance Teramycin [Oxytetra* Intolerance Rash Current Medications Current Outpatient Medications on File Prior to Visit Medication Sig levothyroxine (SYNTHROID) 50 mcg tablet Take 1 tablet by mouth once daily. metoprolol tartrate, short acting, (LOPRESSOR) 50 mg tablet Take 0.5 tablets by mouth two times a day. loratadine (CLARITIN) 10 mg tablet Take 10 mg by mouth once daily. As needed fluticasone (FLONASE) 50 mcg/actuation nasal spray Use 2 Sprays in each nostril once daily. Rinse mouth after use. apixaban (ELIQUIS) 5 mg tab(s) Take 1 tablet by mouth twice daily. (Patient taking differently: Take 2.5 mg by mouth two times a day.) multivitamin (DAILY MULTIVITAMIN) ORAL Tab Take one(1) tablet daily. Deycbju-Dfpvxivyn-Xtitaof D2 500-50-100 mg-mg-unit ORAL Chew Take one(1) tablet two(2) times daily. TIMOPTIC 0.5 % EYE DROPS One drop in each eye at night. No current facility-administered medications on file prior to visit. Social History Social History Tobacco Use Smoking status: Never Smokeless tobacco: Never Vaping Use Vaping status: Never Used Substance Use Topics Alcohol use: No Drug use: No Review of Symptoms REVIEW OF SYSTEMS See HPI EXAM: BP 110/62 Pulse 60 Ht 162.5 cm (5' 3.98) Wt 48 kg (105 lb 12.8 oz) SpO2 98% BMI 18.17 kg/m? General Appearance: Well appearing, alert, in no acute distress, well-hydrated, well nourished.. Skin: Skin color, texture, turgor normal, no suspicious rashes or lesions. Back:no pain to palpation of vertebrae, good flexion and extension, good range of motion, reflexes are 2+ and symmetric, motor and sensory appear to be normal, no evidence of scoliosis. Positive TTP over right lumbar paraspinal muscles. Positive SLR on right. HIP: Location: Right Range of motion: WNL Tenderness over trochanteric bursa: No Pain with movement: No. Health Maintenance List Advance Directive Discussion due on 08/01/2024 Medicare Advantage Annual Wellness Visit Never done Depression Screening due on 12/20/2024 Anxiety Screening due on 12/20/2024 DTaP,Tdap,Td Vaccine(1 - Tdap) due on 08/10/2025 RSV Vaccine(1 - 1-dose 75+ series) due on 08/10/2025 Shingrix Vaccine(1 of 2) due on 08/10/2025 Covid-19 Vaccine(1 - season) due on 08/10/2025 Pneumococcal Vaccine: 50+(2 of 2 - PCV) due on 08/10/2025 Influenza Vaccine(Season Ended) due on 04/01/2025 Diabetes Screening due on 10/27/2025 Bone Density Screening Addressed 1. Acute right-sided low back pain without sciatica (M54.50) 2. Numbness and tingling sensation of skin (R20.0) - Onset of right-sided low back pain began last week, associated with numbness extending down the right leg to the toes. Pain described as soreness, exacerbated by bending without knee flexion and sitting in soft chairs; rated 5/10 in severity. - No specific injury rep (more content not included)... [facility] 01-14-2025 History of Presen t illness Narrative Chief Complaint Patient presents with: Hip Pain Recording using ambient groSolar software for draft documentation of the visit was discussed with the patient/authorized dairy supplies sales representative; all questions welcomed and answered. Patient/authorized dairy supplies sales representative agreed to proceed HPI Marie Ashley is a 84 year old female who presents here today for Above Complaints.. Right Hip Pain: - Onset last week. - Described as soreness in the right lower back, with numbness radiating down the right leg to the toes. - Numbness also noted in the big toes bilaterally. - Pain rated as 5/10 today. - Aggravated by sitting in a soft chair and bending without flexing knees. - Denies pain with coughing or sneezing. - No significant improvement with Tylenol; some relief with topical arthritis cream. - Pain remains unchanged over the past week. - Denies radicular pain down the leg. - Denies loss of bowel or bladder control. - Denies groin numbness. - Denies leg weakness; reports soreness in legs. - Recent episode of foot cramping upon waking, resolved with movement. - Recent labs showed normal magnesium and potassium levels. - Recent increase in physical activity, including mulching, involving frequent bending. Past medical history, appointments, medications, allergies reviewed. Previous Medical History PAST MEDICAL HISTORY Diagnosis Date Acquired hypothyroidism Herpes zoster without complication Osteopenia Other specified glaucoma Paroxysmal atrial fibrillation (HCC) [facility] cardiology Previous Surgical History PAST SURGICAL HISTORY Procedure Laterality Date CHOLECYSTECTOMY 02/05/2002 Family History FAMILY HISTORY Problem Relation Age of Onset Heart Mother Cancer Father lung Breast Cancer Sister Hypertension Maternal Grandmother Tuberculosis Maternal Grandfather Stroke Paternal Grandfather Patient Allergies ALLERGIES Allergen Reactions Penicillins Intolerance Teramycin [Oxytetra* Intolerance Rash Current Medications Current Outpatient Medications on File Prior to Visit Medication Sig levothyroxine (SYNTHROID) 50 mcg tablet Take 1 tablet by mouth once daily. metoprolol tartrate, short acting, (LOPRESSOR) 50 mg tablet Take 0.5 tablets by mouth two times a day. loratadine (CLARITIN) 10 mg tablet Take 10 mg by mouth once daily. As needed fluticasone (FLONASE) 50 mcg/actuation nasal spray Use 2 Sprays in each nostril once daily. Rinse mouth after use. apixaban (ELIQUIS) 5 mg tab(s) Take 1 tablet by mouth twice daily. (Patient taking differently: Take 2.5 mg by mouth two times a day.) multivitamin (DAILY MULTIVITAMIN) ORAL Tab Take one(1) tablet daily. Jeplndf-Pnziktffa-Sbcsitc D2 500-50-100 mg-mg-unit ORAL Chew Take one(1) tablet two(2) times daily. TIMOPTIC 0.5 % EYE DROPS One drop in each eye at night. No current facility-administered medications on file prior to visit. Social History Social History Tobacco Use Smoking status: Never Smokeless tobacco: Never Vaping Use Vaping status: Never Used Substance Use Topics Alcohol use: No Drug use: No Review of Symptoms REVIEW OF SYSTEMS See HPI EXAM: BP 110/62 Pulse 60 Ht 162.5 cm (5' 3.98) Wt 48 kg (105 lb 12.8 oz) SpO2 98% BMI 18.17 kg/m General Appearance: Well appearing, alert, in no acute distress, well-hydrated, well nourished.. Skin: Skin color, texture, turgor normal, no suspicious rashes or lesions. Back:no pain to palpation of vertebrae, good flexion and extension, good range of motion, reflexes are 2+ and symmetric, motor and sensory appear to be normal, no evidence of scoliosis. Positive TTP over right lumbar paraspinal muscles. Positive SLR on right. HIP: Location: Right Range of motion: WNL Tenderness over trochanteric bursa: No Pain with movement: No. Health Maintenance List Advance Directive Discussion due on 08/01/2024 Medicare Advantage Annual Wellness Visit Never done Depression Screening due on 12/20/2024 Anxiety Screening due on 12/20/2024 DTaP,Tdap,Td Vaccine(1 - Tdap) due on 08/10/2025 RSV Vaccine(1 - 1-dose 75+ series) due on 08/10/2025 Shingrix Vaccine(1 of 2) due on 08/10/2025 Covid-19 Vaccine( - season) due on 08/10/2025 Pneumococcal Vaccine: 50+(2 of 2 - PCV) due on 08/10/2025 Influenza Vaccine(Season Ended) due on 04/01/2025 Diabetes Screening due on 10/27/2025 Bone Density Screening Addressed 1. Acute right-sided low back pain without sciatica (M54.50) 2. Numbness and tingling sensation of skin (R20.0) - Onset of right-sided low back pain began last week, associated with numbness extending down the right leg to the toes. Pain described as soreness, exacerbated by bending without knee flexion and sitting in soft chairs; rated 5/10 in severity. - No specific injury reported; pain began after extensive bending while mulching. - Physical exam reveals tenderness on the right side of the lower back, no significant pain radiating down the leg, and no signs of rash or shingles. Reflexes and strength are intact. - Differential diagnosis includes lumbar strain due to repeated bending and standing. - Prescribed Zanaflex 2 mg twice daily as needed for muscle relaxation; advised potential drowsiness as a side effect. - Continue Tylenol, ice, and heat application for 15-20 minutes as needed. - Provided home exercises for lower back to be performed daily. - Advised against anti-inflammatory medications due to anticoagulation therapy for atrial fibrillation. - Instructed to avoid heavy lifting and repeated bending; encouraged normal daily activities and walking. - Symptoms expected to improve within 2-3 weeks. If no improvement, will refer to physical therapy. - Educated on warning signs such as severe pain, loss of bowel or bladder control, numbness in the groin, or sudden leg weakness, which would necessitate an ER visit. Heri Teixeira MD documented in this encounter [facility] 11-09-2024 Instructions Heri Teixeira MD - 11/09/2024 11:04 AM EDT Call your dynamic balancer if your home blood pressures are less than 100/60, your heart rate is less than 50, or if you start to feel lightheaded or dizzy. documented in this encounter [facility] 11-09-2024 Note HNO ID: [id number] Author: HERI TEIXEIRA MD Service: ? Author Type: Physician Type: Progress Notes Filed: 11/13/2024 07:50 Note Text: Chief Complaint Patient presents with: Follow Up: 3 month HPI Marie Ashley is a 84 year old female who presents here today for Above Complaints. Noted patient evaluated in the ER last month for A fib with RVR and Dr. Abebe increased her dosage of metoprolol to 50 mg BID. Has had a f/u with [facility] cardiology since then and they recommended she continue on this regimen. Not checking HR at home. BP running in the 100-120/60's. Denies lightheadedness or dizziness, chest pain, SOB, palpitations, LE edema. No bleeding symptoms with the eliquis. CBC normal in the ER. Has f/u with cardiology in January. TSH 2.8 in the ER. Taking synthroid daily without side effects. Needs refill. Past medical history, appointments, medications, allergies reviewed. Previous Medical History PAST MEDICAL HISTORY Diagnosis Date Acquired hypothyroidism Herpes zoster without complication Osteopenia Other specified glaucoma Paroxysmal atrial fibrillation (HCC) [facility] cardiology Previous Surgical History PAST SURGICAL HISTORY Procedure Laterality Date CHOLECYSTECTOMY 02/05/2002 Family History FAMILY HISTORY Problem Relation Age of Onset Heart Mother Cancer Father lung Breast Cancer Sister Hypertension Maternal Grandmother Tuberculosis Maternal Grandfather Stroke Paternal Grandfather Patient Allergies ALLERGIES Allergen Reactions Penicillins Intolerance Teramycin [Oxytetra* Intolerance Rash Current Medications Current Outpatient Medications on File Prior to Visit Medication Sig metoprolol tartrate, short acting, (LOPRESSOR) 50 mg tablet Take 0.5 tablets by mouth two times a day. levothyroxine (SYNTHROID) 50 mcg tablet Take 1 tablet by mouth once daily. loratadine (CLARITIN) 10 mg tablet Take 10 mg by mouth once daily. As needed fluticasone (FLONASE) 50 mcg/actuation nasal spray Use 2 Sprays in each nostril once daily. Rinse mouth after use. apixaban (ELIQUIS) 5 mg tab(s) Take 1 tablet by mouth twice daily. multivitamin (DAILY MULTIVITAMIN) ORAL Tab Take one(1) tablet daily. Zxszqhf-Hclhmfjha-Awkwpkj D2 500-50-100 mg-mg-unit ORAL Chew Take one(1) tablet two(2) times daily. TIMOPTIC 0.5 % EYE DROPS One drop in each eye at night. No current facility-administered medications on file prior to visit. Social History Social History Tobacco Use Smoking status: Never Smokeless tobacco: Never Vaping Use Vaping status: Never Used Substance Use Topics Alcohol use: No Drug use: No Review of Symptoms REVIEW OF SYSTEMS GENERAL: No weight loss, malaise or fevers RESPIRATORY: Negative for cough, hemoptysis, wheezing, COPD, dyspnea or shortness of breath CARDIOVASCULAR: Negative for chest pain, leg swelling, hypertension, CHF or palpitations GI: No nausea, vomiting, or diarrhea SKIN: Negative for lesions, rash, and itching EXAM: BP 100/58 Pulse (!) 54 Resp 16 Wt 48.3 kg (106 lb 6.4 oz) SpO2 98% BMI 18.28 kg/m? General Appearance: Well appearing, alert, in no acute distress, well-hydrated, well nourished.. Skin: Skin color, texture, turgor normal, no suspicious rashes or lesions. Ears: External ears normal, canals clear. TMs normal. Lungs: Lungs clear to auscultation. No wheezing, rhonchi, rales.. Heart: RRR without murmur, gallop, or rubs. No ectopy. Abdomen: Normal abdominal exam, Abdomen soft, non-tender. Bowel sounds normal. No masses, organomegaly. Extremities: No deformities, edema, skin discoloration, clubbing or cyanosis. Good capillary refill. . Health Maintenance List Advance Directive Discussion due on 08/01/2024 Influenza Vaccine(1) due on 01/28/2025 DTaP,Tdap,Td Vaccine(1 - Tdap) due on 08/10/2025 RSV Vaccine(1 - 1-dose 75+ series) due on 08/10/2025 Shingrix Vaccine(1 of 2) due on 08/10/2025 Covid-19 Vaccine( - season) due on 08/10/2025 Pneumococcal Vaccine: 50+(2 of 2 - PCV) due on 08/10/2025 Depression Screening due on 12/20/2024 Anxiety Screening due on 12/20/2024 Diabetes Screening due on 10/27/2025 Bone Density Screening Addressed Data reviewed Latest Ref Rng 08/08/2023 08/10/2024 10/08/2024 TSH 0.270 - 4.200 mIU/L 1.400 0.544 Magnesium 1.7 - 2.3 mg/dL 2.3 Potassium 3.7 - 5.1 mmol/L 4.2 ASSESSMENT/PLAN: 1. Paroxysmal atrial fibrillation (HCC) - ICD9: 427.31, ICD10: I48.0 (primary diagnosis) Asymptomatic. Rate controlled on current regimen. Continue anticoagulation with Eliquis. F/u with cardiology recommendations. 2. Hypothyroidism, acquired - ICD9: 244.9, ICD10: E03.9 - Instructed patient on importance of taking on an empty stomach either first thing in the morning or at bedtime. - continue current dose of Synthroid - LEVOTHYROXINE 50 MCG TABLET Heri Teixeira MD [facility] 11-09-2024 History of Presen t illness Narrative Chief Complaint Patient presents with: Follow Up: 3 month HPI Marie Ashley is a 84 year old female who presents here today for Above Complaints. Noted patient evaluated in the ER last month for A fib with RVR and Dr. Abebe increased her dosage of metoprolol to 50 mg BID. Has had a f/u with [facility] cardiology since then and they recommended she continue on this regimen. Not checking HR at home. BP running in the 100-120/60's. Denies lightheadedness or dizziness, chest pain, SOB, palpitations, LE edema. No bleeding symptoms with the eliquis. CBC normal in the ER. Has f/u with cardiology in January. TSH 2.8 in the ER. Taking synthroid daily without side effects. Needs refill. Past medical history, appointments, medications, allergies reviewed. Previous Medical History PAST MEDICAL HISTORY Diagnosis Date Acquired hypothyroidism Herpes zoster without complication Osteopenia Other specified glaucoma Paroxysmal atrial fibrillation (HCC) [facility] cardiology Previous Surgical History PAST SURGICAL HISTORY Procedure Laterality Date CHOLECYSTECTOMY 02/05/2002 Family History FAMILY HISTORY Problem Relation Age of Onset Heart Mother Cancer Father lung Breast Cancer Sister Hypertension Maternal Grandmother Tuberculosis Maternal Grandfather Stroke Paternal Grandfather Patient Allergies ALLERGIES Allergen Reactions Penicillins Intolerance Teramycin [Oxytetra* Intolerance Rash Current Medications Current Outpatient Medications on File Prior to Visit Medication Sig metoprolol tartrate, short acting, (LOPRESSOR) 50 mg tablet Take 0.5 tablets by mouth two times a day. levothyroxine (SYNTHROID) 50 mcg tablet Take 1 tablet by mouth once daily. loratadine (CLARITIN) 10 mg tablet Take 10 mg by mouth once daily. As needed fluticasone (FLONASE) 50 mcg/actuation nasal spray Use 2 Sprays in each nostril once daily. Rinse mouth after use. apixaban (ELIQUIS) 5 mg tab(s) Take 1 tablet by mouth twice daily. multivitamin (DAILY MULTIVITAMIN) ORAL Tab Take one(1) tablet daily. Cscdsev-Rpmxjaeun-Eczzwjo D2 500-50-100 mg-mg-unit ORAL Chew Take one(1) tablet two(2) times daily. TIMOPTIC 0.5 % EYE DROPS One drop in each eye at night. No current facility-administered medications on file prior to visit. Social History Social History Tobacco Use Smoking status: Never Smokeless tobacco: Never Vaping Use Vaping status: Never Used Substance Use Topics Alcohol use: No Drug use: No Review of Symptoms REVIEW OF SYSTEMS GENERAL: No weight loss, malaise or fevers RESPIRATORY: Negative for cough, hemoptysis, wheezing, COPD, dyspnea or shortness of breath CARDIOVASCULAR: Negative for chest pain, leg swelling, hypertension, CHF or palpitations GI: No nausea, vomiting, or diarrhea SKIN: Negative for lesions, rash, and itching EXAM: BP 100/58 Pulse (!) 54 Resp 16 Wt 48.3 kg (106 lb 6.4 oz) SpO2 98% BMI 18.28 kg/m General Appearance: Well appearing, alert, in no acute distress, well-hydrated, well nourished.. Skin: Skin color, texture, turgor normal, no suspicious rashes or lesions. Ears: External ears normal, canals clear. TMs normal. Lungs: Lungs clear to auscultation. No wheezing, rhonchi, rales.. Heart: RRR without murmur, gallop, or rubs. No ectopy. Abdomen: Normal abdominal exam, Abdomen soft, non-tender. Bowel sounds normal. No masses, organomegaly. Extremities: No deformities, edema, skin discoloration, clubbing or cyanosis. Good capillary refill. . Health Maintenance List Advance Directive Discussion due on 08/01/2024 Influenza Vaccine(1) due on 01/28/2025 DTaP,Tdap,Td Vaccine(1 - Tdap) due on 08/10/2025 RSV Vaccine(1 - 1-dose 75+ series) due on 08/10/2025 Shingrix Vaccine(1 of 2) due on 08/10/2025 Covid-19 Vaccine(1 - 2023- season) due on 08/10/2025 Pneumococcal Vaccine: 50+(2 of 2 - PCV) due on 08/10/2025 Depression Screening due on 12/20/2024 Anxiety Screening due on 12/20/2024 Diabetes Screening due on 10/27/2025 Bone Density Screening Addressed Data reviewed Latest Ref Rng 08/08/2023 08/10/2024 10/08/2024 TSH 0.270 - 4.200 mIU/L 1.400 0.544 Magnesium 1.7 - 2.3 mg/dL 2.3 Potassium 3.7 - 5.1 mmol/L 4.2 ASSESSMENT/PLAN: 1. Paroxysmal atrial fibrillation (HCC) - ICD9: 427.31, ICD10: I48.0 (primary diagnosis) Asymptomatic. Rate controlled on current regimen. Continue anticoagulation with Eliquis. F/u with cardiology recommendations. 2. Hypothyroidism, acquired - ICD9: 244.9, ICD10: E03.9 - Instructed patient on importance of taking on an empty stomach either first thing in the morning or at bedtime. - continue current dose of Synthroid - LEVOTHYROXINE 50 MCG TABLET Heri Teixeira MD documented in this encounter [facility] 10-17-2024 Evaluation note Diagnosis Onset Date Resolution PAF (paroxysmal atrial fibrillation) chronic October 17, 2024 8:53am PAF (paroxysmal atrial fibrillation) chronic November 22, 2024 3:20pm [facility] Work Phone: [phone]) 365-176403-19-2025 Evaluation note* Diagnosis Onset Date Resolution Status Admit Date PAF (paroxysmal atrial fibrillation) chronic October 17, 2024 8:53am PAF (paroxysmal atrial fibrillation) chronic November 22, 2024 3:20pm PAF (paroxysmal atrial fibrillation) chronic January 04, 2025 1 2:54pm [facility] Work Phone: [phone] NoteHNO ID: [id number] Author: JONAH VALIENTE APRN.[facility] Service: ? Author Type: Nurse Practitioner Type: Progress Notes Filed: 10/15/2024 13:51 Note Text: Chief Complaint No chief complaint on file. JAMES Ashley is a 84 year old female who presents here today for Above Complaints.. Patient presents today for hospital follow up. Patient was in the emergency department for Afib. She was discharged the same day patient states she has been feeling good she has been taking Metop 50mg twice per day. Patient states she hasn't had any episode of afib since being in the emergency department. Patient denies lightheaded, dizziness and chest pain. Past medical history, appointments, medications, allergies reviewed. Previous Medical History PAST MEDICAL HISTORY Diagnosis Date Acquired hypothyroidism Herpes zoster without complication Osteopenia Other specified glaucoma Paroxysmal atrial fibrillation (HCC) [facility] cardiology Previous Surgical History PAST SURGICAL HISTORY Procedure Laterality Date CHOLECYSTECTOMY 02/05/2002 Family History FAMILY HISTORY Problem Relation Age of Onset Heart Mother Cancer Father lung Breast Cancer Sister Hypertension Maternal Grandmother Tuberculosis Maternal Grandfather Stroke Paternal Grandfather Patient Allergies ALLERGIES Allergen Reactions Penicillins Intolerance Teramycin [Oxytetra* Intolerance Rash Current Medications Current Outpatient Medications on File Prior to Visit Medication Sig metoprolol tartrate, short acting, (LOPRESSOR) 50 mg tablet Take 0.5 tablets by mouth two times a day. levothyroxine (SYNTHROID) 50 mcg tablet Take 1 tablet by mouth once daily. loratadine (CLARITIN) 10 mg tablet Take 10 mg by mouth once daily. As needed fluticasone (FLONASE) 50 mcg/actuation nasal spray Use 2 Sprays in each nostril once daily. Rinse mouth after use. apixaban (ELIQUIS) 5 mg tab(s) Take 1 tablet by mouth twice daily. multivitamin (DAILY MULTIVITAMIN) ORAL Tab Take one(1) tablet daily. Rcytwms-Iuarvgejh-Bgucrtq D2 500-50-100 mg-mg-unit ORAL Chew Take one(1) tablet two(2) times daily. TIMOPTIC 0.5 % EYE DROPS One drop in each eye at night. No current facility-administered medications on file prior to visit. Social History Social History Tobacco Use Smoking status: Never Smokeless tobacco: Never Vaping Use Vaping status: Never Used Substance Use Topics Alcohol use: No Drug use: No Review of Symptoms REVIEW OF SYSTEMS GENERAL: No weight loss, malaise or fevers RESPIRATORY: Negative for cough, hemoptysis, wheezing, COPD, dyspnea or shortness of breath CARDIOVASCULAR: Negative for chest pain, leg swelling, hypertension, CHF or palpitations EXAM: BP 119/71 Pulse (!) 59 Wt 47 kg (103 lb 9.9 oz) BMI 17.80 kg/m? General Appearance: Well appearing, alert, in no acute distress, well-hydrated, well nourished.. Lungs: Lungs clear to auscultation. No wheezing, rhonchi, rales.. Heart: RRR without murmur, gallop, or rubs. No ectopy. Health Maintenance List Advance Directive Discussion due on 08/01/2024 Influenza Vaccine(1) due on 01/28/2025 DTaP,Tdap,Td Vaccine(1 - Tdap) due on 08/10/2025 RSV Vaccine(1 - 1-dose 75+ series) due on 08/10/2025 Shingrix Vaccine(1 of 2) due on 08/10/2025 Covid-19 Vaccine(1 - season) due on 08/10/2025 Pneumococcal Vaccine: 50+(2 of 2 - PCV) due on 08/10/2025 Depression Screening due on 12/20/2024 Anxiety Screening due on 12/20/2024 Diabetes Screening due on 10/27/2025 Bone Density Screening Addressed ASSESSMENT/PLAN: 1. Paroxysmal atrial fibrillation (HCC) - ICD9: 427.31, ICD10: I48.0 -Continue current medications -Follow up with cardiology as scheduled 10/17 [facility] History of Present illness Narrative* Jonah Valiente APRN.[facility] - 10/15/2024 1:10 PM EDT Chief Complaint No chief complaint on file. HPI Marie Ashley is a 84 year old female who presents here today for Above Complaints.. Patient presents today for hospital follow up. Patient was in the emergency department for Afib. She was discharged the same day patient states she has been feeling good she has been taking Metop 50mg twice per day. Patient states she hasn't had any episode of afib since being in the emergency department. Patient denies lightheaded, dizziness and chest pain. Past medical history, appointments, medications, allergies reviewed. Previous Medical History PAST MEDICAL HISTORY Diagnosis Date Acquired hypothyroidism Herpes zoster without complication Osteopenia Other specified glaucoma Paroxysmal atrial fibrillation (HCC) [facility] cardiology Previous Surgical History PAST SURGICAL HISTORY Procedure Laterality Date CHOLECYSTECTOMY 02/05/2002 Family History FAMILY HISTORY Problem Relation Age of Onset Heart Mother Cancer Father lung Breast Cancer Sister Hypertension Maternal Grandmother Tuberculosis Maternal Grandfather Stroke Paternal Grandfather Patient Allergies ALLERGIES Allergen Reactions Penicillins Intolerance Teramycin [Oxytetra* Intolerance Rash Current Medications Current Outpatient Medications on File Prior to Visit Medication Sig metoprolol tartrate, short acting, (LOPRESSOR) 50 mg tablet Take 0.5 tablets by mouth two times a day. levothyroxine (SYNTHROID) 50 mcg tablet Take 1 tablet by mouth once daily. loratadine (CLARITIN) 10 mg tablet Take 10 mg by mouth once daily. As needed fluticasone (FLONASE) 50 mcg/actuation nasal spray Use 2 Sprays in each nostril once daily. Rinse mouth after use. apixaban (ELIQUIS) 5 mg tab(s) Take 1 tablet by mouth twice daily. multivitamin (DAILY MULTIVITAMIN) ORAL Tab Take one(1) tablet daily. Bnnpspx-Tardhowfu-Npqzmcj D2 500-50-100 mg-mg-unit ORAL Chew Take one(1) tablet two(2) times daily. TIMOPTIC 0.5 % EYE DROPS One drop in each eye at night. No current facility-administered medications on file prior to visit. Social History Social History Tobacco Use Smoking status: Never Smokeless tobacco: Never Vaping Use Vaping status: Never Used Substance Use Topics Alcohol use: No Drug use: No Review of Symptoms REVIEW OF SYSTEMS GENERAL: No weight loss, malaise or fevers RESPIRATORY: Negative for cough, hemoptysis, wheezing, COPD, dyspnea or shortness of breath CARDIOVASCULAR: Negative for chest pain, leg swelling, hypertension, CHF or palpitations EXAM: BP 119/71 Pulse (!) 59 Wt 47 kg (103 lb 9.9 oz) BMI 17.80 kg/m General Appearance: Well appearing, alert, in no acute distress, well-hydrated, well nourished.. Lungs: Lungs clear to auscultation. No wheezing, rhonchi, rales.. Heart: RRR without murmur, gallop, or rubs. No ectopy. Health Maintenance List Advance Directive Discussion due on 08/01/2024 Influenza Vaccine(1) due on 01/28/2025 DTaP,Tdap,Td Vaccine(1 - Tdap) due on 08/10/2025 RSV Vaccine(1 - 1-dose 75+ series) due on 08/10/2025 Shingrix Vaccine(1 of 2) due on 08/10/2025 Covid-19 Vaccine(1 - 2023- season) due on 08/10/2025 Pneumococcal Vaccine: 50+(2 of 2 - PCV) due on 08/10/2025 Depression Screening due on 12/20/2024 Anxiety Screening due on 12/20/2024 Diabetes Screening due on 10/27/2025 Bone Density Screening Addressed ASSESSMENT/PLAN: 1. Paroxysmal atrial fibrillation (HCC) - ICD9: 427.31, ICD10: I48.0 -Continue current medications -Follow up with cardiology as scheduled 10/17 Jonah Valiente APRN.HSE COORDINATOR documented in this encounterW[facility] Discharge summary [facility] Medical Records Department [address] [place] [address] Emergency Department Summary 10/11/24 MR#: [id number] Acct: [id number] Name: MARIE ASHLEY Rep #:[id number] : 1940 84 From: Brittany Lucas PCP: Dr. Sebastian Teixeira MD Status :REG ER Location: ED HPI History of Present Illness Chief Complaint: Palpitations Informant: patient Narrative Narrative: Patient is a 4-year-old female with history of hypothyroidism and proximal atrial fibrillation presenting with palpitations. Patient states she got up to use restroom tonight and felt that her heart was racing. She took an extra doseof her metoprolol (25 mg) but continued to feel that her heart wasgoing fast. She is also on Eliquis states has been compliant. She states she has had similar episodes in the past and had come to the ER for rate control. She denies associated chest pain, shortness of breath or swelling of her legs. She states she has been in her normal state of health and overallbeen feeling well. States she was actually quite active yesterday. She did have an increased 2 months ago of her thyroid medication from 20 to 50 mcg. States she had labs on Tuesday for this but does not know the results. No other complaints or concerns reported at this time. Prior similar symptoms: Yes [facility] Medical History Hypothyroidism PAF (paroxysmal atrial fibrillation) Atrial fibrillation with RVR Glaucoma Home Medications ?Medication ?Instructions ?Recorded ?Last Taken ?Type latanoprost 0.005 % eye drops 1 drp ophthalmic (eye) D AILY 11/06/20 Unknown History acetaminophen 325 mg tablet 325 mg PO ONCE PRN fever o r pain 02/12/22 Unknown History loratadine 10 mg tablet 10 mg PO DAILY PRN allergy s ymptoms 08/12/23 Unknown History apixaban 5 mg tablet (Eliquis) 5 mg PO BID #60 tabs Unknown Rx metoprolol tartrate 50 mg tablet 25 mg (1/2 x 50 mg) P O BID #90 tabs 07/02/24 Unknown Rx levothyroxine 50 mcg tablet 50 mcg PO DAILY 10/11/24 U nknown History Allergy/AdvReac Type Severity Reaction Status Date / Time oxytetracycline (From Allergy Unknown Verified 10/11/24 03:41 Terramycin) Penicillins Allergy Unknown Verified 10/11/24 03:41 Family History Mother Heart disease Paroxysmal atrial fibrillation Father Cancer Lung Sister Heart disease Surgical History History of cholecystectomy Social History Smoking Status: Never smoker alcohol intake: never substance use type: does not use caffeine: Yes Type: coffee Number of servings: 1 ROS ROS ED Constitutional Constitutional ED: Denies chills or fever(s) Eyes Eyes: Denies blurry vision Cardiovascular Cardiovascular: Reports palpitations and racing heartbeat; Denies chest pain Respiratory/Chest Respiratory/Chest: Denies cough or dyspnea Gastrointestinal Gastrointestinal: Denies abdominal pain, nausea or vomiting Neurologic Neurologic: Denies paresthesias or weakness Hematologic/Lymphatic Hematologic/Lymphatic: Reports easy bleeding, easy bruising and other Details: On Eliquis EXAM Physical Exam Const Vital Signs: 10/11/24 03:42 10/11/24 03:46 10/11/24 04:41 Temperature 97.7 F L Temperature Source Oral Pulse Rate 122 H 108 H Respiratory Rate 16 16 Respiratory Effort Normal Non-Labored Respiratory Pattern Normal Blood Pressure 155/81 H 113/78 Blood Pressure Mean 105 89 Pulse Ox 98 97 Oxygen Delivery Method Room Air Room Air 10/11/24 05:00 10/11/24 05:21 10/11/24 06:00 Temperature Temperature Source Pulse Rate 97 95 89 Respiratory Rate 18 16 16 Respiratory Effort Respiratory Pattern Blood Pressure 111/72 116/73 112/78 Blood Pressure Mean 85 87 89 Pulse Ox 96 97 96 Oxygen Delivery Method Room Air Room Air Room Air Positive well nourished and well developed General Appearance ED: well developed and NAD; Negative for pallor HEENT Reports moist mucous membranes Eyes PERRL Neck supple and no JVD Chest Wall inspection of chest normal and palpation of chest normal Resp normal respiratory effort and clear to auscultation bilaterally Auscultation: Negative for rales or rhonchi Cardio no murmurs Rate: tachycardic Rhythm: abnormal rhythm irregularly irregular GI normal to inspection, nondistended, normoactive bowel sounds and non-tender Extremity normal to inspection General Extremety ED: Negative for edema General Extremity: Negative for edema Neuro oriented x3 Sensorium / Orientation: alert Motor Exam: Negative for general weakness Psych mental status grossly normal Mood & Affect: anxious Skin no rashes or lesions noted General Skin Exam: Negative for pallor MDM MDM MDM Narrative Medical decision making narrative: Patient evaluated for palpitations and racing heartbeat. She is tachycardic upon arrival and mildlyhypertensive. She denies any chest pain, shortness of breath or other associated symptoms. Differential includes atrial fibrillation with RVR, symptomatic anemia, dehydration, thyroid abnormality, SILVINA. EKG does not show any ischemic changes low suspicion for ACS. Patient is given IV metoprolol for further rate control. Will obtain basic labsinclude CBC and BMP and reevaluate. Patient received 2 doses of 5 mg IV metoprolol. She is improvement of her heartrate. It remains asymptomatic. Has no chest pain. Workup largely normal and her TSH is now normalized. Two-view chest x-ray viewed by myself as well as radiology does not show any acute process. She is not have any electrolyte abnormalities. Case discussed with cardiology, Dr. Abebe, who recommends increasing her metoprolol to 50 mg twicedaily and close outpatient follow-up. Patient is agreeable with this. Is discharged home in improved and stable condition. Is given return precautions History & Record Review Additional record(s) reviewed:: Prior outpatient record (Cardiology visit from 08/22/2024-plan to take additional dose of metoprolol if recurrence of A-fib withfast heart rate. Can consider antiarrhythmic if this continue) Lab Data Attestation: I reviewed the patient's lab results. Labs: Laboratory Results - last 24 hr 10/11/24 03:48 WBC 6.6 RBC 4.45 Hgb 13.3 Hct 41.2 MCV 92.6 MCH 29.9 MCHC 32.3 RDW Std Deviation 40.9 RDW Coeff of Namita 12.0 Plt Count 284 MPV 10.5 Immature Gran % (Auto) 0.200 Neut % (Auto) 28.0 L Lymph % (Auto) 60.2 H Hale % (Auto) 7.1 Eos % (Auto) 3.6 Baso % (Auto) 0.9 Absolute Neuts (auto) 1.9 L Absolute Lymphs (auto) 3.99 Nucleated RBC % 0 Sodium 142 Potassium 3.3 Chloride 102 Carbon Dioxide 24.6 Anion Gap 15 BUN 16 Creatinine 0.85 Estim Creat Clear Calc 38.24 L Est GFR (MDRD) Non-Af 68 BUN/Creatinine Ratio 18.3 Glucose 142 H Calcium 9.6 Magnesium 2.2 TSH 2.820 Radiography Diagnostic Testing: Clinical Impression(s) from Imaging Studies Chest X-Ray 10/11/24 04:30 IMPRESSION: No new infiltrate or consolidation is seen within the lungs. Reading Location: [facility] Rhythm Strip Rhythm Strip: A-fib Rate: 109 Ectopy: PVC(s) EKG Initial EKG: Attestation: I personally reviewed and interpreted this EKG as follows: Interpretation: Atrial Fibrillation Comments: Atrial fibrillation at a rate of 109 bpm Normal axis PVC present Normal QRS and QTc Normal ST segments Prior EKG tracings: available for review Prior: Unchanged Discharge Plan Triage Chief Complaint: Palpitations ED Provider: Brittany Jimenez Dx/Rx/DC Orders Clinical Impression: PAF (paroxysmal atrial fibrillation) Instructions: ED AFIB Prescriptions: No Action latanoprost 0.005 % drops 1 drp OPHTHALMIC DAILY loratadine 10 mg tablet 10 mg PO DAILY PRN (Reason: allergy symptoms) acetaminophen 325 mg tablet 325 mg PO ONCE PRN (Reason: fever or pain) levothyroxine 50 mcg tablet 50 mcg PO DAILY Eliquis 5 mg tablet 5 mg PO BID Qty: 60 11RF metoprolol tartrate 50 mg tablet 25 mg PO BID Qty: 90 3RF Primary Care Provider: Sebastian Teixeira Referrals: Sebastian Teixeira MD [Primary Care Provider] - Juan Manuel Abebe MD [Med Staff - Active Staff] - Activity Restrictions/Additional Instructions: Please increase your metoprolol to 50 mg (1 entire tablet) twice a day. Call the cardiology office later this afternoon to set an appointment for close follow- up. Let them know you are seen in the ERand Dr. Abebe wanted you seen soon. Print Language: Cymraes Disposition Disposition: Home, Self Care What to do if you have Problems For any increased pain, shortness of breath, bleeding, nausea or vomiting, chestpain, or any unexpected problems, contact your Primary Care Provider. Call [facility] ([phone]) or report tothe closest Emergency Room. Call 911 if necessary. 10/11/24 0711 Cosigner Signature (if applicable): CC: Dr. Sebastian Teixeira MD ~ Signed [facility]03-13-2025 Radiology Diagnostic study note [facility] Imaging Services [address] [place] [address] Chest PA and Lateral MR#: [id number] Acct: [id number] Name: MARIE ASHLEY Rep #: [id number] : 1940 F 84 From: Anmol Cardoza MD PCP: Dr. Sebastian Teixeira MD Status: PRE ER Study:Chest PA and Lateral Date of Exam: 10/11/24 Exam# [id number] Ordering Dr: Kaela Jimenez DO PROCEDURE: CHEST PA AND LATERAL REASON FOR EXAM: PALPITATIONS TECHNIQUE: Frontal and lateral views of the chest. COMPARISON: Chest x-ray dated 07/23/2023. FINDINGS: The lungs are hyperlucent and hyperexpanded. This may be due to COPD type changes. This is stable finding. There is no pneumothorax. No focal consolidation is seen within the lungs. The cardiac silhouette is within normal limits. No acute osseous abnormalities identified. RAD/Chest PA and Lateral IMPRESSION: No new infiltrate or consolidation is seen within the lungs. Reading Location: [id number] CC: Dr. Sebastian Teixeira MD; Dr. Brittany Jimenez DO ~ Policyholder Information Clerk: Signed [facility]03-11-2025 Telephone encounter Note* Telephone Encounter - Nathaly Smith MA - 10/09/2024 11:04 AM EDT Letter mailed to pt home of results. Nathaly Smith MA [facility]03-11-[facility] Miscellaneous Notes* Telephone Encounter - Nathaly Smith MA - 10/09/2024 11:04 AM EDT Letter mailed to pt home of results. Nathaly Smith MA * Telephone Encounter - Nathaly Smith MA - 10/09/2024 11:03 AM EDT ----- Message from Heri Teixeira MD sent at 10/09/2024 7:06 AM EDT ----- Normal thyroid labs. No change in regimen. documented in this encounterWex[facility] Center03-11-2025 Telephone encounter Note * Telephone Encounter - Nathaly Smith MA - 10/09/2024 11:03 AM EDT ----- Message from Heri Teixeira MD sent at 10/09/2024 7:06 AM EDT ----- Normal thyroid labs. No change in regimen. [facility]01-[facility] Evaluation note* Diagnosis Onset Date Resolution Status Admit Date PAF (paroxysmal atrial fibrillation) chronic August 22 8:21am [facility] Work Phone: 1(773) 597-950201-13-2025 Telephone encounter Note* Telephone Encounter - Nathaly Smith MA - 08/13/2024 9:05 AM EST Pt notified and voiced understanding. Nathaly Smith MA [facility]01-13-[facility]25 Miscellaneous Notes* Telephone Encounter - Nathaly Smith MA - 08/13/2024 9:05 AM EST Pt notified and voiced understanding. Nathaly Smith MA * Telephone Encounter - Nathaly Smith MA - 08/13/2024 9:04 AM EST ----- Message from Heri Teixeira MD sent at 08/13/2024 7:02 AM EST ----- Normal potassium level. No change in regimen. documented in this encounterWex[facility] Center01-13-2025 Telephone encounter Note * Telephone Encounter - Nathaly Smith MA - 08/13/2024 9:04 AM EST ----- Message from Heri Teixeira MD sent at 08/13/2024 7:02 AM EST ----- Normal potassium level. No change in regimen. [facility]01-10[facility] Instructions* Patient Instructions* Heri Teixeira MD - 08/10/2024 9:56 AM EST PLEASE RETURN TO THE LAB IN 2 MONTHS TO RECHECK YOUR THYROID. documented in this encounterWexner [facility] Center01-10-2025 NoteHNO ID: [id number] Author: HERI TEIXEIRA MD Service: ? Author Type: Physician Type: Progress Notes Filed: 08/10/2024 10:27 Note Text: Chief Complaint Patient presents with: ER F/U: [facility] 08/05/24 HPI Marie Ashley is a 84 year old female who presents here today for ER Follow Up. Patient evaluated at [facility] ED on 08/05 for complaint of palpitations with isthory of paroxysmal a fib. Started same day. Tried taking additional 1/2 dose of her metoprolol without improvement. HR on arrival to the ER was 122 bpm. Exam showed irregular rate and rhythm with mild tachycardia. EKG showed a fib with RVR rate 104 bpm. Obtained labs with normal CBC, and magnesium. TSH elevated at 7. 060. Potassium low on CMP at 3.3. given dose of cardizem in the ER which improved HR to 67 prior to discharge. Recommended taking additional 1/2 tablet of metoprolol each day and f/u with cardiology and our office on discharge. Since discharge, patient states that she has been taking metoprolol 25 mg 3 times per day. Had not had any recurrent palpitations until this morning. Woke up with symptoms of fast heartbeat and took 25 mg of metoprolol and symptoms resolved after 15-20 minutes. Able to fall back asleep at that time. Denies chest pain, SOB, LE edema. No recent change in diet and only drinks 1 cup of coffee per day. Compliant with anticoagulation without bleeding or bruising. Patient has appointment with cardiology on 08/22 for further evaluation. Patient has been compliant with her synthroid on a daily basis despite high TSH. Admits to dry skin, constipation, cold intolerance, fatigue. Denies weight changes. Past medical history, appointments, medications, allergies reviewed. Previous Medical History PAST MEDICAL HISTORY Diagnosis Date Acquired hypothyroidism Herpes zoster without complication Osteopenia Other specified glaucoma Paroxysmal atrial fibrillation (HCC) [facility] cardiology Previous Surgical History PAST SURGICAL HISTORY Procedure Laterality Date CHOLECYSTECTOMY 02/05/2002 Family History FAMILY HISTORY Problem Relation Age of Onset Heart Mother Cancer Father lung Breast Cancer Sister Hypertension Maternal Grandmother Tuberculosis Maternal Grandfather Stroke Paternal Grandfather Patient Allergies ALLERGIES Allergen Reactions Penicillins Intolerance Teramycin [Oxytetra* Intolerance Rash Current Medications Current Outpatient Medications on File Prior to Visit Medication Sig loratadine (CLARITIN) 10 mg tablet Take 10 mg by mouth once daily. As needed metoprolol tartrate, short acting, (LOPRESSOR) 50 mg tablet Take 1 tablet by mouth two times a day. (Patient taking differently: Take 25 mg by mouth two times a day.) levothyroxine (SYNTHROID) 25 mcg tablet Take 1 tablet by mouth once daily. 25 mcgs fluticasone (FLONASE) 50 mcg/actuation nasal spray Use 2 Sprays in each nostril once daily. Rinse mouth after use. apixaban (ELIQUIS) 5 mg tab(s) Take 1 tablet by mouth twice daily. multivitamin (DAILY MULTIVITAMIN) ORAL Tab Take one(1) tablet daily. Hmorpbj-Jxrlzicab-Tfphtoc D2 500-50-100 mg-mg-unit ORAL Chew Take one(1) tablet two(2) times daily. TIMOPTIC 0.5 % EYE DROPS One drop in each eye at night. No current facility-administered medications on file prior to visit. Social History Social History Tobacco Use Smoking status: Never Smokeless tobacco: Never Vaping Use Vaping status: Never Used Substance Use Topics Alcohol use: No Drug use: No Review of Symptoms REVIEW OF SYSTEMS See HPI EXAM: BP 108/60 Pulse 69 Resp 16 Wt 48.2 kg (106 lb 3.2 oz) SpO2 97% BMI 18.24 kg/m? General Appearance: Well appearing, alert, in no acute distress, well-hydrated, well nourished.. Skin: Skin color, texture, turgor normal, no suspicious rashes or lesions. Neck: Supple, no adenopathy; thyroid symmetric, normal size, no bruits. Lungs: Lungs clear to auscultation. No wheezing, rhonchi, rales.. Heart: RRR without murmur, gallop, or rubs. No ectopy. Abdomen: Normal abdominal exam, Abdomen soft, non-tender. Bowel sounds normal. No masses, organomegaly. Extremities: No deformities, edema, skin discoloration, clubbing or cyanosis. Good capillary refill. . Health Maintenance List DTaP,Tdap,Td Vaccine(1 - Tdap) Never done Shingrix Vaccine(1 of 2) Never done Pneumococcal Vaccine: 50+(2 of 2 - PCV) due on 08/08/2007 RSV Vaccine(1 - 1-dose 75+ series) Never done Influenza Vaccine(1) Never done Covid-19 Vaccine( - 2023- season) Never done Advance Directive Discussion due on 08/01/2024 Depression Screening due on 12/20/2024 Anxiety Screening due on 12/20/2024 Diabetes Screening due on 10/27/2025 Bone Density Screening Addressed ASSESSMENT/PLAN: 1. Paroxysmal atrial fibrillation (HCC) - ICD9: 427.31, ICD10: I48.0 (primary diagnosis) RRR on exam today. Discussed cessation of caffeine. Continue higher dose metoprolol with 25 mg TI (more content not included)...[facility]01-10-2025 History of Present illness Narrative* Heri Teixeira MD - 08/10/2024 9:30 AM EST Chief Complaint Patient presents with: ER F/U: [facility] 08/05/24 HPI Marie Ashley is a 84 year old female who presents here today for ER Follow Up. Patient evaluated at [facility] ED on 08/05 for complaint of palpitations with isthory of paroxysmal a fib. Started same day. Tried taking additional 1/2 dose of her metoprolol without improvement. HR on arrival to the ER was 122 bpm. Exam showed irregular rate and rhythm with mild tachycardia. EKG showed afib with RVR rate 104 bpm. Obtained labs with normal CBC, and magnesium. TSH elevated at 7. 060. Potassium low on CMP at 3.3. given dose of cardizem in the ER which improved HR to 67 prior to discharge. Recommended taking additional 1/2 tablet of metoprolol each day and f/u with cardiology and our office on discharge. Since discharge, patient states that she has been taking metoprolol 25 mg 3 times per day. Had not had any recurrent palpitations until this morning. Woke up with symptoms of fast heartbeat and took 25 mg of metoprolol and symptoms resolved after 15-20 minutes. Able to fall back asleep at that time. Denies chest pain, SOB, LE edema. No recent change in diet and only drinks 1 cup of coffee per day. Compliant with anticoagulation without bleeding or bruising. Patient has appointment with cardiology on 08/22 for further evaluation. Patient has been compliant with her synthroid on a daily basis despite high TSH. Admits to dry skin, constipation, cold intolerance, fatigue. Denies weight changes. Past medical history, appointments, medications, allergies reviewed. Previous Medical History PAST MEDICAL HISTORY Diagnosis Date Acquired hypothyroidism Herpes zoster without complication Osteopenia Other specified glaucoma Paroxysmal atrial fibrillation (HCC) [facility] cardiology Previous Surgical History PAST SURGICAL HISTORY Procedure Laterality Date CHOLECYSTECTOMY 02/05/2002 Family History FAMILY HISTORY Problem Relation Age of Onset Heart Mother Cancer Father lung Breast Cancer Sister Hypertension Maternal Grandmother Tuberculosis Maternal Grandfather Stroke Paternal Grandfather Patient Allergies ALLERGIES Allergen Reactions Penicillins Intolerance Teramycin [Oxytetra* Intolerance Rash Current Medications Current Outpatient Medications on File Prior to Visit Medication Sig loratadine (CLARITIN) 10 mg tablet Take 10 mg by mouth once daily. As needed metoprolol tartrate, short acting, (LOPRESSOR) 50 mg tablet Take 1 tablet by mouth two times a day.(Patient taking differently: Take 25 mg by mouth two times a day.) levothyroxine (SYNTHROID) 25 mcg tablet Take 1 tablet by mouth once daily. 25 mcgs fluticasone (FLONASE) 50 mcg/actuation nasal spray Use 2 Sprays in each nostril once daily. Rinse mouth after use. apixaban (ELIQUIS) 5 mg tab(s) Take 1 tablet by mouth twice daily. multivitamin (DAILY MULTIVITAMIN) ORAL Tab Take one(1) tablet daily. Becfawe-Qbivrxrgo-Ducfobl D2 500-50-100 mg-mg-unit ORAL Chew Take one(1) tablet two(2) times daily. TIMOPTIC 0.5 % EYE DROPS One drop in each eye at night. No current facility-administered medications on file prior to visit. Social History Social History Tobacco Use Smoking status: Never Smokeless tobacco: Never Vaping Use Vaping status: Never Used Substance Use Topics Alcohol use: No Drug use: No Review of Symptoms REVIEW OF SYSTEMS See HPI EXAM: BP 108/60 Pulse 69 Resp 16 Wt 48.2 kg (106 lb 3.2 oz) SpO2 97% BMI 18.24 kg/m General Appearance: Well appearing, alert, in no acute distress, well-hydrated, well nourished.. Skin: Skin color, texture, turgor normal, no suspicious rashes or lesions. Neck: Supple, no adenopathy; thyroid symmetric, normal size, no bruits. Lungs: Lungs clear to auscultation. No wheezing, rhonchi, rales.. Heart: RRR without murmur, gallop, or rubs. No ectopy. Abdomen: Normal abdominal exam, Abdomen soft, non-tender. Bowel sounds normal. No masses, organomegaly. Extremities: No deformities, edema, skin discoloration, clubbing or cyanosis. Good capillary refill. . Health Maintenance List DTaP,Tdap,Td Vaccine(1 - Tdap) Never done Shingrix Vaccine(1 of 2) Never done Pneumococcal Vaccine: 50+(2 of 2 - PCV) due on 08/08/2007 RSV Vaccine(1 - 1-dose 75+ series) Never done Influenza Vaccine(1) Never done Covid-19 Vaccine( - 2024-25 season) Never done Advance Directive Discussion due on 08/01/2024 Depression Screening due on 12/20/2024 Anxiety Screening due on 12/20/2024 Diabetes Screening due on 10/27/2025 Bone Density Screening Addressed ASSESSMENT/PLAN: 1. Paroxysmal atrial fibrillation (HCC) - ICD9: 427.31, ICD10: I48.0 (primary diagnosis) RRR on exam today. Discussed cessation of caffeine. Continue higher dose metoprolol with 25 mg TID.Keep f/u with cardiology as scheduled. Red flags for re-assessment reviewed with patient in detail.Recheck potassium level today. Will increase dose of synthroid for high TSH and symptoms of hypothyroidism. Recheck in 6-8 weeks. 2. Hypothyroidism, acquired - ICD9: 244.9, ICD10: E03.9 - Instructed patient on importance of taking on an empty stomach either first thing in the morning or at bedtime. - check TSH in 2 months - Increase Synthroid dose to 0.050 mg - LEVOTHYROXINE 50 MCG TABLET - THYROID STIMULATING HORMONE 3. Hypokalemia - ICD9: 276.8, ICD10: E87.6 Recheck today. Will call with results. - POTASSIUM Heri Teixeira MD documented in this encounterW[facility]01-08-2025 Telephone encounter Note * Telephone Encounter - Heri Teixeira MD - 08/08/2024 1:59 PM EST Reviewed. Please make sure we have ER records available. [facility]01-08[facility] Miscellaneous Notes* Telephone Encounter - Heri Teixeira MD - 08/08/2024 1:59 PM EST Reviewed. Please make sure we have ER records available. * Telephone Encounter - Chantell Gonzalez RN - 08/08/2024 1:34 PM EST Jasmyn from [facility] calls and reports that patient came into office today complaining of weakness. Patient was seen in [facility] ER on 08/05/2024 and had labs and cardiac work up. Patient is ok from a cardiac stand point. Patients Potassium is on the low side and Patient's TSH was 7.06. Jasmyn scheduled ER follow up with provider on 08/10/2024 and will let patient who still is in office know when appointment is. Jasmyn is faxing over [facility] Notes. Chantell Gonzalez RN * Telephone Encounter - Jasmyn Hein LPN - 08/08/2024 1:04 PM EST Message left for patient to return call to schedule ER F/U appointment (1 week)[address] Dr Teixeira or Connie. Jasmyn Hein LPN documented in this encounterW[facility] Center01-08-[facility]25 Telephone encounter Note * Telephone Encounter - Chantell Gonzalez RN - 08/08/2024 1:34 PM EST Jasmyn from [facility] calls and reports that patient came into office today complaining of weakness. Patient was seen in [facility] ER on 08/05/2024 and had labs and cardiac work up. Patient is ok from a cardiac stand point. Patients Potassium is on the low side and Patient's TSH was 7.06. Jasmyn scheduled ER follow up with provider on 08/10/2024 and will let patient who still is in office know when appointment is. Jasmyn is faxing over [facility] Notes. Chantell Gonzalez RN [facility]01-08-[facility] Telephone encounter Note* Telephone Encounter - Jasmyn Hein LPN - 08/08/2024 1:04 PM EST Message left for patient to return call to schedule ER F/U appointment (1 week)with Dr Teixeira or Connie. Jasmyn Hein LPN [facility]07-09-2024 Telephone encounter Note* Telephone Encounter - Tricia Weir RN - 02/07/2024 11:23 AM EDT Patient reports she has appt with heart doctor at [facility] on Tuesday. Reports she was instructed to havelabs done at [facility]. Asking if she should fast for the labs ordered by heart doctor. Advised patient to call [facility] to ask if she needs to be fasting for the labs ordered. Patient agreeable. Given phone number. [facility] Miscellaneous Notes* Telephone Encounter - Tricia Weir RN - 02/07/2024 11:23 AM EDT Patient reports she has appt with heart doctor at [facility] on Tuesday. Reports she was instructed to havelabs done at [facility]. Asking if she should fast for the labs ordered by heart doctor. Advised patient to call [facility] to ask if she needs to be fasting for the labs ordered. Patient agreeable. Given phone number. documented in this encounterWexner Medical Center05-22-2024 History of Present illness Narrative* Romy Alfaro LPN - 12/21/2023 11:31 AM EDT Ambulatory Ear Lavage Pre-treatment: No pre-treatment Treatment: Right ear Equipment and Irrigation solution and Volume used: Single use syringe with single use irrigation tip Water Total Irrigation Volume: 400ml Return flow appearance: Other clear Patient tolerated procedure: yes Tympanic membrane assessment: Tympanic membrane assessed by LIP pre and post procedure Romy Alfaro LPN * Connie Lira APRN.HSE COORDINATOR - 12/21/2023 11:07 AM EDT 12/21/2023 Patient presents with: Follow Up: Routine SUBJECTIVE: This is a 83 year old that is here today for Above Complaints. Since last office visit has been in good health without ER visits or hospitalizations. Paroxysmal atrial fib: following with [facility] cardiology with last appointment on 11/28/2023. Metoprolol changes to 50 mg twice a day. Taking Eliquis as prescribed. Denies bleeding symptoms,dizziness, lightheadedness, SOB, dyspnea, orthopnea, chest pain, palpitations or leg edema. Has labs ordered at [facility] for her January appointment with them HYPOTHYROIDISM: taking synthroid as prescribed daily without side effects Would like her ears checked. Feel like she may have wax build-up PAST MEDICAL HISTORY Diagnosis Date Acquired hypothyroidism Herpes zoster without complication Osteopenia Other specified glaucoma Paroxysmal atrial fibrillation (HCC) [facility] cardiology ALLERGIES Penicillins and Teramycin [Other] MEDICATIONS Current Outpatient Medications Medication Sig levothyroxine (SYNTHROID) 25 mcg tablet Take 1 tablet by mouth once daily. 25 mcgs fluticasone (FLONASE) 50 mcg/actuation nasal spray Use 2 Sprays in each nostril once daily. Rinse mouth after use. metoprolol tartrate, short acting, (LOPRESSOR) 25 mg tablet Take 25 mg by mouth twice daily. apixaban (ELIQUIS) 5 mg tab(s) Take 1 tablet by mouth twice daily. multivitamin (DAILY MULTIVITAMIN) ORAL Tab Take one(1) tablet daily. Brsmoge-Fsernzjzj-Sgbzyzz D2 500-50-100 mg-mg-unit ORAL Chew Take one(1) tablet two(2) times daily. TIMOPTIC 0.5 % EYE DROPS One drop in each eye at night. No current facility-administered medications for this visit. Medications and allergies reviewed by this provider. SOCIAL HISTORY Social History Tobacco Use Smoking status: Never Smokeless tobacco: Never Vaping Use Vaping Use: Never used Substance Use Topics Alcohol use: No Drug use: No REVIEW OF SYSTEMS All other reviewed and negative other than HPI. OBJECTIVE: BP 112/64 Pulse (!) 50 Resp 16 Wt 48.2 kg (106 lb 3.2 oz) SpO2 98% BMI 18.24 kg/m . Vitalsigns reviewed by this provider. APPEARANCE Well appearing, alert, in no acute distress, well-hydrated, well nourished. EYES conjunctiva and sclera normal. Ears: R TM - WNL after manual extraction of small amount of cerumen, L TM - blocked by large amountof cerumen- able to manually extract after irrigation. TM mildly erythematous after irrigation otherwise WNL HEART RRR with normal S1 and S2, no murmurs, no gallops, no JVD appreciated LUNG clear to auscultation. No wheezes, rhonchi or rales EXTREMITIES Extremities normal, No deformities, No skin discoloration, and No edema SKIN Skin color, texture, turgor normal, no suspicious rashes or lesions to exposed skin Latest Ref Rng 08/08/2023 TSH 0.270 - 4.200 mIU/L 1.400 Magnesium 1.7 - 2.3 mg/dL 2.3 DTaP,Tdap,Td Vaccine(1 - Tdap) Never done Shingrix Vaccine(1 of 2) Never done Pneumococcal Vaccine: 65+(2 of 2 - PCV) due on 08/08/2007 Covid-19 Vaccine( - season) Never done Advance Directive Discussion due on 08/01/2023 Behavioral Health Screening Never done RSV Vaccine(1 - 1-dose 60+ series) due on 08/08/2024 Influenza Vaccine(Season Ended) due on 04/01/2024 Diabetes Screening due on 10/27/2025 Bone Density Screening Addressed ASSESSMENT/PLAN: 1. Hypothyroidism, acquired - ICD9: 244.9, ICD10: E03.9 (primary diagnosis) - Instructed patient on importance of taking on an empty stomach either first thing in the morning or at bedtime. - continue current dose of Synthroid 0.025 mg - Follow up in one year 2. Depression screening - ICD9: V79.0, ICD10: Z13.31 - BEHAVIORAL HEALTH SCREENING Behavioral Health Screening PHQ-2 Score: 1 (Lower risk for depression) PEDRO-2 Score: 0 (Lower risk for anxiety) Recommendation: no further intervention at this time 3. Impacted cerumen of right ear - ICD9: 380.4, ICD10: H61.21 - resolved - AMBULATORY EAR LAVAGE/IRRIGATION 4. Bilateral impacted cerumen - ICD9: 380.4, ICD10: H61.23 - resolved 5. Paroxysmal atrial fibrillation (HCC) - ICD9: 427.31, ICD10: I48.0 - rate controlled - continue current medications - follow-up with cardiology as recommended Connie Lira APRN.CNP Prescription instructions reviewed with patient as applicable. Patient advised if symptoms do not improve or if symptoms worsen sooner, to contact their primary care physician. Potential red flag symptoms discussed with the patient. Reviewed appropriate action plan to take if red flag symptoms occur. Patient agreeable to treatment plan. Medical Decision Making: Problems: Low: Acute, uncomplicated illness or injury Moderate: 2+ stable chronic illnesses Risk: Moderate: Moderate risk from testing/treatment Medical Decision Making Level: 4 - Moderate documented in this encounterWexner Medical Center05-22-2024 Telephone encounter Note * Telephone Encounter - Romy Alfaro LPN - 12/21/2023 10:57 AM EDT Patient has been identified by name and date of : Yes Patient phones for refill(s): Requested Prescriptions No prescriptions requested or ordered in this encounter Date of last office visit in primary care: 08/08/2023 Date of next office visit in primary care: 12/21/2023 Please advise. Thank you. Romy Alfaro LPN. [facility] Miscellaneous Notes* Telephone Encounter - Romy Alfaro LPN - 12/21/2023 10:57 AM EDT Patient has been identified by name and date of : Yes Patient phones for refill(s): Requested Prescriptions No prescriptions requested or ordered in this encounter Date of last office visit in primary care: 08/08/2023 Date of next office visit in primary care: 12/21/2023 Please advise. Thank you. Romy Alfaro LPN. documented in this encounterWexner Medical Center08-09-2023 Miscellaneous Notes* Telephone Encounter - Wanda Rodriguez MA - 03/09/2023 11:20 AM EDT Patient has been identified by name and date of : Yes Requested Prescriptions Pending Prescriptions Disp Refills levothyroxine (SYNTHROID) 25 mcg tablet 90 tablet 3 Sig: Take 1 tablet by mouth once daily. 25 mcgs RX INSTRUCTIONS: Patient aware RX will be sent to pharmacy. No need to notify patient. Patient last office visit: 01/04/23 Patient next office visit: 11/09/23 Wanda Rodriguez MA documented in this encounterWexner Medical Center06-06-2023 Miscellaneous Notes* Telephone Encounter - Beth Hood LPN - 01/04/2023 4:34 PM EDT Patient returned call and went over results, notes from Connie Lira HIGH SCHOOL GUIDANCE COUNSELOR with understanding. * Telephone Encounter - Romy Alfaro LPN - 01/04/2023 3:40 PM EDT Patient telephoned. Message left to call office back for update. Romy Alfaro LPN * Telephone Encounter - Romy Alfaro LPN - 01/04/2023 3:40 PM EDT ----- Message from Connie Lira APRN.HSE COORDINATOR sent at 01/04/2023 3:14 PM EDT ----- Please let patient know xray does not show any fracture or dislocations. If the taping helps she can continue to do that as well as ice and elevate. Connie Lira APRN.HSE COORDINATOR documented in this encounterWexner Medical Center06-06-2023 History of Present illness Narrative* Monika Fuentes RT(R) - 01/04/2023 2:50 PM EDT Radiology Service Progress Note PATIENT NAME: Marie Ashley DATE OF SERVICE: January 04, 2023 TIME: 2:37 PM PATIENT IDENTITY VERIFICATION COMPLETED USING TWO (2) IDENTIFIERS: Name and Date of confirmedby patient verbally. FALL SCREENING: Has the patient had 2 falls in the last year or 1 fall with injury or currently using an Ambulatory Assistive Device (Walker, Cane, Wheelchair, Crutches, etc.)? No PATIENT GENDER DATA: Female. status: : No status: NO. PATIENT RELEVANT IMPLANT DATA REVIEWED: Not Applicable RADIOLOGY DEPARTMENT: General X-ray: Exam(s) Completed: Lower Extremity X- Ray(s): Foot, Left and Wt. Bearing PERIPHERAL IV DATA: Not applicable SIGNED BY: RT Edison(R) January 04, 2023 2:37 PM documented in this encounterWexner Medical Center06-06-2023 History of Present illness Narrative* Connie Lira APRN.[facility] - 01/04/2023 2:23 PM EDT 01/04/2023 Patient presents with: Trauma: To left foot, hit foot on chair on 01/02. Painful and bruised. SUBJECTIVE: This is a 82 year old that is here today for Above Complaints. Was walking in her house a couple of days ago and ran into chair. Reports her 4 th and 5 th got caught in the leg spreading them apart. Has some bruising to them as well as across the top of her foot. Ric taped the toes together and has been icing and elevating which helps. Admits to some pain across top of foot. Takes eliquis daily so suspected bruising more because of this. Able to bear weight without difficulty PAST MEDICAL HISTORY Diagnosis Date Acquired hypothyroidism Herpes zoster without complication Osteopenia Other specified glaucoma Paroxysmal atrial fibrillation (HCC) ALLERGIES Penicillins and Teramycin [Other] MEDICATIONS Current Outpatient Medications Medication Sig levothyroxine (SYNTHROID) 25 mcg tablet Take 1 tablet by mouth once daily. 25 mcgs fluticasone (FLONASE) 50 mcg/actuation nasal spray Use 2 Sprays in each nostril once daily. Rinse mouth after use. metoprolol tartrate, short acting, (LOPRESSOR) 25 mg tablet Take 25 mg by mouth twice daily. apixaban (ELIQUIS) 5 mg tab(s) Take 1 tablet by mouth twice daily. multivitamin (DAILY MULTIVITAMIN) ORAL Tab Take one(1) tablet daily. Tqcmthi-Mktdhzjvm-Qixvyao D2 500-50-100 mg-mg-unit ORAL Chew Take one(1) tablet two(2) times daily. TIMOPTIC 0.5 % EYE DROPS One drop in each eye at night. No current facility-administered medications for this visit. Medications and allergies reviewed by this provider. SOCIAL HISTORY Social History Tobacco Use Smoking status: Never Smokeless tobacco: Never Vaping Use Vaping Use: Never used Substance Use Topics Alcohol use: No Drug use: No REVIEW OF SYSTEMS All other reviewed and negative other than HPI. OBJECTIVE: BP 102/58 Pulse 64 Resp 16 Wt 48.7 kg (107 lb 6.4 oz) SpO2 95% BMI 18.45 kg/m . Vital signs reviewed by this provider. APPEARANCE Well appearing, alert, in no acute distress, well-hydrated, well nourished. LEFT FOOT: No obvious deformity to foot or toes. Ecchymosis across 2nd to 5 th metatarsal and toes.Ecchymosis between the 4th and 5 th toe. Minimal swelling to 5 th toes observed. No TTP. FROM. 2+ pedal pulse. Foot warm to touch with cap refill WNL DTAP,TDAP,TD(1 - Tdap) due on 11/09/2023 SHINGRIX VACCINE(1 of 2) due on 11/09/2023 COVID-19 VACCINE(1) due on 11/09/2023 PNEUMOCOCCAL: 65+(2 - PCV) due on 11/09/2023 INFLUENZA(Season Ended) due on 04/01/2023 DIABETES SCREEN due on 10/27/2025 ADVANCE DIRECTIVE DISCUSSION Completed DEPRESSION ASSESSMENT Completed BONE DENSITY Addressed ASSESSMENT/PLAN: 1. Injury of toe on left foot, initial encounter - ICD9: 959.7, ICD10: S99.922A - no red flag symptoms or exam findings - red flag symptoms discussed, verbalizes understanding - XR FOOT GENERAL 3V AP/LAT/OBL LEFT - XR TOE AP/LAT/OBL LEFT - may keep 4th and 5th toes ric taped. Continue to ice and elevate - follow-up pending xray to ER with red flag symptoms Connie Lira APRN.HSE COORDINATOR Prescription instructions reviewed with patient as applicable. Patient advised if symptoms do not improve or if symptoms worsen sooner, to contact their primary care physician. Potential red flag symptoms discussed with the patient. Reviewed appropriate action plan to take if red flag symptoms occur. Patient agreeable to treatment plan. I spent a total of 25 minutes on the date of the service which included preparing to see the patient, [id number] patient care, completing clinical documentation, obtaining and/or reviewing separately obtained history, performing a medically appropriate examination, counseling and educating the pat ient/family/caregiver, and ordering medications, tests, or procedures. documented in this encounterWexner Medical Center04-10-2023 Miscellaneous Notes* Telephone Encounter - Chantell Gonzalez RN - 11/08/2022 4:42 PM EDT Patient calls back and notified that order was placed. Patient voiced understanding. Patient transferred to patient scheduler to get this scheduled. Chantell Gonzalez RN * Telephone Encounter - Jasmyn Hein LPN - 11/08/2022 1:53 PM EDT Phoned patient and message left for her to return call. PCP placed bone density test/screen for patient but patient had left office and unaware of order. Calling patient to update her of order. documented in this encounterWexner Medical Center04-10-2023 Instructions* Patient Instructions* Heri Teixeira MD - 11/08/2022 8:30 AM EDT BONE MINERAL DENSITY PATIENT INSTRUCTIONS Bone mineral density testing measures the amount of calcium in certain parts of your bones. This information determines how strong your bones are. The test is used to detect osteoporosis, a disease in which the bone's mineral content and density are low, increasing a person's risk of fractures. Thelumbar spine (lower back) and the hip are the skeletal sites usually examined. For the test, remember that: 1. You cannot take this test if you are . 2. Eat a normal diet on the day of the test. 3. Take your medications as you normally would. 4. DO NOT take calcium supplements (such as Tums) for 24 hours before the test. 5. On the day of the test, leave valuables (jewelry or credit cards) at home. 6. The test should be performed prior to oral, rectal or IV contrast studies, or at least 7 days after any of these studies. For the test, you may be asked to wear a hospital gown. You will lie on your back, on a padded table, in a comfortable position. Generally, you can resume your usual activities immediately. documented in this encounterWexner Medical Center04-10-2023 History of Present illness Narrative* Heri Teixeira MD - 11/08/2022 8:01 AM EDT Chief Complaint Patient presents with: Follow Up HPI Marie Ashley is a 82 year old female who presents here today for Above Complaints. No complaints today. No falls in the last 12 months. A fib: managed by [facility] cardiology. Compliant with her beta ginny and Eliquis. Notes that she gets rare brief palpitations without chest pain, SOB, LE edema, syncope. F/u scheduled in January. TSH in good range on her synthroid. Asymptomatic. BP well controlled on metoprolol. PHQ-2 / Depression screen He in the past two weeks denies having felt down, depressed, hopeless or with little interest or pleasure in doing things. Patient has advance directives at home. Will bring in for our records. Refusing all vaccinations today. Past medical history, appointments, medications, allergies reviewed. Previous Medical History PAST MEDICAL HISTORY Diagnosis Date Acquired hypothyroidism Disorder of bone and cartilage, unspecified Herpes zoster without complication Other specified glaucoma Paroxysmal atrial fibrillation (HCC) Previous Surgical History PAST SURGICAL HISTORY Procedure Laterality Date CHOLECYSTECTOMY 02/05/2002 Family History FAMILY HISTORY Problem Relation Age of Onset Heart Mother Cancer Father lung Breast Cancer Sister Hypertension Maternal Grandmother Tuberculosis Maternal Grandfather Stroke Paternal Grandfather Patient Allergies ALLERGIES Allergen Reactions Penicillins Intolerance Teramycin [Other] Rash Current Medications Current Outpatient Medications on File Prior to Visit Medication Sig levothyroxine (SYNTHROID) 25 mcg tablet Take 1 tablet by mouth once daily. 25 mcgs fluticasone (FLONASE) 50 mcg/actuation nasal spray Use 2 Sprays in each nostril once daily. Rinse mouth after use. metoprolol tartrate, short acting, (LOPRESSOR) 25 mg tablet Take 25 mg by mouth twice daily. apixaban (ELIQUIS) 5 mg tab(s) Take 1 tablet by mouth twice daily. multivitamin (DAILY MULTIVITAMIN) ORAL Tab Take one(1) tablet daily. Zlaqayt-Dopfwqobf-Xzqgjnv D2 500-50-100 mg-mg-unit ORAL Chew Take one(1) tablet two(2) times daily. TIMOPTIC 0.5 % EYE DROPS One drop in each eye at night. No current facility-administered medications on file prior to visit. Social History Social History Tobacco Use Smoking status: Never Smokeless tobacco: Never Vaping Use Vaping Use: Never used Substance Use Topics Alcohol use: No Drug use: No Review of Symptoms REVIEW OF SYSTEMS GENERAL: No weight loss, malaise or fevers RESPIRATORY: Negative for cough, hemoptysis, wheezing, COPD, dyspnea or shortness of breath CARDIOVASCULAR: Negative for chest pain, leg swelling, hypertension, CHF or palpitations GI: No nausea, vomiting, or diarrhea SKIN: Negative for lesions, rash, and itching EXAM: BP 120/64 Pulse 70 Resp 16 Wt 50 kg (110 lb 3.2 oz) SpO2 99% BMI 18.93 kg/m General Appearance: Well appearing, alert, in no acute distress, well-hydrated, well nourished.. Skin: Skin color, texture, turgor normal, no suspicious rashes or lesions. Oropharynx: Lips, mucosa, and tongue normal, teeth and gums normal, oropharynx normal. Lungs: Lungs clear to auscultation. No wheezing, rhonchi, rales.. Heart: RRR without murmur, gallop, or rubs. No ectopy. Abdomen: Normal abdominal exam, Abdomen soft, non-tender. Bowel sounds normal. No masses, organomegaly. Extremities: No deformities, edema, skin discoloration, clubbing or cyanosis. Good capillary refill. . Health Maintenance List COVID-19 VACCINE(1) Never done DTAP,TDAP,TD(1 - Tdap) Never done SHINGRIX VACCINE(1 of 2) Never done PNEUMOCOCCAL: 65+(2 - PCV) due on 08/08/2007 ADVANCE DIRECTIVE DISCUSSION Never done DEPRESSION ASSESSMENT Never done INFLUENZA(Season Ended) due on 04/01/2023 DIABETES SCREEN due on 10/27/2025 BONE DENSITY Addressed Data reviewed Component Latest Ref Rng & Units 11/07/2021 10/27/2022 WBC 3.70 - 11.00 k/uL 5.76 RBC 3.90 - 5.20 m/uL 4.47 Hemoglobin 11.5 - 15.5 g/dL 13.7 Hematocrit 36.0 - 46.0 % 42.8 MCV 80.0 - 100.0 fL 95.7 MCH 26.0 - 34.0 pg 30.6 MCHC 30.5 - 36.0 g/dL 32.0 RDW-CV 11.5 - 15.0 % 12.1 Platelet Count 150 - 400 k/uL 261 MPV 9.0 - 12.7 fL 10.5 Neut% % 33.6 Abs Neut (ANC) 1.45 - 7.50 k/uL 1.93 Lymph% % 54.5 Abs Lymph 1.00 - 4.00 k/uL 3.14 Hale% % 6.9 Abs Hale <0.87 k/uL 0.40 Eosin% % 4.0 Abs Eosin <0.46 k/uL 0.23 Baso% % 1.0 Abs Baso <0.11 k/uL 0.06 Immature Gran % % 0.0 IMMATURE GRANS (ABS) <0.10 k/uL <0.03 NRBC /100 WBC 0.0 Absolute nRBC <0.01 k/uL <0.01 DTYPE Auto Protein, Total 6.3 - 8.0 g/dL 7.1 7.2 Albumin 3.9 - 4.9 g/dL 4.3 4.2 Calcium 8.5 - 10.2 mg/dL 9.4 9.6 Bilirubin, Total 0.2 - 1.3 mg/dL 0.4 0.4 Alkaline Phosphatase 34 - 123 U/L 51 53 AST 13 - 35 U/L 27 28 ALT 7 - 38 U/L 16 19 Glucose 74 - 99 mg/dL 85 99 BUN 7 - 21 mg/dL 13 15 Creatinine 0.58 - 0.96 mg/dL 0.80 0.80 Sodium 136 - 144 mmol/L 141 141 Potassium 3.7 - 5.1 mmol/L 4.2 4.3 Chloride 97 - 105 mmol/L 103 103 CO2 22 - 30 mmol/L 30 28 Anion Gap 9 - 18 mmol/L 8 (L) 10 eGFR >=60 mL/min/1.73m 75 74 Cholesterol, Total <200 mg/dL 172 169 Triglyceride <150 mg/dL 87 79 HDL Cholesterol >39 mg/dL 52 59 Non HDL Cholesterol <130 mg/dL 120 110 Fasting Time hrs 12 14 VLDL Cholesterol <30 mg/dL 17 16 TC:HDL Ratio <5.10 3.31 2.86 LDL Cholesterol <100 mg/dL 103 (H) 94 LDL:HDL Ratio <2.54 1.98 1.59 TSH 0.270 - 4.200 mIU/L 2.040 3.000 ASSESSMENT/PLAN: 1. Paroxysmal atrial fibrillation (HCC) - ICD9: 427.31, ICD10: I48.0 (primary diagnosis) Rate controlled on current regimen. Continue anticoagulation. F/u with cardiology as scheduled. Redflags for re-assessment reviewed with patient in detail. 2. Hypothyroidism, acquired - ICD9: 244.9, ICD10: E03.9 - Instructed patient on importance of taking on an empty stomach either first thing in the morning or at bedtime. - continue current dose of Synthroid 0.025 mg 3. Osteopenia, senile - ICD9: 733.90, ICD10: M85.80 - Reviewed the need for Calcium and Vitamin D supplements and weight bearing exercise as tolerated - DXA-AXIAL SKELETON 4. Asymptomatic postmenopausal status - ICD9: V49.81, ICD10: Z78.0 - DXA-AXIAL SKELETON Heri Teixeira MD documented in this encounterWexner Medical Center03-30-2023 Miscellaneous Notes* Telephone Encounter - Jasmyn Hein LPN - 10/28/2022 8:31 AM EDT Phoned patient and reviewed provider's message with her. Patient voiced understanding. * Telephone Encounter - Connie Lira APRN.CNP - 10/27/2022 7:09 PM EDT Please call patient and let her know her blood work is in acceptable ranges. Continue current medications. Follow-up as scheduled with Dr. Teixeira. Connie Lira APRN.CNP documented in this encounterWexner Medical Center03-17-2023 Instructions* Patient Instructions* Connie Lira APRN.CNP - 10/15/2022 10:32 AM EDT Take Claritin daily and use Flonase- rinse mouth after documented in this encounterWexner Medical Center03-17-2023 History of Present illness Narrative* Connie Lira APRN.CNP - 10/15/2022 10:20 AM EDT 10/15/2022 Patient presents with: Ear Problem: Left ear pressure and feeling of being wet x1 week; discomfort SUBJECTIVE: This is a 82 year old that is here today for Above Complaints. For the last week left ear has felt wet inside. Having some pressure to bilateral ears. Admits to occasional sinus pressure, cough, rhinorrhea and nasal congestion. Has not been using her Flonase routinely. Denies fevers, chills, headache, sinus pain, ear drainage, SOB, dyspnea, or wheezing. PAST MEDICAL HISTORY Diagnosis Date Acquired hypothyroidism Disorder of bone and cartilage, unspecified Herpes zoster without complication Other specified glaucoma Paroxysmal atrial fibrillation (HCC) ALLERGIES Penicillins and Teramycin [Other] MEDICATIONS Current Outpatient Medications Medication Sig metoprolol tartrate, short acting, (LOPRESSOR) 25 mg tablet Take 25 mg by mouth twice daily. apixaban (ELIQUIS) 5 mg tab(s) Take 1 tablet by mouth twice daily. levothyroxine (SYNTHROID) 25 mcg tablet Take 1 tablet by mouth once daily. 25 mcgs fluticasone (FLONASE) 50 mcg/actuation nasal spray Use 2 Sprays in each nostril once daily. Rinse mouth after use. multivitamin (DAILY MULTIVITAMIN) ORAL Tab Take one(1) tablet daily. Hzambao-Ruvnaoyyd-Fqpowoh D2 500-50-100 mg-mg-unit ORAL Chew Take one(1) tablet two(2) times daily. TIMOPTIC 0.5 % EYE DROPS One drop in each eye at night. No current facility-administered medications for this visit. Medications and allergies reviewed by this provider. SOCIAL HISTORY Social History Tobacco Use Smoking status: Never Smokeless tobacco: Never Vaping Use Vaping Use: Never used Substance Use Topics Alcohol use: No Drug use: No REVIEW OF SYSTEMS All other reviewed and negative other than HPI. OBJECTIVE: BP 114/72 Pulse 71 Temp 36.9 C (98.4 F) Resp 16 Wt 49.7 kg (109 lb 9.6 oz) SpO2 95% BMI18.83 kg/m . Vital signs reviewed by this provider. APPEARANCE Well appearing, alert, in no acute distress, well-hydrated, well nourished. EYES conjunctiva and sclera normal. Sinuses: No sinus tenderness EARS External ears normal, canals clear THROAT normal, no erythema NECK Supple, no adenopathy; thyroid symmetric, normal size, no bruits HEART RRR with normal S1 and S2, no murmurs, no gallops, no JVD appreciated LUNG clear to auscultation. No wheezes, rhonchi or rales PNEUMOCOCCAL: 65+(2 - PCV) due on 08/08/2007 INFLUENZA(1) Never done ADVANCE DIRECTIVE DISCUSSION Never done DEPRESSION ASSESSMENT Never done DTAP,TDAP,TD(1 - Tdap) due on 11/06/2022 SHINGRIX VACCINE(1 of 2) due on 11/06/2022 COVID-19 VACCINE(1) due on 11/06/2022 DIABETES SCREEN due on 11/07/2024 BONE DENSITY Addressed ASSESSMENT/PLAN: 1. Eustachian tube dysfunction, bilateral - ICD9: 381.81, ICD10: H69.83 - use Flonase daily, rinse mouth out after - start Claritin daily - follow-up if symptoms persist Connie Avilalogflorinda, SLICE PLUG CUTTER OPERATOR.HSE COORDINATOR Prescription instructions reviewed with patient as applicable. Patient advised if symptoms do not improve or if symptoms worsen sooner, to contact their primary care physician. Potential red flag symptoms discussed with the patient. Reviewed appropriate action plan to take if red flag symptoms occur. Patient agreeable to treatment plan. I spent a total of 20 minutes on the date of the service which included preparing to see the patient, [id number] patient care, completing clinical documentation, obtaining and/or reviewing separately obtained history, performing a medically appropriate examination, counseling and educating the pat ient/family/caregiver, and ordering medications, tests, or procedures. documented in this encounter[facility] Miscellaneous Notes* Telephone Encounter - Chantell Gonzalez RN - 04/12/2022 12:12 PM EDT Patient has been identified by name and date of : Yes Pharmacy phones for refill(s): Requested Prescriptions Pending Prescriptions Disp Refills levothyroxine (SYNTHROID) 25 mcg tablet 90 tablet 3 Sig: Take 1 tablet by mouth once daily. 25 mcgs Date of last office visit in primary care: 11/06/2021 Last 2 Encounter Wt Readings: Date: Wt: 11/06/2021 50.2 kg (110 lb 9.6 oz) 03/12/2021 49 kg (108 lb) Previous labs/tests for medication: Thyroid: TSH Date Value 11/07/2021 2.040 mIU/L 10/31/2020 1.410 uU/mL Please advise. Thank you. Chantell Gonzalez RN documented in this encounterW[facility]04-08-2022 History of Present illness Narrative* Connie Lira APRN.CNP - 11/06/2021 1:47 PM EDT 11/06/2021 Patient presents with: Physical SUBJECTIVE: This is a 81 year old that is here today for Above Complaints. Since last office visit has been in good health without ER visits or hospitalizations. PAF: Taking metoprolol and eliquis as prescribed. Last follow-up with cardiology was in January with no medication changes. Patient continues to walk daily. Denies SOB, dyspnea, coughing, wheezing, chest pain, palpitations orthopnea, or leg edema HYPOTHYROIDISM: taking synthroid as prescribed without side effects Reports nasal drainage down back of her throat, thinks it is seasonal allergies. Using OTC Claritinbut does not seem to help. Denies itchy, water eye, sneezing, nasal congestion or coughing Over the past 2 weeks, how often have you had little interest or pleasure in doing things? 0-Not atall Over the past 2 weeks, how often have you been feeling down, depressed or hopeless? 0- Not at all PAST MEDICAL HISTORY Diagnosis Date Acquired hypothyroidism Disorder of bone and cartilage, unspecified Herpes zoster without complication Other specified glaucoma Paroxysmal atrial fibrillation (HCC) ALLERGIES Penicillins and Teramycin [Other] MEDICATIONS Current Outpatient Medications Medication Sig metoprolol tartrate, short acting, (LOPRESSOR) 25 mg tablet Take 25 mg by mouth twice daily. apixaban (ELIQUIS) 5 mg tab(s) Take 1 tablet by mouth twice daily. LEVOTHYROXINE SODIUM (SYNTHROID ORAL) Take 1 capsule by mouth once daily. 25 mcgs multivitamin (DAILY MULTIVITAMIN) ORAL Tab Take one(1) tablet daily. Sendycd-Rnpsxowwd-Hpeqoru D2 500-50-100 mg-mg-unit ORAL Chew Take one(1) tablet two(2) times daily. TIMOPTIC 0.5 % EYE DROPS One drop in each eye at night. No current facility-administered medications for this visit. Medications and allergies reviewed by this provider. SOCIAL HISTORY Social History Tobacco Use Smoking status: Never Smoker Smokeless tobacco: Never Used Vaping Use Vaping Use: Never used Substance Use Topics Alcohol use: No Drug use: No REVIEW OF SYSTEMS GENERAL: No weight loss, malaise or fevers HEENT: Negative for frequent or significant headaches, No changes in hearing or vision, no nose bleeds or other nasal problems NECK: Negative for lumps, goiter, pain and significant neck swelling RESPIRATORY: Negative for cough, hemoptysis, wheezing, COPD, dyspnea or shortness of breath CARDIOVASCULAR: Negative for chest pain, leg swelling, hypertension, CHF or palpitations GI: No nausea, vomiting, or diarrhea and No heartburn or reflux symptoms : No history of dysuria, frequency or incontinence CLIENT TECHNICAL PROFESSIONAL: Negative for abnormal vaginal bleeding, abnormal vaginal discharge MUSCULOSKELETAL: Negative for joint pain or swelling, back pain or muscle pain SKIN: Negative for lesions, rash, and itching PSYCH: Negative for sleep disturbance, mood disorder and recent psychosocial stressors HEMATOLOGY/LYMPHOLOGY: Negative for prolonged bleeding, bruising easily or swollen nodes ENDOCRINE: Negative for cold or heat intolerance, polyuria, polydipsia and goiter NEURO: No history of headaches, paralysis, seizures or tremors All other reviewed and negative other than HPI. OBJECTIVE: BP 106/64 Pulse 65 Resp 18 Ht 162.5 cm (5' 3.98) Wt 50.2 kg (110 lb 9.6 oz) LMP (Within Years) SpO2 98% BMI 19.00 kg/m . Vital signs reviewed by this provider. APPEARANCE Well appearing, alert, in no acute distress, well-hydrated, well nourished. EYES , conjunctiva and sclera normal. EARS External ears normal, canals clear NECK Supple, no adenopathy; thyroid symmetric, normal size, no bruits HEART RRR with normal S1 and S2, no murmurs, no gallops, no JVD appreciated LUNG clear to auscultation. No wheezes, rhonchi, or rales EXTREMITIES Extremities normal, No deformities, No skin discoloration and No edema SKIN Skin color, texture, turgor normal, no suspicious rashes or lesions to exposed skin Component Latest Ref Rng & Units 10/31/2020 Glucose 74 - 99 mg/dL 103 (H) BUN 7 - 21 mg/dL 15 Creatinine 0.58 - 0.96 mg/dL 0.70 Sodium 136 - 144 mmol/L 140 Potassium 3.7 - 5.1 mmol/L 4.3 Chloride 97 - 105 mmol/L 102 CO2 22 - 30 mmol/L 31 (H) Anion Gap 9 - 18 mmol/L 7 (L) Calcium 8.5 - 10.2 mg/dL 9.6 eGFR- >60 eGFR-All Other Races . >60 TSH 0.270 - 4.200 uU/mL 1.410 DIABETES SCREEN due on 10/10/2009 ADVANCE DIRECTIVE DISCUSSION Never done DTAP,TDAP,TD(1 - Tdap) due on 11/06/2022 SHINGRIX VACCINE(1 of 2) due on 11/06/2022 COVID-19 VACCINE(1) due on 11/06/2022 INFLUENZA(Season Ended) due on 04/01/2022 DEPRESSION SCREENING due on 11/06/2022 PNEUMOVAX AGE 65 AND OVER WITH 5YR LOOKBACK Completed BONE DENSITY Addressed MENINGOCOCCAL CONJUGATE Aged Out ASSESSMENT/PLAN: 1. Routine physical examination - ICD9: V70.0, ICD10: Z00.00 (primary diagnosis) - Counseled on healthy diet and regular exercise - Calcium intake with supplements or by diet of 1000 mg/day for under 50, 1200- 1500 mg/day for 50+ - Depression screening tool completed and reviewed with patient. Based on score and interview, patient is not at risk for depression and recommended no further intervention at this time. - Follow up for annual exam in one year 2. Hypothyroidism, acquired - ICD9: 244.9, ICD10: E03.9 - Instructed patient on importance of taking on an empty stomach either first thing in the morning or at bedtime. - check TSH in 1 year - continue current dose of Synthroid 0.025 mg - TSH BLD 3. Screening for hyperlipidemia - ICD9: V77.91, ICD10: Z13.22 - LIPID PANEL BASIC 4. Paroxysmal atrial fibrillation (HCC) - ICD9: 427.31, ICD10: I48.0 - stable at this time - continue with current medications and follow-up with cardiology as recommended - COMP METABOLIC PANEL 5. Post-nasal drainage - ICD9: 473.9, ICD10: R09.82 - FLUTICASONE PROPIONATE 50 MCG/ACTUATION NASAL SPRAY,SUSPENSION - follow-up if symptoms fail to improve Connie Lira APRN.HSE COORDINATOR Prescription instructions reviewed with patient as applicable. Patient advised if symptoms do not improve or if symptoms worsen sooner, to contact their primary care physician. Potential red flag symptoms discussed with the patient. Reviewed appropriate action plan to take if red flag symptoms occur. Patient agreeable to treatment plan. documented in this encounterW[facility] History of Past illness Narrative* Problem Noted Date Resolved Date SOLAR LENTIGINES///DYSCHROMIA OTHER 03/11/2008 11/21/2013 documented as of this encounter (statuses as of 11/06/2021) [facility] of [facility] illness Narrative* Problem Noted Date Resolved Date SOLAR LENTIGINES///DYSCHROMIA OTHER 03/11/2008 11/21/2013 documented as of this encounter (statuses as of 04/12/2022) [address]11-2008 History of Past illness Narrative* Problem Noted Date Resolved Date SOLAR LENTIGINES///DYSCHROMIA OTHER 03/11/2008 11/21/2013 documented as of this encounter (statuses as of 10/15/2022) [address]11-2008 History of Past illness Narrative* Problem Noted Date Resolved Date SOLAR LENTIGINES///DYSCHROMIA OTHER 03/11/2008 11/21/2013 documented as of this encounter (statuses as of 11/08/2022) [address]11[address]2008 History of Past illness Narrative* Problem Noted Date Resolved Date SOLAR LENTIGINES///DYSCHROMIA OTHER 03/11/2008 11/21/2013 documented as of this encounter (statuses as of 11/09/2022) [address]11-2008 History of Past illness Narrative* Problem Noted Date Resolved Date SOLAR LENTIGINES///DYSCHROMIA OTHER 03/11/2008 11/21/2013 documented as of this encounter (statuses as of 11/16/2022) [address]11[address]2008 History of Past illness Narrative* Problem Noted Date Resolved Date SOLAR LENTIGINES///DYSCHROMIA OTHER 03/11/2008 11/21/2013 documented as of this encounter (statuses as of 01/05/2023) [address]11[address]2008 History of Past illness Narrative* Problem Noted Date Resolved Date SOLAR LENTIGINES///DYSCHROMIA OTHER 03/11/2008 11/21/2013 documented as of this encounter (statuses as of 01/05/2023) [address]2008 History of Past illness Narrative* Problem Noted Date Diagnosed Date Resolved Date SOLAR LENTIGINES///DYSCHROMIA OTHER 03/11/2008 11/21/2013 documented as of this encounter (statuses as of 03/09/2023) [facility] Note Date/Time October 11, 2024 7:[facility] [address] [place] [address] [place] [address] Emergency Department Summary 10/11/24 MR#: [id number] Acct: [id number] Name: MARIE ASHLEY Rep #:[id number] : 1940 84 From: Brittany Lucas PCP: Dr. Sebastian Teixeira MD Status :REG ER Location: ED HPI History of Present Illness Chief Complaint: Palpitations Informant: patient Narrative Narrative: Patient is a 4-year-old female with history of hypothyroidism and proximal atrial fibrillation presenting with palpitations. Patient states she got up to use restroom tonight and felt that her heart was racing. She took an extra doseof her metoprolol (25 mg) but continued to feel that her heart was going fast. She is also on Eliquis states has been compliant. She states she has had similar episodes in the past and had come to the ER for rate control. She denies associated chest pain, shortness of breath or swelling of her legs. She states she has been in her normal state of health and overall been feeling well. States she was actually quite active yesterday. She did have an increased 2 months ago of her thyroid medication from 20 to 50 mcg. States she had labs on Tuesday for this but does not know the results. No other complaints or concerns reported at this time. Prior similar symptoms: Yes PFSH [facility] Medical History Hypothyroidism PAF (paroxysmal atrial fibrillation) Atrial fibrillation with RVR Glaucoma Home Medications ?Medication ?Instructions ?Recorded ?Last Taken ?Type latanoprost 0.005 % eye drops 1 drp ophthalmic (eye) D AILY 11/06/20 Unknown History acetaminophen 325 mg tablet 325 mg PO ONCE PRN fever o r pain 02/12/22 Unknown History loratadine 10 mg tablet 10 mg PO DAILY PRN allergy s ymptoms 08/12/23 Unknown History apixaban 5 mg tablet (Eliquis) 5 mg PO BID #60 tabs Unknown Rx metoprolol tartrate 50 mg tablet 25 mg (1/2 x 50 mg) P O BID #90 tabs 07/02/24 Unknown Rx levothyroxine 50 mcg tablet 50 mcg PO DAILY 10/11/24 U nknown History Allergy/AdvReac Type Severity Reaction Status Date / Time oxytetracycline (From Allergy Unknown Verified 10/11/24 03:41 Terramycin) Penicillins Allergy Unknown Verified 10/11/24 03:41 Family History Mother Heart disease Paroxysmal atrial fibrillation Father Cancer Lung Sister Heart disease Surgical History History of cholecystectomy Social History Smoking Status: Never smoker alcohol intake: never substance use type: does not use caffeine: Yes Type: coffee Number of servings: 1 ROS ROS ED Constitutional Constitutional ED: Denies chills or fever(s) Eyes Eyes: Denies blurry vision Cardiovascular Cardiovascular: Reports palpitations and racing heartbeat; Denies chest pain Respiratory/Chest Respiratory/Chest: Denies cough or dyspnea Gastrointestinal Gastrointestinal: Denies abdominal pain, nausea or vomiting Neurologic Neurologic: Denies paresthesias or weakness Hematologic/Lymphatic Hematologic/Lymphatic: Reports easy bleeding, easy bruising and other Details: On Eliquis EXAM Physical Exam Const Vital Signs: 10/11/24 03:42 10/11/24 03:46 10/11/24 04:41 Temperature 97.7 F L Temperature Source Oral Pulse Rate 122 H 108 H Respiratory Rate 16 16 Respiratory Effort Normal Non-Labored Respiratory Pattern Normal Blood Pressure 155/81 H 113/78 Blood Pressure Mean 105 89 Pulse Ox 98 97 Oxygen Delivery Method Room Air Room Air 10/11/24 05:00 10/11/24 05:21 10/11/24 06:00 Temperature Temperature Source Pulse Rate 97 95 89 Respiratory Rate 18 16 16 Respiratory Effort Respiratory Pattern Blood Pressure 111/72 116/73 112/78 Blood Pressure Mean 85 87 89 Pulse Ox 96 97 96 Oxygen Delivery Method Room Air Room Air Room Air Positive well nourished and well developed General Appearance ED: well developed and NAD; Negative for pallor HEENT Reports moist mucous membranes Eyes PERRL Neck supple and no JVD Chest Wall inspection of chest normal and palpation of chest normal Resp normal respiratory effort and clear to auscultation bilaterally Auscultation: Negative for rales or rhonchi Cardio no murmurs Rate: tachycardic Rhythm: abnormal rhythm irregularly irregular GI normal to inspection, nondistended, normoactive bowel sounds and non-tender Extremity normal to inspection General Extremety ED: Negative for edema General Extremity: Negative for edema Neuro oriented x3 Sensorium / Orientation: alert Motor Exam: Negative for general weakness Psych mental status grossly normal Mood & Affect: anxious Skin no rashes or lesions noted General Skin Exam: Negative for pallor MDM MDM MDM Narrative Medical decision making narrative: Patient evaluated for palpitations and racing heartbeat. She is tachycardic upon arrival and mildly hypertensive. She denies any chest pain, shortness of breath or other associated symptoms. Differential includes atrial fibrillation with RVR, symptomatic anemia, dehydration, thyroid abnormality, SILVINA. EKG does not show any ischemic changes low suspicion for ACS. Patient is given IV metoprolol for further rate control. Will obtain basic labsinclude CBC and BMP and reevaluate. Patient received 2 doses of 5 mg IV metoprolol. She is improvement of her heartrate. It remains asymptomatic. Has no chest pain. Workup largely normal and her TSH is now normalized. Two-view chest x-ray viewed by myself as well as radiology does not show any acute process. She is not have any electrolyte abnormalities. Case discussed with cardiology, Dr. Abebe, who recommends increasing her metoprolol to 50 mg twice daily and close outpatient follow-up. Patient is agreeable with this. Is discharged home in improved and stable condition. Is given return precautions History & Record Review Additional record(s) reviewed:: Prior outpatient record (Cardiology visit from 08/22/2024-plan to take additional dose of metoprolol if recurrence of A-fib withfast heart rate. Can consider antiarrhythmic if this continue) Lab Data Attestation: I reviewed the patient's lab results. Labs: Laboratory Results - last 24 hr 10/11/24 03:48 WBC 6.6 RBC 4.45 Hgb 13.3 Hct 41.2 MCV 92.6 MCH 29.9 MCHC 32.3 RDW Std Deviation 40.9 RDW Coeff of Namita 12.0 Plt Count 284 MPV 10.5 Immature Gran % (Auto) 0.200 Neut % (Auto) 28.0 L Lymph % (Auto) 60.2 H Hale % (Auto) 7.1 Eos % (Auto) 3.6 Baso % (Auto) 0.9 Absolute Neuts (auto) 1.9 L Absolute Lymphs (auto) 3.99 Nucleated RBC % 0 Sodium 142 Potassium 3.3 Chloride 102 Carbon Dioxide 24.6 Anion Gap 15 BUN 16 Creatinine 0.85 Estim Creat Clear Calc 38.24 L Est GFR (MDRD) Non-Af 68 BUN/Creatinine Ratio 18.3 Glucose 142 H Calcium 9.6 Magnesium 2.2 TSH 2.820 Radiography Diagnostic Testing: Clinical Impression(s) from Imaging Studies Chest X-Ray 10/11/24 04:30 IMPRESSION: No new infiltrate or consolidation is seen within the lungs. Reading Location: [facility] Rhythm Strip Rhythm Strip: A-fib Rate: 109 Ectopy: PVC(s) EKG Initial EKG: Attestation: I personally reviewed and interpreted this EKG as follows: Interpretation: Atrial Fibrillation Comments: Atrial fibrillation at a rate of 109 bpm Normal axis PVC present Normal QRS and QTc Normal ST segments Prior EKG tracings: available for review Prior: Unchanged Discharge Plan Triage Chief Complaint: Palpitations ED Provider: Brittany Jimenez Dx/Rx/DC Orders Clinical Impression: PAF (paroxysmal atrial fibrillation) Instructions: ED AFIB Prescriptions: No Action latanoprost 0.005 % drops 1 drp OPHTHALMIC DAILY loratadine 10 mg tablet 10 mg PO DAILY PRN (Reason: allergy symptoms) acetaminophen 325 mg tablet 325 mg PO ONCE PRN (Reason: fever or pain) levothyroxine 50 mcg tablet 50 mcg PO DAILY Eliquis 5 mg tablet 5 mg PO BID Qty: 60 11RF metoprolol tartrate 50 mg tablet 25 mg PO BID Qty: 90 3RF Primary Care Provider: Sebastian Teixeira Referrals: Sebastian Teixeira MD [Primary Care Provider] - Juan Manuel Abebe MD [Med Staff - Active Staff] - Activity Restrictions/Additional Instructions: Please increase your metoprolol to 50 mg (1 entire tablet) twice a day. Call the cardiology office later this afternoon to set an appointment for close follow- up. Let them know you are seen in the ER and Dr. Abebe wanted you seen soon. Print Language: Cymraes Disposition Disposition: Home, Self Care What to do if you have Problems For any increased pain, shortness of breath, bleeding, nausea or vomiting, chestpain, or any unexpected problems, contact your Primary Care Provider. Call [facility] ([phone]) or report to the closest Emergency Room. Call 911 if necessary. 10/11/24 0711 <Electronically signed by Brittayn Jimenez DO> Cosigner Signature (if applicable): CC: Dr. Sebastian Teixeira MD ~ Signed [facility] Work Phone: Evaluation note* Diagnosis Routine physical examination- Primary Routine general medical examination at a health care facility Hypothyroidism, acquired Unspecified hypothyroidism Screening for hyperlipidemia Screening for lipoid disorders Paroxysmal atrial fibrillation (HCC) Atrial fibrillation Post-nasal drainage Unspecified sinusitis (chronic) documented in this encounter [facility] noteNo assessment information availableWChildren's Hospital for [facility] Work Phone: evaluation note* Diagnosis Eustachian tube dysfunction, bilateral- Primary documented in this encounter [facility] note* Diagnosis Paroxysmal atrial fibrillation (HCC)- Primary Atrial fibrillation Hypothyroidism, acquired Unspecified hypothyroidism Osteopenia, senile Disorder of bone and cartilage, unspecified Asymptomatic postmenopausal status [facility]* Diagnosis Injury of toe on left foot, initial encounter- Primary documented in this encounter [facility] note* Diagnosis Onset Date Resolution Status PAF (paroxysmal atrial fibrillation) chronic [facility] Work Phone: evaluation note* Diagnosis Onset Date Resolution Status Viral illness acute [facility] Work Phone: evaluation note* Diagnosis Hypothyroidism, acquired- Primary Unspecified hypothyroidism Depression screening Screening for depression Impacted cerumen of right ear Impacted cerumen Bilateral impacted cerumen Impacted cerumen Paroxysmal atrial fibrillation (HCC) Atrial fibrillation [facility] encounter [facility]* Diagnosis Injury of toe on left foot, initial encounter [facility]* Diagnosis Paroxysmal atrial fibrillation (HCC)- Primary Atrial fibrillation Hypothyroidism, acquired Unspecified hypothyroidism Hypokalemia Hypopotassemia documented in this encounter [facility]* Diagnosis Paroxysmal atrial fibrillation (HCC)- Primary Atrial fibrillation documented in [facility] encounter [facility]* Diagnosis Paroxysmal atrial fibrillation (HCC)- Primary Atrial fibrillation Hypothyroidism, acquired Unspecified hypothyroidism documented in this encounter [facility]* Diagnosis Acute right-sided low back pain without sciatica- Primary Numbness and tingling sensation of skin Disturbance of skin sensation [facility] Additional Instructions Please increase your metoprolol to 50 mg (1 entire tablet) twice a day. Call the cardiology office later this afternoon to set an appointment for close follow-up. Let them know you are seen in the ER and Dr. Abebe wanted you seen soon.[facility] Work Phone: Hospital Discharge instructions Additional Instructions While you are in atrial fibrillation you may wish to increase your metoprolol to 75 mg twice a day. The stamp on your new prescription pills which reads C 74 is metoprolol 50 mg. Please continue your Eliquis. 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 molded goods evaluation for possible ablationWooOhio Valley [facility] Work Phone: Reason for referral (narrative)* Diagnostic Procedure Only (Urgent) - Closed Specialty Diagnoses / Procedures Referred By Seth sofia Referred To Contact XR IMAGING Diagnoses Injury of toe on left foot, initial encounter Procedures XR FOOT GENERAL 3V AP/LAT/OBL LEFT RADEX FOOT COMPLETE MINIMUM 3 VIEWS MargaritalogConnie neely APRN.CNP [address] [place] [address] Xr Imaging Referral ID Status Reason Start Date Expiration Date V isits Requested Visits Authorized [id number] Closed Auto-Generate d Referral 01/04/2023 02/03/2024 1 1 [facility] for referral (narrative)* Diagnostic Procedure Only (Urgent) - Closed Specialty Diagnoses / Procedures Referred By Seth t Referred To Contact XR IMAGING Diagnoses Injury of toe on left foot, initial encounter Procedures XR FOOT GENERAL 3V AP/LAT/OBL LEFT RADEX FOOT COMPLETE MINIMUM 3 VIEWS MargaritalogConnie neely APRN.CNP [address] [place] [address] [place] [address] Referral ID Status Reason Start Date Expiration Date V isits Requested Visits Authorized [id number] Closed Auto-Generate d Referral 01/04/2023 02/03/2024 1 [facility]No reason for referral information availableWChildren's [facility] for [facility] Work Phone: Reason for visit Narrative* Diagnostic Procedure Only (Urgent) - Closed Specialty Diagnoses / Procedures Referred By Contac t Referred To Contact XR IMAGING Diagnoses Injury of toe on left foot, initial encounter Procedures XR TOE AP/LAT/OBL LEFT RADEX TOE MINIMUM 2 VIEWS Podlogar, HERMINIO Rosales [address] [place] [address] [place] [address] Referral ID Status Reason Start Date Expiration Date V isits Requested Visits Authorized [id number] Closed Auto-Generate d Referral 01/04/2023 02/03/2024 1 1 [facility] Family History No Family History Records Found Relationship Condition Age at Onset Recorded Date/T randall mother Cardiac disease Unknown Paroxysmal atrial fibrillation Unknown father Malignant neoplasm Unknown sister Cardiac disease Unknown Chief Complaint and Reason for Visit Chief Complaint 1 y fu PREV PFM PT E-ORDER Reason for Visit PAF (paroxysmal atri al fibrillation) Chief Complaint CONGESTION palpitatins Reason for Visit Viral illness Chief Complaint Admit Date PALPIATIONS August 05, 2024 2: 48am S/P 08/05 [facility] ER August 22, 2024 8 :21am palpitations October 11, 2024 3:4 0am Reason for Visit Admit Date PAF (paroxysmal atrial fibrillation) [facility] 2024 8:21am Chief Complaint Admit Date palpitations October 11, 2024 3:4 0am S/P [facility] 10/11October 17, 2024 8:5 3am Amb Documentation November 22, 2024 3:0 5pm Hypotension November 22, 2024 3:2 0pm INT LAB ORDERS November 22, 2024 4:1 1pm PALPITATIONS, PAF November 30, 2024 6:11am palpitations January 03, 2025 7:29a m Reason for Visit Admit Date PAF (paroxysmal atrial fibrillation) Mar 2024 8:53am PAF (paroxysmal atrial fibrillation) Apr ut 2024 3:20pm Chief Complaint Admit Date palpitations October 11, 2024 3:4 0am S/P [facility] 10/11October 17, 2024 8:5 3am Amb Documentation November 22, 2024 3:0 5pm Hypotension November 22, 2024 3:2 0pm INT LAB ORDERS November 22, 2024 4:1 1pm PALPITATIONS, PAF November 30, 2024 6:11am palpitations January 03, 2025 7:29a m 1 Y FU January 04, 2025 12:54 pm Reason for Visit Admit Date PAF (paroxysmal atrial fibrillation) Mar ch 2024 8:53am PAF (paroxysmal atrial fibrillation) Apr 2024 3:20pm PAF (paroxysmal atrial fibrillation) Kelvin 2024 12:54pm Advance Directives No Advanced Directives Records Found Advance Directive Response Recorded Date/ Time Living Will Yes February 14, 2023 9:14am Power of Direct Mail Clerk Yes February 14 9:14am Advance Directive Response Recorded Date/ Time Name of Medical Power of Direct Mail Clerk mani Byrd July 23, 2023 3:17am Living Will Yes July 23, 2 023 3:17am Power of Direct Mail Clerk Yes July 23, 2023 3:17am Advance Directive Response Recorded Date/ Time Living Will Yes October 11, 2024 3:46am Power of Direct Mail Clerk Yes October 11 3:46am Name of Medical Power of Direct Mail Clerk Pt unaware October 11, 2024 3:46am Living Will Yes August 05 3:53am Power of Direct Mail Clerk Yes August 05, 2 025 3:53am Name of Medical Power of Direct Mail Clerk SON--VIRY ROOT August 05, 2024 3:53am Advance Directive Response Recorded Date/ Time Living Will Yes October 11, 2024 3:46am Do you have a Healthcare Power of Direct Mail Clerk? Yes October 11, 2024 3:46am Name of Medical Power of Direct Mail Clerk Pt unaware October 11, 2024 3:46am Do you have a Healthcare Power of Direct Mail Clerk? Yes January 03, 2025 7:38am Name of Medical Power of Direct Mail Clerk mani January 03, 2025 7:38am Advance Directive Response Recorded Date/ Time Living Will Yes July 23, 2 023 4:17am Do you have a Healthcare Power of Direct Mail Clerk? Yes July 23, 2023 4:17am Living Will Yes October 11, 2024 3:46am Do you have a Healthcare Power of Direct Mail Clerk? Yes October 11, 2024 3:46am Name of Medical Power of Direct Mail Clerk Pt unaware October 11, 2024 3:46am Do you have a Healthcare Power of Direct Mail Clerk? Yes January 03, 2025 7:38am Name of Medical Power of Direct Mail Clerk son January 03, 2025 7:38am Summary Purpose Additional Source Comments Source Comments (unrecognize d section and content) In the event this informatio n is protected by the Federal Confidentiality of Alcohol and Drug Abuse Patient Records regulations: The Federal rules restrict any use of the information to criminally investigate or prosecute any alcohol or drug abuse patient.[facility] the event this information is protected by the Federal Confidentiality of Alcohol and Drug Abuse Patient Records regulations: The Federal rules restrict any use of the information to criminally investigate or prosecute any alcohol or drug abuse patient.[facility] CenterIn the event this information is protected by the Federal Confidentiality of Alcohol and Drug Abuse Patient Records regulations: The Federal rules restrict any use of the information to criminally investigate or prosecute any alcohol or drug abuse patient.[facility] CenterIn the event this information is protected by the Federal Confidentiality of Alcohol and Drug Abuse Patient Records regulations: The Federal rules restrict any use of the information to criminally investigate or prosecute any alcohol or drug abuse patient.[facility] Center[facility] the event this information is protected by the Federal Confidentiality of Alcohol and Drug Abuse Patient Records regulations: The Federal rules restrict any use of the information to criminally investigate or prosecute any alcohol or drug abuse patient.[facility] Center[facility] the event this information is protected by the Federal Confidentiality of Alcohol and Drug Abuse Patient Records regulations: The Federal rules restrict any use of the information to criminally investigate or prosecute any alcohol or drug abuse patient.[facility] Center[facility] the event this information is protected by the Federal Confidentiality of Alcohol and Drug Abuse Patient Records regulations: The Federal rules restrict any use of the information to criminally investigate or prosecute any alcohol or drug abuse patient.[facility] Center[facility] the event this information is protected by the Federal Confidentiality of Alcohol and Drug Abuse Patient Records regulations: The Federal rules restrict any use of the information to criminally investigate or prosecute any alcohol or drug abuse patient.[facility] Center[facility] the event this information is protected by the Federal Confidentiality of Alcohol and Drug Abuse Patient Records regulations: The Federal rules restrict any use of the information to criminally investigate or prosecute any alcohol or drug abuse patient.[facility] CenterIn the event this information is protected by the Federal Confidentiality of Alcohol and Drug Abuse Patient Records regulations: The Federal rules restrict any use of the information to criminally investigate or prosecute any alcohol or drug abuse patient.[facility] CenterIn the event this information is protected by the Federal Confidentiality of Alcohol and Drug Abuse Patient Records regulations: The Federal rules restrict any use of the information to criminally investigate or prosecute any alcohol or drug abuse patient.[facility] Center[facility] the event this information is protected by the Federal Confidentiality of Alcohol and Drug Abuse Patient Records regulations: The Federal rules restrict any use of the information to criminally investigate or prosecute any alcohol or drug abuse patient.[facility] CenterIn the event this information is protected by the Federal Confidentiality of Alcohol and Drug Abuse Patient Records regulations: The Federal rules restrict any use of the information to criminally investigate or prosecute any alcohol or drug abuse patient.[facility] CenterIn the event this information is protected by the Federal Confidentiality of Alcohol and Drug Abuse Patient Records regulations: The Federal rules restrict any use of the information to criminally investigate or prosecute any alcohol or drug abuse patient.[facility] CenterIn the event this information is protected by the Federal Confidentiality of Alcohol and Drug Abuse Patient Records regulations: The Federal rules restrict any use of the information to criminally investigate or prosecute any alcohol or drug abuse patient.[facility] CenterIn the event this information is protected by the Federal Confidentiality of Alcohol and Drug Abuse Patient Records regulations: The Federal rules restrict any use of the information to criminally investigate or prosecute any alcohol or drug abuse patient.[facility] CenterIn the event this information is protected by the Federal Confidentiality of Alcohol and Drug Abuse Patient Records regulations: The Federal rules restrict any use of the information to criminally investigate or prosecute any alcohol or drug abuse patient.[facility] CenterIn the event this information is protected by the Federal Confidentiality of Alcohol and Drug Abuse Patient Records regulations: The Federal rules restrict any use of the information to criminally investigate or prosecute any alcohol or drug abuse patient.[facility] CenterIn the event this information is protected by the Federal Confidentiality of Alcohol and Drug Abuse Patient Records regulations: The Federal rules restrict any use of the information to criminally investigate or prosecute any alcohol or drug abuse patient.[facility] CenterIn the event this information is protected by the Federal Confidentiality of Alcohol and Drug Abuse Patient Records regulations: The Federal rules restrict any use of the information to criminally investigate or prosecute any alcohol or drug abuse patient.[facility] Reason for Visit (unrecogniz ed section and content) Reason Comments Physical Reason Onset Date Comments Refill Request 04/12/2022 Reason Comments Ear Problem Left ear pressure an d feeling of being wet x1 week; discomfort Reason Comments Follow Up Reason Comments Orders Reason Comments Results Reason Comments Trauma To left foot, hit fo ot on chair on 01/02. Painful and bruised. Reason Comments Results Left foot x-ray Reason Onset Date Comments Refill Request 03/09/2023 Reason Comments Follow Up Routine Reason Onset Date Comments Refill Request 12/21/2023 Reason Comments Patient Question Reason Comments ER F/U [facility] 08/05/24 Reason Comments ER follow up appointment Reason Onset Date Comments Results 10/09/2024 Reason Comments ER F/U Reason Comments Follow Up 3 month Reason Comments Hip Pain Care Teams (unrecognized sec tion and content) Suction Plate Roller Hand Relationship Specialty Start Date End Date Heri Teixeira MD [address] [place] [address] PCP - General Family Practice 10/31/20 Suction Plate Roller Hand Relationship Specialty Start Date End Date Heri Teixeira MD [address] [place] [address] PCP - General Family Practice 10/31/20 Suction Plate Roller Hand Relationship Specialty Start Date End Date Heri Teixeira MD [address] [place] [address] PCP - General Family Medicine 10/31/20 Suction Plate Roller Hand Relationship Specialty Start Date End Date Heri Teixeira MD [address] [place] [address] PCP - General Family Medicine 10/31/20 Suction Plate Roller Hand Relationship Specialty Start Date End Date Heri Teixeira MD [address] [place] [address] PCP - General Family Medicine 10/31/20 Team Status: Active Member Role Status Dates Dr. Nichole Fisher DO Family Provider Active Dr. Adolph Omer MD Primary Care Provider Active Team Status: Inactive Member Role Status Dates Dr. Adolph Omer MD Primary Care Provider, Referri ng Provider Active Romy PEREIRA PA Attending Provider Active Team Status: Inactive Member Role Status Dates Dr. Adolph Omer MD Primary Care Provider Active Romy PEREIRA PA Attending Provider, Referr ing Provider Active Suction Plate Roller Hand Relationship Specialty Start Date End Date Heri Teixeira MD [address] [place] [address] PCP - General Family Medicine 10/31/20 Team Status: Inactive Member Role Status Dates Dr. Adolph Omer MD Primary Care Provider Active Dr. Josemanuel Barbosa , Emergency Provider Active Suction Plate Roller Hand Relationship Specialty Start Date End Date Heri Teixeira MD [address] [place] [address] PCP - General Family Medicine 10/31/20 Suction Plate Roller Hand Relationship Specialty Start Date End Date Heri Teixeira MD [address] [place] [address] PCP - General Family Medicine 10/31/20 Suction Plate Roller Hand Relationship Specialty Start Date End Date Heri Teixeira MD [address] [place] [address] PCP - General Family Medicine 10/31/20 Suction Plate Roller Hand Relationship Specialty Start Date End Date Heri Teixeira MD [address] [place] [address] PCP - General Family Medicine 10/31/20 Podlogar, LUIZ RosalesN.HSE COORDINATOR [address] [place] [address] [employer] [facility] 07/07/24 Suction Plate Roller Hand Relationship Specialty Start Date End Date Heri Teixeira MD [address] [place] [address] PCP - General Family Medicine 10/31/20 Podlogar, Connie, SLICE PLUG CUTTER OPERATOR.HSE COORDINATOR [address] [place] [address] [employer] [facility] 07/07/24 Suction Plate Roller Hand Relationship Specialty Start Date End Date Heri Teixeira MD [address] [place] [address] PCP - General Family Medicine 10/31/20 Podlogar, Connie, SLICE PLUG CUTTER OPERATOR.HSE COORDINATOR [address] [place] [address] [employer] [facility] 07/07/24 Suction Plate Roller Hand Relationship Specialty Start Date End Date Heri Teixeira MD [address] [place], [place] [address] PCP - General Family Medicine 10/31/20 PodlogarConnie APRN.HSE COORDINATOR [address] [place], [place] [address] [facility] Suction Plate Roller Hand Relationship Specialty Start Date End Date Heri Teixeira MD [address] [place], [place] [address] PCP - General [facility] Medicine 10/31/20 PodlogarConnie APRN.HSE COORDINATOR [address] [place], [place] [address] [facility]24 Jonah Valiente APRN.HSE COORDINATOR [address] [place], [place] [id number] [facility] 10/12/24 Team Status: Active Member Role Status Dates Dr. Sebastian Teixeira MD Primary Care Provider Acti ve Team Status: Inactive Member Role Status Dates Dr. Adolph Omer MD Primary Care Provider Active Start: August 05, 2024 End: August 05, 2024 Dr. Tai Clark DO Attending Provider Active Start: August 05, 2024 End: August 05, 2024 Dr. Tai Clark DO Emergency Provider Active Start: August 05, 2024 End: August 05, 2024 Team Status: Inactive Member Role Status Dates Dr. Adolph Omer MD Referring Provider Active Start: August 22, 2024 End: August 22, 2024 Romy Briscoe PA, PA Attending Provider Active Start: August 22, 2024 End: August 22, 2024 Dr. Sebastian Teixeira MD Primary Care Provider Acti ve Start: August 22, 2024 End: August 22, 2024 Team Status: Inactive Member Role Status Dates Dr. Sebastian Teixeira MD Primary Care Provider Acti ve Start: October 11, 2024 End: October 11, 2024 Dr. Brittany Jimenez DO Emergency Provider Active Start: October 11, 2024 End: October 11, 2024 Suction Plate Roller Hand Relationship Specialty Start Date End Date Heri Teixeira MD [address] [place] [address] PCP - General Family Medicine 10/31/20 PodConnie murphy APRN.HSE COORDINATOR [address] [place] [address] Colors Custodian [facility] 07/07/24 Jonah Valiente APRN.HSE COORDINATOR [address] [place] [address] [facility] 10/22/24 Team Status: Inactive Member Role Status Dates Dr. Sebastian Teixeira MD Primary Care Provider Acti ve Start: October 11, 2024 End: October 11, 2024 Dr. Brittany Jimenez DO Attending Provider Active Start: October 11, 2024 End: October 11, 2024 Dr. Brittany Jimenez DO Emergency Provider Active Start: October 11, 2024 End: October 11, 2024 Team Status: Inactive Member Role Status Dates Dr. Sebastian Teixeira MD Primary Care Provider Acti ve Start: October 17, 2024 End: October 17, 2024 Dr. Sebastian Teixeira MD Referring Provider Active Start: October 17, 2024 End: October 17, 2024 RANDALL Pringle Attending Provider Active St art: October 17, 2024 End: October 17, 2024 Team Status: Active Member Role Status Dates Dr. Sebastian Teixeira MD Primary Care Provider Acti ve Start: November 22, 2024 Bijal Amor Attending Provider Active Start: November 22, 2024 Team Status: Inactive Member Role Status Dates Dr. Sebastian Teixeira MD Primary Care Provider Acti ve Start: November 22, 2024 End: November 22, 2024 Dr. Sebastian Teixeira MD Referring Provider Active Start: November 22, 2024 End: November 22, 2024 Rex Edwards HIGH SCHOOL GUIDANCE COUNSELOR, HIGH SCHOOL GUIDANCE COUNSELOR-C Attending Provider Active S tart: November 22, 2024 End: November 22, 2024 Team Status: Inactive Member Role Status Dates Dr. Sebastian Teixeira MD Primary Care Provider Acti ve Start: November 22, 2024 End: November 22, 2024 Rex Edwards HIGH SCHOOL GUIDANCE COUNSELOR, HIGH SCHOOL GUIDANCE COUNSELOR-C Attending Provider Active S tart: November 22, 2024 End: November 22, 2024 Rex Edwards HIGH SCHOOL GUIDANCE COUNSELOR, HIGH SCHOOL GUIDANCE COUNSELOR-C Referring Provider Active S tart: November 22, 2024 End: November 22, 2024 Team Status: Active Member Role Status Dates Dr. Sebastian Teixeira MD Primary Care Provider Acti ve Start: November 30, 2024 Rex Edwards HIGH SCHOOL GUIDANCE COUNSELOR, HIGH SCHOOL GUIDANCE COUNSELOR-C Attending Provider Active S tart: November 30, 2024 Rex Edwards HIGH SCHOOL GUIDANCE COUNSELOR, HIGH SCHOOL GUIDANCE COUNSELOR-C Referring Provider Active S tart: November 30, 2024 Team Status: Inactive Member Role Status Dates Dr. Sebastian Teixeira MD Primary Care Provider Acti ve Start: January 03, 2025 End: January 03, 2025 Dr. Shiva Sims DO Emergency Provider Active Start: January 03, 2025 End: January 03, 2025 Team Status: Inactive Member Role Status Dates Dr. Adolph Omer MD Referring Provider Active Start: January 04, 2025 End: January 04, 2025 Jolie Sorto HIGH SCHOOL GUIDANCE COUNSELOR, HIGH SCHOOL GUIDANCE COUNSELOR-C Attending Provider Active Start: January 04, 2025 End: January 04, 2025 Dr. Sebastian Teixeira MD Primary Care Provider Acti ve Start: January 04, 2025 End: January 04, 2025 Suction Plate Roller Hand Relationship Specialty Start Date End Date Heri Teixeira MD [address] [place] [address] PCP - General Family Medicine 10/31/20 PodlogConnie neely APRN.HSE COORDINATOR [address] [place] [address] [employer] [facility] 07/07/24 Jonah Valiente APRN.HSE COORDINATOR [address] [place] [address] [employer] [facility] 01/10/25 Goals (unrecognized section and content) Goals may be documented in a n alternate sectionGoals may be documented in an alternate sectionGoals may be documented in an alternate sectionGoals may be documented in an alternate sectionGoals may be documented in an alternate sectionGoals may be documented in an alternate section INFORMATION SOURCE (unrecogn ized section and content) DATE CREATED AUTHOR 11/17/2023 Kimberley Santana Bernabe trini DATE CREATED AUTHOR AUTHOR'S ORGANIZ ATION 11/17/2023 [facility] [employer] DATE CREATED AUTHOR AUTHOR'S ORGANIZ ATION 01/17/2025 [facility] DATE CREATED AUTHOR AUTHOR'S ORGANIZ ATION 01/20/2025 [facility] FOR RECORDS PERTAINING TO PATIENTS WHO ARE OR HAVE BEEN ENROLLED IN A CHEMICAL DEPENDENCY/SUBSTANCEABUSE PROGRAM, SOME INFORMATION MAY BE OMITTED. This clinical summary was aggregated from multiple sources. Caution should be exercised in using it in the provision of clinical care. This summary normalizes information from multiple sources, and as a consequence, information in this document may materially change the coding, format and clinical context of patient data. In addition, data may be omitted in some cases. CLINICAL DECISIONS SHOULD BE BASED ON THE PRIMARY CLINICAL RECORDS. [facility], [facility]. provides no warranty or guarantee of the accuracy or completeness of information in this document.
[2025-01-26 03:06] LABS: Anion Gap 12 (5-15); BUN 13 mg/dL (4-19); BUN/Creat Ratio 16.3 RATIO (10-20); Calcium,Total 9.7 mg/dL (7.6-11.0); Carbon Dioxide 26.5 mmol/L (21.0-32.0); Chloride 101 mmol/L (98-108); Creatinine, Serum 0.79 mg/dL (0.70-1.20); EST Glomerular Filtration Rate 74 (>60); Estimated Creatinine Clearance 40.21 ml/min (50-250); Glucose 116 mg/dL (70-99); Potassium 3.8 mmol/L (3.3-5.1); Sodium Level 139 mmol/L (133-145); Troponin T High Sensitivity < 6 ng/L (<=14)
[2025-01-26 04:29] LABS: Troponin T High Sens 2 HR 7 ng/L (<=14)
== END 2025-01-26 04:55 | disposition home or self-care (01) ==
PROVIDERS: Emergency Provider Emergency Medicine; PCP Family Medicine; Visit Provider Emergency Medicine
DX: R00.2 Palpitations (principal); I48.91 Unspecified atrial fibrillation; Z79.01 Long term (current) use of anticoagulants; Z79.899 Other long term (current) drug therapy
CPT/HCPCS: 71045; 80048; 84439; 84443; 84484; 85025; 93005; 99284; A4216

== ENCOUNTER → 2025-02-13 | Outpatient (CLI) | payer MEDICARE, SELFPAY ==
--- NOTE | 2025-02-13 09:35 | ECHOD_ITS ---
Reason For Study Reason For Study: ATRIAL FIBRILLATION Procedure This was a 2D Doppler, Color Flow transthoracic echocardiogram. Exam performed in department. Left Ventricle Normal LV size. The estimated ejection fraction is 60 %. Normal diastololic function. No regional wall motion abnormalities noted. Right Ventricle Normal RV size. Normal systolic function. Atria There is mild biatrial dilatation. Mitral Valve The mitral valve is structurally normal. No prolapse or stenosis seen. Mild (1+) mitral valve insufficiency. Tricuspid Valve Mild anterior leaflet thickening. Pulmonary artery systolic pressure is 41 mmHg. Moderate (2+) tricuspid valve insufficiency. Aortic Valve Trisinus/trileaflet aortic valve. Mild focal aortic valve thickening. There is no aortic stenosis. Mild-Moderate (1-2+) aortic valve insufficiency. Pulmonic Valve Normal pulmonic valve. Trivial pulmonic valve insufficiency. Great Vessels Normal sized aortic root. Pericardium/Pleural No pericardial effusion. MMode/2D Measurements & Calculations LVIDd: 4.2 cm IVSd: 0.97 cm LVOT diam: 1.9 cm LVIDs: 2.0 cm LVPWd: 0.80 cm LVOT area: 2.8 cm2 RVDd: 3.5 cm FS: 52.8 % asc Aorta Diam: 3.1 cm LAV(MOD-bp): 35.4 ml LVAd ap4: 16.2 cm2 LAV(MOD-bp) Indexed: 23.8 ml/m2 LVLd ap4: 6.1 cm LAV(MOD-sp2): 45.1 ml EDV(MOD-sp4): 35.6 ml LAV(MOD-sp4): 27.2 ml EDV(sp4-el): 36.6 ml LVAs ap4: 8.2 cm2 LVLs ap4: 5.2 cm ESV(MOD-sp4): 10.9 ml ESV(sp4-el): 10.9 ml EF(MOD-sp4): 69.3 % EF(sp4-el): 70.2 % LVAd ap2: 14.6 cm2 SV(MOD-sp4): 24.7 ml SV(MOD-sp2): 21.4 ml LVLd ap2: 5.7 cm SI(MOD-sp4): 16.6 ml/m2 SI(MOD-sp2): 14.4 ml/m2 EDV(MOD-sp2): 32.0 ml EDV(sp2-el): 31.9 ml LVAs ap2: 7.7 cm2 LVLs ap2: 4.9 cm ESV(MOD-sp2): 10.6 ml ESV(sp2-el): 10.4 ml EF(MOD-sp2): 66.9 % SV(sp4-el): 25.7 ml Ao sinus diam: 3.[address] Junction: 2.6 cm LA dimension(2D): 2.9 cm LA A4 area: 12.9 cm2 RA A4 area: 14.0 cm2 TAPSE: 2.3 cm Time Measurements MV dec time: 0.20 sec Doppler Measurements & Calculations MV E max alex: 65.2 cm/sec Lat Peak E' Alex: 9.1 cm/sec Med Peak E' Alex: 11.3 cm/sec MV A max alex: 61.7 cm/sec E/E' lat: 7.2 E/E' med: 5.8 MV E/A: 1.1 MV dec slope: 325.4 cm/sec2 Ao V2 max: 127.1 cm/sec AI max alex: 409.9 cm/sec Ao max P.5 mmHg AI max P.2 mmHg Ao V2 mean: 90.9 cm/sec AI dec slope: 232.4 cm/sec2 Ao mean P.5 mmHg AI P1/2t: 516.7 msec Ao V2 VTI: 27.8 cm AV (velocity ratio): 0.77 LEANDRA(I,D): 2.1 cm2 LEANDRA(V,D): 1.9 cm2 LV V1 max: 89.4 cm/sec SV(LVOT): 59.3 ml PA V2 max: 55.0 cm/sec LV V1 max P.2 mmHg LV V1 mean P.6 mmHg LV V1 mean: 58.4 cm/sec LV V1 VTI: 21.5 cm TR max alex: 253.6 cm/sec TR max P.7 mmHg ECHO/Echo Complete Interpretation Summary The estimated ejection fraction is 60 %. There is mild biatrial dilatation. Mild (1+) mitral valve insufficiency. Moderate (2+) tricuspid valve insufficiency. Pulmonary artery systolic pressure is 41 mmHg. Mild-Moderate (1-2+) aortic valve insufficiency. Ordering Physician: Jolie Sorto Referring Physician: Jolie Sorto Performed By: Lucretia Downs RDCS
--- OUTSIDE RECORDS SUMMARY | 2025-02-13 19:11 | XMS RPT_ITS | CCD ---
Author Organization [facility] CliniSynv Care Team Providers Care Patient Care Representative Name Role Phone Maharaj ANIMAL SHELTER WORKER Pauline E Unavailable Unavailable Maharaj BABAK Pauline [...] Heri Teixeira MD Primary Care Provider Podlogar MUD TANK OPERATOR.ENVIRONMENTAL ENGINEERING TECHNICIAN, Ocnnie Unavailable Knoble MUD TANK OPERATOR.ENVIRONMENTAL ENGINEERING TECHNICIAN, Jonah Unavailable Dr. Adolph Omer MD Primary Care Provider Dr. Tai Clark DO Attending Provider Dr. Tai Clark DO Emergency Provider Dr. Adolph Omer MD Referring Provider Romy Cespedes Attending Provider Dr. Sebastian Teixeira MD Primary Care Provider Tony AMADOR, Dr. Soto Emergency Provider [phone] Faith MUD TANK OPERATOR.VENITA, Jonah Unavailable Puneet GRACIA, Dr. Cortes Primary Care Provider Dr. Brittany Jimenez DO Attending Provider Puneet GRACIA, Dr. Cortes Referring Provider [phone] Lalo dNiaye Attending Provider Bijal Amor Attending Provider Unavailable Roof CLOTH SHADER-C, Rex Arambula Attending Provider Grace CLOTH SHADER-C, Rex Arambula Referring Provider Dr. Shiva Sims DO Emergency Provider Kan GRACIA, Dr. Farfan Referring Provider Macario CLOTH SHADER-CJolie Attending Provider Faith MUD TANK OPERATOR.ENVIRONMENTAL ENGINEERING TECHNICIAN, Jonah Unavailable Dr. Juan Manuel Abebe MD Attending Provider Lalo Ndiaye Referring Provider Dr. Shiva Sims DO Attending Provider [phone] Phil Miller DO Emergency Provider HERI TEIXEIRA Primary Care Unavailab le SELF Referring Unavailable HERI TEIXEIRA Attending Unavailab le HERI TEIXEIRA Primary Care Unavailab HERI Nguyen Attending Unavailab le HERI TEIXEIRA Primary Care Unavailab JONAH Melgoza Attending Unavailable CATHY TEIXEIRAER B Referring Unavailab le BURSLEY, CHRISTOPHER B Primary Care Unavailab le PUNEET, HERI B Referring Unavailab le PUNEET, HERI B Primary Care Unavailab le PUNEET, HERI B Primary Care Unavailab le KATHYALEY, HERI B Attending Unavailab le Kathyaley, Sebastian Primary Care Unavailable Shiva Sims Attending Unavailable Sebastian Teixeira Primary Care Unavailable Roof CLOTH SHADER, Rex Arambula Attending Unavailable Roof CLOTH SHADER, Rex Arambula Referring Unavailable Bursley, Sebastian Primary Care Unavailable Roof CLOTH SHADER, Rex Arambula Attending Unavailable Grace CLOTH SHADER, Rex Arambula Referring Unavailable Bursley, Sebastian Primary Care Unavailable Lalo Pichardo Referring Unavailable Juan Manuel Abebe Attending Unavailable Macario LOUIS, Jolie Attending Unavailable Bursley, Sebastian Primary Care Unavailable Kan, Adolph Referring Unavailable Romy Cespedes Attending Unavail able Kan, Adolph Primary Care Unavailable Kan, Adolph Referring Unavailable Romy Cespedes Attending Unavail able Bursley, Sebastian Primary Care Unavailable Kan, Adolph Referring Unavailable Kan, Adolph Primary Care Unavailable Juan Manuel Abebe Attending Unavailable Juan Manuel Abebe Referring Unavailable Tai Clark Attending Unavailable Kan, Adolph Primary Care Unavailable Bursley, Sebastian Primary Care Unavailable Brittany Jimenez Attending Unavailable Bursley, Sebastian Primary Care Unavailable Bursley, Sebastian Referring Unavailable DemLalo shelton Attending Unavailable Bursley, Sebastian Primary Care Unavailable Bursley, Sebastian Referring Unavailable Grace LOUIS, Rex Arambula Attending Unavailable Bijal Amor Attending Unavailable Bursley, Sebastian Primary Care Unavailable Macario LOUIS, Jolie Attending Unavailable Bursley, Sebastian Referring Unavailable Bursley, Sebastian Primary Care Unavailable Bursley, Sebastian Primary Care Unavailable Phil Miller Attending Unavailable Allergies Allergy Classification Reported Allergen(s) Allergy Type Date of Onset Reaction(s) Facility (2 sources) oxytetracycline drug allergy 12-31-19 16 hands peeled [facility] Work Phone: (2 sources) penicillin v drug allergy 11-11-19 16 Rash [facility] Work Phone: (4 sources) Penicillins; Translations: [PENICILLINS] Drug Allergy 01-05-20 06 Intolerance [facility] (9 sources) teramycin [Other] Propensity to adverse reactions 01-05-20 06 Rash [facility] (15 sources) Penicillins Drug Allergy 01-05-20 06 Intolerance [facility] (20 sources) Oxytetracycline; Translations: [OXYTETRACYCLINE] Drug Allergy 02-13-20 22 Intolerance [facility] (8 sources) Penicillins Allergy to substance 02-13-20 22 Unknown [facility] (3 sources) Oxytetracycline Drug Allergy 11-06-19 24 [facility] (3 sources) Penicillins Drug allergy (disorder) 11-06-19 24 [facility] (3 sources) Penicillins Drug Allergy 01-05-20 06 Intolerance [facility] Medications Current Medications Medication Drug Class(es) Dates Sig (Normalized) Sig (Original) acetaminophen 325 mg oral tablet (8 sources) Start: 02-12-2022 take 1 tablet by [...] 1 tablet by mouth twice daily Apixaban (Eliquis) 5 mg tablet Discontinued 5 mg PO TWICE A DAY 60 November 19, 2024 9:50am November 26, 2024 8:43am Comment on above: Take 1 tablet by sanya twice daily. Xyzqhlj-Khcvrliry-Ak tamin D2 500-50-100 mg-mg-unit ORAL Chew (20 sources) Start: take 1 tablet by mouth once daily Wtaqmwi-Nigngmtot-R itamin D2 500-50-100 mg-mg-unit ORAL Chew Take one(1) tablet two(2) times daily. 0 05/15/2007 Active Comment on above: Take one(1) tablet t wo(2) times daily. latanoprost 0.05 mg/ml ophthalmic solution (8 sources) Prostaglandin Analog Start: 1 Latanoprost 0.005 % drops Active 1 NMA OPHTHALMIC AT BEDTIME November 06, 2020 12:00am metoprolol tartrate 50 mg oral tablet (20 sources) beta-Adrenergic Ginny Start: End: 5 take 1 tablet by mouth twice daily [...] Discontinued 25 mg PO TWICE A DAY 90 3 July 02, 2024 2:00pm October 17, 2024 9:27am Start: 12-21-2023 End: 08-10-2024 take 1 tablet by mouth twice daily Metoprolol Tartrate 50 mg tablet Discontinued 50 mg PO TWICE A DAY 90 3 January 26, 2024 10:52am February 13, 2024 1:52pm Start: 11-28-2023 End: 01-26-2024 take 2 tablets by mouth twice daily Metoprolol Tartrate 25 mg tablet Discontinued 50 mg PO TWICE A DAY November 28, 2023 10:34am January 26, 2024 10:53am Start: 09-30-2020 End: 12-21-2023 take 1 tablet by mouth twice daily Metoprolol Tartrate 25 mg tablet Discontinued 25 mg PO TWICE A DAY 180 3 October 27, 2023 4:00pm November 28, 2023 10:35am Comment on above: Take 25 mg by mouth twice daily. multivitamin (DAILY MULTIVITAMIN) ORAL Tab (20 sources) Start: take 1 tablet by mouth once daily multivitamin (DAILY MULTIVITAMIN) ORAL Tab Take one(1) tablet daily. 0 05/15/2007 Active Comment on above: Take one(1) tablet d aily. tiZANidine 2 mg oral capsule (2 sources) Central alpha-2 Adrenergic Agonist Start: take 1 capsule by mouth every twelve hours as needed tiZANidine HCl (ZANAFLEX) 2 mg capsule Take 1 capsule by mouth two times a day as needed for muscle spasm. 60 capsule 01/14/2025 Active Completed/Discontinued Medications Medication Drug Class(es) Dates Sig (Normalized) Sig (Original) azithromycin 250 mg oral tablet (20 sources) Macrolide Antimicrobial Start: 07-13-2018 End: 05-19-2020 Azithromycin 250 mg tablet Discontinued 250 mg PO daily 12 0 July 13, 2018 1:00am May 19, 2020 12:29pm 2 tablets today, then 1 tablet daily on days 2 through 11 Start: 10-01-2017 End: 10-06-2017 Azithromycin 250 mg tablet D iscontinued 250 mg PO daily 6 5 0 October 01, 2017 1:00am October 05, 2017 1:00am October 06, 2017 1:06am Take 2 tabs once on day one then take one tablet once daily for the next 4 days. Start: 12-31-2015 End: 03-18-2017 ZITHROMAX Z-REINA 250 MG TABS take as directed on pack JERSON [id number] Christie Wilson PA-C calcium carbonate / vitamin D (4 sources) Start: 11-11-2015 End: 03-18-2017 take 1 tablet by mouth twice daily CALCIUM 500/VITAMIN D 500-125 MG-UNIT TABS One tablet by mouth twice daily CALCIUM CARBONATE-VITAMIN D [id number] Pauline Maharaj LPN Start: 11-11-2015 take 1 tablet by sanya twice daily CALCIUM 500/VITAMIN D 500-125 MG-UNIT TABS One tablet by mouth twice daily CALCIUM CARBONATE-VITAMIN D [id number] Dillon Hatfieldutzkya AMADOR fish oil (4 sources) Start: 11-11-2015 End: 03-18-2017 take 1 capsule by mouth once daily FISH OIL 1000 MG CAPS one capsule by mouth daily OMEGA-3 FATTY ACIDS [id number] Pauline Maharaj LPN Start: 11-11-2015 take 1 capsule by mo [facility] once daily FISH OIL 1000 MG CAPS one capsule by mouth daily OMEGA-3 FATTY ACIDS [id number] Dillon Chiang DO fluticasone propionate 0.05 mg/actuat metered dose nasal spray (20 sources) Corticosteroid Start: 02-12-2022 Fluticasone Pr opionate Active 1 SPRAY INTRANASAL DAILY February 11, 2022 11:00pm Start: 11-06-2021 End: 08-05-2024 Fluticasone Propionate 50 mc g/actuation spray,suspension Discontinued 1 NMA INTRANASAL DAILY as needed for allergy symptoms February 12, 2022 12:00am August 05, 2024 3:56am Comment on above: Use 2 Sprays in each nostril once daily. Rinse mouth after use. guaiFENesin 600 mg oral tablet (2 sources) Start: 03-18-2017 MUCINEX 600 MG [id number] take as directed GUAIFENESIN [id number] Pauline E Nicko LUUN loratadine 10 mg oral tablet (20 sources) Start: 02-03-2021 End: 10-17-2024 take 1 tablet by mouth once daily as needed Loratadine 10 mg tablet Discontinued 10 mg PO DAILY as needed for allergy symptoms August 12, 2023 11:27am October 17, 2024 8:57am Start: 11-11-2015 End: 03-18-2017 take 1 tablet by mouth once daily CLARITIN 10 MG TABS One tablet by mouth daily LORATADINE [id number] Dillon Jeanine Chiang DO MULTIPLE VITAMINS-MINERALS (4 sources) Start: 11-11-2015 End: 03-18-2017 take 1 tablet by mouth once daily MULTIVITAMIN ADULT TABS One tablet by mouth daily MULTIPLE VITAMINS-MINERALS [id number] Pauline Vishal Nicko HILLIARD Start: 11-11-2015 take 1 tablet by sanya th once daily MULTIVITAMIN ADULT TABS One tablet by mouth daily MULTIPLE VITAMINS-MINERALS [id number] Dillon Chiang DO predniSONE 20 mg oral tablet (6 sources) Start: 06-04-2023 End: 06-09-2023 take 2 tablets by mouth once daily Prednisone 20 mg tablet Discontinued 40 mg PO DAILY 10 June 04, 2023 12:00am June 08, 2023 1:00am June 09, 2023 1:05am Start: 06-04-2023 End: 06-09-2023 take 40 mg by mouth once daily Prednisone Discontinued 40 MG PO DAILY 05 05June 03, 2023 11:00pm June 09, 2023 12:05am sulfamethoxazole 800 mg / trimethoprim 160 mg oral tablet (20 sources) Dihydrofolate Reductase Inhibitor Antibacterial, Sulfonamide Antimicrobial Start: 05-19-2020 End: 05-26-2020 Sulfamethoxazole-Trimethopri m (Bactrim Ds) 800-160 mg tablet Discontinued 1 {tbl} PO Q12H 14 7 0 May 19, 2020 12:00am May 25, 2020 12:00am May 26, 2020 12:03am Start: 02-20-2019 End: 02-27-2019 Sulfamethoxazole-Trimethopri m (Bactrim Ds) 800-160 mg tablet Discontinued 1 {tbl} PO Q12H 14 7 0 February 20, 2019 12:00am February 26, 2019 12:00am February 27, 2019 12:07am Start: 04-07-2018 End: 04-14-2018 Sulfamethoxazole-Trimethopri m (Bactrim Ds) 800-160 mg tablet Discontinued 1 {tbl} PO Q12H 14 7 0 April 07, 2018 12:00am April 13, 2018 12:00am April 14, 2018 12:10am levothyroxine sodium 0.05 mg oral tablet (20 sources) l-Thyroxine Start: 08-22-2024 End: 10-11-2024 take 2 tablets by mouth once daily Levothyroxine 25 mcg tablet Discontinued 50 ug PO DAILY August 22, 2024 9:31am October 11, 2024 3:46am Start: 08-10-2024 End: 05-08-2025 take 1 tablet by mouth once daily Levothyroxine 50 mcg tablet Discontinued 50 ug PO DAILY October 11, 2024 12:00am October 17, 2024 8:57am Start: 09-29-2020 End: 08-22-2024 take 1 tablet by mouth once daily Levothyroxine 25 MCG tablet Discontinued 25 ug PO DAILY September 29, 2020 1:00am August 22, 2024 9:31am Start: 11-11-2015 End: 11-17-2015 take 1 tablet by mouth once daily LEVOTHYROXINE SODIUM 25 MCG TABS One tablet by mouth daily LEVOTHYROXINE SODIUM [id number] Dillon Infanteman End: 04-12-2022 take 1 capsule by mouth once daily LEVOTHYROXINE SODIUM (SYNTHROID ORAL) Take 1 capsule by mouth once daily. 25 mcgs 0 04/12/2022 Discontinued take 1 capsule by mo uth once daily LEVOTHYROXINE SODIUM (SYNTHROID ORAL) Take 1 capsule by mouth once daily. 25 mcgs 0 Active Comment on above: Take 1 capsule by mo uth once daily. 25 mcgs Take 1 tablet by sanya th once daily. 25 mcgs timolol 2.5 mg/ml ophthalmic solution (20 sources) [...] % SOLG take as directed TIMOLOL MALEATE [id number] Pauline Maharaj LPN Start: 08-08-2006 TIMOPTIC 0.5 % EYE DROPS One drop in each eye at night. 0 08/08/2006 Active Comment on above: One drop in each eye at night. B COMPLEX VITAMINS (4 sources) Start: 11-11-2015 take 1 tablet by mouth once daily VITAMIN B COMPLEX TABS One tablet by mouth daily B COMPLEX VITAMINS [id number] Dillon Chiang DO Start: 11-11-2015 End: 03-18-2017 take 1 tablet by mouth once daily VITAMIN B COMPLEX TABS One tablet by mouth daily B COMPLEX VITAMINS [id number] Pauline Maharaj LPN Problems Active Problems Problem Classification Problem Date Documented Date Episodic/Chronic Cardiac dysrhythmias (20 sources) Paroxysmal atrial fibrillation; Translations: [Paroxysmal atrial fibrillation] Onset: 02-27-2021 Chronic Cardiac dysrhythmias (11 sources) Palpitations; Translations: [Palpitations] Onset: 01-30-2025 07-23-2023 Episodic Disorders of lipid metabolism (20 sources) Hyperlipidemia; Translations: [Hyperlipidemia, unspecified] Onset: 08-08-2006 08-08-2006 Chronic Glaucoma (20 sources) Unspecified glaucoma; Translations: [Unspecified glaucoma] Onset: 08-08-2006 08-08-2006 Chronic Other aftercare (5 sources) Long-term current use of anticoagulant; Translations: [nursing home (current) use of anticoagulants] 08-13-2024 Episodic Other aftercare (4 sources) Drug therapy finding; Translations: [nursing home (current) use of anticoagulants] 01-03-2025 Episodic Other connective tissue disease (8 sources) Cramp in lower limb; Translations: [Cramp [...] sensation of skin] Onset: 01-14-2025 Episodic Other non-traumatic joint disorders (2 sources) Hip pain; Translations: [Pain in right hip] 01-25-2025 Episodic Other upper respiratory disease (2 sources) [...] pain without sciatica] 01-14-2025 Episodic Thyroid disorders (16 sources) Hypothyroidism; Translations: [Acquired hypothyroidism] Onset: 11-11-2015 11-11-2015 Chronic Unclassified (1 source) Acute right-sided low back pain without sciatica; Translations: [Acute right-sided low back pain without sciatica] Onset: 01-14-2025 Viral infection (20 sources) Verruca vulgaris; Translations: [Viral wart, unspecified] Onset: 06-06-2009 06-06-2010 Episodic Past or Other Problems Problem Classification Problem [...] Episodic Other bone disease and musculoskeletal deformities (19 sources) Senile osteopenia; Translations: [Other specified disorders [...] Onset: 11-24-2013 11-24-2013 Episodic Other skin disorders (12 sources) Disorder of skin pigmentation; Translations: [Disorder of pigmentation, unspecified] Onset: 03-11-2008 Resolved: 11-21-2013 11-21-2013 Episodic Residual codes; unclassified (20 sources) Family history of breast cancer; Translations: [Family history of malignant neoplasm of breast] Onset: 08-08-2006 08-08-2006 Episodic Varicose veins of lower extremity (2 sources) Varicose veins of lower extremity; Translations: [Asymptomatic varicose veins of unspecified lower extremity] Onset: 11-11-2015 11-11-2015 Episodic Results Test Name Value Interpretation Reference Range Facility Cardiology Visit Reporton Cardiology Visit Report [facility] [address] [place] [address] OFFICE VISIT Date of Service: 01/28/25 MR#: [id number] Acct: [id number] Name: MARIE ASHLEY Rep #: [id number] : 1940 Provider: MARAL leong Age/Sex: 84/F Location: [facility] [place] Status: Signed HPI HPI History of Present [...] 2024 and patient's hypothyroid medication was increased. Patient presented to the emergency room on 01/26/2025 with complaints of palpitations. She was noted to be in atrial fibrillation with heart rate of 104. Lab work was unremarkable. She was instructed to follow-up with her director payer. From a cardiac standpoint, the patient is doing well. She denies any palpitations, chest pain, pressure or heaviness. She denies SOB, Orthopnea, and PND. She does not have bleeding issues; no blood in urine, stool, or nosebleeds. She does acknowledge fatigue. She denies myalgias, or claudication. She does not have edema, or sudden weight gain. She denies lightheadedness, dizziness, syncopal or near syncopal episodes, and headaches. Intake Vital Signs 01/26/25 02:03 01/28/25 12:57 Height 5 ft 5 in 5 ft 5 in Weight: 105 lb BMI 17.4 BP 109/57 L Blood Pressure Location Lt brachial Position Sitting Respiration 18 Pulse 65 Pulse Source Monitor Pulse Oximetry (%) 97 Intake Visit Reasons: S/P [facility] ER 01/26 [facility] Trust Clerk Required: No Is patient in pain?: No Allergies oxytetracycline (From Terramycin) Allergy (Verified 01/28/25 13:59) Unknown Penicillins Allergy (Verified 01/28/25 13:59) Unknown Medications ???Medication ???Instructions ???Recorded ???Confirmed ???Type latanoprost 0.005 % eye drops 1 drp ophthalmic (eye) QHS 1 01/28/25 History acetaminophen 325 mg tablet 325 mg PO ONCE PRN fever or pain 0 02/12/22 01/28/25 History levothyroxine 50 mcg tablet 50 mcg PO DAILY 10/17/24 01/28/25 History apixaban 2.5 mg tablet 2.5 mg [...] servings: 1 ROS Const Const: Positive for fatigue; Negative for weakness, headache(s) or frequent falls Eyes Eyes: [...] headache(s), weakness or blurry vision Endo Endo: Positive for [...] to Auscultation Cardio Rate: regular rate Rhythm: (more content not included)... Normal [facility] Absolute lymphocyte countOrd ered By: Phil Miller on 01-26-2025 Lymphocytes Auto (Unsp spec) [#/Vol] 3.02 10*3/uL 0.83-4.51 [facility] Absolute neutrophil countOrd ered By: Phil Miller on 01-26-2025 Neutrophils (Bld) [#/Vol] 2.6 10*3/uL 2.0-7.7 [facility] Anion gap in Serum or Plasma Ordered By: Phil Miller on 01-26-2025 Anion gap [Moles/Vol] 12 mmol/L 5- [facility] Automated lymphocyte count a s percentage of total leukocytesOrdered By: Phil Miller on 01-26-2025 Lymphocytes/100 WBC Auto (Unsp spec) 47.9 % High 19-41 [facility] BUN/creatinine ratioOrdered By: Phil Miller on 01-26-2025 Urea nitrogen/Creatinine [Mass ratio] 16.3 mg/mg - [facility] Basic Metabolic Profile (BMP )on 01-26-2025 BUN/CRE 16.3 RATIO Normal 05-20 [facility] Comment on above: Performed By: #### L 501.4021, L500.2500, L100.0100, L501.9520, L506.0400 #### [facility] [address] [place], [address] Calcium [Mass/Vol] 9.7 mg/dL Normal 7.6-11.0 [facility] Comment on above: Performed By: #### L 501.4021, L500.2500, L100.0100, L501.9520, L506.0400 #### [facility] [address] [place], [address] Chloride [Moles/Vol] 101 mmol/L Normal 98-108 [facility] Comment on above: Performed By: #### L 501.4021, L500.2500, L100.0100, L501.9520, L506.0400 #### [facility] [address] [place], [address] CO2 [Moles/Vol] 26.5 mmol/L Normal 21.0-32.0 [facility] Comment on above: Performed By: #### L 501.4021, L500.2500, L100.0100, L501.9520, L506.0400 #### [facility] [address] [place], [address] Creatinine [Mass/Vol] 0.79 mg/dL Normal 0.70-1.20 [facility] Comment on above: Performed By: #### L 501.4021, L500.2500, L100.0100, L501.9520, L506.0400 #### [facility] [address] [place], [address] ECRCL 40.21 ml/min Low 50-250 [facility] Comment on above: Performed By: #### L 501.4021, L500.2500, L100.0100, L501.9520, L506.0400 #### [facility] [address] [place], [address] GAP 12 Normal 5-15 [facility] Comment on above: Performed By: #### L 501.4021, L500.2500, L100.0100, L501.9520, L506.0400 #### [facility] [address] [place], [address] GFR/1.73 sq M.predicted among non-blacks MDRD (S/P/Bld) [Vol rate/Area] 74 mL/min/{1.73_m2} Normal >60 [facility] Comment on above: Result Comment: mL/m in/1.73m2 CKD-EPI Creatinine Equation (2020) Performed By: #### L 501.4021, L500.2500, L100.0100, L501.9520, L506.0400 #### [facility] [address] [place], [address] Glucose [Mass/Vol] 116 mg/dL High 70-99 [facility] Comment on above: Performed By: #### L 501.4021, L500.2500, L100.0100, L501.9520, L506.0400 #### [facility] [address] [place], [address] Potassium [Moles/Vol] 3.8 mmol/L Normal 3.3-5.1 [facility] Comment on above: Performed By: #### L 501.4021, L500.2500, L100.0100, L501.9520, L506.0400 #### [facility] [address] [place], [address] Sodium [Moles/Vol] 139 mmol/L Normal 133-145 [facility] Comment on above: Performed By: #### L 501.4021, L500.2500, L100.0100, L501.9520, L506.0400 #### [facility] [address] [place], [address] Urea nitrogen [Mass/Vol] 13 mg/dL Normal 4-19 [facility] Comment on above: Performed By: #### L 501.4021, L500.2500, L100.0100, L501.9520, L506.0400 #### [facility] [address] [place], [address] Basophil percentageOrdered B y: Phil Miller on 01-26-2025 Basophils/100 WBC (Bld) 0.8 % 0-1 [facility] CBC W/Diff, Automatedon 12-31 Absolute Lymph 3.02 X10 3/uL Normal 0.83-4.51 [facility] Comment on above: Performed By: #### L 501.4021, L500.2500, L100.0100, L501.9520, L506.0400 #### [facility] [address] [place], [address] Absolute Neut 2.6 X10 3/uL Normal 2.0-7.7 [facility] Comment on above: Performed By: #### L 501.4021, L500.2500, L100.0100, L501.9520, L506.0400 #### [facility] [address] [place], [address] Basophils/100 WBC (Bld) 0.8 % Normal 0-1 [facility] Comment on above: Performed By: #### L 501.4021, L500.2500, L100.0100, L501.9520, L506.0400 #### [facility] [address] [place], [address] Eosinophils/100 WBC (Bld) 2.5 % Normal 0-5 [facility] Comment on above: Performed By: #### L 501.4021, L500.2500, L100.0100, L501.9520, L506.0400 #### [facility] [address] [place], [address] Erythrocyte distribution width (RBC) [Ratio] 12.0 % Normal 11.6-14.6 [facility] Comment on above: Performed By: #### L 501.4021, L500.2500, L100.0100, L501.9520, L506.0400 #### [facility] [address] [place], [address] Hematocrit (Bld) [Volume fraction] 41.2 % Normal 37-47 [facility] Comment on above: Performed By: #### L 501.4021, L500.2500, L100.0100, L501.9520, L506.0400 #### [facility] [address] [place], [address] Hemoglobin (Bld) [Mass/Vol] 13.5 g/dL Normal 12.0-15.0 [facility] Comment on above: Performed By: #### L 501.4021, L500.2500, L100.0100, L501.9520, L506.0400 #### [facility] [address] [place], [address] IG% 0.200 Normal 0.0-0.9 [facility] Comment on above: Result Comment: IG% - Immature Granulocytes (promyelocytes, myelocytes and metamyelocytes) > 1% indicates that a LEFT SHIFT is Present. Performed By: #### L 501.4021, L500.2500, L100.0100, L501.9520, L506.0400 #### [facility] [address] [place], [address] Lymphocytes/100 WBC (Bld) 47.9 % High 19-41 [facility] Comment on above: Performed By: #### L 501.4021, L500.2500, L100.0100, L501.9520, L506.0400 #### [facility] [address] [place], [address] MCH (RBC) [Entitic mass] 30.0 pg Normal 27.0-32.0 [facility] Comment on above: Performed By: #### L 501.4021, L500.2500, L100.0100, L501.9520, L506.0400 #### [facility] [address] [place], [address] MCHC (RBC) [Mass/Vol] 32.8 g/dL Normal 32-36 [facility] Comment on above: Performed By: #### L 501.4021, L500.2500, L100.0100, L501.9520, L506.0400 #### [facility] [address] [place], [address] MCV (RBC) [Entitic vol] 91.6 fL Normal 81-99 [facility] Comment on above: Performed By: #### L 501.4021, L500.2500, L100.0100, L501.9520, L506.0400 #### [facility] [address] [place], [address] Monocytes/100 WBC (Bld) 6.7 % Normal 0-10 [facility] Comment on above: Performed By: #### L 501.4021, L500.2500, L100.0100, L501.9520, L506.0400 #### [facility] [address] [place], [address] Neutrophils/100 WBC (Bld) 41.9 % Low 47-70 [facility] Comment on above: Performed By: #### L 501.4021, L500.2500, L100.0100, L501.9520, L506.0400 #### [facility] [address] [place], [address] Nucleated RBC (Bld) [#/Vol] 0 10*3/uL Normal 0-5 [facility] Comment on above: Performed By: #### L 501.4021, L500.2500, L100.0100, L501.9520, L506.0400 #### [facility] [address] [place], [address] Platelet mean volume (Bld) [Entitic vol] 9.7 fL Normal 6.2-12.0 [facility] Comment on above: Performed By: #### L 501.4021, L500.2500, L100.0100, L501.9520, L506.0400 #### [facility] [address] [place], [address] Platelets (Bld) [#/Vol] 254 10*3/uL Normal 150-450 [facility] Comment on above: Performed By: #### L 501.4021, L500.2500, L100.0100, L501.9520, L506.0400 #### [facility] [address] [place], [address] RBC (Bld) [#/Vol] 4.50 10*6/uL Normal 4.2-5.4 [facility] Comment on above: Performed By: #### L 501.4021, L500.2500, L100.0100, L501.9520, L506.0400 #### [facility] [address] [place], [address] RDW SD 40.1 fl Normal 35.1-43.9 [facility] Comment on above: Performed By: #### L 501.4021, L500.2500, L100.0100, L501.9520, L506.0400 #### [facility] [address] [place], [address] WBC (Bld) [#/Vol] 6.3 10*3/uL Normal 4.4-11.0 [facility] Comment on above: Performed By: #### L 501.4021, L500.2500, L100.0100, L501.9520, L506.0400 #### [facility] [address] [place], [address] Carbon dioxide, total [Moles /volume] in Central venous bloodOrdered By: Phil Miller on 01-26-2025 CO2 [Moles/Vol] 26.5 mmol/L 21.0-32.0 [facility] Chest 1 View (Portable)on Chest 1 View (Portable) [facility] Services [address] [place] [address] Chest 1 View (Portable) MR#: [id number] Acct: [id number] Name: MARIE ASHLEY Rep #: [id number] : 1940 F 84 From: Abel De Leon MD PCP: Dr. Sebastian Teixeira MD Status: REG ER Study: Chest 1 View (Portable) Date of Exam: 01/26/25 Exam# [id number] Ordering Dr: Phil Milelr DO PROCEDURE: CHEST 1 VIEW (PORTABLE) 01/26/2025 REASON FOR EXAM: CHEST PAIN TECHNIQUE: Frontal view of the chest. COMPARISON: 10/11/2024 FINDINGS: Scoliosis. Borderline enlarged heart. Well inflated overall. Linear scar/atelectasis medial left base. No consolidation, pneumothorax, or pleural effusion. RAD/Chest 1 View (Portable) IMPRESSION: No acute findings Reading Location: [place] [address] CC: Dr. Sebastian Teixeira MD; Dr. Phil Miller DO Graffiti Cleaner: Signed Normal [facility] Chloride assayOrdered By: Fiordaliza Miller on 01-26-2025 Chloride [Moles/Vol] 101 mmol/L 98-108 [facility] Emergency Department Summary on 01-26-2025 Emergency Department Summary [facility] Medical Records Department [address] [place] [address] Emergency Department Summary 01/26/25 MR#: [id number] Acct: [id number] Name: MARIE ASHLEY Rep #: [id number] : 1940 84 From: Phil Miller DO PCP: Dr. Sebastian Teixeira MD Status:REG ER Location: ED HPI History of Present Illness Chief Complaint: [facility]pitations [facility] Medical History Hypothyroidism PAF (paroxysmal atrial fibrillation) [...] / Time oxytetracycline (From Allergy Unknown Verified 01/26/25 02:06 Terramycin) Penicillins Allergy Unknown Verified 01/26/25 02:06 Family History Mother Heart disease Paroxysmal atrial fibrillation Father Cancer Lung Sister Heart disease Surgical History History of cholecystectomy Social History Smoking Status: Never smoker alcohol intake: never substance use type: does not use caffeine: Yes Type: coffee Number of servings: 1 EXAM Physical Exam Const Vital Signs: 01/26/25 02:03 01/26/25 02:06 01/26/25 02:13 Temperature 98.1 F Temperature Source Oral Pulse Rate 93 Respiratory Rate 18 Respiratory Effort Normal Non-Labored Blood Pressure 141/71 H Blood Pressure Mean 94 Pulse Ox 97 Oxygen Delivery Method Room Air Room Air 01/26/25 02:23 01/26/25 02:30 01/26/25 02:38 Temperature Temperature Source Pulse Rate 94 92 Respiratory Rate 22 H 22 H Respiratory Effort Blood Pressure 121/74 H 129/79 H Blood Pressure Mean 89 95 Pulse Ox 96 98 Oxygen Delivery Method 01/26/25 02:40 01/26/25 02:45 01/26/25 02:46 Temperature Temperature Source Pulse Rate 95 91 98 Respiratory Rate 25 H 24 H 16 Respiratory Effort Blood Pressure 129/79 H 134/101 H 134/101 H Blood Pressure Mean 95 112 112 Pulse Ox 98 100 98 Oxygen Delivery Method Room Air Room Air 01/26/25 03:00 01/26/25 03:03 01/26/25 03:16 Temperature Temperature Source Pulse Rate 91 88 100 Respiratory Rate 18 13 16 Respiratory Effort Blood Pressure 124/67 H 117/71 Blood Pressure Mean 84 86 Pulse Ox 97 100 Oxygen Delivery Method Room Air 01/26/25 03:20 01/26/25 03:30 01/26/25 03:46 Temperature Temperature Source Pulse Rate 93 94 98 Respiratory Rate 17 16 12 Respiratory Effort Blood Pressure 117/71 Blood Pressure Mean 82 Pulse Ox 98 100 Oxygen Delivery Method 01/26/25 03:52 01/26/25 03:53 01/26/25 04:00 Temperature Temperature Source Pulse Rate 94 93 87 Respiratory Rate 21 H 17 19 H Respiratory Effort Blood Pressure 123/56 H 123/56 H Blood Pressure Mean 76 78 Pulse Ox 97 97 95 Oxygen Delivery Method Room Air 01/26/25 04:06 Temperature Temperature Source Pulse Rate 95 Respiratory Rate 17 Respiratory Effort Blood Pressure 123/56 H Blood Pressure Mean 78 Pulse Ox 98 Oxygen Delivery Method MDM MDM MDM Narrative Medical decision making narrative: HISTORY OF PRESENT ILLNESS: Chief complaint: Palpitations 84-year-old female history of A-fib, hypothyroidism presents with palpitations says my A-fib is acting up again. She states this began this evening. Denies chest pain or shortness of breath. Denies leg swelling. Denies missed doses of Eliquis or metoprolol. Notes she actually took an extra dose of metoprolol just prior to arrival. REVIEW OF SYSTEMS: Pertinent positives: Palpitations Pertinent negatives: Chest pain PHYSICAL EXAM: Nursing triage notes reviewed, Vital signs reviewed Constitutional: please see mdm HENT: MMM Eyes: Pupils equal round and reactive to light, Extraocular muscles intact Neck: No stridor, no JVD, full neck ROM Lungs: Clear to auscultation, No wheezing or rales. No increased work of breathing, no conversational dyspnea, no accessory muscle use, no nasal flaring. No respiratory distress noted Heart: Irregularly irregular rate and rhythm, No murmur (more content not included)... Normal [facility] Eosinophil percentageOrdered By: Phil Miller on 01-26-2025 Eosinophils/100 WBC (Bld) 2.5 % 0-5 [facility] Erythrocyte distribution wid th ratioOrdered By: Phil Miller on 01-26-2025 Erythrocyte distribution width (RBC) [Ratio] 12.0 % 11.6-14.6 [facility] Erythrocyte distribution wid th standard deviationOrdered By: Phil Miller on 01-26-2025 Erythrocyte distribution width (RBC) [Ratio] 40.1 fl 35.1-43.9 [facility] Glomerular filtration rate ( GFR) estimation/1.73 sq m using serum, plasma, or whole bOrdered By: Phil Miller on 01-26-2025 GFR/1.73 sq M.predicted among non-blacks MDRD (S/P/Bld) [Vol rate/Area] 74 mL/min/{1.73_m2} >60 [facility] Comment on above: mL/min/1.73m2 CKD-EP I Creatinine Equation (2020) Hematocrit Auto (Bld) [Volum e fraction]Ordered By: Phil Miller on 01-26-2025 Hematocrit (Bld) [Volume fraction] 41.2 % 37-47 [facility] Hemoglobin measurementOrdere d By: Phil Miller on 01-26-2025 Hemoglobin (Bld) [Mass/Vol] 13.5 g/dL 12.0-15.0 [facility] Immature granulocytes/100 WB C Auto (Bld)Ordered By: Phil Miller on 01-26-2025 Immature granulocytes/100 WBC (Bld) 0.200 % 0.0-0.9 [facility] Comment on above: IG% - Immature Granu locytes (promyelocytes, myelocytes and metamyelocytes) > 1% indicates that a LEFT SHIFT is Present. L499.0042on 01-26-2025 Trop T High Sen 7 ng/L Normal <=14 [facility] Comment on above: Performed By: #### L 499.0042 #### [facility] [address] [place], [address] L499.0043on 01-26-2025 Trop T High Sen Normal <=14 [facility] Comment on above: Result Comment: Canc elled via OM: Order cancelled - Patient discharged Performed By: #### L 499.0043 ####[facility] [address] [place], [address] L501.4021on 01-26-2025 Trop T High Sen < 6 Normal <=14 [facility] Comment on above: Performed By: #### L 501.4021, L500.2500, L100.0100, L501.9520, L506.0400 #### [facility] [address] [place], [address] MCV (mean corpuscular volume ) determinationOrdered By: Phil Miller on 01-26-2025 MCV (RBC) [Entitic vol] 91.6 fL 81-99 [facility] Mean corpuscular hemoglobin (MCH) determinationOrdered By: Phil Miller on 01-26-2025 MCH (RBC) [Entitic mass] 30.0 pg 27.0-32.0 [facility] Mean corpuscular hemoglobin concentration (MCHC) determinationOrdered By: Phil Miller on 01-26-2025 MCHC (RBC) [Mass/Vol] 32.8 g/dL 32-36 [facility] Mean platelet volume determi nationOrdered By: Phil Miller on 01-26-2025 Platelet mean volume (Bld) [Entitic vol] 9.7 fL 6.2-12.0 [facility] Monocyte percentageOrdered B y: Phil Miller on 01-26-2025 Monocytes/100 WBC (Bld) 6.7 % 0-10 [facility] Neutrophil percentageOrdered By: Phil Miller on 01-26-2025 Neutrophils/100 WBC (Bld) 41.9 % Low 47-70 [facility] Nucleated red blood cell per centageOrdered By: Phil Miller on 01-26-2025 Nucleated RBC/100 WBC (Bld) [Ratio] 0 % 0-5 [facility] Platelet countOrdered By: Fiordaliza Miller on 01-26-2025 Platelets (Bld) [#/Vol] 254 10*3/uL 150-450 [facility] Potassium measurement (mass/ volume)Ordered By: Phil Miller on 01-26-2025 Potassium (Unsp spec) [Mass/Vol] 3.8 mmol/L 3.3-5.1 [facility] RBC Auto (Bld) [#/Vol]Ordere d By: Phil Miller on 01-26-2025 RBC (Bld) [#/Vol] 4.50 10*6/uL 4.2-5.4 [facility] Serum creatinine measurement (mass/volume)Ordered By: Phil Miller on 01-26-2025 Creatinine [Mass/Vol] 0.79 mg/dL 0.70-1.20 [facility] Serum glucose measurement (m ass/volume)Ordered By: Phil Miller on 01-26-2025 Glucose [Mass/Vol] 116 mg/dL High 70-99 [facility] Serum or plasma calcium estevan urement (mass/volume)Ordered By: Phil Miller on 01-26-2025 Calcium [Mass/Vol] 9.7 mg/dL 7.6-11.0 [facility] Serum or plasma urea nitroge n measurement (mass/volume)Ordered By: Phil Miller on 01-26-2025 Urea nitrogen [Mass/Vol] 13 mg/dL 4-19 [facility] Sodium levelOrdered By: Pepito Miller on 01-26-2025 Sodium [Moles/Vol] 139 mmol/L 133-145 [facility] T4 Free Directon 01-26-2025 T4 FREE DIRECT 1.60 ng/dL High 0.76-1.46 [facility] Comment on above: Performed By: #### L 501.4021, L500.2500, L100.0100, L501.9520, L506.0400 #### [facility] [address] [place], [address] T4 freeOrdered By: Phil espinosa on 01-26-2025 Free T4 [Mass/Vol] 1.60 ng/dL High 0.76-1.46 [facility] TSH DL <= 0.005 mIU/L QnOrde red By: Phil Miller on 01-26-2025 TSH Qn 2.540 uIU/mL 0.300-4.200 [facility] Thyroid Stim Hormone (TSH)on 01-26-2025 TSH 2.540 uIU/mL Normal 0.300-4.200 [facility] Comment on above: Performed By: #### L 501.4021, L500.2500, L100.0100, L501.9520, L506.0400 #### [facility] [address] [place], [address] Troponin T.cardiac [Mass/vol ume] in Serum or Plasma by High sensitivity methodOrdered By: Phil Miller on 01-26-2025 Troponin T.cardiac High sensitivity method [Mass/Vol] 7 ng/L <14 [facility] Troponin T.cardiac High sensitivity method [Mass/Vol] < 6 ng/L <14 [facility] White blood cell (WBC) count Ordered By: Phil Miller on 01-26-2025 WBC (Bld) [#/Vol] 6.3 10*3/uL 4.4-11.0 [facility] DIONMARIE Rajan ([id number]) 1940 F Date Time Provider Department 01/24/25 [facility] During your visit today, we recorded the following information about you: Chantell Echevarria RN 01/24/2025 10:17 AM Signed Patient calls and states that her hips are still bothering her. Patient states at last appointment provider had told her that he would put in an order for physical therapy if her hips continued to bother her. Patient asking if order can be placed? Please review and advise, HILTON Giraldo Danielle, APRN.[facility] 01/24/2025 10:25 AM Signed Please let patient know consult for PT has been placed. Phuong Barbosa 01/25/2025 9:27 AM Signed 1st attempt to schedule pt. LVM to return call Allergies As of Date: 01/24/2025 Noted Allergy Reaction PENICILLINS 01/04/2006 5 - Intolerance TERAMYCIN (OXYTETRACYCLINE) 12/21/2023 5 - Intolerance Comments: Rash Date Reviewed: 01/14/2025 Reviewed by: Shaneka Mccrary MA - Fully Assessed Reason for Visit: Orders [681] Cmt: Physical Therapy Primary Visit Diagnosis:Bilateral hip pain [M25.551, M25.552] Order(s):CONSULT TO PHYSICAL THERAPY [9032] Order #: [id number]: 1 FUTURE Prescriptions as of 01/28/2025 - tiZANidine HCl (ZANAFLEX) 2 mg capsule Take 1 capsule by mouth two times a day as needed for muscle spasm. - levothyroxine (SYNTHROID) 50 mcg tablet Take 1 tablet by mouth once daily. - metoprolol tartrate, short acting, (LOPRESSOR) 50 mg tablet Take 0.5 tablets by mouth two times a day. - loratadine (CLARITIN) 10 mg tablet Take 10 mg by mouth once daily. As needed - fluticasone (FLONASE) 50 mcg/actuation nasal spray Use 2 Sprays in each nostril once daily. Rinse mouth after use. - apixaban (ELIQUIS) 5 mg tab(s) Take 1 tablet by mouth twice daily. - multivitamin (DAILY MULTIVITAMIN) ORAL Tab Take one(1) tablet daily. - Rjkbmzs-Ufcflcbve-Wqzsu in D2 500-50-100 mg-mg-unit ORAL Chew Take one(1) tablet two(2) times daily. - TIMOPTIC 0.5 % EYE DROPS One drop in each eye at night. 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] Encounter Status:Closed by CHANTELL ECHEVARRIA on 01/28/25 Normal [facility] CNOVon 01-14-2025 CNOV Office Visit (FAMPWS ) MARIE ASHLEY ([id number]) 1940 F Date Time Provider Department 01/14/25 10:00 AM [facility] During your visit today, we recorded the following information about you: Pulse Blood pressure Weight Height 60/minute 110/62 48 kg 1.625 m Heri Teixeira MD 01/14/2025 10:25 AM Signed Chief Complaint Patient presents with: Hip Pain Recording using [employer] software for draft documentation of the visit was discussed with the patient/authorized primary care sales representative; all questions welcomed and answered. Patient/authorized primary care sales representative agreed to proceed HPI Marie [...] Other specified glaucoma Paroxysmal atrial fibrillation (HCC) [facility] cardiology Previous Surgical History PAST SURGICAL HISTORY [...] MULTIVITAMIN) ORAL Tab Take one(1) tablet daily. Oyxhrnc-Atrfhbnzy-Apasy in D2 500-50-100 mg-mg-unit ORAL Chew Take [...] - On (more content not included)... Normal [facility] Cardiology Visit Reporton Cardiology Visit Report [facility] Heart [address] [place], [place] [address] OFFICE VISIT Date of Service: 01/04/25 MR#: [id number] Acct: [id number] Name: MARIE ASHLEY Rep #: [id number] : 1940 Provider: MARAL leong Age/Sex: 84/F Location[facility] Status: Signed HPI HPI History of Present [...] 96 Intake Visit Reasons: 1 Y FU Trust Clerk Required: No Is patient in pain?: No Allergies oxytetracycline (From Terramycin) Allergy (Verified 01/04/25 13:22) Unknown Penicillins Allergy (Verified 01/04/25 13:22) Unknown Medications ???Medication ???Instructions ???Recorded ???Confirmed ???Type latanoprost 0.005 % eye drops 1 drp ophthalmic (eye) QHS 1 01/04/25 History acetaminophen 325 mg tablet [...] to inspection (more content not included)... Normal [facility] 12 Lead EKGon 01-03-2025 12 Lead EKG [facility] Cardiovascular Services [address] [place] [address] 12 Lead EKG 01/03/25 0740 MR#: [id number] Acct: [id number] Name: MARIE ASHLEY Rep #: [id number] : 1940 84 From: Sujata Fonseca MD [...] Abnormal ECG Confirmed by ELIZABETH GRACIA, TC ([id number]), managing editor DESTINI TOVAR ([id number]) on 01/07/2025 6:25:05 AM Referred By: Confirmed By: TC FONSECA MD 01/07/25624 Sujata Fonseca MD CC: Dr. Sebastian Teixeira MD; Dr. Shiva Sims DO Signed Normal [facility] Absolute lymphocyte countOrd ered By: Shiva Sims on 01-03-2025 Lymphocytes Auto (Unsp spec) [#/Vol] 1.82 10*3/uL 0.83-4.51 [facility] Absolute neutrophil countOrd ered By: Shiva Sims on 01-03-2025 Neutrophils (Bld) [#/Vol] 2.5 10*3/uL 2.0-7.7 [facility] Anion gap in Serum or Plasma Ordered By: Shiva Sims on 01-03-2025 Anion gap [Moles/Vol] 13 mmol/L - [facility] Automated lymphocyte count a s percentage of total leukocytesOrdered By: Shiva Sims on 01-03-2025 Lymphocytes/100 WBC Auto (Unsp spec) 38.2 % [facility] BUN/creatinine ratioOrdered By: Shiva Sims on 01-03-2025 Urea nitrogen/Creatinine [Mass ratio] 20.5 mg/mg High 05-20 [facility] Basic Metabolic Profile (BMP )on 01-03-2025 BUN/CRE 20.5 RATIO High 05-20 [facility] Comment on above: Performed By: #### L 500.2500, L100.0100, L501.5200, L501.9520 ####[facility] [address] [place], [address] Calcium [Mass/Vol] 9.1 mg/dL Normal 7.6-11.0 [facility] Comment on above: Performed By: #### L 500.2500, L100.0100, L501.5200, L501.9520 ####[facility] [address] [place], [address] Chloride [Moles/Vol] 104 mmol/L Normal 98-108 [facility] Comment on above: Performed By: #### L 500.2500, L100.0100, L501.5200, L501.9520 ####[facility] [address] [place], [address] CO2 [Moles/Vol] 24.8 mmol/L Normal 21.0-32.0 [facility] Comment on above: Performed By: #### L 500.2500, L100.0100, L501.5200, L501.9520 ####[facility] [address] [place], [address] Creatinine [Mass/Vol] 0.76 mg/dL Normal 0.70-1.20 [facility] Comment on above: Performed By: #### L 500.2500, L100.0100, L501.5200, L501.9520 ####[facility] [address] [place], [address] ECRCL 40.02 ml/min Low 50-250 [facility] Comment on above: Performed By: #### L 500.2500, L100.0100, L501.5200, L501.9520 ####[facility] [address] [place], [address] GAP 13 Normal 5-15 [facility] Comment on above: Performed By: #### L 500.2500, L100.0100, L501.5200, L501.9520 ####[facility] [address] [place], [address] GFR/1.73 sq M.predicted among non-blacks MDRD (S/P/Bld) [Vol rate/Area] 78 mL/min/{1.73_m2} Normal >60 [facility] Comment on above: Result Comment: mL/m in/1.73m2 CKD-EPI Creatinine Equation (2020) Performed By: #### L 500.2500, L100.0100, L501.5200, L501.9520 ####[facility] [address] [place], [address] Glucose [Mass/Vol] 117 mg/dL High 70-99 [facility] Comment on above: Performed By: #### L 500.2500, L100.0100, L501.5200, L501.9520 ####[facility] [address] [place], [address] Potassium [Moles/Vol] 3.6 mmol/L Normal 3.3-5.1 [facility] Comment on above: Performed By: #### L 500.2500, L100.0100, L501.5200, L501.9520 ####[facility] [address] [place], [address] Sodium [Moles/Vol] 141 mmol/L Normal 133-145 [facility] Comment on above: Performed By: #### L 500.2500, L100.0100, L501.5200, L501.9520 ####[facility] [address] [place], [address] Urea nitrogen [Mass/Vol] 16 mg/dL Normal 4-19 [facility] Comment on above: Performed By: #### L 500.2500, L100.0100, L501.5200, L501.9520 ####[facility] [address] [place], [address] Basophil percentageOrdered B y: Shiva Sims on 01-03-2024 Basophils/100 WBC (Bld) 0.6 % 0-1 [facility] CBC W/Diff, Automatedon -2024 Absolute Lymph 1.82 X10 3/uL Normal 0.83-4.51 [facility] Comment on above: Performed By: #### L 500.2500, L100.0100, L501.5200, L501.9520 #### [facility] [address] [place], [address] Absolute Neut 2.5 X10 3/uL Normal 2.0-7.7 [facility] Comment on above: Performed By: #### L 500.2500, L100.0100, L501.5200, L501.9520 #### [facility] [address] [place], [address] Basophils/100 WBC (Bld) 0.6 % Normal 0-1 [facility] Comment on above: Performed By: #### L 500.2500, L100.0100, L501.5200, L501.9520 #### [facility] [address] [place], [address] Eosinophils/100 WBC (Bld) 2.7 % Normal 0-5 [facility] Comment on above: Performed By: #### L 500.2500, L100.0100, L501.5200, L501.9520 #### [facility] [address] [place], [address] Erythrocyte distribution width (RBC) [Ratio] 11.9 % Normal 11.6-14.6 [facility] Comment on above: Performed By: #### L 500.2500, L100.0100, L501.5200, L501.9520 #### [facility] [address] [place], [address] Hematocrit (Bld) [Volume fraction] 41.0 % Normal 37-47 [facility] Comment on above: Performed By: #### L 500.2500, L100.0100, L501.5200, L501.9520 #### [facility] [address] [place], [address] Hemoglobin (Bld) [Mass/Vol] 13.5 g/dL Normal 12.0-15.0 [facility] Comment on above: Performed By: #### L 500.2500, L100.0100, L501.5200, L501.9520 #### [facility] [address] [facility] [place], [address] IG% 0.000 Normal 0.0-0.9 [facility] Comment on above: Result Comment: IG% - Immature Granulocytes (promyelocytes, myelocytes and metamyelocytes) > 1% indicates that a LEFT SHIFT is Present. Performed By: #### L 500.2500, L100.0100, L501.5200, L501.9520 #### [facility] [address] [place], [address] Lymphocytes/100 WBC (Bld) 38.2 % Normal 19-41 [facility] Comment on above: Performed By: #### L 500.2500, L100.0100, L501.5200, L501.9520 #### [facility] [address] [place], [address] MCH (RBC) [Entitic mass] 30.3 pg Normal 27.0-32.0 [facility] Comment on above: Performed By: #### L 500.2500, L100.0100, L501.5200, L501.9520 #### [facility] [address] [place], [address] MCHC (RBC) [Mass/Vol] 32.9 g/dL Normal 32-36 [facility] Comment on above: Performed By: #### L 500.2500, L100.0100, L501.5200, L501.9520 #### [facility] [address] [place], [address] MCV (RBC) [Entitic vol] 91.9 fL Normal 81-99 [facility] Comment on above: Performed By: #### L 500.2500, L100.0100, L501.5200, L501.9520 #### [facility] [address] [place], [address] Monocytes/100 WBC (Bld) 6.9 % Normal 0-10 [facility] Comment on above: Performed By: #### L 500.2500, L100.0100, L501.5200, L501.9520 #### [facility] [address] [place], [address] Neutrophils/100 WBC (Bld) 51.6 % Normal 47-70 [facility] Comment on above: Performed By: #### L 500.2500, L100.0100, L501.5200, L501.9520 #### [facility] [address] [place], [address] Nucleated RBC (Bld) [#/Vol] 0 10*3/uL Normal 0-5 [facility] Comment on above: Performed By: #### L 500.2500, L100.0100, L501.5200, L501.9520 #### [facility] [address] [place], [address] Platelet mean volume (Bld) [Entitic vol] 10.2 fL Normal 6.2-12.0 [facility] Comment on above: Performed By: #### L 500.2500, L100.0100, L501.5200, L501.9520 #### [facility] [address] [place], [address] Platelets (Bld) [#/Vol] 256 10*3/uL Normal 150-450 [facility] Comment on above: Performed By: #### L 500.2500, L100.0100, L501.5200, L501.9520 #### [facility] [address] [place], [address] RBC (Bld) [#/Vol] 4.46 10*6/uL Normal 4.2-5.4 [facility] Comment on above: Performed By: #### L 500.2500, L100.0100, L501.5200, L501.9520 #### [facility] [address] [place], [address] RDW SD 40.0 fl Normal 35.1-43.9 [facility] Comment on above: Performed By: #### L 500.2500, L100.0100, L501.5200, L501.9520 #### [facility] [address] [place], [address] WBC (Bld) [#/Vol] 4.8 10*3/uL Normal 4.4-11.0 [facility] Comment on above: Performed By: #### L 500.2500, L100.0100, L501.5200, L501.9520 #### [facility] [address] [place], [address] Carbon dioxide, total [Moles /volume] in Central venous bloodOrdered By: Shiva Sims on 01-03-2025 CO2 [Moles/Vol] 24.8 mmol/L 21.0-32.0 [facility] Chloride assayOrdered By: Petr Sims on 01-03-2025 Chloride [Moles/Vol] 104 mmol/L 98-108 [facility] Emergency Department Summary on 01-03-2025 Emergency Department Summary [facility] Medical Records Department [address] [place] [address] Emergency Department Summary 01/03/25 MR#: [id number] Acct: [id number] Name: MARIE ASHLEY Rep #: [id number] : 1940 84 From: Shiva Sims DO [...] of her apixaban in the last month. [facility] Medical History Hypothyroidism PAF (paroxysmal atrial fibrillation) [...] Neuro o (more content not included)... Normal [facility] Eosinophil percentageOrdered By: Shiva Sims on 01-03-2025 Eosinophils/100 WBC (Bld) 2.7 % 0-5 [facility] Erythrocyte distribution wid th ratioOrdered By: Shiva Sims on 01-03-2025 Erythrocyte distribution width (RBC) [Ratio] 11.9 % 11.6-14.6 [facility] Erythrocyte distribution wid th standard deviationOrdered By: Shiva Sims on 01-03-2025 Erythrocyte distribution width (RBC) [Ratio] 40.0 fl 35.1-43.9 [facility] Glomerular filtration rate ( GFR) estimation/1.73 sq m using serum, plasma, or whole bOrdered By: Shiva Sims on 01-03-2025 GFR/1.73 sq M.predicted among non-blacks MDRD (S/P/Bld) [Vol rate/Area] 78 mL/min/{1.73_m2} >60 [facility] Comment on above: mL/min/1.73m2 CKD-EP I Creatinine Equation (2020) Hematocrit Auto (Bld) [Volum e fraction]Ordered By: Shiva Sims on 01-03-2025 Hematocrit (Bld) [Volume fraction] 41.0 % 37-47 [facility] Hemoglobin measurementOrdere d By: Shiva Sims on 01-03-2025 Hemoglobin (Bld) [Mass/Vol] 13.5 g/dL 12.0-15.0 [facility] Immature granulocytes/100 WB C Auto (Bld)Ordered By: Shiva Sims on 01-03-2025 Immature granulocytes/100 WBC (Bld) 0.000 % 0.0-0.9 [facility] Comment on above: IG% - Immature Granu locytes (promyelocytes, myelocytes and metamyelocytes) > 1% indicates that a LEFT SHIFT is Present. MCV (mean corpuscular volume ) determinationOrdered By: Shiva Sims on 01-03-2025 MCV (RBC) [Entitic vol] 91.9 fL 81-99 [facility] Magnesiumon 01-03-2025 Magnesium [Mass/Vol] 2.2 mg/dL Normal 1.5-2.2 [facility] Comment on above: Performed By: #### L 500.2500, L100.0100, L501.5200, L501.9520 ####[facility] [address] [place], [address] Magnesium measurement (mass/ volume)Ordered By: Shiva Sims on 01-03-2025 Magnesium (Unsp spec) [Mass/Vol] 2.2 mg/dL 1.5-2.2 [facility] Mean corpuscular hemoglobin (MCH) determinationOrdered By: Shiva Sims on 01-03-2025 MCH (RBC) [Entitic mass] 30.3 pg 27.0-32.0 [facility] Mean corpuscular hemoglobin concentration (MCHC) determinationOrdered By: Shiva Sims on 01-03-2025 MCHC (RBC) [Mass/Vol] 32.9 g/dL 32-36 [facility] Mean platelet volume determi nationOrdered By: Shiva Sims on 01-03-2025 Platelet mean volume (Bld) [Entitic vol] 10.2 fL 6.2-12.0 [facility] Monocyte percentageOrdered B y: Shiva Sims on 01-03-2025 Monocytes/100 WBC (Bld) 6.9 % 0-10 [facility] Neutrophil percentageOrdered By: Shiva Sims on 01-03-2025 Neutrophils/100 WBC (Bld) 51.6 % 47-70 [facility] Nucleated red blood cell per centageOrdered By: Shiva Sims on 01-03-2025 Nucleated RBC/100 WBC (Bld) [Ratio] 0 % 0-5 [facility] Platelet countOrdered By: Petr Sims on 01-03-2025 Platelets (Bld) [#/Vol] 256 10*3/uL 150-450 [facility] Potassium measurement (mass/ volume)Ordered By: Shiva Sims on 01-03-2025 Potassium (Unsp spec) [Mass/Vol] 3.6 mmol/L 3.3-5.1 [facility] RBC Auto (Bld) [#/Vol]Ordere d By: Shiva Sims on 01-03-2025 RBC (Bld) [#/Vol] 4.46 10*6/uL 4.2-5.4 [facility] Serum creatinine measurement (mass/volume)Ordered By: Shiva Sims on 01-03-2025 Creatinine [Mass/Vol] 0.76 mg/dL 0.70-1.20 [facility] Serum glucose measurement (m ass/volume)Ordered By: Shiva Sims on 01-03-2025 Glucose [Mass/Vol] 117 mg/dL High 70-99 [facility] Serum or plasma calcium estevan urement (mass/volume)Ordered By: Shiva Sims on 01-03-2025 Calcium [Mass/Vol] 9.1 mg/dL 7.6-11.0 [facility] Serum or plasma urea nitroge n measurement (mass/volume)Ordered By: Shiva Sims on 01-03-2025 Urea nitrogen [Mass/Vol] 16 mg/dL 4-19 [facility] Sodium levelOrdered By: Isaac Sims on 01-03-2025 Sodium [Moles/Vol] 141 mmol/L 133-145 [facility] TSH DL <= 0.005 mIU/L QnOrde red By: Shiva Sims on 01-03-2025 TSH Qn 1.770 uIU/mL 0.300-4.200 [facility] Thyroid Stim Hormone (TSH)on 01-03-2025 TSH 1.770 uIU/mL Normal 0.300-4.200 [facility] Comment on above: Performed By: #### L 500.2500, L100.0100, L501.5200, L501.9520 ####[facility] [address] [place], [address] White blood cell (WBC) count Ordered By: Shiva Sims on 06-05-2025 WBC (Bld) [#/Vol] 4.8 10*3/uL 4.4-11.0 [facility] Anion gap in Serum or Plasma Ordered By: Rex Edwards on 11-22-2024 Anion gap [Moles/Vol] 8 mmol/L - [facility] BUN/creatinine ratioOrdered By: Rex Edwards on 11-22-2024 Urea nitrogen/Creatinine [Mass ratio] 21.0 mg/mg High 05-20 [facility] Basic Metabolic Profile (BMP )on 11-22-2024 BUN/CRE 21.0 RATIO High 05-20 [facility] Comment on above: Performed By: #### L 501.5200, L500.2500 ####[facility] [address] [place], [address] Calcium [Mass/Vol] 9.3 mg/dL Normal 7.6-11.0 [facility] Comment on above: Performed By: #### L 501.5200, L500.2500 ####[facility] [address] [place], [address] Chloride [Moles/Vol] 102 mmol/L Normal 98-108 [facility] Comment on above: Performed By: #### L 501.5200, L500.2500 ####[facility] [address] [place], [address] CO2 [Moles/Vol] 28.6 mmol/L Normal 21.0-32.0 [facility] Comment on above: Performed By: #### L 501.5200, L500.2500 ####[facility] [address] [place], [address] Creatinine [Mass/Vol] 0.61 mg/dL Low 0.70-1.20 [facility] Comment on above: Performed By: #### L 501.5200, L500.2500 ####[facility] [address] [place], [address] GAP 8 Normal 12-13 [facility] Comment on above: Performed By: #### L 501.5200, L500.2500 ####[facility] [address] [place], [address] GFR/1.73 sq M.predicted among non-blacks MDRD (S/P/Bld) [Vol rate/Area] 89 mL/min/{1.73_m2} Normal >60 [facility] Comment on above: Result Comment: mL/m in/1.73m2 CKD-EPI Creatinine Equation (2020) Performed By: #### L 501.5200, L500.2500 ####[facility] [address] [place], [address] Glucose [Mass/Vol] 102 mg/dL High 70-99 [facility] Comment on above: Performed By: #### L 501.5200, L500.2500 ####[facility] [address] [place], [address] Potassium [Moles/Vol] 4.1 mmol/L Normal 3.3-5.1 [facility] Comment on above: Performed By: #### L 501.5200, L500.2500 ####[facility] [address] [place], [address] Sodium [Moles/Vol] 138 mmol/L Normal 133-145 [facility] Comment on above: Performed By: #### L 501.5200, L500.2500 ####[facility] [address] [place], [address] Urea nitrogen [Mass/Vol] 13 mg/dL Normal 4-19 [facility] Comment on above: Performed By: #### L 501.5200, L500.2500 ####[facility] [address] [place], [address] Carbon dioxide, total [Moles /volume] in Central venous bloodOrdered By: Rex Edwards on 11-22-2024 CO2 [Moles/Vol] 28.6 mmol/L 21.0-32.0 [facility] Cardiology Visit Reporton Cardiology Visit Report [facility] [address] [place] [address] OFFICE VISIT Date of Service: 11/22/24 MR#: [id number] Acct: [id number] Name: MARIE ASHLEY Rep #: [id number] : 1940 Provider: MARAL rodriguez Age/Sex: 84/F Location: [facility] Status: Signed HPI HPI History of Present [...] IV metoprolol in which heart rate improved. Special Tester recommended increasing metoprolol to 50 mg twice [...] (%) 99 96 Intake Visit Reasons: Hypotension Trust Clerk Required: No Is patient in pain?: No [...] face symmetr (more content not included)... Normal [facility] Chloride assayOrdered By: Agnes Edwards on 11-22-2024 Chloride [Moles/Vol] 102 mmol/L 98-108 [facility] Glomerular filtration rate ( GFR) estimation/1.73 sq m using serum, plasma, or whole bOrdered By: Rex Edwards on 11-22-2024 GFR/1.73 sq M.predicted among non-blacks MDRD (S/P/Bld) [Vol rate/Area] 89 mL/min/{1.73_m2} >60 [facility] Comment on above: mL/min/1.73m2 CKD-EP I Creatinine Equation (2020) Magnesiumon 11-22-2024 Magnesium [Mass/Vol] 2.4 mg/dL High 1.5-2.2 [facility] Comment on above: Performed By: #### L 501.5200, L500.2500 ####[facility] [address] [place], [address] Magnesium measurement (mass/ volume)Ordered By: Rex Edwards on 11-22-2024 Magnesium (Unsp spec) [Mass/Vol] 2.4 mg/dL High 1.5-2.2 [facility] Potassium measurement (mass/ volume)Ordered By: Rex Edwards on 11-22-2024 Potassium (Unsp spec) [Mass/Vol] 4.1 mmol/L 3.3-5.1 [facility] Serum creatinine measurement (mass/volume)Ordered By: Rex Edwards on 11-22-2024 Creatinine [Mass/Vol] 0.61 mg/dL Low 0.70-1.20 [facility] Serum glucose measurement (m ass/volume)Ordered By: Rex Edwards on 11-22-2024 Glucose [Mass/Vol] 102 mg/dL High 70-99 [facility] Serum or plasma calcium estevan urement (mass/volume)Ordered By: Rex Edwards on 11-22-2024 Calcium [Mass/Vol] 9.3 mg/dL 7.6-11.0 [facility] Serum or plasma urea nitroge n measurement (mass/volume)Ordered By: Rex Edwards on 11-22-2024 Urea nitrogen [Mass/Vol] 13 mg/dL 4-19 [facility] Sodium levelOrdered By: Rex Edwards on 11-22-2024 Sodium [Moles/Vol] 138 mmol/L 133-145 [facility] CNOVon 11-09-2024 CNOV Office Visit (FAMPWS ) MARIE ASHLEY ([id number]) 1940 F Date Time Provider Department 11/09/24 10:40 AM HERI TEIXEIRA [facility] During your visit today, we recorded the [...] mg BID. Has had a f/u with [facility] cardiology since then and they recommended she [...] Other specified glaucoma Paroxysmal atrial fibrillation (HCC) [facility] cardiology Previous Surgical History PAST SURGICAL HISTORY [...] MULTIVITAMIN) ORAL Tab Take one(1) tablet daily. Tqthtru-Qpkrnrvbr-Ccxfr in D2 500-50-100 mg-mg-unit ORAL Chew Take [...] Instructed pa (more content not included)... Normal [facility] 12 Lead EKG performed by [facility] on 10-17-2024 12 Lead EKG performed by [place] [address] [place] [address] 12 Lead EKG performed by [facility] 10/17/24825 MR#: [id number] Acct: [id number] Name: MARIE ASHLEY Rep #: [id number] : 1940 84 From: Lalo PEREIRA Attending Dr: RANDALL Pringle Status: DEP AM B Ordering Dr: Lalo Pichardo Date: 10/17/24 Location: [facility] Sex: F C Admitted: BMS/12 Lead EKG performed by [facility] ECG Report Interpretation ---Sinus Rhythm -RSR(V1) -nondiagnostic. PROBABLY NORMALElectronically signed on 10/18/2024 at 07:35 by Jordan [employer] Software Version 8610 10/18/2440 Date Lalo PEREIRA CC: Dr. Sebastian Teixeira MD Date Dictated: 10/17/24825 Date Transcribed: 10/17/24825 Graffiti Cleaner: RHODA Signed Normal [facility] Cardiology Visit Reporton Cardiology Visit Report [facility] [address] [place] [address] OFFICE VISIT Date of Service: 10/17/24 MR#: [id number] Acct: [id number] Name: MARIE ASHLEY Rep #: [id number] : 1940 Provider: RANDALL Pringle Age/Sex: 84/F Location: [facility] Status: Signed I reviewed the document and [...] IV metoprolol in which heart rate improved. Special Tester recommended increasing metoprolol to 50 mg twice [...] Oximetry (%) 99 Intake Visit Reasons: S/P [facility] 10/11 Trust Clerk Required: No Is patient in pain?: No [...] Neck Mass (more content not included)... Normal [facility] CNOVon 10-15-2024 CNOV Office Visit (FAMPWS ) MARIE ASHLEY ([id number]) 1940 F Date Time Provider Department 10/15/24 1:20 PM JONAH VALIENTE During your visit today, we recorded the following information about you: Pulse Blood pressure Weight 59/minute 119/71 47 kg Jonah Valiente, ANTONIA.ENVIRONMENTAL ENGINEERING TECHNICIAN 10/15/2024 1:51 PM Signed Chief Complaint No [...] Other specified glaucoma Paroxysmal atrial fibrillation (HCC) [facility] cardiology Previous Surgical History PAST SURGICAL HISTORY [...] MULTIVITAMIN) ORAL Tab Take one(1) tablet daily. Qsnwsun-Vgcykmrad-Cnvdj in D2 500-50-100 mg-mg-unit ORAL Chew Take [...] with cardiology as scheduled 10/17 Jonah Valiente APRN.ENVIRONMENTAL ENGINEERING TECHNICIAN Allergies As of Date: 10/15/2024 Noted Allergy [...] ORAL Tab Take one(1) tablet daily. - Qrqrhqt-Xxamljahg-Kocks in (more content not included)... Normal [facility] 12 Lead EKGon 10-11-2024 12 Lead EKG [facility] Cardi[facility] Services [address] [place] [address] 12 Lead EKG 10/11/24 0341 MR#: [id number] Acct: [id number] Name: MARIE ASHLEY Rep #: [id number] : 1940 84 From: Sujata Fonseca MD [...] Nonspecific ST abnormality Abnormal ECG Confirmed by ELIZABETH GRACIA, TC ([id number]), managing editor DESTINI TOVAR ([id number]) on 10/15/2024 10:54:12 AM Referred By: Confirmed By: TC FONSECA MD 10/15/24 0528 Date Sujata Fonseca MD CC: Dr. Sebastian Teixeira MD; Dr. Brittany Jimenez DO Signed Normal [facility] Absolute lymphocyte countOrd ered By: Brittany Jimenez on 10-11-2024 Lymphocytes Auto (Unsp spec) [#/Vol] 3.99 10*3/uL 0.83-4.51 [facility] Absolute neutrophil countOrd ered By: Brittany Jimenez on 10-11-2024 Neutrophils (Bld) [#/Vol] 1.9 10*3/uL Low 2.0-7.7 [facility] Anion gap in Serum or Plasma Ordered By: Brittany Jimenez on 10-11-2024 Anion gap [Moles/Vol] 15 mmol/L 5-15 [facility] Automated lymphocyte count a s percentage of total leukocytesOrdered By: Brittany Jimenez on 10-11-2024 Lymphocytes/100 WBC Auto (Unsp spec) 60.2 % High 19-41 [facility] BUN/creatinine ratioOrdered By: Brittany Jimenez on 10-11-2024 Urea nitrogen/Creatinine [Mass ratio] 18.3 mg/mg 10- [facility] Basic Metabolic Profile (BMP )on 10-11-2024 BUN/CRE 18.3 RATIO Normal - [facility] Comment on above: Performed By: #### L 500.2500, L501.5200, L100.0100, L501.9520 ####[facility] [address] [place], [address] Calcium [Mass/Vol] 9.6 mg/dL Normal 7.6-11.0 [facility] Comment on above: Performed By: #### L 500.2500, L501.5200, L100.0100, L501.9520 ####[facility] [address] [place], [address] Chloride [Moles/Vol] 102 mmol/L Normal 98-108 [facility] Comment on above: Performed By: #### L 500.2500, L501.5200, L100.0100, L501.9520 ####[facility] [address] [place], [address] CO2 [Moles/Vol] 24.6 mmol/L Normal 21.0-32.0 [facility] Comment on above: Performed By: #### L 500.2500, L501.5200, L100.0100, L501.9520 ####[facility] [address] [place], [address] Creatinine [Mass/Vol] 0.85 mg/dL Normal 0.70-1.20 [facility] Comment on above: Performed By: #### L 500.2500, L501.5200, L100.0100, L501.9520 ####[facility] [address] [place], [address] ECRCL 38.24 ml/min Low 50-250 [facility] Comment on above: Performed By: #### L 500.2500, L501.5200, L100.0100, L501.9520 ####[facility] [address] [place], [address] GAP 15 Normal 5-15 [facility] Comment on above: Performed By: #### L 500.2500, L501.5200, L100.0100, L501.9520 ####[facility] [address] [place], [address] GFR/1.73 sq M.predicted among non-blacks MDRD (S/P/Bld) [Vol rate/Area] 68 mL/min/{1.73_m2} Normal >60 [facility] Comment on above: Result Comment: mL/m in/1.73m2 CKD-EPI Creatinine Equation (2020) Performed By: #### L 500.2500, L501.5200, L100.0100, L501.9520 ####[facility] [address] [place], [address] Glucose [Mass/Vol] 142 mg/dL High 70-99 [facility] Comment on above: Performed By: #### L 500.2500, L501.5200, L100.0100, L501.9520 ####[facility] [address] [place], [address] Potassium [Moles/Vol] 3.3 mmol/L Normal 3.3-5.1 [facility] Comment on above: Performed By: #### L 500.2500, L501.5200, L100.0100, L501.9520 ####[facility] [address] [place], [address] Sodium [Moles/Vol] 142 mmol/L Normal 133-145 [facility] Comment on above: Performed By: #### L 500.2500, L501.5200, L100.0100, L501.9520 ####[facility] [address] [place], [address] Urea nitrogen [Mass/Vol] 16 mg/dL Normal 4-19 [facility] Comment on above: Performed By: #### L 500.2500, L501.5200, L100.0100, L501.9520 ####[facility] [address] [place], [address] Basophil percentageOrdered B y: Brittany Jimenez on 10-11-2024 Basophils/100 WBC (Bld) 0.9 % 0-1 [facility] CBC W/Diff, Automatedon 09-29 Absolute Lymph 3.99 X10 3/uL Normal 0.83-4.51 [facility] Comment on above: Performed By: #### L 500.2500, L501.5200, L100.0100, L501.9520 ####[facility] [address] [place], [address] Absolute Neut 1.9 X10 3/uL Low 2.0-7.7 [facility] Comment on above: Performed By: #### L 500.2500, L501.5200, L100.0100, L501.9520 ####[facility] [address] [place], [address] Basophils/100 WBC (Bld) 0.9 % Normal 0-1 [facility] Comment on above: Performed By: #### L 500.2500, L501.5200, L100.0100, L501.9520 ####[facility] [address] [place], [address] Eosinophils/100 WBC (Bld) 3.6 % Normal 0-5 [facility] Comment on above: Performed By: #### L 500.2500, L501.5200, L100.0100, L501.9520 ####[facility] [address] [place], [address] Erythrocyte distribution width (RBC) [Ratio] 12.0 % Normal 11.6-14.6 [facility] Comment on above: Performed By: #### L 500.2500, L501.5200, L100.0100, L501.9520 ####[facility] [address] [place], [address] Hematocrit (Bld) [Volume fraction] 41.2 % Normal 37-47 [facility] Comment on above: Performed By: #### L 500.2500, L501.5200, L100.0100, L501.9520 ####[facility] [address] [place], [address] Hemoglobin (Bld) [Mass/Vol] 13.3 g/dL Normal 12.0-15.0 [facility] Comment on above: Performed By: #### L 500.2500, L501.5200, L100.0100, L501.9520 ####[facility] [address] [place], [address] IG% 0.200 Normal 0.0-0.9 [facility] Comment on above: Result Comment: IG% - Immature Granulocytes (promyelocytes, myelocytes and metamyelocytes) > 1% indicates that a LEFT SHIFT is Present. Performed By: #### L 500.2500, L501.5200, L100.0100, L501.9520 ####[facility] [address] [place], [address] Lymphocytes/100 WBC (Bld) 60.2 % High 19-41 [facility] Comment on above: Performed By: #### L 500.2500, L501.5200, L100.0100, L501.9520 ####[facility] [address] [place], [address] MCH (RBC) [Entitic mass] 29.9 pg Normal 27.0-32.0 [facility] Comment on above: Performed By: #### L 500.2500, L501.5200, L100.0100, L501.9520 ####[facility] [address] [place], [address] MCHC (RBC) [Mass/Vol] 32.3 g/dL Normal 32-36 [facility] Comment on above: Performed By: #### L 500.2500, L501.5200, L100.0100, L501.9520 ####[facility] [address] [place], [address] MCV (RBC) [Entitic vol] 92.6 fL Normal 81-99 [facility] Comment on above: Performed By: #### L 500.2500, L501.5200, L100.0100, L501.9520 ####[facility] [address] [place], [address] Monocytes/100 WBC (Bld) 7.1 % Normal 0-10 [facility] Comment on above: Performed By: #### L 500.2500, L501.5200, L100.0100, L501.9520 ####[facility] [address] [place], [address] Neutrophils/100 WBC (Bld) 28.0 % Low 47-70 [facility] Comment on above: Performed By: #### L 500.2500, L501.5200, L100.0100, L501.9520 ####[facility] [address] [place], [address] Nucleated RBC (Bld) [#/Vol] 0 10*3/uL Normal 0-5 [facility] Comment on above: Performed By: #### L 500.2500, L501.5200, L100.0100, L501.9520 ####[facility] [address] [place], [address] Platelet mean volume (Bld) [Entitic vol] 10.5 fL Normal 6.2-12.0 [facility] Comment on above: Performed By: #### L 500.2500, L501.5200, L100.0100, L501.9520 ####[facility] [address] [place], [address] Platelets (Bld) [#/Vol] 284 10*3/uL Normal 150-450 [facility] Comment on above: Performed By: #### L 500.2500, L501.5200, L100.0100, L501.9520 ####[facility] [address] [place], [address] RBC (Bld) [#/Vol] 4.45 10*6/uL Normal 4.2-5.4 [facility] Comment on above: Performed By: #### L 500.2500, L501.5200, L100.0100, L501.9520 ####[facility] [address] [place], [address] RDW SD 40.9 fl Normal 35.1-43.9 [facility] Comment on above: Performed By: #### L 500.2500, L501.5200, L100.0100, L501.9520 ####[facility] [address] [place], [address] WBC (Bld) [#/Vol] 6.6 10*3/uL Normal 4.4-11.0 [facility] Comment on above: Performed By: #### L 500.2500, L501.5200, L100.0100, L501.9520 ####[facility] [address] [place], [address] Carbon dioxide, total [Moles /volume] in Central venous bloodOrdered By: Brittany Jimenez on 10-11-2024 CO2 [Moles/Vol] 24.6 mmol/L 21.0-32.0 [facility] Chest PA and Lateralon 10-11 Chest PA and Lateral [facility] Imaging Services [address] [place] [address] Chest PA and Lateral MR#: [id number] Acct: [id number] Name: MARIE ASHLEY Rep #: [id number] : 1940 F 84 From: Juan Manuel Rodriguez i, MD PCP: Dr. Sebastian Teixeira MD Status: PRE ER Study: Chest PA and Lateral Date of Exam: 10/11/24 Exam# [id number] Ordering Dr: Brittany Jimenez DO PROCEDURE: CHEST [...] is seen within the lungs. Reading Location: [facility] CC: Dr. Sebastian Teixeira MD; Dr. Brittany Jimenez DO Graffiti Cleaner: Signed Normal [facility] Chloride assayOrdered By: Vic Jimenez on 10-11-2024 Chloride [Moles/Vol] 102 mmol/L 98-108 [facility] Emergency Department Summary on 10-11-2024 Emergency Department Summary [facility] Medical Records Department [address] [place] [address] Emergency Department Summary 10/11/24 MR#: [id number] Acct: [id number] Name: MARIE ASHLEY Rep #: [id number] : 1940 84 From: Brittany Jimenez DO [...] at this time. Prior similar symptoms: Yes [facility] Medical History Hypothyroidism PAF (paroxysmal atrial fibrillation) [...] for general (more content not included)... Normal [facility] Eosinophil percentageOrdered By: Brittany Jimenez on 10-11-2024 Eosinophils/100 WBC (Bld) 3.6 % 0-5 [facility] Erythrocyte distribution wid th ratioOrdered By: Brittany Jimenez on 10-11-2024 Erythrocyte distribution width (RBC) [Ratio] 12.0 % 11.6-14.6 [facility] Erythrocyte distribution wid th standard deviationOrdered By: Brittany Jimenez on 10-11-2024 Erythrocyte distribution width (RBC) [Entitic vol] 40.9 fL 35.1-43.9 [facility] Erythrocyte distribution width (RBC) [Ratio] 40.9 fl 35.1-43.9 [facility] Estimation of creatinine antonia aranceOrdered By: Brittany Jimenez on 10-11-2024 Estimated Creatinine Clearance Calc 38.24 ml/min Low 50-250 [facility] GFR/1.73 sq M.predicted nori g non-blacks MDRD (S/P/Bld) [Vol rate/Area]Ordered By: Brittany Jimenez on 10-11-2024 Estimated GFR (MDRD) Non-Af Amer 68 >60 [facility] Comment on above: mL/min/1.73m2 CKD-EP I Creatinine Equation (2020) Glomerular filtration rate ( GFR) estimation/1.73 sq m using serum, plasma, or whole bOrdered By: Brittany Jimenez on 10-11-2024 GFR/1.73 sq M.predicted among non-blacks MDRD (S/P/Bld) [Vol rate/Area] 68 mL/min/{1.73_m2} >60 [facility] Comment on above: mL/min/1.73m2 CKD-EP I Creatinine Equation (2020) Hematocrit Auto (Bld) [Volum e fraction]Ordered By: Brittany Jimenez on 10-11-2024 Hematocrit (Bld) [Volume fraction] 41.2 % 37-47 [facility] Hemoglobin measurementOrdere d By: Brittany Jimenez on 10-11-2024 Hemoglobin (Bld) [Mass/Vol] 13.3 g/dL 12.0-15.0 [facility] Immature granulocytes/100 WB C Auto (Bld)Ordered By: Brittany Jimenez on 10-11-2024 Immature granulocytes/100 WBC (Bld) 0.200 % 0.0-0.9 [facility] Comment on above: IG% - Immature Granu locytes (promyelocytes, myelocytes and metamyelocytes) > 1% indicates that a LEFT SHIFT is Present. Lymphocytes Auto (Unsp spec) [#/Vol]Ordered By: Brittany Jimenez on 10-11-2024 Lymphocytes (Bld) [#/Vol] 3.99 10*3/uL 0.83-4.51 [facility] Lymphocytes/100 WBC Auto (Un sp spec)Ordered By: Brittany Jimenez on 10-11-2024 Lymphocytes/100 WBC (Bld) 60.2 % High 19-41 [facility] MCV (mean corpuscular volume ) determinationOrdered By: Brittany Jimenez on 10-11-2024 MCV (RBC) [Entitic vol] 92.6 fL 81-99 [facility] Magnesiumon 10-11-2024 Magnesium [Mass/Vol] 2.2 mg/dL Normal 1.5-2.2 [facility] Comment on above: Performed By: #### L 500.2500, L501.5200, L100.0100, L501.9520 ####[facility] [address] [place], [address] Magnesium (Unsp spec) [Mass/ Vol]Ordered By: Brittany Jimenez on 10-11-2024 Magnesium [Mass/Vol] 2.2 mg/dL 1.5-2.2 [facility] Magnesium measurement (mass/ volume)Ordered By: Brittany Jimenez on 10-11-2024 Magnesium (Unsp spec) [Mass/Vol] 2.2 mg/dL 1.5-2.2 [facility] Mean corpuscular hemoglobin (MCH) determinationOrdered By: Brittany Jimenez on 10-11-2024 MCH (RBC) [Entitic mass] 29.9 pg 27.0-32.0 [facility] Mean corpuscular hemoglobin concentration (MCHC) determinationOrdered By: Brittany Jimenez on 10-11-2024 MCHC (RBC) [Mass/Vol] 32.3 g/dL 32-36 [facility] Mean platelet volume determi nationOrdered By: Brittany Jimenez on 10-11-2024 Platelet mean volume (Bld) [Entitic vol] 10.5 fL 6.2-12.0 [facility] Monocyte percentageOrdered B y: Brittany Jimenez on 10-11-2024 Monocytes/100 WBC (Bld) 7.1 % 0-10 [facility] Neutrophil percentageOrdered By: Brittany Jimenez on 10-11-2024 Neutrophils/100 WBC (Bld) 28.0 % Low 47-70 [facility] Nucleated red blood cell per centageOrdered By: Brittany Jimenez on 10-11-2024 Nucleated RBC/100 WBC (Bld) [Ratio] 0 % 0-5 [facility] Platelet countOrdered By: Vic Jimenez on 10-11-2024 Platelets (Bld) [#/Vol] 284 10*3/uL 150-450 [facility] Potassium (Unsp spec) [Mass/ Vol]Ordered By: Brittany Jimenez on 10-11-2024 Potassium [Moles/Vol] 3.3 mmol/L 3.3-5.1 [facility] Potassium measurement (mass/ volume)Ordered By: Brittany Jimenez on 10-11-2024 Potassium (Unsp spec) [Mass/Vol] 3.3 mmol/L 3.3-5.1 [facility] RBC Auto (Bld) [#/Vol]Ordere d By: Brittany Jimenez on 10-11-2024 RBC (Bld) [#/Vol] 4.45 10*6/uL 4.2-5.4 [facility] Serum creatinine measurement (mass/volume)Ordered By: Brittany Jimenez on 10-11-2024 Creatinine [Mass/Vol] 0.85 mg/dL 0.70-1.20 [facility] Serum glucose measurement (m ass/volume)Ordered By: Brittany Jimenez on 10-11-2024 Glucose [Mass/Vol] 142 mg/dL High 70-99 [facility] Serum or plasma calcium estevan urement (mass/volume)Ordered By: Brittany Jimenez on 10-11-2024 Calcium [Mass/Vol] 9.6 mg/dL 7.6-11.0 [facility] Serum or plasma urea nitroge n measurement (mass/volume)Ordered By: Brittany Jimenez on 10-11-2024 Urea nitrogen [Mass/Vol] 16 mg/dL 4-19 [facility] Sodium levelOrdered By: Jerica Jimenez on 10-11-2024 Sodium [Moles/Vol] 142 mmol/L 133-145 [facility] TSH DL <= 0.005 mIU/L QnOrde red By: Brittany Jimenez on 10-11-2024 Thyroid Stimulating Hormone (TSH) 2.820 uIU/mL 0.300-4.200 [facility] TSH Qn 2.820 uIU/mL 0.300-4.200 [facility] Thyroid Stim Hormone (TSH)on 10-11-2024 TSH 2.820 uIU/mL Normal 0.300-4.200 [facility] Comment on above: Performed By: #### L 500.2500, L501.5200, L100.0100, L501.9520 ####[facility] [address] [place], [address] White blood cell (WBC) count Ordered By: Brittany Jimenez on 10-11-2024 WBC (Bld) [#/Vol] 6.6 10*3/uL 4.4-11.0 [facility] TSH SerPl-aCncon 10-08-2024 TSH Qn 0.544 m[IU]/L Normal 0.270-4.200 [facility] Comment on above: Order Comment: Speci men Type: BLOOD SPECIMENOrdering Facility: [facility] Address: [address] [place] [address] Performed By: #### 3 016-3 ####[facility] LABCLIA [id number] [facility] Cardiology Visit Reporton Cardiology Visit Report [facility] [address] [place], [place] [address] OFFICE VISIT Date of Service: 08/22/24 MR#: [id number] Acct: [id number] Name: MARIE ASHLEY Rep #: [id number] : 1940 Provider: RANDALL Tobin Age/Sex: 84/F Location: [facility] Status: Signed HPI HPI History of Present [...] Method room air Intake Visit Reasons: S/P 1/5 [facility] ER Is patient in pain?: No Allergies [...] Note: F/U from ER afib with rvr. [facility] History Hypothyroidism PAF (paroxysmal atrial fibrillation) [...] and Sin (more content not included)... Normal [facility] 08-13-2024 [facility] Telephone (FAMYenyWS) MARIE ASHLEY ([id number]) 1940 F Date Time Provider Department 08/13/24 [facility] During your visit today, we recorded [...] ORAL Tab Take one(1) tablet daily. - Urtbtzw-Mrseretep-Dnjgc in D2 500-50-100 mg-mg-unit ORAL Chew Take [...] Encounter Status:Closed by NATHALY SMITH on 08/13/24 [facility] CNOVon 08-10-2024 CNOV Office Visit (FAMPWS ) MARIE ASHLEY Rajan ([id number]) 1940 F Date Time Provider Department 08/10/24 9:20 AM HERI TEIXEIRA FAMPWS During your visit today, we recorded the following information about you: Pulse Respiration Blood pressure Weight 69/minute 16/minute 108/60 48.2 kg Heri Teixeira MD 08/10/2024 10:27 AM Signed Chief Complaint Patient presents with: ER F/U: [facility] 08/05/24 HPI Marieford Ashley is a 84 year old female who presents here today for ER Follow Up. Patient evaluated at [facility] ED on 08/05 for complaint of palpitations [...] Other specified glaucoma Paroxysmal atrial fibrillation (HCC) [facility] cardiology Previous Surgical History PAST SURGICAL HISTORY [...] MULTIVITAMIN) ORAL Tab Take one(1) tablet daily. Qcdtxux-Cwiimywfb-Fdghv in D2 500-50-100 mg-mg-unit ORAL Chew Take [...] 12/20/2024 Diab (more content not included)... Normal [facility] POTASSIUMon 08-10-2024 Potassium [Moles/Vol] 4.2 mmol/L Normal 3.7-5.1 [facility] Comment on above: Order Comment: Speci men Type: BLOOD SPECIMENOrdering Facility: [facility] Address: [address] [id number] Performed By: #### K 1 ####[facility] LABCARLOTA [id number] JOSEPH ARANA [id number] [place] [id number] [place] Dewey 08-08-2024 CNPN Telephone (FAMPWS) DIONMARIE Rajan ([id number]) 1940 F Date Time Provider Department 08/08/24 [facility] During your visit today, we recorded the following information about you: Jasmyn Hein LPN 08/08/2024 1:25 PM Addendum Message left for patient to return call to schedule ER F/U appointment (1 week)with Dr Teixeira or Connie. BABAK Haji Stephanie, RN 08/08/2024 1:37 PM Signed Jasmyn from [facility] calls and reports that patient came into office today complaining of weakness. Patient was seen in [facility] ER on 08/05/2024 and had labs and cardiac work up. Patient is ok from a cardiac stand point. Patients Potassium is on the low side and Patient's TSH was 7.06. Jasmyn scheduled ER follow up with provider on 08/10/2024 and will let patient who still is in office know when appointment is. Jasmyn is faxing over [facility] Notes. HILTON Giraldo Christopher B, MD 08/08/2024 [...] ORAL Tab Take one(1) tablet daily. - Rzljhvs-Nkiaelgaa-Xtiwg in D2 500-50-100 mg-mg-unit ORAL Chew Take [...] Status:Closed by JASMYN HEIN on 08/21/24 Normal [facility] 12 Lead EKGon 08-05-2024 12 Lead EKG [facility] Cardiovascular Services [address] [place] [address] 12 Lead EKG 08/05/24 0257 MR#: [id number] Acct: [id number] Name: MARIE ASHLEY Rep #: [id number] : 1940 84 From: Juan Manuel Abebe [...] 35 bpm Confirmed by Juan Manuel Abebe ([id number]), managing editor DESTINI TOVAR ([id number]) on 08/07/2024 1:32:07 PM Referred By: Confirmed By: Juan Manuel Abebe 08/07/24 1332 Date Juan Manuel Abebe MD CC: Dr. Adolph Omer MD; Tai Clark DO Signed Normal [facility] Absolute neutrophil countOrd ered By: Tai Clark on 08-05-2024 Neutrophils (Bld) [#/Vol] 2.0 10*3/uL 2.0-7.7 [facility] Basic Metabolic Profile (BMP )on 08-05-2024 BUN/CRE 14.5 RATIO Normal 10- [facility] Comment on above: Performed By: #### L 501.9520, L501.5200, L500.2500 ####[facility] [address] [place], [address] CA,Total 9.6 mg/dL Normal 8.5-10.1 [facility] Comment on above: Performed By: #### L 501.9520, L501.5200, L500.2500 ####[facility] [address] [place], [address] Chloride [Moles/Vol] 108 mmol/L High 98-107 [facility] Comment on above: Performed By: #### L 501.9520, L501.5200, L500.2500 ####[facility] [address] [place], [address] CO2 [Moles/Vol] 31.0 mmol/L Normal 21.0-32.0 [facility] Comment on above: Performed By: #### L 501.9520, L501.5200, L500.2500 ####[facility] [address] [place], [address] Creatinine [Mass/Vol] 0.76 mg/dL Normal 0.55-1.02 [facility] Comment on above: Result Comment: The validity of the calculated GFR GFRAA in patients over 70 years has not been determined. Clinical correlation is essential. Performed By: #### L 501.9520, L501.5200, L500.2500 ####[facility] [address] [place], [address] ECRCL 40.54 ml/min Normal [facility] Comment on above: Performed By: #### L 501.9520, L501.5200, L500.2500 ####[facility] [address] [place], [address] EST GFR - AA 93 mL/min Normal >60 [facility] Comment on above: Result Comment: Afri can [place] GFR Calc Performed By: #### L 501.9520, L501.5200, L500.2500 ####[facility] [address] [place], [address] GAP 4 Low 5-15 [facility] Comment on above: Performed By: #### L 501.9520, L501.5200, L500.2500 ####[facility] [address] [place], [address] GFR/1.73 sq M.predicted among non-blacks MDRD (S/P/Bld) [Vol rate/Area] 77 mL/min/{1.73_m2} Normal >60 [facility] Comment on above: Result Comment: Non- GFR Calc Performed By: #### L 501.9520, L501.5200, L500.2500 ####[facility] [address] [place], [address] Glucose [Mass/Vol] 132 mg/dL High 74-106 [facility] Comment on above: Result Comment: Fast ing Glucose result greater than or equal to 126 mg/dL suggests DIABETES MELLITUS per A.D.A. criteria. Performed By: #### L 501.9520, L501.5200, L500.2500 ####[facility] [address] [place], [address] Potassium [Moles/Vol] 3.3 mmol/L Low 3.5-5.1 [facility] Comment on above: Performed By: #### L 501.9520, L501.5200, L500.2500 ####[facility] [address] [place], [address] Sodium [Moles/Vol] 142 mmol/L Normal 136-145 [facility] Comment on above: Performed By: #### L 501.9520, L501.5200, L500.2500 ####[facility] [address] [place], [address] Urea nitrogen [Mass/Vol] 11 mg/dL Normal 7-18 [facility] Comment on above: Performed By: #### L 501.9520, L501.5200, L500.2500 ####[facility] [address] [place], [address] Basophil percentageOrdered B y: Tai Clark on 08-05-2024 Basophils/100 WBC (Bld) 0.9 % 0-1 [facility] Blood urea nitrogen (BUN)/cr eatinine ratioOrdered By: Tai Clark on 08-05-2024 Urea nitrogen/Creatinine [Mass ratio] 14.5 mg/mg 10-20 [facility] CBC W/Diff, Automatedon Absolute Lymph 3.72 X10 3/uL Normal 0.83-4.51 [facility] Comment on above: Performed By: #### L 100.0100 ####[facility] [address] [place], [address] Absolute Neut 2.0 X10 3/uL Normal 2.0-7.7 [facility] Comment on above: Performed By: #### L 100.0100 ####[facility] [address] [place], [address] Basophils/100 WBC (Bld) 0.9 % Normal 0-1 [facility] Comment on above: Performed By: #### L 100.0100 ####[facility] [address] [place], [address] Eosinophils/100 WBC (Bld) 3.1 % Normal 0-5 [facility] Comment on above: Performed By: #### L 100.0100 ####[facility] [address] [place], [address] Erythrocyte distribution width (RBC) [Ratio] 11.9 % Normal 11.6-14.6 [facility] Comment on above: Performed By: #### L 100.0100 ####[facility] [address] [place], [address] Hematocrit (Bld) [Volume fraction] 39.8 % Normal 37-47 [facility] Comment on above: Performed By: #### L 100.0100 ####[facility] [address] [place], [address] Hemoglobin (Bld) [Mass/Vol] 13.1 g/dL Normal 12.0-15.0 [facility] Comment on above: Performed By: #### L 100.0100 ####[facility] [address] [place], [address] IG% 0.200 Normal 0.0-0.9 [facility] Comment on above: Result Comment: IG% - Immature Granulocytes (promyelocytes, myelocytes and metamyelocytes) > 1% indicates that a LEFT SHIFT is Present. Performed By: #### L 100.0100 ####[facility] [address] [place], [address] Lymphocytes/100 WBC (Bld) 58.4 % High 19-41 [facility] Comment on above: Performed By: #### L 100.0100 ####[facility] [address] [place], [address] MCH (RBC) [Entitic mass] 30.3 pg Normal 27.0-32.0 [facility] Comment on above: Performed By: #### L 100.0100 ####[facility] [address] [place], [address] MCHC (RBC) [Mass/Vol] 32.9 g/dL Normal 32-36 [facility] Comment on above: Performed By: #### L 100.0100 ####[facility] [address] [place], [address] MCV (RBC) [Entitic vol] 91.9 fL Normal 81-99 [facility] Comment on above: Performed By: #### L 100.0100 ####[facility] [address] [place], [address] Monocytes/100 WBC (Bld) 6.4 % Normal 0-10 [facility] Comment on above: Performed By: #### L 100.0100 ####[facility] [address] [place], [address] Neutrophils/100 WBC (Bld) 31.0 % Low 47-70 [facility] Comment on above: Performed By: #### L 100.0100 ####[facility] [address] [place], [address] Nucleated RBC (Bld) [#/Vol] 0 10*3/uL Normal 0-5 [facility] Comment on above: Performed By: #### L 100.0100 ####[facility] [address] [place], [address] Platelet mean volume (Bld) [Entitic vol] 9.9 fL Normal 6.2-12.0 [facility] Comment on above: Performed By: #### L 100.0100 ####[facility] [address] [place], [address] Platelets (Bld) [#/Vol] 254 10*3/uL Normal 150-450 [facility] Comment on above: Performed By: #### L 100.0100 ####[facility] [address] [place], [address] RBC (Bld) [#/Vol] 4.33 10*6/uL Normal 4.2-5.4 [facility] Comment on above: Performed By: #### L 100.0100 ####[facility] [address] [place], [address] RDW SD 40.5 fl Normal 35.1-43.9 [facility] Comment on above: Performed By: #### L 100.0100 ####[facility] [address] [place], [address] WBC (Bld) [#/Vol] 6.4 10*3/uL Normal 4.4-11.0 [facility] Comment on above: Performed By: #### L 100.0100 ####[facility] [address] [place], [address] Carbon dioxide measurementOr dered By: Tai Clark on 08-05-2024 CO2 [Moles/Vol] 31.0 mmol/L 21.0-32.0 [facility] Chloride measurementOrdered By: Tai Clark on 08-05-2024 Chloride [Moles/Vol] 108 mmol/L High 98-107 [facility] Emergency Department Summary on 08-05-2024 Emergency Department Summary [facility] Medical Records Department [address] [place] [address] Emergency Department Summary 08/05/24 MR#: [id number] Acct: [id number] Name: MARIE ASHLEY Rep #: [id number] : 1940 84 From: Tai Clark DO [...] and skipping beats. She states that her director payer informed her when this occurs she can take another half dose of her metoprolol. She states she did this but there was no resolution of her symptoms and therefore she comes in for evaluation. Patient states that prior to the palpitations beginning she is felt normal and denies any recent fevers chills nausea vomiting diarrhea or known sick contacts [facility] Medical History Hypothyroidism PAF (paroxysmal atrial fibrillation) [...] for ja (more content not included)... Normal [facility] Eosinophil percentageOrdered By: Tai Clark on 08-05-2024 Eosinophils/100 WBC (Bld) 3.1 % 0-5 [facility] Erythrocyte distribution wid th ratioOrdered By: Tai Clark on 08-05-2024 Erythrocyte distribution width (RBC) [Ratio] 11.9 % 11.6-14.6 [facility] Erythrocyte distribution wid th standard deviationOrdered By: Tai Clark on 08-05-2024 Erythrocyte distribution width (RBC) [Entitic vol] 40.5 fL 35.1-43.9 [facility] Estimated glomerular filtrat ion rate (GFR) AmericanOrdered By: Tai Clark on 08-05-2024 Estimated GFR (MDRD) Amer 93 mL/min >60 [facility] Comment on above: GFR Calc Estimation of creatinine antonia aranceOrdered By: Tai Clark on 08-05-2024 Estimated Creatinine Clearance Calc 40.54 ml/min [facility] Glomerular filtration rate ( GFR) estimationOrdered By: Tai Clark on 08-05-2024 Estimated GFR (MDRD) Non-Af Amer 77 mL/min >60 [facility] Comment on above: Non- GFR Calc Glucose measurementOrdered B y: Tai Clark on 08-05-2024 Glucose [Mass/Vol] 132 mg/dL High 74-106 [facility] Comment on above: Fasting Glucose resu lt greater than or equal to 126 mg/dL suggests DIABETES MELLITUS per A.D.A. criteria. Hematocrit Auto (Bld) [Volum e fraction]Ordered By: Tai Clark on 08-05-2024 Hematocrit (Bld) [Volume fraction] 39.8 % 37-47 [facility] Hemoglobin measurementOrdere d By: Tai Clark on 08-05-2024 Hemoglobin (Bld) [Mass/Vol] 13.1 g/dL 12.0-15.0 [facility] Immature granulocytes/100 WB C Auto (Bld)Ordered By: Tai Clark on 08-05-2024 Immature granulocytes/100 WBC (Bld) 0.200 % 0.0-0.9 [facility] Comment on above: IG% - Immature Granu locytes (promyelocytes, myelocytes and metamyelocytes) > 1% indicates that a LEFT SHIFT is Present. Lymphocytes Auto (Unsp spec) [#/Vol]Ordered By: Tai Clark on 08-05-2024 Lymphocytes (Bld) [#/Vol] 3.72 10*3/uL 0.83-4.51 [facility] Lymphocytes/100 WBC Auto (Un sp spec)Ordered By: Tai Clark on 08-05-2024 Lymphocytes/100 WBC (Bld) 58.4 % High 19-41 [facility] MCV (mean corpuscular volume ) determinationOrdered By: Tai Clark on 08-05-2024 MCV (RBC) [Entitic vol] 91.9 fL 81-99 [facility] Magnesiumon 08-05-2024 Magnesium [Mass/Vol] 2.3 mg/dL Normal 1.6-2.6 [facility] Comment on above: Performed By: #### L 501.9567, L501.5200, L500.2500 ####[facility] [address] [place], [address] Magnesium measurementOrdered By: Tai Clark on 08-05-2024 Magnesium [Mass/Vol] 2.3 mg/dL 1.6-2.6 [facility] Mean corpuscular hemoglobin (MCH) determinationOrdered By: Tai Clark on 08-05-2024 MCH (RBC) [Entitic mass] 30.3 pg 27.0-32.0 [facility] Mean corpuscular hemoglobin concentration (MCHC) determinationOrdered By: Tai Clark on 08-05-2024 MCHC (RBC) [Mass/Vol] 32.9 g/dL 32-36 [facility] Mean platelet volume determi nationOrdered By: Tai Clark on 08-05-2024 Platelet mean volume (Bld) [Entitic vol] 9.9 fL 6.2-12.0 [facility] Monocyte percentageOrdered B y: Tai Clark on 08-05-2024 Monocytes/100 WBC (Bld) 6.4 % 0-10 [facility] Neutrophil percentageOrdered By: Tai Clark on 08-05-2024 Neutrophils/100 WBC (Bld) 31.0 % Low 47-70 [facility] Nucleated red blood cell per centageOrdered By: Tai Clark on 08-05-2024 Nucleated RBC/100 WBC (Bld) [Ratio] 0 % 0-5 [facility] Platelet countOrdered By: Kimi Clark on 08-05-2024 Platelets (Bld) [#/Vol] 254 10*3/uL 150-450 [facility] Potassium measurementOrdered By: Tai Clark on 08-05-2024 Potassium [Moles/Vol] 3.3 mmol/L Low 3.5-5.1 [facility] RBC Auto (Bld) [#/Vol]Ordere d By: Tai Clark on 08-05-2024 RBC (Bld) [#/Vol] 4.33 10*6/uL 4.2-5.4 [facility] Serum anion gap measurementO rdered By: Tai Clark on 08-05-2024 Anion gap [Moles/Vol] 4 mmol/L Low 5-15 [facility] Serum or plasma calcium estevan urement (mass/volume)Ordered By: Tai Clark on 08-05-2024 Calcium [Mass/Vol] 9.6 mg/dL 8.5-10.1 [facility] Serum or plasma creatinine m easurement (mass/volume)Ordered By: Tai Clark on 08-05-2024 Creatinine [Mass/Vol] 0.76 mg/dL 0.55-1.02 [facility] Comment on above: The validity of the calculated GFR & GFRAA in patients over 70 years has not been determined. Clinical correlation is essential. Serum or plasma urea nitroge n measurement (mass/volume)Ordered By: Tai Clark on 08-05-2024 Urea nitrogen [Mass/Vol] 11 mg/dL 7-18 [facility] Sodium levelOrdered By: Elvis Clark on 08-05-2024 Sodium [Moles/Vol] 142 mmol/L 136-145 [facility] [facility] TSH QnOrdered By: Tierra on 08-05-2024 Thyroid Stimulating Hormone (TSH) 7.060 uIU/mL High 0.358-3.740 [facility] Thyroid Stim Hormone (TSH)on 08-05-2024 TSH 7.060 uIU/mL High 0.358-3.740 [facility] Comment on above: Performed By: #### L 501.9520, L501.5200, L500.2500 ####[facility] [address] [facility] [place], [place], [address] White blood cell (WBC) count Ordered By: Tai Clark on 08-05-2024 WBC (Bld) [#/Vol] 6.4 10*3/uL 4.4-11.0 [facility] Cardiology Visit Reporton Cardiology Visit Report [facility] [address] [place], [place] [address] OFFICE VISIT Date of Service: 02/13/24 MR#: [id number] Acct: [id number] Name: MARIE ASHLEY Rep #: [id number] : 1940 Provider: RANDALL Tobin Age/Sex: 83/F Location: [facility] Status: Signed [facility] History of Present Illness Details: Marie [...] 97 Intake Visit Reasons: 1 y fu Trust Clerk Required: No Is patient in pain?: No [...] Pupils: PERR (more content not included)... Normal [facility] Basic Metabolic Profile (BMP )on 02-08-2024 BUN/CRE 19.5 RATIO Normal 10-20 [facility] Comment on above: Order Comment: one w [place] prior to offfice visit Performed By: #### L 500.2500, L100.0100 ####[facility] [address] [place], [address] CA,Total 9.3 mg/dL Normal 8.5-10.1 [facility] Comment on above: Order Comment: one w [place] prior to offfice visit Performed By: #### L 500.2500, L100.0100 ####[facility] [address] [place], [address] Chloride [Moles/Vol] 103 mmol/L Normal 98-107 [facility] Comment on above: Order Comment: one w [place] prior to offfice visit Performed By: #### L 500.2500, L100.0100 ####[facility] [address] [place], [address] CO2 [Moles/Vol] 29.0 mmol/L Normal 21.0-32.0 [facility] Comment on above: Order Comment: one w [place] prior to offfice visit Performed By: #### L 500.2500, L100.0100 ####[facility] [address] [place], [address] Creatinine [Mass/Vol] 0.72 mg/dL Normal 0.55-1.02 [facility] Comment on above: Order Comment: one w [place] prior to offfice visit Result Comment: The validity of the calculated GFR GFRAA in patients over 70 years has not been determined. Clinical correlation is essential. Performed By: #### L 500.2500, L100.0100 ####[facility] [address] [place], [address] EST GFR - AA 100 mL/min Normal >60 [facility] Comment on above: Order Comment: one w [place] prior to offfice visit Result Comment: Afri can Citizen [place] GFR Calc Performed By: #### L 500.2500, L100.0100 ####[facility] [address] [place], [address] GAP 5 Normal 5-15 [facility] Comment on above: Order Comment: one w [place] prior to offfice visit Performed By: #### L 500.2500, L100.0100 ####[facility] [address] [place], [address] GFR/1.73 sq M.predicted among non-blacks MDRD (S/P/Bld) [Vol rate/Area] 83 mL/min/{1.73_m2} Normal >60 [facility] Comment on above: Order Comment: one w [place] prior to offfice visit Result Comment: Non- GFR Calc Performed By: #### L 500.2500, L100.0100 ####[facility] [address] [place], [address] Glucose [Mass/Vol] 97 mg/dL Normal 74-106 [facility] Comment on above: Order Comment: one w [place] prior to offfice visit Performed By: #### L 500.2500, L100.0100 ####[facility] [address] [place], [address] Potassium [Moles/Vol] 4.9 mmol/L Normal 3.5-5.1 [facility] Comment on above: Order Comment: one w [place] prior to offfice visit Performed By: #### L 500.2500, L100.0100 ####[facility] [address] [place], [address] Sodium [Moles/Vol] 137 mmol/L Normal 136-145 [facility] Comment on above: Order Comment: one w [place] prior to offfice visit Performed By: #### L 500.2500, L100.0100 ####[facility] [address] [place], [address] Urea nitrogen [Mass/Vol] 14 mg/dL Normal 7-18 [facility] Comment on above: Order Comment: one w [place] prior to offfice visit Performed By: #### L 500.2500, L100.0100 ####[facility] [address] [place], [address] CBC W/Diff, Automatedon 07 0-2024 Absolute Lymph 2.12 X10 3/uL Normal 0.83-4.51 [facility] Comment on above: Order Comment: Comme nts: Week piror to next office visit Performed By: #### L 500.2500, L100.0100 ####[facility] [address] [place], [address] Absolute Neut 2.3 X10 3/uL Normal 2.0-7.7 [facility] Comment on above: Order Comment: Comme nts: Week piror to next office visit Performed By: #### L 500.2500, L100.0100 ####[facility] [address] [place], [address] Basophils/100 WBC (Bld) 0.6 % Normal 0-1 [facility] Comment on above: Order Comment: Comme nts: Week piror to next office visit Performed By: #### L 500.2500, L100.0100 ####[facility] [address] [place], [address] Eosinophils/100 WBC (Bld) 2.2 % Normal 0-5 [facility] Comment on above: Order Comment: Comme nts: Week piror to next office visit Performed By: #### L 500.2500, L100.0100 ####[facility] [address] [place], [address] Erythrocyte distribution width (RBC) [Ratio] 12.0 % Normal 11.6-14.6 [facility] Comment on above: Order Comment: Comme nts: Week piror to next office visit Performed By: #### L 500.2500, L100.0100 ####[facility] [address] [place], [address] Hematocrit (Bld) [Volume fraction] 40.0 % Normal 37-47 [facility] Comment on above: Order Comment: Comme nts: Week piror to next office visit Performed By: #### L 500.2500, L100.0100 ####[facility] [address] [place], [address] Hemoglobin (Bld) [Mass/Vol] 12.8 g/dL Normal 12.0-15.0 [facility] Comment on above: Order Comment: Comme nts: Week piror to next office visit Performed By: #### L 500.2500, L100.0100 ####[facility] [address] [place], [address] IG% 0.600 Normal 0.0-0.9 [facility] Comment on above: Order Comment: Comme nts: Week piror to next office visit Result Comment: IG% - Immature Granulocytes (promyelocytes, myelocytes and metamyelocytes) > 1% indicates that a LEFT SHIFT is Present. Performed By: #### L 500.2500, L100.0100 ####[facility] [address] [place], [address] Lymphocytes/100 WBC (Bld) 42.4 % High 19-41 [facility] Comment on above: Order Comment: Comme nts: Week piror to next office visit Performed By: #### L 500.2500, L100.0100 ####[facility] [address] [place], [address] MCH (RBC) [Entitic mass] 29.9 pg Normal 27.0-32.0 [facility] Comment on above: Order Comment: Comme nts: Week piror to next office visit Performed By: #### L 500.2500, L100.0100 ####[facility] [address] [place], [address] MCHC (RBC) [Mass/Vol] 32.0 g/dL Normal 32-36 [facility] Comment on above: Order Comment: Comme nts: Week piror to next office visit Performed By: #### L 500.2500, L100.0100 ####[facility] [address] [place], [address] MCV (RBC) [Entitic vol] 93.5 fL Normal 81-99 [facility] Comment on above: Order Comment: Comme nts: Week piror to next office visit Performed By: #### L 500.2500, L100.0100 ####[facility] [address] [place], [address] Monocytes/100 WBC (Bld) 7.4 % Normal 0-10 [facility] Comment on above: Order Comment: Comme nts: Week piror to next office visit Performed By: #### L 500.2500, L100.0100 ####[facility] [address] [place], [address] Neutrophils/100 WBC (Bld) 46.8 % Low 47-70 [facility] Comment on above: Order Comment: Comme nts: Week piror to next office visit Performed By: #### L 500.2500, L100.0100 ####[facility] [address] [place], [address] Nucleated RBC (Bld) [#/Vol] 0 10*3/uL Normal 0-5 [facility] Comment on above: Order Comment: Comme nts: Week piror to next office visit Performed By: #### L 500.2500, L100.0100 ####[facility] [address] [place], [address] Platelet mean volume (Bld) [Entitic vol] 10.2 fL Normal 6.2-12.0 [facility] Comment on above: Order Comment: Comme nts: Week piror to next office visit Performed By: #### L 500.2500, L100.0100 ####[facility] [address] [place], [address] Platelets (Bld) [#/Vol] 249 10*3/uL Normal 150-450 [facility] Comment on above: Order Comment: Comme nts: Week piror to next office visit Performed By: #### L 500.2500, L100.0100 ####[facility] [address] [place], [address] RBC (Bld) [#/Vol] 4.28 10*6/uL Normal 4.2-5.4 [facility] Comment on above: Order Comment: Comme nts: Week piror to next office visit Performed By: #### L 500.2500, L100.0100 ####[facility] [address] [place], [address] RDW SD 41.2 fl Normal 35.1-43.9 [facility] Comment on above: Order Comment: Comme nts: Week piror to next office visit Performed By: #### L 500.2500, L100.0100 ####[facility] [address] [place], [address] WBC (Bld) [#/Vol] 5.0 10*3/uL Normal 4.4-11.0 [facility] Comment on above: Order Comment: Comme nts: Week piror to next office visit Performed By: #### L 500.2500, L100.0100 ####[facility] [address] [place], [address] [facility] 02-07-2024 [facility] MARIE ASH[facility] ([id number]) 1940 F Date Time Provider Department 02/07/24 [facility] During your visit today, we recorded the following information about you: Tricia Weir, RN 02/07/2024 11:25 AM Signed Patient reports she has appt with heart doctor at [facility] on Tuesday. Reports she was instructed to have labs done at [facility]. Asking if she should fast for the labs ordered by heart doctor. Advised patient to call [facility] to ask if she needs to be fasting for the labs ordered. Patient agreeable. Given phone number. Allergies As of Date: 02/07/2024 Noted Allergy Reaction PENICILLINS 01/04/2006 5 - Intolerance TERAMYCIN (OXYTETRACYCLINE) 12/21/2023 5 - Intolerance Comments: Rash Date Reviewed: 12/21/2023 Reviewed by: Romy Alfaro LPN - Fully Assessed Reason for Visit: Patient Question [8953] Prescriptions as of 02/07/2024 - loratadine (CLARITIN) [...] ORAL Tab Take one(1) tablet daily. 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] Encounter Status:Closed by Tricia WEIR on 02/07/24 Normal [facility] COMPLETE BLOOD COUNTon 11-05 ABSOLUTE BASOPHILS 0 /cmm Normal <216 [facility] Comment on above: Performed By: #### C BC #### [facility] CLIA:[id number] [address] [place] [address] ABSOLUTE EOSINOPHILS 100 /cmm Normal <432 [facility] Comment on above: Performed By: #### C BC #### [facility] CLIA:[id number] [address] [place] [address], [place] [address] ABSOLUTE LYMPHS 1500 /cmm Normal 960-4752 [facility] Comment on above: Performed By: #### C BC #### [facility] CLIA:[id number] [address] [place] [address], [place] [address] ABSOLUTE MONOCYTES 300 /cmm Normal 96-972 [facility] Comment on above: Performed By: #### C BC #### [facility] CLIA:[id number] [address] [place] [address], [place] [address] ABSOLUTE SEGS 3800 /cmm Normal 4472-5382 [facility] Comment on above: Performed By: #### C BC #### [facility] CLIA:[id number] [address] [place] [address], [place] [address] Basophils/100 WBC (Bld) 0.5 % Normal <2.0 [facility] Comment on above: Performed By: #### C BC #### [facility] CLIA:[id number] [address] [place] [address] Eosinophils/100 WBC (Bld) 1.2 % Normal <4.0 [facility] Comment on above: Performed By: #### C BC #### [facility] CLIA:[id number] [address] [place] [address], [place] [address] Erythrocyte distribution width (RBC) [Ratio] 12.8 % Normal 11.5-14.5 [facility] Comment on above: Performed By: #### C BC #### [facility] CLIA:[id number] [address] [place] [address] [place] [address] Hematocrit (Bld) [Volume fraction] 40.3 % Normal 38.0-47.0 [facility] Comment on above: Performed By: #### C BC #### [facility] CLIA:[id number] [address] [place] [address], [place] [address] Hemoglobin (Bld) [Mass/Vol] 13.4 g/dL Normal 12.0-16.4 [facility] Comment on above: Performed By: #### C BC #### [facility] CLIA:[id number] [address] [place] [address] Lymphocytes/100 WBC (Bld) 26.7 % Normal 20.0-44.0 [facility] Comment on above: Performed By: #### C BC #### [facility] CLIA:[id number] [address] [place] [address] MCH (RBC) [Entitic mass] 30.4 pg Normal 27.0-31.0 [facility] Comment on above: Performed By: #### C BC #### [facility] CLIA:[id number] [address] [place] [address] MCV (RBC) [Entitic vol] 91 fL Normal 80-96 [facility] Comment on above: Performed By: #### C BC #### [facility] CLIA:[id number] [address] [place] [address] MEAN CORPUSCULAR HGB CONC 33.3 g/dL Normal 32.0-36.0 [facility] Comment on above: Performed By: #### C BC #### [facility] CLIA:[id number] [address] [place] [address] Monocytes/100 WBC (Bld) 5.5 % Normal 2.0-9.0 [facility] Comment on above: Performed By: #### C BC #### [facility] CLIA:[id number] [address] [place] [address] Neutrophils/100 WBC (Bld) 66.1 % Normal 50.0-70.0 [facility] Comment on above: Performed By: #### C BC #### [facility] CLIA:[id number] [address] [place] [address] PLATELET COUNT 247 10 3/uL Normal 130-400 [facility] Comment on above: Performed By: #### C BC #### [facility] CLIA:[id number] [address] [place] [address], [place] [address] RED BLOOD COUNT 4.42 10 6/uL Normal 4.20-5.40 [facility] Comment on above: Performed By: #### C BC #### [facility] CLIA:[id number] [address] [place] [address] [place] [address] WHITE BLOOD COUNT 5.8 10 3/uL Normal 4.8-10.8 [facility] Comment on above: Performed By: #### C BC #### [facility] CLIA:[id number] [address] [place] [address], [place] [address] COMPREHENSIVE METABOLIC PANE Jus 11-06-2023 Albumin [Mass/Vol] 4.3 g/dL Normal 3.5-5.2 [facility] Comment on above: Performed By: #### C MP, MG #### [facility] CLIA:[id number] [address] [place] [address] Albumin/Globulin [Mass ratio] 1.6 {ratio} High 1-1.4 [facility] Comment on above: Performed By: #### C MP, MG #### [facility] CLIA:[id number] [address] [place] [address] ALP [Catalytic activity/Vol] 57 U/L Normal 35-104 [facility] Comment on above: Performed By: #### C MP, MG #### [facility] CLIA:[id number] [address] [place] [address] ALT [Catalytic activity/Vol] 9 U/L Normal 0-35 [facility] Comment on above: Performed By: #### C MP, MG #### [facility] CLIA:[id number] [address] [place] [address] Anion gap [Moles/Vol] 14 mmol/L Normal 9-18 [facility] Comment on above: Performed By: #### C MP, MG #### [facility] CLIA:[id number] [address] [place] [address] AST [Catalytic activity/Vol] 28 U/L Normal 0-35 [facility] Comment on above: Performed By: #### C MP, MG #### [facility] CLIA:[id number] [address] [place] [address] Bilirubin [Mass/Vol] 0.2 mg/dL Normal 0.0-1.2 [facility] Comment on above: Performed By: #### C MP, MG #### [facility] CLIA:[id number] [address] [place] [address] Calcium [Mass/Vol] 9.2 mg/dL Normal 8.8-10.2 [facility] Comment on above: Performed By: #### C MP, MG #### [facility] CLIA:[id number] [address] [place] [address] Chloride [Moles/Vol] 103 mmol/L Normal 98-107 [facility] Comment on above: Performed By: #### C MP, MG #### [facility] CLIA:[id number] [address] [place] [address] CO2 [Moles/Vol] 26 mmol/L Normal 22-29 [facility] Comment on above: Performed By: #### C MP, MG #### [facility] CLIA:[id number] [address] [place] [address] Creatinine [Mass/Vol] 0.70 mg/dL Normal 0.50-0.90 [facility] Comment on above: Performed By: #### C MP, MG #### [facility] CLIA:[id number] [address] [place] [address] GFR >=60 Normal >60 mL/min [facility] Comment on above: Result Comment: eGFR is calculated using the CKD-EPI equation. Result is intended only for patients between 18 and 71 years of age and is corrected for age, race, and gender. eGFR should NOT be used for pharmacy dosing. Performed By: #### C MP, MG #### [facility] CLIA:[id number] [address] [place] [address] Globulin (S) [Mass/Vol] 2.7 g/dL Normal 2.3-3.5 [facility] Comment on above: Performed By: #### C MP, MG #### [facility] CLIA:[id number] [address] [place] [address] Glucose [Mass/Vol] 154 mg/dL High 70-99 [facility] Comment on above: Result Comment: Norm al Fasting Glucose Range 70-99 mg/dL Performed By: #### C MP, MG #### [facility] CLIA:[id number] [address] [place] [address] Potassium [Moles/Vol] 3.9 mmol/L Normal 3.5-5.1 [facility] Comment on above: Performed By: #### C MP, MG #### [facility] CLIA:[id number] [address] [place] [address] Protein [Mass/Vol] 7.0 g/dL Normal 6.4-8.3 [facility] Comment on above: Performed By: #### C MP, MG #### [facility] CLIA:[id number] [address] [place] [address] Sodium [Moles/Vol] 139 mmol/L Normal 136-145 [facility] Comment on above: Performed By: #### C MP, MG #### [facility] CLIA:[id number] [address] [place] [address] Urea nitrogen [Mass/Vol] 18 mg/dL Normal 8-23 [facility] Comment on above: Performed By: #### C MP, MG #### [facility] CLIA:[id number] [address] [place] [address] Urea nitrogen/Creatinine [Mass ratio] 25.7 mg/mg Normal [facility] Comment on above: Performed By: #### C MP, MG #### [facility] CLIA:[id number] [address] [place] [address] Emergency Room Visit Reporto n 11-06-2023 Emergency Room Visit Report [address] [address] - MARIE ASHLEY 1940 (83 F) [id number] Juan Manuel Norman DO ED Report #: [id number] (Signed) PCP: No Doctor Emergency Room Visit [...] Bladimir Mukherjee RN) History of cholecystectomy General [facility] Laboratory 11/06/23 Range/Units 05:14 WBC 5.8 (4.8-10.8) 10 3/uL RBC 4.42 (4.20-5.40) 10 6/uL Hgb 13.4 (12.0-16.4) g/dL Hct 40.3 (38.0-47.0) % MCV 91 (80-96) fL MCH 30.4 (27.0-31.0) pg MCHC 33.3 (32.0-36.0) g/dL RDW 12.8 (11.5-14.5) Plt Count 247 (130-400) 10 3/uL Neut % (Auto) 66.1 (50.0-70.0) % Lymph % (Auto) 26.7 (20.0-44.0) % [place] % (Auto) 5.5 (2.0-9.0) % Eos % (Auto) 1.2 (<4.0) % Baso % (Auto) 0.5 (<2.0) % Abs Neuts cells/mm3 3800 (1075-9055) /cmm Lymphocytes # 1500 (960-4752) /cmm Monocytes [...] is d (more content not included)... Normal [facility] MAGNESIUMon 11-06-2023 Magnesium [Mass/Vol] 2.1 mg/dL Normal 1.6-2.4 [facility] Comment on above: Performed By: #### C MG BRITTNEY #### [facility] CLIA:[id number] [address] [place] [address] PARTIAL THROMBOPLASTIN TIMEo n 11-06-2023 aPTT Coag (Bld) [Time] 33.3 s Normal 22.2-34.2 [facility] Comment on above: Order Comment: None Result Comment: Hepa rin therapeutic range is 79-94 seconds. Performed By: #### P T, PTT #### [facility] CLIA:[id number] [address] [place] [address], [place] [address] PROTHROMBIN TIMEon INR Coag (PPP) [Relative time] 1.2 {INR} High 0.9-1.1 [facility] Comment on above: Order Comment: None Result Comment: The established reference range is for adult population only. Performed By: #### P T, PTT #### [facility] CLIA:[id number] [address] [place] [address], [place] [address] PT Coag (PPP) [Time] 14.4 s High 11.5-13.9 [facility] Comment on above: Order Comment: None Performed By: #### P T, PTT #### [facility] CLIA:[id number] [address] [place] [address], [place] [address] TROPONIN T,HIGH-SENSITIVITYo n 11-06-2023 TROPONIN T,HIGH-SENSITIVITY 7 ng/L Normal <14 [facility] Comment on above: Performed By: #### T ROPHS #### [facility] CLIA:[id number] [address] [place] [address], [place] [address] Absolute lymphocyte countOrd ered By: ED PROVIDER on 07-23-2023 Lymphocytes Auto (Unsp spec) [#/Vol] 3.56 10*3/uL 0.83-4.51 [facility] Basophil percentageOrdered B y: ED PROVIDER on 07-23-2023 Basophils/100 WBC (Bld) 0.9 % 0-1 [facility] Chloride [Moles/Vol] 107 mmol/L 98-107 [facility] Eosinophils/100 WBC (Bld) 3.9 % 0-5 [facility] Glucose [Mass/Vol] 110 mg/dL 74-106 [facility] Comment on above: Fasting Glucose resu lt from 100 to 125 mg/dL suggests IMPAIRED HOMEOSTASIS per A.D.A. criteria. Neutrophils (Bld) [#/Vol] 2.2 10*3/uL 2.0-7.7 [facility] Neutrophils/100 WBC (Bld) 33.2 % 47-70 [facility] Potassium [Moles/Vol] 3.5 mmol/L 3.5-5.1 [facility] Sodium [Moles/Vol] 142 mmol/L 136-145 [facility] WBC (Bld) [#/Vol] 6.5 10*3/uL 4.4-11.0 [facility] Blood erythrocytes count (nu mber/volume)Ordered By: ED PROVIDER on 07-23-2023 RBC (Bld) [#/Vol] 4.41 10*6/uL 4.2-5.4 [facility] Blood hemoglobin measurement (mass/volume)Ordered By: ED PROVIDER on 07-23-2023 Hemoglobin (Bld) [Mass/Vol] 13.0 g/dL 12.0-15.0 [facility] Blood lymphocytes/100 leukoc ytesOrdered By: ED PROVIDER on 07-23-2023 Lymphocytes/100 WBC (Bld) 55.1 % 19-41 [facility] Blood monocytes/100 leukocyt esOrdered By: ED PROVIDER on 07-23-2023 Monocytes/100 WBC (Bld) 6.7 % 0-10 [facility] Blood platelet mean volumeOr dered By: ED PROVIDER on 07-23-2023 Platelet mean volume (Bld) [Entitic vol] 9.8 fL 6.2-12.0 [facility] Determination of erythrocyte mean corpuscular volume (MCV)Ordered By: ED PROVIDER on 07-23-2023 MCV (RBC) [Entitic vol] 94.3 fL 81-99 [facility] Hematocrit Auto (Bld) [Volum e fraction]Ordered By: ED PROVIDER on 07-23-2023 Hematocrit (Bld) [Volume fraction] 41.6 % 37-47 [facility] INR in Blood by Coagulation assayOrdered By: ED PROVIDER on 07-23-2023 INR Coag (Bld) [Relative time] 1.2 {INR} [facility] Laboratory - Chemistry and C hemistry - challengeOrdered By: ED PROVIDER on 07-23-2023 CO2 [Moles/Vol] 29.0 mmol/L 21.0-32.0 [facility] Urea nitrogen/Creatinine [Mass ratio] 22.5 mg/mg 10-20 [facility] Laboratory - CoagulationOrde red By: ED PROVIDER on 07-23-2023 PT Coag (PPP) [Time] 15.4 s 11.7-14.9 [facility] Laboratory - Hematology and Cell countsOrdered By: ED PROVIDER on 07-23-2023 Erythrocyte distribution width (RBC) [Entitic vol] 41.6 fL 35.1-43.9 [facility] Erythrocyte distribution width (RBC) [Ratio] 11.9 % 11.6-14.6 [facility] Immature granulocytes/100 WBC (Bld) 0.200 % 0.0-0.9 [facility] Comment on above: IG% - Immature Granu locytes (promyelocytes, myelocytes and metamyelocytes) > 1% indicates that a LEFT SHIFT is Present. MCH (RBC) [Entitic mass] 29.5 pg 27.0-32.0 [facility] Nucleated RBC/100 WBC (Bld) [Ratio] 0 % 0-5 [facility] MCHC Auto (RBC) [Mass/Vol]Or dered By: ED PROVIDER on 07-23-2023 MCHC (RBC) [Mass/Vol] 31.3 g/dL 32-36 [facility] No Panel InformationOrdered By: ED PROVIDER on 07-23-2023 Troponin I High Sensitivity 10 pg/mL 3.0-54.0 [facility] Comment on above: Please Note: New Annetta t Units and Gender Specific Reference Ranges. For more information see Policy Stat Procedure [place] High Sensitivity Troponin (TNIH) and attachments. Estimated Creatinine Clearance Calc 34.78 ml/min [facility] Estimated GFR (MDRD) Amer 94 mL/min >60 [facility] Comment on above: GFR Calc Estimated GFR (MDRD) Non-Af Amer 78 mL/min >60 [facility] Comment on above: Non- GFR Calc Platelets bldOrdered By: ED PROVIDER on 07-23-2023 Platelets (Bld) [#/Vol] 265 10*3/uL 150-450 [facility] Serum or plasma calcium estevan urement (mass/volume)Ordered By: ED PROVIDER on 07-23-2023 Calcium [Mass/Vol] 9.3 mg/dL 8.5-10.1 [facility] Serum or plasma creatinine m easurement (mass/volume)Ordered By: ED PROVIDER on 07-23-2023 Creatinine [Mass/Vol] 0.76 mg/dL 0.55-1.02 [facility] Comment on above: The validity of the calculated GFR & GFRAA in patients over 70 years has not been determined. Clinical correlation is essential. Serum or plasma urea nitroge n measurement (mass/volume)Ordered By: ED PROVIDER on 07-23-2023 Urea nitrogen [Mass/Vol] 17 mg/dL 7-18 [facility] Thin prep Papanicolaou smear with manual screeningOrdered By: ED PROVIDER on 07-23-2023 Thin prep Papanicolaou smear with manual screening 6 5-15 [facility] Absolute lymphocyte countOrd ered By: Romy Briscoe on 02-14-2023 Lymphocytes Auto (Unsp spec) [#/Vol] 2.87 10*3/uL 0.83-4.51 [facility] Basophil percentageOrdered B y: Romy Briscoe on 02-14-2023 Basophils/100 WBC (Bld) 0.7 % 0-1 [facility] Eosinophils/100 WBC (Bld) 2.6 % 0-5 [facility] Neutrophils (Bld) [#/Vol] 2.3 10*3/uL 2.0-7.7 [facility] Neutrophils/100 WBC (Bld) 39.5 % 47-70 [facility] WBC (Bld) [#/Vol] 5.7 10*3/uL 4.4-11.0 [facility] Blood erythrocytes count (nu mber/volume)Ordered By: Romy Briscoe on 02-14-2023 RBC (Bld) [#/Vol] 4.27 10*6/uL 4.2-5.4 [facility] Blood hemoglobin measurement (mass/volume)Ordered By: Romy Briscoe on 02-14-2023 Hemoglobin (Bld) [Mass/Vol] 12.8 g/dL 12.0-15.0 [facility] Blood lymphocytes/100 leukoc ytesOrdered By: Romy Briscoe on 02-14-2023 Lymphocytes/100 WBC (Bld) 50.3 % 19-41 [facility] Blood monocytes/100 leukocyt esOrdered By: Romy Briscoe on 02-14-2023 Monocytes/100 WBC (Bld) 6.7 % 0-10 [facility] Blood platelet mean volumeOr dered By: Romy Briscoe on 02-14-2023 Platelet mean volume (Bld) [Entitic vol] 9.8 fL 6.2-12.0 [facility] Determination of erythrocyte mean corpuscular volume (MCV)Ordered By: Romy Briscoe on 02-14-2023 MCV (RBC) [Entitic vol] 95.6 fL 81-99 [facility] Hematocrit Auto (Bld) [Volum e fraction]Ordered By: Romy Briscoe on 02-14-2023 Hematocrit (Bld) [Volume fraction] 40.8 % 37-47 [facility] - Hematology and Cell countsOrdered By: Romy Briscoe on 02-14-2023 Erythrocyte distribution width (RBC) [Entitic vol] 42.6 fL 35.1-43.9 [facility] Erythrocyte distribution width (RBC) [Ratio] 12.1 % 11.6-14.6 [facility] Immature granulocytes/100 WBC (Bld) 0.200 % 0.0-0.9 [facility] Comment on above: IG% - Immature Granu locytes (promyelocytes, myelocytes and metamyelocytes) > 1% indicates that a LEFT SHIFT is Present. MCH (RBC) [Entitic mass] 30.0 pg 27.0-32.0 [facility] Nucleated RBC/100 WBC (Bld) [Ratio] 0 % 0-5 [facility] MCHC Auto (RBC) [Mass/Vol]Or dered By: Romy Briscoe on 02-14-2023 MCHC (RBC) [Mass/Vol] 31.4 g/dL 32-36 [facility] Platelets bldOrdered By: Anmol Briscoe on 02-14-2023 Platelets (Bld) [#/Vol] 272 10*3/uL 150-450 [facility] XR FOOT GENERAL 3V AP/LAT/OB L LEFTon 01-04-2023 [facility] XR Foot - left AP and Latera l and obliqueon 01-04-2023 IMPRESSION: No acute osseous abnormality Graffiti Cleaner: PSCB Transcribe Date/Time: Jan 04 2023 2:54P Dictated by : ESEQUIEL CENTENO MD This examination was interpreted and the report reviewed and electronically signed by: ESEQUIEL CENTENO MD on Jan 04 2023 2:58PM [facility] DIVISION OF RADIOLOGY * * *Final Report* [...] spaces are maintained. DIVISION OF RADIOLOGY Provider, [facility] - 01/04/2023 * * *Final [...] maintained. IMPRESSION IMPRESSION: No acute osseous abnormality Graffiti Cleaner: ERIC Transcribe Date/Time: Jan 04 2023 2:54P Dictated by : ESEQUIEL CENTENO MD This examination was interpreted and the report reviewed and electronically signed by: ESEQUIEL CENTENO MD on Jan 04 2023 2:58PM [facility] Radiology Study observation (narrative) [facility] XR Foot - left AP and Latera l and obliqueOrdered By: Ccf Provider on 01-04-2023 [facility] Office Visit: UC: Lavinia 03-01 Documentation of current medications (procedure) Done Invalid Interpretation Code [facility] Work Phone: Fall risk assessment No Invalid Interpretation Code [facility] Work Phone: Tobacco smoking status NHIS Never Invalid Interpretation Code [facility] Work Phone: Tobacco use CPHS Never smoker Invalid Interpretation Code [facility] Work Phone: Lab Report: Lipid Profileon 11-15-2015 Cholesterol 191 mg/dL Invalid Interpretation Code 200 [facility] Work Phone: HDL Cholesterol 60 mg/dL Invalid Interpretation Code [facility] Work Phone: LDL Cholesterol 113 mg/dL Invalid Interpretation Code 0-130 [facility] Work Phone: Triglyceride 90 mg/dL Invalid Interpretation Code [facility] Work Phone: very low density lipoproteins 18 mg/dL Invalid Interpretation Code 5-40 [facility] Work Phone: Lab Report: Thyroid Stim Hor abigail (TSH)on 11-15-2015 Thyroid stimulating hormone (TSH) 1.70 u[iU]/mL Invalid Interpretation Code 0.358-3.74 [facility] Work Phone: Vital Signs Date Time Vital Sign Value Performing Clinician Faci lity 01-28-2025 12:57-0400 Body height 165.[address] Sebastian Teixeira MD Work Phone: 8(955)056-694705 [place] [address] 01-28-2025 12:57-0400 Body mass index (BMI) [Ratio] 17.4 kg/m2 Dr. Sebastian Teixeira MD Work Phone: 7(929)229-551705 [place] [address] 01-28-2025 12:57-0400 Body weight 47.[address] Sebastian Teixeira MD Work Phone: [facility] 01-28-2025 12:57-0400 Diastolic blood pressure 57 mm[Hg] Dr. Sebastian Teixeira MD Work Phone: 5(574)556-870405 [place] [address] 01-28-2025 12:57-0400 Heart rate 65 /min Dr. Sebastian Teixeira MD Work Phone: [facility] 01-28-2025 12:57-0400 Respiratory rate 18 /min Dr. Sebastian Teixeira MD Work Phone: 9(842)296-246105 [place] [address] 01-28-2025 12:57-0400 SaO2% (BldA) [Mass fraction] 97 % Dr. Sebastian Teixeira MD Work Phone: 3(989)149-211083 [place] [address] 01-28-2025 12:57-0400 Systolic blood pressure 109 mm[Hg] Dr. Sebastian Teixeira MD Work Phone: 6(291)950-493083 [place] [address] 01-26-2025 04:54-0400 Body temperature 97.6 [degF] Dr. Sebastian Teixeira MD Work Phone: 0(937)417-801083 [place] [address] 01-26-2025 04:54-0400 Diastolic blood pressure 83 mm[Hg] Dr. Sebastian Teixeira MD Work Phone: 9(654)421-936883 [place] [address] 01-26-2025 04:54-0400 Heart rate 90 /min Dr. Sebastian Teixeira MD Work Phone: 7(664)073-621283 [place] [address] 01-26-2025 04:54-0400 Respiratory rate 16 /min Dr. Sebastian Teixeira MD Work Phone: 8(353)225-757783 [place] [address] 01-26-2025 04:54-0400 SaO2% (BldA) [Mass fraction] 95 % Dr. Sebastian Teixeira MD Work Phone: 7(972)026-008583 [place] [address] 01-26-2025 04:54-0400 Systolic blood pressure 100 mm[Hg] Dr. Sebastian Teixeira MD Work Phone: 5(948)218-832583 [place] [address] 01-26-2025 02:03-0400 Body height 165.[address] Sebastian Teixeira MD Work Phone: 1(198)454-488783 [place] [address] 01-26-2025 02:03-0400 Body mass index (BMI) [Ratio] 17.5 kg/m2 Dr. Sebastian Teixeira MD Work Phone: 4(540)772-505583 [place] [address] 01-26-2025 02:03-0400 Body weight 47.[address] Sebastian Teixeira MD Work Phone: 8(496)779-400083 [place] [address] 01-14-2025 09:58-0400 Body height 162.5 cm Heri Teixeira MD Work Phone: [facility] 01-14-2025 09:58-0400 Body mass index (BMI) [Ratio] 18.17 kg/m2 Heri Teixeira MD Work Phone: [facility] 01-14-2025 09:58-0400 Body weight 47.99 kg Heri Teixeira MD Work Phone: [facility] 01-14-2025 09:58-0400 Diastolic blood pressure 62 mm[Hg] Heri Teixeira MD Work Phone: 6(912)816-433407 [place] [address] 01-14-2025 09:58-0400 Heart rate 60 /min Heri Teixeira MD Work Phone: [facility] 01-14-2025 09:58-0400 SaO2% (BldA) [Mass fraction] 98 % Heri Teixeira MD Work Phone: 9(904)767-583707 [place] [address] 01-14-2025 09:58-0400 Systolic blood pressure 110 mm[Hg] Heri Teixeira MD Work Phone: 7(067)451-715007 [place] [address] 01-04-2025 07:16-0400 Body height 165.[address] Sebastian Teixeira MD Work Phone: [facility] 01-04-2025 07:16-0400 Body mass index (BMI) [Ratio] 17.6 kg/m2 Dr. Sebastian Teixeira MD Work Phone: 8(749)592-180005 [place] [address] 01-04-2025 07:16-0400 Body weight 48.[address] Sebastian Teixeira MD Work Phone: 8(633)316-705883 [place] [address] 01-04-2025 07:16-0400 Diastolic blood pressure 61 mm[Hg] Dr. Sebastian Teixeira MD Work Phone: 0(566)194-370583 [place] [address] 01-04-2025 07:16-0400 Heart rate 60 /min Dr. Sebastian Teixeira MD Work Phone: 0(947)038-171783 [place] [address] 01-04-2025 07:16-0400 Respiratory rate 18 /min Dr. Sebastian Teixeira MD Work Phone: 4(382)897-345383 [place] [address] 01-04-2025 07:16-0400 SaO2% (BldA) [Mass fraction] 96 % Dr. Sebastian Teixeira MD Work Phone: 8(318)457-476883 [place] [address] 01-04-2025 07:16-0400 Systolic blood pressure 105 mm[Hg] Dr. Sebastian Teixeira MD Work Phone: 2(020)157-893583 [place] [address] 01-03-2025 11:03-0400 Body temperature 97.9 [degF] Dr. Sebastian Teixeira MD Work Phone: 8(620)873-941683 [place] [address] 01-03-2025 11:03-0400 Diastolic blood pressure 59 mm[Hg] Dr. Sebastian Teixeira MD Work Phone: 6(428)504-758583 [place] [address] 01-03-2025 11:03-0400 Heart rate 94 /min Dr. Sebastian Teixeira MD Work Phone: 4(671)650-605583 [place] [address] 01-03-2025 11:03-0400 Respiratory rate 16 /min Dr. Sebastian Teixeira MD Work Phone: 8(711)302-342783 [place] [address] 01-03-2025 11:03-0400 SaO2% (BldA) [Mass fraction] 98 % Dr. Sebastian Teixeira MD Work Phone: 5(014)294-284383 [place] [address] 01-03-2025 11:03-0400 Systolic blood pressure 98 mm[Hg] Dr. Sebastian Teixeira MD Work Phone: 5(981)689-508483 [place] [address] 01-03-2025 07:30-0400 Body height 165.[address] Sebastian Teixeira MD Work Phone: 8(118)971-810383 [place] [address] 01-03-2025 07:30-0400 Body mass index (BMI) [Ratio] 17.4 kg/m2 Dr. Sebastian Teixeira MD Work Phone: 2(987)925-674083 [place] [address] 01-03-2025 07:30-0400 Body weight 47.[address] Sebastian Teixeira MD Work Phone: 0(186)198-812983 [place] [address] 11-22-2024 15:16-0400 Body mass index (BMI) [Ratio] 17.4 kg/m2 Dr. Sebastian Teixeira MD Work Phone: 8(807)341-137383 [place] [address] 11-22-2024 15:16-0400 Body weight 47.[address] Sebastian Teixeira MD Work Phone: 9(221)258-291783 [place] [address] 11-22-2024 15:16-0400 Diastolic blood pressure 65 mm[Hg] Dr. Sebastian Teixeira MD Work Phone: 2(629)066-107583 [place] [address] 11-22-2024 15:16-0400 Heart rate 59 /min Dr. Sebastian Teixeira MD Work Phone: 0(675)387-104483 [place] [address] 11-22-2024 15:16-0400 Respiratory rate 18 /min Dr. Sebastian Teixeira MD Work Phone: 9(089)678-672283 [place] [address] 11-22-2024 15:16-0400 SaO2% (BldA) [Mass fraction] 96 % Dr. Sebastian Teixeira MD Work Phone: 7(484)267-399783 [place] [address] 11-22-2024 15:16-0400 Systolic blood pressure 106 mm[Hg] Dr. Sebastian Teixeira MD Work Phone: 8(647)257-543683 [place] [address] 11-09-2024 10:47-0400 Body mass index (BMI) [Ratio] 18.28 kg/m2 Heri Teixiera MD Work Phone: 5(864)994-435407 [place] [address] 11-09-2024 10:47-0400 Body weight 48.26 kg Heri Teixeira MD Work Phone: 2(855)365-626907 [place] [address] 11-09-2024 10:47-0400 Diastolic blood pressure 58 mm[Hg] Heri Teixeira MD Work Phone: 0(427)266-258407 [place] [address] 11-09-2024 10:47-0400 Heart rate 54 /min Heri Teixeira MD Work Phone: 3(799)510-399907 [place] [address] 11-09-2024 10:47-0400 Respiratory rate 16 /min Heri Teixeira MD Work Phone: [facility] 11-09-2024 10:47-0400 SaO2% (BldA) [Mass fraction] 98 % Heri Teixeira MD Work Phone: [facility] 11-09-2024 10:47-0400 Systolic blood pressure 100 mm[Hg] Heri Teixeira MD Work Phone: [facility] 10-17-2024 07:29-0400 Body mass index (BMI) [Ratio] 17.4 kg/m2 Dr. Sebastian Teixeira MD Work Phone: 2(748)730-074805 [place] [address] 10-17-2024 07:29-0400 Body weight 47.[address] Sebastian Teixeira MD Work Phone: 4(576)574-805783 [place] [address] 10-17-2024 07:29-0400 Diastolic blood pressure 65 mm[Hg] Dr. Sebastian Teixeira MD Work Phone: 6(720)825-099905 [place] [address] 10-17-2024 07:29-0400 Heart rate 62 /min Dr. Sebastian Teixeira MD Work Phone: 1(522)874-471905 [place] [address] 10-17-2024 07:29-0400 Respiratory rate 18 /min Dr. Sebastian Teixeira MD Work Phone: 8(856)183-347005 [place] [address] 10-17-2024 07:29-0400 SaO2% (BldA) [Mass fraction] 99 % Dr. Sebastian Teixeira MD Work Phone: [facility] 10-17-2024 07:29-0400 Systolic blood pressure 108 mm[Hg] Dr. Sebastian Teixeira MD Work Phone: [facility] 10-15-2024 13:12-0400 Body mass index (BMI) [Ratio] 17.8 kg/m2 Jonah Valiente APRN.ENVIRONMENTAL ENGINEERING TECHNICIAN Work Phone: [facility] 10-15-2024 13:12-0400 Body weight 47 kg Jonah Valiente APRN.ENVIRONMENTAL ENGINEERING TECHNICIAN Work Phone: [facility] 10-15-2024 13:12-0400 Diastolic blood pressure 71 mm[Hg] Jonah Valiente APRN.ENVIRONMENTAL ENGINEERING TECHNICIAN Work Phone: [facility] 10-15-2024 13:12-0400 Heart rate 59 /min Jonah Valiente APRN.ENVIRONMENTAL ENGINEERING TECHNICIAN Work Phone: [facility] 10-15-2024 13:12-0400 Systolic blood pressure 119 mm[Hg] Jonah Valiente APRN.ENVIRONMENTAL ENGINEERING TECHNICIAN Work Phone: [facility] 10-11-2024 07:00-0400 Body temperature 98.1 [degF] Dr. Adolph Omer MD Work Phone: 5(697)064-599705 [place] [address] 10-11-2024 07:00-0400 Diastolic blood pressure 69 mm[Hg] Dr. Adolph Omer MD Work Phone: [facility] 10-11-2024 07:00-0400 Heart rate 95 /min Dr. Adolph Omer MD Work Phone: 7(619)902-913205 [place] [address] 10-11-2024 07:00-0400 Respiratory rate 16 /min Dr. Adolph Omer MD Work Phone: 7(828)591-902483 [place] [address] 10-11-2024 07:00-0400 SaO2% (BldA) [Mass fraction] 96 % Dr. Adolph Omer MD Work Phone: [facility] 10-11-2024 07:00-0400 Systolic blood pressure 104 mm[Hg] Dr. Adolph Omer MD Work Phone: 5(732)619-874605 [place] [address] 10-11-2024 03:42-0400 Body height 165.[address] Adolph Omer MD Work Phone: 5(103)379-945883 [place] [address] 10-11-2024 03:42-0400 Body mass index (BMI) [Ratio] 17.7 kg/m2 Dr. Adolph Omer MD Work Phone: 1(888)679-767405 [place] [address] 10-11-2024 03:42-0400 Body weight 48.[address] Adolph Omer MD Work Phone: 0(263)358-827905 [place] [address] 08-22-2024 08:30-0500 Body mass index (BMI) [Ratio] 17.5 kg/m2 Dr. Adolph Omer MD Work Phone: 6(559)118-601983 [place] [address] 08-22-2024 08:30-0500 Body temperature 97.8 [degF] Dr. Adolph Omer MD Work Phone: 4(175)094-760783 [place] [address] 08-22-2024 08:30-0500 Body weight 47.[address] Adolph Omer MD Work Phone: 7(815)735-995583 [place] [address] 08-22-2024 08:30-0500 Diastolic blood pressure 70 mm[Hg] Dr. Adolph Omer MD Work Phone: 5(395)545-599083 [place] [address] 08-22-2024 08:30-0500 Heart rate 67 /min Dr. Adolph Omer MD Work Phone: 7(358)658-282683 [place] [address] 08-22-2024 08:30-0500 Respiratory rate 18 /min Dr. Adolph Omer MD Work Phone: 4(355)412-674483 [place] [address] 08-22-2024 08:30-0500 SaO2% (BldA) [Mass fraction] 98 % Dr. Adolph Omer MD Work Phone: 8(400)407-805883 [place] [address] 08-22-2024 08:30-0500 Systolic blood pressure 113 mm[Hg] Dr. Adolph Omer MD Work Phone: 3(150)479-387483 [place] [address] 08-10-2024 09:12-0500 Body mass index (BMI) [Ratio] 18.24 kg/m2 Heri Teixeira MD Work Phone: [facility] 08-10-2024 09:12-0500 Body weight 48.17 kg Heri Teixeira MD Work Phone: 9(917)268-180607 [place] [address] 08-10-2024 09:12-0500 Diastolic blood pressure 60 mm[Hg] Heri Teixeira MD Work Phone: [facility] 08-10-2024 09:12-0500 Heart rate 69 /min Heri Teixeira MD Work Phone: [facility] 08-10-2024 09:12-0500 Respiratory rate 16 /min Heri Teixeira MD Work Phone: [facility] 08-10-2024 09:12-0500 SaO2% (BldA) [Mass fraction] 97 % Heri Teixeira MD Work Phone: [facility] 08-10-2024 09:12-0500 Systolic blood pressure 108 mm[Hg] Heri Teixeira MD Work Phone: [facility] 08-05-2024 04:49-0500 Body temperature 97.8 [degF] Dr. Adolph Omer MD Work Phone: 0(344)801-458342 [address] 08-05-2024 04:49-0500 Diastolic blood pressure 52 mm[Hg] Dr. Adolph Omer MD Work Phone: 1(757)125-134505 [place] [address] 08-05-2024 04:49-0500 Heart rate 65 /min Dr. Adolph Omer MD Work Phone: 6(375)789-968905 [place] [address] 08-05-2024 04:49-0500 Respiratory rate 16 /min Dr. Adolph Omer MD Work Phone: 1(339)850-370105 [place] [address] 08-05-2024 04:49-0500 SaO2% (BldA) [Mass fraction] 97 % Dr. Adolph Omer MD Work Phone: 0(741)364-057305 [place] [address] 08-05-2024 04:49-0500 Systolic blood pressure 102 mm[Hg] Dr. Adolph Omer MD Work Phone: 6(951)251-307805 [place] [address] 08-05-2024 02:49-0500 Body mass index (BMI) [Ratio] 17.6 kg/m2 Dr. Adolph Omer MD Work Phone: 9(441)692-019305 [place] [address] 08-05-2024 02:49-0500 Body weight 48.[address] Adolph Omer MD Work Phone: [facility] 12-21-2023 11:08-0400 Body mass index (BMI) [Ratio] 18.24 kg/m2 Connie Lira APRN.CNP Work Phone: [facility] 12-21-2023 11:08-0400 Body weight 48.17 kg Connie Podlogar MUD TANK OPERATOR.ENVIRONMENTAL ENGINEERING TECHNICIAN Work Phone: [facility] 12-21-2023 11:08-0400 Diastolic blood pressure 64 mm[Hg] Connie Podlogar MUD TANK OPERATOR.ENVIRONMENTAL ENGINEERING TECHNICIAN Work Phone: [facility] 12-21-2023 11:08-0400 Heart rate 50 /min Connie Podlogar MUD TANK OPERATOR.ENVIRONMENTAL ENGINEERING TECHNICIAN Work Phone: [facility] 12-21-2023 11:08-0400 Respiratory rate 16 /min Connie Podlogar MUD TANK OPERATOR.ENVIRONMENTAL ENGINEERING TECHNICIAN Work Phone: [facility] 12-21-2023 11:08-0400 SaO2% (BldA) [Mass fraction] 98 % Connie Podlogar MUD TANK OPERATOR.ENVIRONMENTAL ENGINEERING TECHNICIAN Work Phone: [facility] 12-21-2023 11:08-0400 Systolic blood pressure 112 mm[Hg] Connie Podlogar MUD TANK OPERATOR.ENVIRONMENTAL ENGINEERING TECHNICIAN Work Phone: [facility] 07-23-2023 08:13-0500 Body temperature 97.6 [degF] Dr. Adolph Omer Work Phone: [facility] 07-23-2023 08:13-0500 Diastolic blood pressure 76 mm[Hg] Dr. Adolph Omer Work Phone: 7(040)124-145905 [place] [address] 07-23-2023 08:13-0500 Heart rate 64 /min Dr. Adolph Omer Work Phone: [facility] 07-23-2023 08:13-0500 Respiratory rate 14 /min Dr. Adolph Omer Work Phone: [facility] 07-23-2023 08:13-0500 SaO2% (BldA) [Mass fraction] 98 % Dr. Adolph Omer Work Phone: [facility] 07-23-2023 08:13-0500 Systolic blood pressure 115 mm[Hg] Dr. Adolph Omer Work Phone: 9(996)144-628883 [place] [address] 07-23-2023 03:17-0500 Body height 162.[address] Adolph Omer Work Phone: 2(974)167-152683 [place] [address] 07-23-2023 03:17-0500 Body mass index (BMI) [Ratio] 19.2 kg/m2 Dr. Adolph Omer Work Phone: 7(510)944-523683 [place] [address] 07-23-2023 03:17-0500 Body weight 50.[address] Adolph Omer Work Phone: 4(630)203-810583 [place] [address] 06-04-2023 10:35-0400 Body mass index (BMI) [Ratio] 18.5 kg/m2 Dr. Adolph Omer Work Phone: 7(128)275-587383 [place] [address] 06-04-2023 10:35-0400 Body weight 48.[address] Adolph Omer Work Phone: 2(655)379-246083 [place] [address] 06-04-2023 10:35-0400 Diastolic blood pressure 64 mm[Hg] Dr. Adolph Omer Work Phone: 4(274)894-577283 [place] [address] 06-04-2023 10:35-0400 Heart rate 73 /min Dr. Adolph Omer Work Phone: 5(236)454-767283 [place] [address] 06-04-2023 10:35-0400 Respiratory rate 16 /min Dr. Adolph Omer Work Phone: 0(776)747-109083 [place] [address] 06-04-2023 10:35-0400 SaO2% (BldA) [Mass fraction] 94 % Dr. Adolph Omer Work Phone: 6(999)556-651883 [place] [address] 06-04-2023 10:35-0400 Systolic blood pressure 104 mm[Hg] Dr. Adolph Omer Work Phone: 0(106)075-801783 [place] [address] 02-14-2023 15:17-0400 Body height 162.[address] Adolph Omer Work Phone: 1(836)456-528083 [place] [address] 02-14-2023 15:17-0400 Body mass index (BMI) [Ratio] 18.5 kg/m2 Dr. Adolph Omer Work Phone: [facility] 02-14-2023 15:17-0400 Body weight 48.[address] Adolph Omer Work Phone: [facility] 02-14-2023 15:17-0400 Diastolic blood pressure 68 mm[Hg] Dr. Adolph Omer Work Phone: [facility] 02-14-2023 15:17-0400 Respiratory rate 18 /min Dr. Adolph Omer Work Phone: [facility] 02-14-2023 15:17-0400 SaO2% (BldA) [Mass fraction] 97 % Dr. Adolph Omer Work Phone: [facility] 02-14-2023 15:17-0400 Systolic blood pressure 115 mm[Hg] Dr. Adolph Omer Work Phone: [facility] 01-04-2023 14:12-0400 Body weight 48.72 kg Connie Podlogar MUD TANK OPERATOR.ENVIRONMENTAL ENGINEERING TECHNICIAN Work Phone: [facility] 01-04-2023 14:12-0400 Diastolic blood pressure 58 mm[Hg] Connie Podlogar MUD TANK OPERATOR.ENVIRONMENTAL ENGINEERING TECHNICIAN Work Phone: [facility] 01-04-2023 14:12-0400 Heart rate 64 /min Connie Podlogar MUD TANK OPERATOR.ENVIRONMENTAL ENGINEERING TECHNICIAN Work Phone: [facility] 01-04-2023 14:12-0400 Respiratory rate 16 /min Connie Podlogar MUD TANK OPERATOR.ENVIRONMENTAL ENGINEERING TECHNICIAN Work Phone: [facility] 01-04-2023 14:12-0400 SaO2% (BldA) [Mass fraction] 95 % Connie Podlogar MUD TANK OPERATOR.ENVIRONMENTAL ENGINEERING TECHNICIAN Work Phone: [facility] 01-04-2023 14:12-0400 Systolic blood pressure 102 mm[Hg] Connie Podlogar MUD TANK OPERATOR.ENVIRONMENTAL ENGINEERING TECHNICIAN Work Phone: [facility] 11-08-2022 07:55-0400 Body weight 49.99 kg Heri Teixeira MD Work Phone: [facility] 11-08-2022 07:55-0400 Diastolic blood pressure 64 mm[Hg] Heri Teixeira MD Work Phone: [facility] 11-08-2022 07:55-0400 Heart rate 70 /min Heri Teixeira MD Work Phone: [facility] 11-08-2022 07:55-0400 Respiratory rate 16 /min Heri Teixeira MD Work Phone: [facility] 11-08-2022 07:55-0400 SaO2% (BldA) [Mass fraction] 99 % Heri Teixeira MD Work Phone: [facility] 11-08-2022 07:55-0400 Systolic blood pressure 120 mm[Hg] Heri Teixeira MD Work Phone: [facility] 10-15-2022 10:18-0400 Body temperature 98.4 [degF] Connie Podlogar MUD TANK OPERATOR.ENVIRONMENTAL ENGINEERING TECHNICIAN Work Phone: [facility] 10-15-2022 10:18-0400 Body weight 49.71 kg Connie Podlogar MUD TANK OPERATOR.ENVIRONMENTAL ENGINEERING TECHNICIAN Work Phone: [facility] 10-15-2022 10:18-0400 Diastolic blood pressure 72 mm[Hg] Connie Podlogar MUD TANK OPERATOR.ENVIRONMENTAL ENGINEERING TECHNICIAN Work Phone: [facility] 10-15-2022 10:18-0400 Heart rate 71 /min Connie Podlogar MUD TANK OPERATOR.ENVIRONMENTAL ENGINEERING TECHNICIAN Work Phone: [facility] 10-15-2022 10:18-0400 Respiratory rate 16 /min Connie Podlogar MUD TANK OPERATOR.ENVIRONMENTAL ENGINEERING TECHNICIAN Work Phone: [facility] 10-15-2022 10:18-0400 SaO2% (BldA) [Mass fraction] 95 % Connie Podlogar MUD TANK OPERATOR.ENVIRONMENTAL ENGINEERING TECHNICIAN Work Phone: [facility] 10-15-2022 10:18-0400 Systolic blood pressure 114 mm[Hg] Connie Podlogar MUD TANK OPERATOR.ENVIRONMENTAL ENGINEERING TECHNICIAN Work Phone: [facility] 11-06-2021 13:46-0400 Body height 162.5 cm Connie Podlogar MUD TANK OPERATOR.ENVIRONMENTAL ENGINEERING TECHNICIAN Work Phone: [facility] 11-06-2021 13:46-0400 Body weight 50.17 kg Connie Podlogar MUD TANK OPERATOR.ENVIRONMENTAL ENGINEERING TECHNICIAN Work Phone: [facility] 11-06-2021 13:46-0400 Diastolic blood pressure 64 mm[Hg] Connie Podlogar MUD TANK OPERATOR.ENVIRONMENTAL ENGINEERING TECHNICIAN Work Phone: [facility] 11-06-2021 13:46-0400 Heart rate 65 /min Connie Podlogar MUD TANK OPERATOR.ENVIRONMENTAL ENGINEERING TECHNICIAN Work Phone: [facility] 11-06-2021 13:46-0400 Respiratory rate 18 /min Connie Podlogar MUD TANK OPERATOR.ENVIRONMENTAL ENGINEERING TECHNICIAN Work Phone: [facility] 11-06-2021 13:46-0400 SaO2% (BldA) [Mass fraction] 98 % Connie Podlogar MUD TANK OPERATOR.ENVIRONMENTAL ENGINEERING TECHNICIAN Work Phone: [facility] 11-06-2021 13:46-0400 Systolic blood pressure 106 mm[Hg] Connie Podlogar MUD TANK OPERATOR.[facility] Work Phone: [facility] 03-18-2017 10:01-0400 BMI (Body Mass Index) 18.77 kg/m2 Pauline Maharaj LPN [facility] Work Phone: 03-18-2017 10:01-0400 Body Temperature 98.1 [degF] Pauline Maharaj LPN [facility] Work Phone: 03-18-2017 10:01-0400 BP Diastolic 58 mm[Hg] Pauline Maharaj LPN [facility] Work Phone: 03-18-2017 10:01-0400 BP Systolic 122 mm[Hg] Pauline Maharaj LPN [facility] Work Phone: 03-18-2017 10:01-0400 Height 165.1 cm Pauline Maharaj LPN [facility] Work Phone: 03-18-2017 10:01-0400 Pulse (Heart Rate) 79 /min Pauline Maharaj [facility] Work Phone: 03-18-2017 10:01-0400 Respiratory Rate 16 /min Pauline Maharaj [facility] Work Phone: 03-18-2017 10:010400 Weight 51.17 kg Pauline Maharaj LPN [facility] Work Phone: 12-31-2015 14:29-0400 BSA (Body Surface Area) 1.57 m2 Pauline Maharaj LPN [facility] Work Phone: Encounters Encounter Date Encounter Type Care Provider Facility Start: 01-28-2025 End: 01-28-2025 Patient encounter procedure Jolie ALICIA -[facility] Work Phone: Start: 01-28-2025 End: 01-28-[address] Sebastian Teixeira MD Work Phone: -[facility] Start: 01-26-2025 End: 01-26-2025 Emergency department patient visit Dr. Sebastian Teixeira MD Work Phone: -Emergency Department Work Phone: Start: 01-24-2025 End: 01-28-2025 Telephone encounter Heri Teixeira MD Work Phone: [facility] [place] Comment on above: Orders (Physical The rapy) Start: 01-14-2025 End: 01-14-2025 Patient encounter procedure Heri Teixeira MD Work Phone: [facility] [place] Comment on above: Acute right-sided lo w back pain without sciatica (Primary Dx); Numbness and tingling sensation of skin Start: 01-14-2025 End: 01-14-2025 ambulatory HERI TEIXEIRA Facility:[facility] Start: 01-04-2025 End: 01-04-2025 Patient encounter procedure Jolie ALICIA -[facility] Work Phone: Start: 01-04-2025 End: 01-04-[address] Sebastian Teixeira MD Work Phone: [facility] Work Phone: Start: 01-03-2025 End: 01-03-2025 Emergency department patient visit Dr. Sebastian Teixeira MD Work Phone: -Emergency Department Work Phone: Start: 11-30-2024 ambulatory Sebastian Aguila lity:[facility] Start: 11-30-2024 Non-patient / Non-visit Dr. Juan Manuel Abebe MD -[facility] Work Phone: Start: 11-30-2024 ambulatory Sebastian Aguila lity:[facility] Start: 11-30-2024 Registered Referred Rex Edwards NP-C -Cardiovascular Services Work Phone: Start: 11-22-2024 End: 11-22-2024 Patient encounter procedure Rex ALICIA -[facility] Work Phone: Start: 11-22-2024 Non-patient / Non-visit Bijal boland -[facility] Work Phone: Start: 11-22-2024 End: 11-22-2024 ambulatory Sebastian Teixeira Facility:[facility] Start: 11-22-2024 End: 11-22-2024 ambulatory Sebastian Teixeira Facility:[facility] Start: 11-09-2024 End: 11-09-2024 Patient encounter procedure Heri Teixeira MD Work Phone: Family [facility] Comment on above: Paroxysmal atrial fi brillation (HCC) (Primary Dx); Hypothyroidism, acquired Start: 11-09-2024 End: 11-09-2024 ambulatory HERI TEIXEIRA Facility:[facility] Start: 10-17-2024 End: 10-17-2024 Patient encounter procedure Lalo PEREIRA -[facility] Work Phone: Start: 10-17-2024 End: 10-17-2024 ambulatory Sebastian Teixeira Facility:[facility] Start: 10-15-2024 End: 10-15-2024 Patient encounter procedure Jonah Valiente APRN.CNP Work Phone: [facility] Comment on above: Paroxysmal atrial fi brillation (HCC) (Primary Dx) Start: 10-15-2024 End: 10-15-2024 ambulatory HERI TEIXEIRA Facility:[facility] Start: 10-11-2024 End: 10-11-2024 Emergency department patient visit Dr. Adolph Omer MD Work Phone: -Emergency Department Work Phone: Start: 10-09-2024 End: 10-09-2024 Follow-up encounter Heri Teixeira MD Work Phone: [facility] Start: 10-08-2024 End: 10-08-2024 ambulatory HERI TEIXEIRA Facility:[facility] Start: 08-22-2024 End: 08-22-2024 Patient encounter procedure Romy Briscoe PA -[facility] Work Phone: Start: 08-22-2024 End: 08-22-2024 ambulatory Romy PEREIRA Facility:[facility] Start: 08-13-2024 End: 08-13-2024 Telephone encounter Heri Teixeira MD Work Phone: [facility] [place] Comment on above: Results Start: 08-10-2024 End: 08-10-2024 ambulatory HERI TEIXEIRA Facility:[facility] Start: 08-10-2024 End: 08-10-2024 Patient encounter procedure Heri Teixeira MD Work Phone: [facility] [place] Comment on above: Paroxysmal atrial fi brillation (HCC) (Primary Dx); Hypothyroidism, acquired; Hypokalemia Start: 08-10-2024 End: 08-10-2024 ambulatory HERI TEIXEIRA Facility:[facility] Start: 08-08-2024 End: 08-21-2024 Telephone encounter Heri Teixeira MD Work Phone: [facility] [place] Comment on above: ER follow up appoint ment Start: 08-05-2024 End: 08-05-2024 Emergency department patient visit Tai Clark -Emergency Department Work Phone: Start: 02-13-2024 End: 02-13-2024 ambulatory Romy PEREIRA Facility:[facility] Start: 02-08-2024 End: 02-08-2024 ambulatory Adloph Omer Facility:[facility] Start: 02-07-2024 Telephone encounter Sebastian Teixeira MD Work Phone: [facility] Comment on above: Patient Question Start: 12-21-2023 Telephone encounter Sebastian Teixeira MD Work Phone: [facility] Comment on above: Refill Request Start: 12-21-2023 End: 12-21-2023 Patient encounter procedure Connie Lira APRN.CNP Work Phone: [facility] Comment on above: Hypothyroidism, acqu ired (Primary Dx); Depression screening; Impacted cerumen of right ear; Bilateral impacted cerumen; Paroxysmal atrial fibrillation (HCC) Start: 11-06-2023 ambulatory No Doctor Facility:[facility] Start: 11-06-2023 End: 11-06-2023 Emergency department patient visit No Doctor Facility:[facility] Start: 07-23-2023 End: 07-23-2023 Emergency department patient visit Dr. Adolph Omer Work Phone: [facility]-Emergency Department Work Phone: Start: 06-04-2023 End: 06-04-[address] Adolph Omer Work Phone: [facility] Work Phone: Start: 03-09-2023 Refill Heri Teixeira MD Work Phone: [facility] Comment on above: Refill Request Start: 02-14-2023 End: 02-14-[address] Adolph Omer Work Phone: [facility] Work Phone: Start: 02-14-2023 End: 02-14-[address] Adolph Omer Work Phone: [facility] Work Phone: Start: 01-04-2023 End: 01-04-2023 Subsequent hospital visit by physician Xr [facility] Work Phone: Radiology Comment on above: Injury of toe on lef t foot, initial encounter [S99.922A] Start: 01-04-2023 End: 01-04-2023 Patient encounter procedure Connie Lira APRN.ENVIRONMENTAL ENGINEERING TECHNICIAN Work Phone: [facility] [place] Comment on above: Injury of toe on lef t foot, initial encounter (Primary Dx) Start: 01-04-2023 Telephone encounter Connie deutsch APRN.ENVIRONMENTAL ENGINEERING TECHNICIAN Work Phone: [facility] [place] Comment on above: Results (Left foot x -ray ) Start: 11-08-2022 Telephone encounter Sebastian Teixeira MD Work Phone: [facility] [place] Comment on above: Orders Start: 11-08-2022 End: 11-08-2022 Patient encounter procedure Heri Teixeira MD Work Phone: [facility] [place] Comment on above: Paroxysmal atrial fi brillation (HCC) (Primary Dx); Hypothyroidism, acquired; Osteopenia, senile; Asymptomatic postmenopausal status Start: 10-27-2022 Telephone encounter Connie deutsch APRN.ENVIRONMENTAL ENGINEERING TECHNICIAN Work Phone: [facility] [place] Comment on above: Results Start: 10-15-2022 End: 10-15-2022 Patient encounter procedure Connie Lira APRN.ENVIRONMENTAL ENGINEERING TECHNICIAN Work Phone: [facility] [place] Comment on above: Eustachian tube dysf unction, bilateral (Primary Dx) Start: 04-12-2022 Refill Heri Teixeira MD Work Phone: [facility] [place] Comment on above: Refill Request Start: 11-06-2021 End: 11-06-2021 Patient encounter procedure Connie Lira APRN.ENVIRONMENTAL ENGINEERING TECHNICIAN Work Phone: [facility] [place] Comment on above: Routine physical exa mination (Primary Dx); Hypothyroidism, acquired; Screening for hyperlipidemia; Paroxysmal atrial fibrillation (HCC); Post-nasal drainage Start: 11-06-2021 End: 11-06-2021 Physical examination Connie Lira APRN.ENVIRONMENTAL ENGINEERING TECHNICIAN Work Phone: [facility] Procedures Date Procedure Procedure Detail Performing Clinician Start: 01-26-2025 Plain chest X-ray Dr. Kaela Teixeira MD Work Phone: Start: 01-26-[address] Sebastian Teixeira MD Work Phone: Start: 01-03-[address] Sebastian Teixeira MD Work Phone: Start: 10-17-2024 Evaluation of diagno stic study results Dr. Sebastian Teixeira MD Work Phone: Start: 10-11-2024 X-ray of chest, PA a nd lateral views Dr. Adolph Omer MD Work Phone: Start: 10-11-[address] Sebastian Teixeira MD Work Phone: Start: 12-21-2023 Adult depression scr eening assessment Xr [facility] Work Phone: Start: 07-23-2023 Plain chest X-ray Dr. John Omer Work Phone: Start: 01-04-2023 Radex foot complete minimum 3 views Connie Podlogflorinda MUD TANK OPERATOR.ENVIRONMENTAL ENGINEERING TECHNICIAN Work Phone: Start: 11-06-2021 Adult depression scr eening assessment Connie Podlogar MUD TANK OPERATOR.ENVIRONMENTAL ENGINEERING TECHNICIAN Work Phone: Start: 03-18-2017 End: 03-18-2017 Remove impacted ear wax Carrillo PEREIRA Work Phone: Start: 11-11-2015 End: 11-17-2015 Lipid panel [AGGREGATE] Dillon Chiang DO Work Phone: Start: 11-11-2015 End: 11-17-2015 Thyroid stimulating hormone (TSH) Dillon Chiang DO Work Phone: Plan of Treatment Date Care Activity Detail Author Start: 10-27-2025 DIABETES SCREEN [facility] Start: 10-27-2025 Diabetes Screening Diabetes Screenin g [facility] Start: 08-10-2025 Covid-19 Vaccine ( season) Covid-19 Vaccine ( season) [facility] Comment on above: Postponed from 04/01 (Declined at this time) Start: 08-10-2025 Pneumococcal Vaccine : 50+ (2 of 2 - PCV) Pneumococcal Vaccine: 50+ (2 of 2 - PCV) [facility] Comment on above: Postponed from 08/08 (Declined at this time) Start: 08-10-2025 RSV Vaccine (1 - 1-d ose 75+ series) RSV Vaccine (1 - 1-dose 75+ series) [facility] Comment on above: Postponed from 05/07 (Declined at this time) Start: 08-10-2025 Shingrix Vaccine (1 of 2) Shingrix Vaccine (1 of 2) [facility] Comment on above: Postponed from 05/07 (Declined at this time) Start: 08-10-2025 Urine microalbumin profile DTaP,Tdap,Td Vaccine (1 - Tdap) [facility] Comment on above: Postponed from 05/07 (Declined at this time) Start: 05-10-2025 End: 05-10-2025 Patient encounter procedure 05/10/2025 10:00 AM EDT Office Visit Family [facility] [place] [address] [place] [address] PodlogConnie neely APRN.ENVIRONMENTAL ENGINEERING TECHNICIAN [address] [place] [address] 6 month follow up Family [facility] [place] Comment on above: 6 month follow up Start: 04-01-2025 Influenza vaccination Influenz a Vaccine (Season Ended) [facility] Start: 02-11-2025 End: 02-11-2025 ambulatory 02/11/2025 3:30 PM EDT OT/PT/Speech [facility] [address] [place] [id number] Stephan De La Paz, PT [address] [id number] Bilateral hip pain [M25.551, M25.552] [facility] Comment on above: Bilateral hip pain [ M25.551, M25.552] Start: 01-28-2025 Influenza vaccination Influenza Vacc ine (#1) [facility] Comment on above: Postponed from 04/01 (Declined at this time) Start: 01-26-2025 [facility] Start: 01-26-2025 [facility] Start: 01-03-2025 [facility] Start: 12-20-2024 Anxiety Screening Anxiety Screening [facility] Start: 12-20-2024 Depression Screening Depression Scre ening [facility] Start: 11-09-2024 End: 11-09-2024 Patient encounter procedure 11/09/2024 10:40 AM EDT Office Visit [facility] [address] [place], [place] [id number] Heri Teixeira MD [address] [place], [place] [id number] 3 month follow up [facility] Comment on above: 3 month follow up Start: 11-07-2024 DIABETES SCREEN DIABETES SCREEN [facility] Start: 10-11-2024 [facility] Start: 10-08-2024 End: 01-07-2025 Thyrotropin [Units/volume] in Serum or Plasma THYROID STIMULATING HORMONE Lab Routine Hypothyroidism, acquired Expected: 10/08/2024, Expires: 01/07/2025 [facility] Comment on above: Expected: 10/08/2024 , Expires: 01/07/2025 Start: 08-10-2024 End: 11-09-2024 Potassium [Moles/volume] in Serum or Plasma [facility] Work Phone: Comment on above: Expected: 08/10/2024 , Expires: 11/09/2024 Start: 08-08-2024 RSV Vaccine (1 - 1-d ose 60+ series) RSV Vaccine (1 - 1-dose 60+ series) [facility] Comment on above: Postponed from 05/07 (Declined at this time) Start: 08-05-2024 [facility] Start: 08-01-2024 Advance Directive Discussion Advance Directive Discussion [facility] Start: 08-01-2024 Medicare Advantage Annual Wellness Visit Medicare Advantage Annual Wellness Visit [facility] Start: 04-01-2024 Covid-19 Vaccine ( season) Covid-19 Vaccine () [facility] Start: 04-01-2024 Influenza vaccination C [facility] Start: 11-09-2023 COVID-19 VACCINE (#1) COVID-19 VACCI NE (#1) [facility] Comment on above: Postponed from 11/05 (Declined at this time) Start: 11-09-2023 PNEUMOCOCCAL: 65+ (2 - PCV) PNEUMOCOCCAL: 65+ (2 - PCV) [facility] Comment on above: Postponed from 08/08 (Declined at this time) Start: 11-09-2023 SHINGRIX VACCINE (1 of 2) SHINGRIX VACCINE (1 of 2) [facility] Comment on above: Postponed from 05/07 (Declined at this time) Start: 11-09-2023 Urine microalbumin profile DTAP,TDAP,TD (1 - Tdap) [facility] Comment on above: Postponed from 05/07 (Declined at this time) Start: 08-01-2023 Advance Directive Discussion Advance Directive Discussion [facility] Start: 07-24-2023 [facility] Start: 07-23-2023 [facility] Start: 07-23-2023 [facility] Start: 04-01-2023 Covid-19 Vaccine ( season) Covid-19 Vaccine () [facility] Start: 04-01-2023 Influenza vaccination C [facility] Start: 11-06-2022 Adult depression screening assessment DEPRESSION SCREENING [facility] Start: 11-06-2022 ANNUAL PCP TEAM SUPERVISOR ASSEMBLY STOCK KIAN DISEASE VISIT ANNUAL PCP TEAM CHRONIC DISEASE VISIT [facility] Start: 11-06-2022 COVID-19 VACCINE (#1) COVID-19 VACCI NE (#1) [facility] Comment on above: Postponed from 11/05 (Declined at this time) Start: 11-06-2022 COVID-19 VACCINE (1) COVID-19 VACCIN E (1) [facility] Comment on above: Postponed from 05/07 (Declined at this time) Start: 11-06-2022 SHINGRIX VACCINE (1 of 2) SHINGRIX VACCINE (1 of 2) [facility] Comment on above: Postponed from 05/07 (Declined at this time) Start: 11-06-2022 Urine microalbumin profile DTAP,TDAP,TD (1 - Tdap) [facility] Comment on above: Postponed from 05/07 (Declined at this time) Start: 10-15-2022 End: 12-15-2022 CBC W Auto Differential panel - Blood CBC + DIFF Lab Routine Expected: 10/15/2022, Expires: 12/15/2022 [facility] Work Phone: Comment on above: Expected: 10/15/2022 , Expires: 12/15/2022 Start: 10-15-2022 End: 12-15-2022 Comprehensive metabolic 2000 panel - Serum or Plasma COMP METABOLIC PANEL Lab Routine Expected: 10/15/2022, Expires: 12/15/2022 [facility] Work Phone: Comment on above: Expected: 10/15/2022 , Expires: 12/15/2022 Start: 10-15-2022 End: 12-15-2022 Lipid 1996 panel - Serum or Plasma LIPID PANEL BASIC Lab Routine Expected: 10/15/2022, Expires: 12/15/2022 [facility] Work Phone: Comment on above: Expected: 10/15/2022 , Expires: 12/15/2022 Start: 10-15-2022 End: 12-15-2022 Thyrotropin [Units/volume] in Serum or Plasma TSH BLD Lab Routine Expected: 10/15/2022, Expires: 12/15/2022 [facility] Work Phone: Comment on above: Expected: 10/15/2022 , Expires: 12/15/2022 Start: 08-01-2022 ADVANCE DIRECTIVE DISCUSSION ADVANCE DIRECTIVE DISCUSSION [facility] Start: 08-01-2022 DEPRESSION ASSESSMENT DEPRESSION ASS ESSMENT [facility] Start: 04-01-2022 Influenza vaccination [facility] Start: 11-06-2021 End: 01-06-2022 Comprehensive metabolic 2000 panel - Serum or Plasma COMP METABOLIC PANEL Lab Routine Paroxysmal atrial fibrillation (HCC) Expected: 11/06/2021, Expires: 01/06/2022 [facility] Work Phone: Comment on above: Expected: 11/06/2021 , Expires: 01/06/2022 Start: 11-06-2021 End: 01-06-2022 LIPID PANEL BASIC LIPID PANEL BASIC Lab Routine Screening for hyperlipidemia Expected: 11/06/2021, Expires: 01/06/2022 [facility] Work Phone: Comment on above: Expected: 11/06/2021 , Expires: 01/06/2022 Start: 11-06-2021 End: 01-06-2022 Thyrotropin [Units/volume] in Serum or Plasma TSH BLD Lab Routine Hypothyroidism, acquired Expected: 11/06/2021, Expires: 01/06/2022 [facility] Work Phone: Comment on above: Expected: 11/06/2021 , Expires: 01/06/2022 Start: 08-01-2021 ADVANCE DIRECTIVE DISCUSSION ADVANCE DIRECTIVE DISCUSSION [facility] Start: 03-18-2017 End: 03-18-2017 Appointment Appointment [facility] Work Phone: Start: 11-11-2015 End: 11-17-2015 Lipid panel [AGGREGATE] *Lipid Profile [facility] Work Phone: Start: 11-11-2015 End: 11-11-2015 Remove impacted ear wax Ear wax removal [facility] Work Phone: Start: 11-11-2015 End: 11-17-2015 Thyroid stimulating hormone (TSH) *TSH [facility] Work Phone: Start: 10-10-2009 DIABETES SCREEN DIABETES SCREEN [facility] Start: 08-08-2007 Pneumococcal Vaccine : 65+ (2 of 2 - PCV) Pneumococcal Vaccine: 65+ (2 of 2 - PCV) [facility] Start: 08-08-2007 PNEUMOCOCCAL: 65+ (2 - PCV) PNEUMOCOCCAL: 65+ (2 - PCV) [facility] Start: 1991 Shingrix Vaccine (1 of 2) Shingrix Vaccine (1 of 2) [facility] Start: 1960 Urine microalbumin profile DTaP,Tdap,Td Vaccine (1 - Tdap) [facility] End: 12-08-2023 DXA-AXIAL SKELETON DXA-AXIAL SKELETON Radiology Routine Asymptomatic postmenopausal status Osteopenia, senile 1 Occurrences starting 11/08/2022 until 12/08/2023 [facility] Work Phone: Comment on above: 1 Occurrences starti ng 11/08/2022 until 12/08/2023 Patient Education [facility] Work Phone: Patient referral [facility] Work Phone: Removal impacted cerumen irrigation/lvg unilat AMBULATORY EAR LAVAGE/IRRIGATION Procedures Routine Impacted cerumen of right ear Ordered: 12/21/2023 [facility] Work Phone: Comment on above: Ordered: 12/21/2023 [facility] Immunizations Immunization Date Immunization Notes Care Provider Jerrod drummond 08-08-2006 pneumococcal polysaccharide vaccine, 23 valent Connie Podlogar MUD TANK OPERATOR.ENVIRONMENTAL ENGINEERING TECHNICIAN Work Phone: [facility] Work Phone: Payers Date Payer Category Payer Medicare (Managed Care) [employer] O [id number] 2024 Unknown [id number] 2023 Self-pay [id number] 2023 Private Health Insurance [id number] 2020 Medicare HUMANA MEDICARE HUMANA GOLD PLUS [id number] 2020-Present [phone] [address] [address] [place] [address] [facility] [place] [id number] 2020 Medicare [id number]. 1.13.159 .[id number] Medicare [id number] Unknown [id number] 2.16840.1.745404.3.579 .2.543 Unknown [id number] 2.16840.1.778229.3.579 .2.543 Unknown [id number] 2.16840.1.993419.3.579 .2.462 Unknown [id number] 2.840.1.111690.3.579 .2.462 Unknown [id number] 2.16840.1.697854.3.579 .2.462 Unknown [id number] 2.16840.1.661651.3.579 .2.462 Unknown [id number] 2.16840.1.387624.3.579 .2.462 Unknown [id number] 2.16840.1.719422.3.579 .2.462 Unknown [id number] 2.16840.1.413822.3.579 .2.462 Unknown [id number] 2.16.840.1.850921.3.579 .2.462 Unknown [id number] 2.16.840.1.908548.3.579 .2.462 Unknown [id number] 2.16.840.1.970883.3.579 .2.462 Unknown [id number] 2.16.840.1.256009.3.579 .2.462 Unknown [id number] 2.16.840.1.796075.3.579 .2.462 Unknown [id number] 2.16.840.1.283033.3.579 .2.462 Unknown [id number] 2.16.840.1.572557.3.579 .2.462 Unknown [id number] 2.16.840.1.932522.3.579 .2.462 Social History Date Type Detail Facility Start: 10-31-2020 End: 01-26-2025 Tobacco smoking status NHIS Never smoked tobacco [facility] Start: 11-06-2021 End: 01-14-2025 Alcohol intake Current non-drinker of alcohol (finding) [facility] Start: 1940 Sex Assigned At Not on file C [facility] Start: 10-27-2021 End: 11-06-2021 Exposure to SARS-CoV-2 (event) Not sure [facility] Start: 10-31-2020 End: 10-15-2022 Tobacco use and exposure Smokeless tobacco non-user [facility] Work Phone: Start: 1940 Sex Assigned At Female W [facility] Start: 02-14-2023 End: 07-23-2023 Tobacco smoking status INIS Unknown if ever smoked [facility] Start: 09-29-2020 None [facility] Start: 09-29-2020 Spouse/ Signif icant Other [facility] Start: 09-29-2020 Non-smoker [facility] Start: 11-08-2022 End: 08-08-2023 History of Social function [facility] Work Phone: Start: 11-08-2022 End: 08-08-2023 Tobacco use panel [facility] Work Phone: Adult Depression Screening Assessment 0 [facility] Work Phone: Start: 10-11-2024 Sex Female (finding) [facility] Functional Status Date Assessment Result Facility 11-21-2013 Are you deaf, or do you have serious difficulty hearing No 11/21/2013 1:32 PM EDT Vandana Brewer Lpn [facility] 11-21-2013 Are you blind, or do you have serious difficulty seeing, even when wearing glasses No 11/21/2013 1:32 PM Vandana Osborn Lpn [facility] 11-21-2013 Do you have serious difficulty walking or climbing stairs No 11/21/2013 1:32 PM Vandana Osborn Lpn [facility] 11-21-2013 Do you have difficul ty dressing or bathing No 11/21/2013 1:32 PM Vandana Osborn Lpn [facility] 11-21-2013 Because of a physica l, mental, or emotional condition, do you have difficulty doing errands alone such as visiting a physician's office or shopping No 11/21/2013 1:32 PM Vandana Osborn Lpn [facility] Mental Status Date Assessment Result Facility 01-26-2025 Cognitive function Awake;Alert;A ppropriate;Fol lows Commands [facility] Work Phone: 01-03-2025 Cognitive function Level Of Cons ciousness Awake;Alert;Appropriate [facility] Work Phone: 10-11-2024 Cognitive function Voice/Name [facility] Work Phone: 08-05-2024 Cognitive function Level Of Cons ciousness Awake;Alert;Appropriate;Fol lows Commands [facility] Work Phone: 07-23-2023 Cognitive function Level Of Cons ciousness Awake;Alert;Appropriate [facility] Work Phone: 11-21-2013 Because of a physica l, mental, or emotional condition, do you have serious difficulty concentrating, remembering, or making decisions No 11/21/2013 1:32 PM EDT Daniella HilliardVandana No [facility] Clinical Notes 03-11-2008 to 01-26-2025 Telephone Encounter - Phuong Barbosa - 01/25/2025 9:26 AM EDTTelephone Encounter - Phuong Barbosa - 01/25/2025 9:26 AM EDTTelephone Encounter - Jonah Valiente APRN.CNP - 01/24/2025 10:24 AM EDT Note Date & Type Note Facility 01-26-2025 Discharge summary [facility] 01-26-2025 Radiology Diagnostic study note [facility] Imaging Services [address], [place] [id number] Chest 1 View (Portable) MR#: [id number] Acct: [id number] Name: MARIE ASHLEY Rep #: [id number] : 1940 F 84 From: Liliana De Leon MD PCP: Dr. Sebastian Teixeira MD Status: REG ER Study:Chest 1 View (Portable) Date of Exam: 01/26/25 Exam# [id number] Ordering Dr: Tiago Miller DO PROCEDURE: CHEST 1 VIEW (PORTABLE) 01/26/2025 REASON FOR EXAM: CHEST PAIN TECHNIQUE: Frontal view of the chest. COMPARISON: 10/11/2024 FINDINGS: Scoliosis. Borderline enlarged heart. Well inflated overall. Linear scar/atelectasis medial left base. No consolidation, pneumothorax, or pleural effusion. RAD/Chest 1 View (Portable) IMPRESSION: No acute findings Reading Location: [id number] CC: Dr. Sebastian Teixeira MD; Dr. Phil Miller DO ~ Graffiti Cleaner: Signed [facility] 01-25-2025 Telephone encounter Note 1st attempt to schedule pt. LVM to return call [facility] Work Phone: 01-25-2025 Miscellaneous Notes 1st attempt to schedule pt. LVM to return call Please let patient know consult for PT has been placed. Patient calls and states that her hips are still bothering her. Patient states at last appointment provider had told her that he would put in an order for physical therapy if her hips continued to bother her. Patient asking if order can be placed? Please review and advise, Chantell Echevarria RN documented in this encounter [facility] 01-24-2025 Telephone encounter Note Please let patient know consult for PT has been placed. [facility] 01-24-2025 Telephone encounter Note Patient calls and states that her hips are still bothering her. Patient states at last appointment provider had told her that he would put in an order for physical therapy if her hips continued to bother her. Patient asking if order can be placed? Please review and advise, Chantell Echevarria RN [facility] 01-14-2025 Instructions Heri Teixeira MD - 01/14/2025 [...] of your legs documented in this encounter [facility] 01-14-2025 Note HNO ID: [id number] Author: HERI TEIXEIRA MD Service: ? Author Type: Physician Type: Progress Notes Filed: 01/14/2025 10:25 Note Text: Chief Complaint Patient presents with: Hip Pain Recording using [employer] software for draft documentation of the visit was discussed with the patient/authorized primary care sales representative; all questions welcomed and answered. Patient/authorized primary care sales representative agreed to proceed HPI Marie [...] Other specified glaucoma Paroxysmal atrial fibrillation (HCC) [facility] cardiology Previous Surgical History PAST SURGICAL HISTORY [...] MULTIVITAMIN) ORAL Tab Take one(1) tablet daily. Jqsltkh-Jgimaczpv-Susantn D2 500-50-100 mg-mg-unit ORAL Chew Take one(1) [...] specific injury rep (more content not included)... [facility] 01-14-2025 History of Present illness Narrative Chief Complaint Patient presents with: Hip Pain Recording using M[employer] software for draft documentation of the visit was discussed with the patient/authorized primary care sales representative; all questions welcomed and answered. Patient/authorized primary care sales representative agreed to proceed HPI Marie [...] Other specified glaucoma Paroxysmal atrial fibrillation (HCC) [facility] cardiology Previous Surgical History PAST SURGICAL HISTORY [...] MULTIVITAMIN) ORAL Tab Take one(1) tablet daily. Bgzmorh-Jryryczih-Xhsaquo D2 500-50-100 mg-mg-unit ORAL Chew Take one(1) [...] Heri Teixeira MD documented in this encounter [facility] 11-09-2024 Instructions Heri Teixeira MD - 11/09/2024 11:04 AM EDT Call your director payer if your home blood pressures are less than 100/60, your heart rate is less than 50, or if you start to feel lightheaded or dizzy. documented in this encounter [facility] 11-09-2024 Note HNO ID: [id number] Author: HERI TEIXEIRA MD Service: ? Author [...] mg BID. Has had a f/u with [facility] cardiology since then and they recommended she [...] Other specified glaucoma Paroxysmal atrial fibrillation (HCC) [facility] cardiology Previous Surgical History PAST SURGICAL HISTORY [...] MULTIVITAMIN) ORAL Tab Take one(1) tablet daily. Cezjsrj-Zjwxbcdwb-Hieamfq D2 500-50-100 mg-mg-unit ORAL Chew Take one(1) [...] LEVOTHYROXINE 50 MCG TABLET Heri Teixeira MD [facility] 11-09-2024 History of Present illness Narrative Chief Complaint Patient presents with: Follow Up: 3 month HPI Marie Ashley is a 84 year old female who presents here today for Above Complaints. Noted patient evaluated in the ER last month for A fib with RVR and Dr. Abebe increased her dosage of metoprolol to 50 mg BID. Has had a f/u with [facility] cardiology since then and they recommended she [...] Other specified glaucoma Paroxysmal atrial fibrillation (HCC) [facility] cardiology Previous Surgical History PAST SURGICAL HISTORY [...] MULTIVITAMIN) ORAL Tab Take one(1) tablet daily. Cjenweu-Zfppvnswi-Dpkrdgg D2 500-50-100 mg-mg-unit ORAL Chew Take one(1) [...] Heri Teixeira MD documented in this encounter [facility] 10-17-2024 Evaluation note Diagnosis Onset Date Resolution PAF (paroxysmal atrial fibrillation) chronic October 17, 2024 8:53am PAF (paroxysmal atrial fibrillation) chronic November 22, 2024 3:20pm [facility] Work Phone: 1(736) 311-934703-19-2025 Evaluation note* Diagnosis Onset Date Resolution Status Admit Date PAF (paroxysmal atrial fibrillation) chronic October 17, 2024 8:53am PAF (paroxysmal atrial fibrillation) chronic November 22, 2024 3:20pm PAF (paroxysmal atrial fibrillation) chronic January 04, 2025 1 2:54pm [employer] [employer] Work Phone: 1(457) 572-164403-19-2025 Evaluation note* Diagnosis Onset Date Resolution Status Admit Date PAF (paroxysmal atrial fibrillation) chronic October 17, 2024 8:53am PAF (paroxysmal atrial fibrillation) chronic November 22, 2024 3:20pm PAF (paroxysmal atrial fibrillation) chronic January 04, 2025 1 2:54pm PAF (paroxysmal atrial fibrillation) chronic January 28, 2025 1:39pm [employer] Work Phone: 1(721) 604-408303-17-2025 NoteHNO ID: [id number] Author: JONAH VALIENTE APRN.ENVIRONMENTAL ENGINEERING TECHNICIAN Service: ? Author Type: Nurse Practitioner Type: [...] Other specified glaucoma Paroxysmal atrial fibrillation (HCC) [facility] cardiology Previous Surgical History PAST SURGICAL HISTORY [...] MULTIVITAMIN) ORAL Tab Take one(1) tablet daily. Nktozka-Qmixpdlhg-Gmffext D2 500-50-100 mg-mg-unit ORAL Chew Take one(1) [...] 2) due on 08/10/2025 Covid-19 Vaccine( - 2023- season) due on 08/10/2025 Pneumococcal Vaccine: 50+(2 of 2 - PCV) due on 08/10/2025 Depression Screening due on 12/20/2024 Anxiety Screening due on 12/20/2024 Diabetes Screening due on 10/27/2025 Bone Density Screening Addressed ASSESSMENT/PLAN: 1. Paroxysmal atrial fibrillation (HCC) - ICD9: 427.31, ICD10: I48.0 -Continue current medications -Follow up with cardiology as scheduled 10/17 Jonah Valiente APRN.[facility]03-17-2025 History of Present illness Narrative* Jonah Valiente APRN.ENVIRONMENTAL ENGINEERING TECHNICIAN - 10/15/2024 1:10 PM EDT Chief Complaint [...] Other specified glaucoma Paroxysmal atrial fibrillation (HCC) [facility] cardiology Previous Surgical History PAST SURGICAL HISTORY [...] MULTIVITAMIN) ORAL Tab Take one(1) tablet daily. Xdrwved-Zerhkbqwb-Tsbsyti D2 500-50-100 mg-mg-unit ORAL Chew Take one(1) [...] with cardiology as scheduled 10/17 Jonah Valiente APRN.CNP documented [facility] Discharge summary [facility] Medical Records Department [address] [place] [address] Emergency Department Summary 10/11/24 MR#: [id number] Acct: [id number] Name: MARIE ASHLEY Rep #:[id number] : [...] at this time. [facility] similar symptoms: [facility] Medical History Hypothyroidism PAF (paroxysmal atrial fibrillation) [...] 28.0 L Lymph % (Auto) 60.2 H [place] % (Auto) 7.1 Eos % (Auto) 3.6 [...] is seen within the lungs. Reading Location: [id number] Rhythm Strip Rhythm Strip: A-fib Rate: 109 [...] Abebe wanted you seen soon. Print Language: [place] Disposition Disposition: Home, Self Care What to do if you have Problems For any increased pain, shortness of breath, bleeding, nausea or vomiting, chestpain, or any unexpected problems, contact your Primary Care Provider. Call [facility] ([phone]) or report tothe closest Emergency Room. Call 911 if necessary. 10/11/24 0711 Cosigner Signature (if applicable): CC: Dr. Sebastian Teixeira MD ~ Signed [facility]03-13-2025 Radiology Diagnostic study note [facility] Imaging Services [address] [place] [address] Chest PA and Lateral MR#: [id number] Acct: [id number] Name: MARIE ASHLEY Rep #: [id number] : 1940 F 84 From: Anmol Cardoza MD PCP: Dr. Sebastian Teixeira MD Status: PRE ER Study:Chest PA and Lateral Date of Exam: 10/11/24 Exam# [id number] Ordering Dr: Kaela Jimenez DO PROCEDURE: CHEST [...] is seen within the lungs. Reading Location: [id number] CC: Dr. Sebastian Teixeira MD; Dr. Brittany Jimenez DO ~ Graffiti Cleaner: Signed [facility]03-11-2025 Telephone encounter Note* Telephone Encounter - Nathaly Smith MA - 10/09/2024 11:04 AM EDT Letter mailed to pt home of results. Nathaly Smith MA [facility]03-11-2025 Miscellaneous Notes* Telephone Encounter - Nathaly Smith MA - 10/09/2024 11:04 AM EDT Letter mailed to pt home of results. Nathaly Smith MA * Telephone Encounter - Nathaly Smith MA - 10/09/2024 11:03 AM EDT ----- Message from Heri Teixeira MD sent at 10/09/2024 7:06 AM EDT ----- Normal thyroid labs. No change in regimen. documented in [facility] encounterC[facility] Telephone encounter Note * Telephone Encounter - Nathaly Smith MA - 10/09/2024 11:03 AM EDT ----- Message from Heri Teixeira MD sent at 10/09/2024 7:06 AM EDT ----- Normal thyroid labs. No change in regimen. [facility]01-22-2025 Evaluation note* Diagnosis Onset Date Resolution Status Admit Date PAF (paroxysmal atrial fibrillation) chronic August 22 8:21am [facility] Work Phone: 1(635) 355-785501-13-2025 Telephone encounter Note* Telephone Encounter - Nathaly Smith MA - 08/13/2024 9:05 AM EST Pt notified and voiced understanding. Nathaly Smith MA [facility]01-13-2025 Miscellaneous Notes* Telephone Encounter - Nathaly Smith MA - 08/13/2024 9:05 AM EST Pt notified and voiced understanding. Nathaly Smith MA * Telephone Encounter - Nathaly Smith MA - 08/13/2024 9:04 AM EST ----- Message from Heri Teixeira MD sent at 08/13/2024 7:02 AM EST ----- Normal potassium level. No change in regimen. documented in this encounterC[facility] Telephone encounter Note * Telephone Encounter - Nathaly Smith MA - 08/13/2024 9:04 AM EST ----- Message from Heri Teixeira MD sent at 08/13/2024 7:02 AM EST ----- Normal potassium level. No change in regimen. [facility]01-10-2025 Instructions* Patient Instructions* Heri Teixeira MD - 08/10/2024 9:56 AM EST PLEASE RETURN TO THE LAB IN 2 MONTHS TO RECHECK YOUR THYROID. documented in this encounterC[facility]-2025 NoteHNO ID: [id number] Author: HERI TEIXEIRA MD Service: ? Author Type: Physician Type: Progress Notes Filed: 08/10/2024 10:27 Note Text: Chief Complaint Patient presents with: ER F/U: [facility] 08/05/24 HPI Marie Ashley is a 84 year old female who presents here today for ER Follow Up. Patient evaluated at [facility] ED on 08/05 for complaint of palpitations [...] Other specified glaucoma Paroxysmal atrial fibrillation (HCC) [facility] cardiology Previous Surgical History PAST SURGICAL HISTORY [...] MULTIVITAMIN) ORAL Tab Take one(1) tablet daily. Gzdmbir-Zrphxuqcq-Fppdkkj D2 500-50-100 mg-mg-unit ORAL Chew Take one(1) [...] Never done Influenza Vaccine(1) Never done Covid-19 Vaccine(1 - season) Never done Advance Directive Discussion due on 08/01/2024 Depression Screening due on 12/20/2024 Anxiety Screening due on 12/20/2024 Diabetes Screening due on 10/27/2025 Bone Density Screening Addressed ASSESSMENT/PLAN: 1. Paroxysmal atrial fibrillation (HCC) - ICD9: 427.31, ICD10: I48.0 (primary diagnosis) RRR on exam today. Discussed cessation of caffeine. Continue higher dose metoprolol with 25 mg TI (more content not included)...[facility]01-10-2025 History of Present illness Narrative* Heri Teixeira MD - 08/10/2024 9:30 AM EST Chief Complaint Patient presents with: ER F/U: [facility] 08/05/24 HPI Marie Ashley is a 84 year old female who presents here today for ER Follow Up. Patient evaluated at [facility] ED on 08/05 for complaint of palpitations [...] Other specified glaucoma Paroxysmal atrial fibrillation (HCC) [facility] cardiology Previous Surgical History PAST SURGICAL HISTORY [...] MULTIVITAMIN) ORAL Tab Take one(1) tablet daily. Bmfhrtz-Wjwnennut-Xyudwvk D2 500-50-100 mg-mg-unit ORAL Chew Take one(1) [...] Never done Influenza Vaccine(1) Never done Covid-19 Vaccine(1 - season) Never done Advance Directive Discussion [...] POTASSIUM Heri Teixeira MD documented in this encounterC[facility] Telephone encounter Note * Telephone Encounter - Heri Teixeira MD - 08/08/2024 1:59 PM EST Reviewed. Please make sure we have ER records available. [facility]01-08-2025 Miscellaneous Notes* Telephone Encounter - Heri Teixeira MD - 08/08/2024 1:59 PM EST Reviewed. Please make sure we have ER records available. * Telephone Encounter - Chantell Echevarria RN - 08/08/2024 1:34 PM EST Jasmyn from [facility] calls and reports that patient came into office today complaining of weakness. Patient was seen in [facility] ER on 08/05/2024 and had labs and cardiac work up. Patient is ok from a cardiac stand point. Patients Potassium is on the low side and Patient's TSH was 7.06. Jasmyn scheduled ER follow up with provider on 08/10/2024 and will let patient who still is in office know when appointment is. Jasmyn is faxing over [facility] Notes. Chantell Echevarria RN * Telephone Encounter - Jasmyn Hein LPN - 08/08/2024 1:04 PM EST Message left for patient to return call to schedule ER F/U appointment (1 week)with Dr Teixeira or Connie. Jasmyn Hein LPN documented in this encounterC[facility]01-[facility]-2025 Telephone encounter Note * Telephone Encounter - Chantell Echevarria RN - 08/08/2024 1:34 PM EST Jasmyn from [facility] calls and reports that patient came into office today complaining of weakness. Patient was seen in [facility] ER on 08/05/2024 and had labs and cardiac work up. Patient is ok from a cardiac stand point. Patients Potassium is on the low side and Patient's TSH was 7.06. Jasmyn scheduled ER follow up with provider on 08/10/2024 and will let patient who still is in office know when appointment is. Jasmyn is faxing over [facility] Notes. Chantell Echevarria RN [facility]01-08-2025 Telephone encounter Note* Telephone Encounter - Jasmyn Hein LPN - 08/08/2024 1:04 PM EST Message left for patient to return call to schedule ER F/U appointment (1 week)with Dr Teixeira or Connie. Jasmyn Hein LPN [facility]07-09-2024 Telephone encounter Note* Telephone Encounter - Tricia Weir RN - 02/07/2024 11:23 AM EDT Patient reports she has appt with heart doctor at [facility] on Tuesday. Reports she was instructed to havelabs done at [facility]. Asking if she should fast for the labs ordered by heart doctor. Advised patient to call [facility] to ask if she needs to be fasting for the labs ordered. Patient agreeable. Given phone number. [facility]07-09-2024 Miscellaneous Notes* Telephone Encounter - Tricia Weir RN - 02/07/2024 11:23 AM EDT Patient reports she has appt with heart doctor at [facility] on Tuesday. Reports she was instructed to havelabs done at [facility]. Asking if she should fast for the labs ordered by heart doctor. Advised patient to call [facility] to ask if she needs to be fasting for the labs ordered. Patient agreeable. Given phone number. documented in this encounterCinc[facility]05-[facility] History of Present illness Narrative* Romy Alfaro [...] procedure Romy Alfaro LPN * Connie Lira APRN.ENVIRONMENTAL ENGINEERING TECHNICIAN - 12/21/2023 11:07 AM EDT 12/21/2023 Patient presents with: Follow Up: Routine SUBJECTIVE: This is a 83 year old that is here today for Above Complaints. Since last office visit has been in good health without ER visits or hospitalizations. Paroxysmal atrial fib: following with [facility] cardiology with last appointment on 11/28/2023. Metoprolol changes to 50 mg twice a day. Taking Eliquis as prescribed. Denies bleeding symptoms,dizziness, lightheadedness, SOB, dyspnea, orthopnea, chest pain, palpitations or leg edema. Has labs ordered at [facility] for her January appointment with them HYPOTHYROIDISM: taking synthroid as prescribed daily without side effects Would like her ears checked. Feel like she may have wax build-up PAST MEDICAL HISTORY Diagnosis Date Acquired hypothyroidism Herpes zoster without complication Osteopenia Other specified glaucoma Paroxysmal atrial fibrillation (HCC) [facility] cardiology ALLERGIES Penicillins and Teramycin [Other] MEDICATIONS [...] MULTIVITAMIN) ORAL Tab Take one(1) tablet daily. Kewoxaz-Tqwavdfhi-Gnaxuwd D2 500-50-100 mg-mg-unit ORAL Chew Take one(1) [...] follow-up with cardiology as recommended Connie Lira APRN.ENVIRONMENTAL ENGINEERING TECHNICIAN Prescription instructions reviewed with patient as applicable. [...] Level: 4 - Moderate documented in this encounterCinc[facility]05-[facility]24 Telephone encounter Note * Telephone Encounter - [...] Please advise. Thank you. Romy Alfaro LPN. [facility]05-22-2024 Miscellaneous Notes* Telephone Encounter - Romy Alfaro [...] you. Romy Alfaro LPN. documented in this encounterCinc[facility]08-09-2023 Miscellaneous Notes* Telephone Encounter - Wanda Rodriguez [...] 11/09/23 Wanda Rodriguez MA documented in this encounterCinc[facility]06-06-2023 Miscellaneous Notes* Telephone Encounter - Beth Hood LPN - 01/04/2023 4:34 PM EDT Patient returned call and went over results, notes from Connie Lira CLOTH SHADER with understanding. * Telephone Encounter - Romy Alfaro LPN - 01/04/2023 3:40 PM EDT Patient telephoned. Message left to call office back for update. Romy Alfaro LPN * Telephone Encounter - Romy Alfaro LPN - 01/04/2023 3:40 PM EDT ----- Message from Connie Lira APRN.ENVIRONMENTAL ENGINEERING TECHNICIAN sent at 01/04/2023 3:14 PM EDT ----- Please let patient know xray does not show any fracture or dislocations. If the taping helps she can continue to do that as well as ice and elevate. Connie Lira APRN.ENVIRONMENTAL ENGINEERING TECHNICIAN documented in this encounterCinc[facility]06-06-[facility]23 History of Present illness Narrative* Monika Fuentes [...] 04, 2023 2:37 PM documented in this encounterCinc[facility]06-06-2023 History of Present illness Narrative* Connie Lira APRN.ENVIRONMENTAL ENGINEERING TECHNICIAN - 01/04/2023 2:23 PM EDT 01/04/2023 Patient [...] MULTIVITAMIN) ORAL Tab Take one(1) tablet daily. Plhbtzc-Cujvpvwco-Mcpsmmg D2 500-50-100 mg-mg-unit ORAL Chew Take one(1) [...] ER with red flag symptoms Connie Lira APRN.ENVIRONMENTAL ENGINEERING TECHNICIAN Prescription instructions reviewed with patient as applicable. [...] which included preparing to see the patient, [id number] patient care, completing clinical documentation, obtaining and/or reviewing separately obtained history, performing a medically appropriate examination, counseling and educating the pat ient/family/caregiver, and ordering medications, tests, or procedures. documented in this [facility] Miscellaneous Notes* Telephone Encounter - Chantell Echevarria RN - 11/08/2022 4:42 PM EDT Patient calls back and notified that order was placed. Patient voiced understanding. Patient transferred to scheduler maintenance to get this scheduled. Chantell Echevarria RN * Telephone Encounter - Jasmyn Hein LPN - 11/08/2022 1:53 PM EDT Phoned patient and message left for her to return call. PCP placed bone density test/screen for patient but patient had left office and unaware of order. Calling patient to update her of order. documented in this encounterC[facility]04-10-2023 Instructions* Patient Instructions* Heri Teixeira MD - [...] your usual activities immediately. documented in this encounterC[facility]04-10-[facility]23 History of Present illness Narrative* Heri Teixeira MD - 11/08/2022 8:01 AM EDT Chief Complaint Patient presents with: Follow Up HPI Marie Ashley is a 82 year old female who presents here today for Above Complaints. No complaints today. No falls in the last 12 months. A fib: managed by [facility] cardiology. Compliant with her beta ginny and [...] MULTIVITAMIN) ORAL Tab Take one(1) tablet daily. Qsdlcun-Pktxnpdko-Qbuphek D2 500-50-100 mg-mg-unit ORAL Chew Take one(1) [...] Abs Lymph 1.00 - 4.00 k/uL 3.14 [place]% % 6.9 Abs [place] <0.87 k/uL 0.40 Eosin% % 4.0 Abs [...] SKELETON Heri Teixeira MD documented in this encounterC[facility]03-30-[facility]23 Miscellaneous Notes* Telephone Encounter - Jasmyn Hein [...] Teixeira. Connie Lira APRN.CNP documented in this encounterCinc[facility]03-17-2023 Instructions* Patient Instructions* Connie Lira APRN.CNP - 10/15/2022 10:32 AM EDT Take Claritin daily and use Flonase- rinse mouth after documented in this encounterCincinnati [facility]03-17-2023 History of Present illness Narrative* Connie Lira [...] MULTIVITAMIN) ORAL Tab Take one(1) tablet daily. Etpkiep-Nuikjagzt-Pdqhpiq D2 500-50-100 mg-mg-unit ORAL Chew Take one(1) [...] daily - follow-up if symptoms persist Connie Lira APRN.CNP Prescription instructions reviewed with [...] which included preparing to see the patient, [id number] patient care, completing clinical documentation, obtaining and/or reviewing separately obtained history, performing a medically appropriate examination, counseling and educating the pat ient/family/caregiver, and ordering medications, tests, or procedures. documented in this encounterC[facility]09-12-2022 Miscellaneous Notes* Telephone Encounter - Chantell Echevarria RN - 04/12/2022 12:12 PM EDT Patient [...] 1.410 uU/mL Please advise. Thank you. Chantell Echevarria RN documented in this encounterCincinnati [facility]04-08-2022 History of Present illness Narrative* Connie Lira [...] MULTIVITAMIN) ORAL Tab Take one(1) tablet daily. Uqlqrve-Loikapcbs-Hglrhxg D2 500-50-100 mg-mg-unit ORAL Chew Take one(1) [...] No history of dysuria, frequency or incontinence BITUMASTIC APPLIER: Negative for abnormal vaginal bleeding, abnormal vaginal [...] if symptoms fail to improve Connie Lira APRN.CNP Prescription instructions reviewed with patient as applicable. Patient advised if symptoms do not improve or if symptoms worsen sooner, to contact their primary care physician. Potential red flag symptoms discussed with the patient. Reviewed appropriate action plan to take if red flag symptoms occur. Patient agreeable to treatment plan. documented in this encounterC[facility]08-11-[facility] History of Past illness Narrative* Problem Noted Date Resolved Date SOLAR LENTIGINES///DYSCHROMIA OTHER 03/11/2008 11/21/2013 documented as of this encounter (statuses as of 11/06/2021) [address]11-2008 History of Past illness Narrative* Problem Noted Date Resolved Date SOLAR LENTIGINES///DYSCHROMIA OTHER 03/11/2008 11/21/2013 documented as of this encounter (statuses as of 04/12/2022) [address]11-2008 History of Past illness Narrative* Problem Noted Date Resolved Date SOLAR LENTIGINES///DYSCHROMIA OTHER 03/11/2008 11/21/2013 documented as of this encounter (statuses as of 10/15/2022) [address]11-2008 History of Past illness Narrative* Problem Noted Date Resolved Date SOLAR LENTIGINES///DYSCHROMIA OTHER 03/11/2008 11/21/2013 documented as of this encounter (statuses as of 11/08/2022) [address]11-2008 History of Past illness Narrative* Problem Noted Date Resolved Date SOLAR LENTIGINES///DYSCHROMIA OTHER 03/11/2008 11/21/2013 documented as of this encounter (statuses as of 11/09/2022) [address]11-2008 History of Past illness Narrative* Problem Noted Date Resolved Date SOLAR LENTIGINES///DYSCHROMIA OTHER 03/11/2008 11/21/2013 documented as of this encounter (statuses as of 11/16/2022) [address]11-2008 History of Past illness Narrative* Problem Noted Date Resolved Date SOLAR LENTIGINES///DYSCHROMIA OTHER 03/11/2008 11/21/2013 documented as of this encounter (statuses as of 01/05/2023) [address]11-2008 History of Past illness Narrative* Problem Noted Date Resolved Date SOLAR LENTIGINES///DYSCHROMIA OTHER 03/11/2008 11/21/2013 documented as of this encounter (statuses as of 01/05/2023) [address]11-2008 History of Past illness Narrative* Problem Noted Date Diagnosed Date Resolved Date SOLAR LENTIGINES///DYSCHROMIA OTHER 03/11/2008 11/21/2013 documented as of this encounter (statuses as of 03/09/2023) [facility] Author Brittany Jimenez [facility] Note Date/Time October 11, 2024 7:1 1am [facility] Medical Records Department [address] [place] [address] Emergency Department Summary 10/11/24 MR#: [id number] Acct: [id number] Name: MARIE ASHLEY Rep #:[id number] : [...] this time. Prior similar symptoms: Yes [facility]SH [facility] Medical History Hypothyroidism PAF (paroxysmal atrial fibrillation) [...] 28.0 L Lymph % (Auto) 60.2 H [place] % (Auto) 7.1 Eos % (Auto) 3.6 [...] is seen within the lungs. Reading Location: [facility] Rhythm Strip Rhythm Strip: A-fib Rate: 109 [...] Abebe wanted you seen soon. Print Language: [place] Islander Disposition Disposition: Home, Self Care What to do if you have Problems For any increased pain, shortness of breath, bleeding, nausea or vomiting, chestpain, or any unexpected problems, contact your Primary Care Provider. Call [facility] ([phone]) or report to the closest Emergency Room. Call 911 if necessary. 10/11/24 0711 <Electronically signed by Brittany Jimenez DO> Cosigner Signature (if applicable): CC: Dr. Sebastina Teixeira MD ~ Signed [facility] Work Phone: Discharge summary Author Phil Doradorus [facility] Note Date/Time January 26, 2025 4:45 am [facility] Medical Records Department [address] [place] [address] Emergency Department Summary 01/26/25 MR#: [id number] Acct: [id number] Name: MARIE ASHLEY Rep #:[id number] : 1940 84 From: Phil Lucas PCP: Dr. Sebastian Teixeira MD Status :REG ER Location: ED HPI History of Present Illness Chief Complaint: Palpitations [facility] Medical History Hypothyroidism PAF (paroxysmal atrial fibrillation) Atrial fibrillation with RVR Glaucoma Home Medications ?Medication ?Instructions ?Recorded ?Last Taken ?Type latanoprost 0.005 % eye drops 1 drp ophthalmic (eye) Q HS 11/06/20 01/02/25 History acetaminophen 325 mg tablet 325 mg PO ONCE PRN fever o r pain 02/12/22 Unknown History levothyroxine 50 mcg tablet 50 mcg PO DAILY 10/17/24 0 01/03/25 History apixaban 2.5 mg tablet 2.5 mg PO BID #60 tabs 11/2601/02/25 Rx metoprolol tartrate 50 mg tablet 50 mg PO BID #180 tab s 01/02/25 01/03/25 Rx Allergy/AdvReac Type Severity Reaction Status Date / Time oxytetracycline (From Allergy Unknown Verified 01/26/25 02:06 Terramycin) Penicillins Allergy Unknown Verified 01/26/25 02:06 Family History Mother Heart disease Paroxysmal atrial fibrillation Father Cancer Lung Sister Heart disease Surgical History History of cholecystectomy Social History Smoking Status: Never smoker alcohol intake: never substance use type: does not use caffeine: Yes Type: coffee Number of servings: 1 EXAM Physical Exam Const Vital Signs: 01/26/25 02:03 01/26/25 02:06 01/26/25 02:13 Temperature 98.1 F Temperature Source Oral Pulse Rate 93 Respiratory Rate 18 Respiratory Effort Normal Non-Labored Blood Pressure 141/71 H Blood Pressure Mean 94 Pulse Ox 97 Oxygen Delivery Method Room Air Room Air 01/26/25 02:23 01/26/25 02:30 01/26/25 02:38 Temperature Temperature Source Pulse Rate 94 92 Respiratory Rate 22 H 22 H Respiratory Effort Blood Pressure 121/74 H 129/79 H Blood Pressure Mean 89 95 Pulse Ox 96 98 Oxygen Delivery Method 01/26/25 02:40 01/26/25 02:45 01/26/25 02:46 Temperature Temperature Source Pulse Rate 95 91 98 Respiratory Rate 25 H 24 H 16 Respiratory Effort Blood Pressure 129/79 H 134/101 H 134/101 H Blood Pressure Mean 95 112 112 Pulse Ox 98 100 98 Oxygen Delivery Method Room Air Room Air 01/26/25 03:00 01/26/25 03:03 01/26/25 03:16 Temperature Temperature Source Pulse Rate 91 88 100 Respiratory Rate 18 13 16 Respiratory Effort Blood Pressure 124/67 H 117/71 Blood Pressure Mean 84 86 Pulse Ox 97 100 Oxygen Delivery Method Room Air 01/26/25 03:20 01/26/25 03:30 01/26/25 03:46 Temperature Temperature Source Pulse Rate 93 94 98 Respiratory Rate 17 16 12 Respiratory Effort Blood Pressure 117/71 Blood Pressure Mean 82 Pulse Ox 98 100 Oxygen Delivery Method 01/26/25 03:52 01/26/25 03:53 01/26/25 04:00 Temperature Temperature Source Pulse Rate 94 93 87 Respiratory Rate 21 H 17 19 H Respiratory Effort Blood Pressure 123/56 H 123/56 H Blood Pressure Mean 76 78 Pulse Ox 97 97 95 Oxygen Delivery Method Room Air 01/26/25 04:06 Temperature Temperature Source Pulse Rate 95 Respiratory Rate 17 Respiratory Effort Blood Pressure 123/56 H Blood Pressure Mean 78 Pulse Ox 98 Oxygen Delivery Method [facility] Narrative Medical decision making narrative: HISTORY OF PRESENT ILLNESS: Chief complaint: Palpitations 84-year-old female history of A-fib, hypothyroidism presents with palpitations says my A-fib is acting up again. She states this began this evening. Denieschest pain or shortness of breath. Denies leg swelling. Denies missed doses ofEliquis or metoprolol. Notes she actually took an extra dose of metoprolol justprior to arrival. REVIEW OF SYSTEMS: Pertinent positives: Palpitations Pertinent negatives: Chest pain PHYSICAL EXAM: Nursing triage notes reviewed, Vital signs reviewed Constitutional: please see [facility] HENT: MMM Eyes: Pupils equal round and reactive to light, Extraocular muscles intact Neck: No stridor, no JVD, full neck ROM Lungs: Clear to auscultation, No wheezing or rales. No increased work of breathing, no conversational dyspnea, no accessory muscle use, no nasal flaring. No respiratory distress noted Heart: Irregularly irregular rate and rhythm, No murmurs, No rubs and No gallops, 2+ distal pulses (radial, femoral, posterior tibial) in all extremities Abdomen: Soft, there is no tenderness, rigidity, rebound or guarding, no obviousperitoneal signs, no palpable pulsatile abdominal masses, no auscultated abdominal bruit : No CVAT Extremities: No edema Neuro: No new focal neurological deficits, cranial nerves II through XII intact,5/5 strength in all present extremities. Intact sensation to light touch in all present extremities, 2+ reflexes bilateral patella tendons. Skin: No rash or lesions noted MEDICAL DECISION MAKING: Chief Complaint: please see HPI External records reviewed: Reviewed prior outpatient cardiology note. Reviewed echocardiogram from 2020 which shows ejection fraction of 65% Factors affecting care: as per HPI Social determinants of health: none History obtained from others: none Consults: none [facility] Narrative: The patient was initially hemodynamically stable, afebrile and nontoxic- appearing. Exam with irregularly irregular rhythm. Otherwise no other focal cardiopulmonary abnormalities. I considered the following differential diagnosis: Arrhythmia (A-fib), anemia, electrolyte disturbance, ACS, pneumonia, thyroid dysfunction I obtained a broad lab and imaging workup to further determine if the patient was suffering from a life-threatening etiology. Initially treated the patient with 500 cc bolus and metoprolol to the IV ALL IMAGES (IF OBTAINED) HAVE BEEN PERSONALLY REVIEWED AND INTERPRETED BY MYSELF. EKG with atrial fibrillation rate of 104, normal axis, normal intervals, no STEMI CBC without leukocytosis, severe anemia, no thrombocytopenia. BMP without evidence of significant electrolyte abnormalities, no anion gap, no acute kidney injury. TSH within normal limits making thyroid dysfunction less likely High-sensitivity troponin is negative, no evidence of myocardial ischemia x2 (ACS ruled out based on high-sensitivity troponin protocol) I have personally reviewed the patient's chest x-ray. Chest x-ray is unremarkable for pulmonary edema, pneumothorax, pneumonia or focal cardiopulmonary abnormality. (Radiologist agrees with my interpretation) The synthesis of the patient's history, physical exam, labs images suggest A- fibas a precipitating cause for palpitations. Upon reassessment metoprolol and fluids patient noted symptomatic improvement however she still in A-fib she was encouraged to continue metoprolol and Eliquis. She was given cardiology and EP follow-up. The patient and/or family, caregivers express understanding. The patient and/orfamily, caregivers agrees with the plan. Shared decision making: I will have a discussion with the patient and or visitors regarding risk/benefits of further testing or admission. They will be made aware of of the risk/benefits inherent in this decision they will be given the opportunity to voice understanding. Total critical care time today provided was at least 0 minutes. This excludes separately billable procedures. Critical care time (if documented) is secondary to the patient having high probability of clinically significant/life threatening deterioration in the patient's condition which required my urgent intervention. Impression: 1. Palpitations 2. History of atrial fibrillation 3. History of chronic anticoagulation Dispo: Discharge home This note was generated with [email or web address] dictation software. It may contain incorrectwords, spelling, and punctuation that were not noted in review of the chart prior to signing. Lab Data Labs: Laboratory Results - last 24 hr 01/26/25 01/26/25 02:05 04:03 WBC 6.3 RBC 4.50 Hgb 13.5 Hct 41.2 MCV 91.6 MCH 30.0 MCHC 32.8 RDW Std Deviation 40.1 RDW Coeff of Namita 12.0 Plt Count 254 MPV 9.7 Immature Gran % (Auto) 0.200 Neut % (Auto) 41.9 L Lymph % (Auto) 47.9 H [place] % (Auto) 6.7 Eos % (Auto) 2.5 Baso % (Auto) 0.8 Absolute Neuts (auto) 2.6 Absolute Lymphs (auto) 3.02 Nucleated RBC % 0 Sodium 139 Potassium 3.8 Chloride 101 Carbon Dioxide 26.5 Anion Gap 12 BUN 13 Creatinine 0.79 Estim Creat Clear Calc 40.21 L Est GFR (MDRD) Non-Af 74 BUN/Creatinine Ratio 16.3 Glucose 116 H Calcium 9.7 Troponin T High Sens < 6 Troponin T Hi Sens 2 Hr 7 TSH 2.540 Free T4 1.60 H Radiography Diagnostic Testing: Clinical Impression(s) from Imaging Studies Chest X-Ray 01/26/25 02:08 IMPRESSION: No acute findings Reading Location: [place] [address] Discharge Plan Triage Chief Complaint: Palpitations ED Provider: Phil Miller Dx/Rx/DC Orders Instructions: ED AFIB Prescriptions: No Action latanoprost 0.005 % drops 1 drp OPHTHALMIC QHS acetaminophen 325 mg tablet 325 mg PO ONCE PRN (Reason: fever or pain) levothyroxine 50 mcg tablet 50 mcg PO DAILY apixaban 2.5 mg tablet 2.5 mg PO BID Qty: 60 11RF metoprolol tartrate 50 mg tablet 50 mg PO BID Qty: 180 3RF Primary Care Provider: Sebastian Teixeira Referrals: Sebastian Teixeira MD [Primary Care Provider] - Activity Restrictions/Additional Instructions: Thank you for trusting us with your care today! Your exam, labs images were consistent with atrial fibrillation. The remainder of your labs are reassuring in terms of significant anemia, electrolyte imbalance, thyroid dysfunction or damage to your heart. You are safe for discharge at this time. Please continue take metoprolol and Eliquis as prescribed. You should take yourmorning dose. Please return to the emergency department if your symptoms change or worsen. Please follow with your director payer for further outpatient evaluation and management. If you are interested in electrophysiology (EP/electrician's assistant of the heart) evaluation you can call [phone] to make an appointment Print Language: [place] Islander Disposition Disposition: Home, Self Care What to do if you have Problems For any increased pain, shortness of breath, bleeding, nausea or vomiting, chestpain, or any unexpected problems, contact your Primary Care Provider. Call [facility] ([phone]) or report to the closest Emergency Room. Call 911 if necessary. 01/26/25 1672 <Electronically signed by Phil Miller DO> Cosigner Signature (if applicable): CC: Dr. Sebastian Teixeira MD ~ Signed [facility] Work Phone: Evaluation note* Diagnosis Routine physical examination- Primary Routine general medical examination at a health care facility Hypothyroidism, acquired Unspecified hypothyroidism Screening for hyperlipidemia Screening for lipoid disorders Paroxysmal atrial fibrillation (HCC) Atrial fibrillation Post-nasal drainage Unspecified sinusitis (chronic) documented in this encounter [facility] noteNo assessment information availableWPremier Health [facility] Work Phone: Evaluation note* Diagnosis Eustachian tube dysfunction, bilateral- Primary [facility]* Diagnosis Paroxysmal atrial fibrillation (HCC)- Primary Atrial fibrillation Hypothyroidism, acquired Unspecified hypothyroidism Osteopenia, senile Disorder of bone and cartilage, unspecified Asymptomatic postmenopausal status documented [facility] this encounter [facility]* Diagnosis Injury of toe on left foot, initial encounter- Primary [facility] this encounter [facility]* Diagnosis Onset Date Resolution Status PAF (paroxysmal atrial fibrillation) chronic [facility] Work Phone: evaluation note* Diagnosis Onset Date Resolution Status Viral illness acute [facility] Work Phone: Evaluation note* Diagnosis Hypothyroidism, acquired- Primary Unspecified hypothyroidism Depression screening Screening for depression Impacted cerumen of right ear Impacted cerumen Bilateral impacted cerumen Impacted cerumen Paroxysmal atrial fibrillation (HCC) Atrial fibrillation [facility] encounter [facility]* Diagnosis Injury of toe on left foot, initial encounter [facility] encounter [facility]* Diagnosis Paroxysmal atrial fibrillation (HCC)- Primary Atrial fibrillation Hypothyroidism, acquired Unspecified hypothyroidism Hypokalemia Hypopotassemia documented in this encounter [facility] note* Diagnosis Paroxysmal atrial fibrillation (HCC)- Primary Atrial fibrillation [facility]* Diagnosis Paroxysmal atrial fibrillation (HCC)- Primary Atrial fibrillation Hypothyroidism, acquired Unspecified hypothyroidism documented in this encounter [facility] note* Diagnosis Acute right-sided low back pain without sciatica- Primary Numbness and tingling sensation of skin Disturbance of skin sensation documented in this encounter [facility] note* Diagnosis Bilateral hip pain- Primary Pain in joint, pelvic region and thigh [facility] Additional Instructions Please increase your metoprolol to 50 mg (1 entire tablet) twice a day. Call the cardiology office later this afternoon to set an appointment for close follow-up. Let them know you are seen in the ER and Dr. Abebe wanted you seen soon.[facility] Work Phone: Hospital Discharge instructions Additional Instructions While you are in atrial fibrillation you may wish to increase your metoprolol to 75 mg twice a day. The stamp on your new prescription pills which reads C 74 is metoprolol 50 mg. Please continue your Eliquis. Please visit with your director payer who can provide you more information regarding electro maintenance custodian evaluation for possible ablationWPremier Health [facility] Work Phone: Hospital Discharge instructionsAdditional Instructions Thank you for trusting us with your care today! Your exam, labs images were consistent with atrial fibrillation. The remainder of your labs are reassuring in terms of significant anemia, electrolyte imbalance, thyroid dysfunction or damage to your heart. You are safe for discharge at this time. Please continue take metoprolol and Eliquis as prescribed. You should take your morning dose. Please return to the emergency department if your symptoms change or worsen. Please follow with your director payer for further outpatient evaluation and management. If you are interested in electrophysiology (EP/electrician's assistant of the heart) evaluation you can call [phone] to make an appointmentWPremier Health [facility] Work Phone: Reason for referral (narrative)* Diagnostic Procedure Only (Urgent) - Closed Specialty Diagnoses / Procedures Referred By Seth t Referred To Contact XR IMAGING Diagnoses Injury of toe on left foot, initial encounter Procedures XR FOOT GENERAL 3V AP/LAT/OBL LEFT RADEX FOOT COMPLETE MINIMUM 3 VIEWS Podlogar, ANTONIA Rosales.ENVIRONMENTAL ENGINEERING TECHNICIAN [address] [place] [address] Xr Imaging Referral ID Status Reason Start Date Expiration Date V isits Requested Visits Authorized [id number] Closed Auto-Generate d Referral 01/04/2023 02/03/2024 1 1 [facility] for referral (narrative)* Diagnostic Procedure Only (Urgent) - Closed Specialty Diagnoses / Procedures Referred By Contac t Referred To Contact XR IMAGING Diagnoses Injury of toe on left foot, initial encounter Procedures XR FOOT GENERAL 3V AP/LAT/OBL LEFT RADEX FOOT COMPLETE MINIMUM 3 VIEWS Connie Lira APRN.ENVIRONMENTAL ENGINEERING TECHNICIAN [address] [place] [id number] [place] [address] Referral ID Status Reason Start Date Expiration Date V isits Requested Visits Authorized [id number] Closed Auto-Generate d Referral 01/04/2023 02/03/2024 1 1 [facility] for referral (narrative)No reason for referral information availableWPremier Health [facility] Work Phone: Reason for visit Narrative* Diagnostic Procedure Only (Urgent) - Closed Specialty Diagnoses / Procedures Referred By Contac t Referred To Contact XR IMAGING Diagnoses Injury of toe on left foot, initial encounter Procedures XR TOE AP/LAT/OBL LEFT RADEX TOE MINIMUM 2 VIEWS Podlogar, ANTONIA Rosales.ENVIRONMENTAL ENGINEERING TECHNICIAN [address] [place] [address] [place] [address] Referral ID Status Reason Start Date Expiration Date V isits Requested Visits Authorized [id number] Closed Auto-Generate d Referral 01/04/2023 02/03/2024 1 1 [facility] Family History No Family History Records Found [...] PALPIATIONS August 05, 2024 2: 48am S/P 1/5 WC ER August 22, 2024 8 :21am palpitations October 11, 2024 3:4 0am Reason for Visit Admit Date PAF (paroxysmal atrial fibrillation) Oscar zuly 2024 8:21am Chief Complaint Admit Date palpitations October 11, 2024 3:4 0am S/P [facility] 10/11October 17, 2024 8:5 3am Amb Documentation November 22, 2024 3:0 5pm Hypotension November 22, 2024 3:2 0pm INT LAB ORDERS November 22, 2024 4:1 1pm PALPITATIONS, PAF November 30, 2024 6:11am palpitations January 03, 2025 7:29a m Reason for Visit Admit Date PAF (paroxysmal atrial fibrillation) [facility] 2024 8:53am PAF (paroxysmal atrial fibrillation) [facility] 2024 3:20pm Chief Complaint Admit Date palpitations October 11, 2024 3:4 0am S/P [facility] 10/11October 17, 2024 8:5 3am Amb Documentation November 22, 2024 3:0 5pm Hypotension November 22, 2024 3:2 0pm INT LAB ORDERS November 22, 2024 4:1 1pm PALPITATIONS, PAF November 30, 2024 6:11am palpitations January 03, 2025 7:29a m 1 Y FU January 04, 2025 12:54 pm Reason for Visit Admit Date PAF (paroxysmal atrial fibrillation) [facility] 2024 8:53am PAF (paroxysmal atrial fibrillation) Oct nd 2024 3:20pm PAF (paroxysmal atrial fibrillation) Dec 12:54pm Chief Complaint Admit Date palpitations October 11, 2024 3:4 0am S/P [facility] 10/11October 17, 2024 8:5 3am Amb Documentation November 22, 2024 3:0 5pm Hypotension November 22, 2024 3:2 0pm INT LAB ORDERS November 22, 2024 4:1 1pm PALPITATIONS, PAF November 30, 2024 6:11am 30 DAY HOLTER November 30, 2024 11:14a m palpitations January 03, 2025 7:29a m 1 Y FU January 04, 2025 12:54 pm palpitations January 26, 2025 2:03 am Chief Complaint Admit Date palpitations October 11, 2024 3:4 0am S/P [facility] 10/11October 17, 2024 8:5 3am Amb Documentation November 22, 2024 3:0 5pm Hypotension November 22, 2024 3:2 0pm INT LAB ORDERS November 22, 2024 4:1 1pm PALPITATIONS, PAF November 30, 2024 6:11am 30 DAY HOLTER November 30, 2024 11:14a m palpitations January 03, 2025 7:29a m 1 Y FU January 04, 2025 12:54 pm palpitations January 26, 2025 2:03 am S/P [facility] 01/26 PALPS January 28, 2025 1: 39pm Reason for Visit Admit Date PAF (paroxysmal atrial fibrillation) [facility] 2024 8:53am PAF (paroxysmal atrial fibrillation) Apr [place] 2024 3:20pm PAF (paroxysmal atrial fibrillation) Dec 12:54pm PAF (paroxysmal atrial fibrillation) Dec 1:39pm Advance Directives No Advanced Directives Records Found Advance Directive Response Recorded Date/ Time Living Will Yes February 14, 2023 9:14am Power of Contact Officer Yes February 14 9:14am Advance Directive Response Recorded Date/ Time Name of Medical Power of Contact Officer mani Byrd July 23, 2023 3:17am Living Will Yes July 23, 023 3:17am Power of Contact Officer Yes July 23, 2023 3:17am Advance Directive Response Recorded Date/ Time Living Will Yes October 11, 2024 3:46am Power of Contact Officer Yes October 11 3:46am Name of Medical Power of Contact Officer Pt unaware October 11, 2024 3:46am Living Will Yes August 05 3:53am Power of Contact Officer Yes August 05, 025 3:53am Name of Medical Power of Contact Officer SON--BRANDON ASHLEY August 05, 2024 3:53am Advance Directive Response Recorded Date/ Time Living Will Yes October 11, 2024 3:46am Do you have a Healthcare Power of Contact Officer? Yes October 11, 2024 3:46am Name of Medical Power of Contact Officer Pt unaware October 11, 2024 3:46am Do you have a Healthcare Power of Contact Officer? Yes January 03, 2025 7:38am Name of Medical Power of Contact Officer son January 03, 2025 7:38am Advance Directive Response Recorded Date/ Time Living Will Yes July 23 023 4:17am Do you have a Healthcare Power of Contact Officer? Yes July 23, 2023 4:17am Living Will Yes October 11, 2024 3:46am Do you have a Healthcare Power of Contact Officer? Yes October 11, 2024 3:46am Name of Medical Power of Contact Officer Pt unaware October 11, 2024 3:46am Do you have a Healthcare Power of Contact Officer? Yes January 03, 2025 7:38am Name of Medical Power of Contact Officer son January 03, 2025 7:38am Advance Directive Response Recorded Date/ Time Living Will Yes July 23 023 4:17am Do you have a Healthcare Power of Contact Officer? Yes July 23, 2023 4:17am Living Will Yes October 11, 2024 3:46am Do you have a Healthcare Power of Contact Officer? Yes October 11, 2024 3:46am Name of Medical Power of Contact Officer Pt unaware October 11, 2024 3:46am Do you have a Healthcare Power of Contact Officer? Yes January 03, 2025 7:38am Name of Medical Power of Contact Officer son January 03, 2025 7:38am Do you have a Healthcare Power of Contact Officer? Yes January 26, 2025 2:06am Name of Medical Power of Contact Officer brandon root January 26, 2025 2:06am Summary Purpose Additional Source Comments Source Comments (unrecognize d section and content) In the event this informatio n is protected by the Federal Confidentiality of Alcohol and Drug Abuse Patient Records regulations: The Federal rules restrict any use of the information to criminally investigate or prosecute any alcohol or drug abuse patient.[facility] the event this information is protected by the Federal Confidentiality of Alcohol and Drug Abuse Patient Records regulations: The Federal rules restrict any use of the information to criminally investigate or prosecute any alcohol or drug abuse patient.[facility] Hospital[facility] the event this information is protected by the Federal Confidentiality of Alcohol and Drug Abuse Patient Records regulations: The Federal rules restrict any use of the information to criminally investigate or prosecute any alcohol or drug abuse patient.[facility] Hospital[facility] the event this information is protected by the Federal Confidentiality of Alcohol and Drug Abuse Patient Records regulations: The Federal rules restrict any use of the information to criminally investigate or prosecute any alcohol or drug abuse patient.[facility] Hospital[facility] the event this information is protected by the Federal Confidentiality of Alcohol and Drug Abuse Patient Records regulations: The Federal rules restrict any use of the information to criminally investigate or prosecute any alcohol or drug abuse patient.[facility] HospitalIn the event this information is protected by the Federal Confidentiality of Alcohol and Drug Abuse Patient Records regulations: The Federal rules restrict any use of the information to criminally investigate or prosecute any alcohol or drug abuse patient.[facility] HospitalIn the event this information is protected by the Federal Confidentiality of Alcohol and Drug Abuse Patient Records regulations: The Federal rules restrict any use of the information to criminally investigate or prosecute any alcohol or drug abuse patient.[facility] HospitalIn the event this information is protected by the Federal Confidentiality of Alcohol and Drug Abuse Patient Records regulations: The Federal rules restrict any use of the information to criminally investigate or prosecute any alcohol or drug abuse patient.[facility] HospitalIn the event this information is protected by the Federal Confidentiality of Alcohol and Drug Abuse Patient Records regulations: The Federal rules restrict any use of the information to criminally investigate or prosecute any alcohol or drug abuse patient.[facility] HospitalIn the event this information is protected by the Federal Confidentiality of Alcohol and Drug Abuse Patient Records regulations: The Federal rules restrict any use of the information to criminally investigate or prosecute any alcohol or drug abuse patient.[facility] HospitalIn the event this information is protected by the Federal Confidentiality of Alcohol and Drug Abuse Patient Records regulations: The Federal rules restrict any use of the information to criminally investigate or prosecute any alcohol or drug abuse patient.[facility] HospitalIn the event this information is protected by the Federal Confidentiality of Alcohol and Drug Abuse Patient Records regulations: The Federal rules restrict any use of the information to criminally investigate or prosecute any alcohol or drug abuse patient.[facility] HospitalIn the event this information is protected by the Federal Confidentiality of Alcohol and Drug Abuse Patient Records regulations: The Federal rules restrict any use of the information to criminally investigate or prosecute any alcohol or drug abuse patient.[facility] HospitalIn the event this information is protected by the Federal Confidentiality of Alcohol and Drug Abuse Patient Records regulations: The Federal rules restrict any use of the information to criminally investigate or prosecute any alcohol or drug abuse patient.[facility] HospitalIn the event this information is protected by the Federal Confidentiality of Alcohol and Drug Abuse Patient Records regulations: The Federal rules restrict any use of the information to criminally investigate or prosecute any alcohol or drug abuse patient.[facility] HospitalIn the event this information is protected by the Federal Confidentiality of Alcohol and Drug Abuse Patient Records regulations: The Federal rules restrict any use of the information to criminally investigate or prosecute any alcohol or drug abuse patient.[facility] HospitalIn the event this information is protected by the Federal Confidentiality of Alcohol and Drug Abuse Patient Records regulations: The Federal rules restrict any use of the information to criminally investigate or prosecute any alcohol or drug abuse patient.[facility] HospitalIn the event this information is protected by the Federal Confidentiality of Alcohol and Drug Abuse Patient Records regulations: The Federal rules restrict any use of the information to criminally investigate or prosecute any alcohol or drug abuse patient.[facility] HospitalIn the event this information is protected by the Federal Confidentiality of Alcohol and Drug Abuse Patient Records regulations: The Federal rules restrict any use of the information to criminally investigate or prosecute any alcohol or drug abuse patient.[facility] HospitalIn the event this information is protected by the Federal Confidentiality of Alcohol and Drug Abuse Patient Records regulations: The Federal rules restrict any use of the information to criminally investigate or prosecute any alcohol or drug abuse patient.[facility] HospitalIn the event this information is protected by the Federal Confidentiality of Alcohol and Drug Abuse Patient Records regulations: The Federal rules restrict any use of the information to criminally investigate or prosecute any alcohol or drug abuse patient.[facility] Reason for Visit (unrecogniz ed section and [...] Comments Patient Question Reason Comments ER F/U [facility] 08/05/24 Reason Comments ER follow up appointment Reason Onset Date Comments Results 10/09/2024 Reason Comments ER F/U Reason Comments Follow Up 3 month Reason Comments Hip Pain Reason Comments Orders Physical Therapy Care Teams (unrecognized sec tion and content) Patient Care Representative Relationship Specialty Start Date End Date Heri Teixeira MD [address] [place], [place] [phone] PCP - General Family Practice 10/31/20 Patient Care Representative Relationship Specialty Start Date End Date Heri Teixeira MD [address] [place], [place] [phone] PCP - General Family Practice 10/31/20 Patient Care Representative Relationship Specialty Start Date End Date Heri Teixeira MD [address] [place], [place] [id number] PCP - General Family Medicine 10/31/20 Patient Care Representative Relationship Specialty Start Date End Date Heri Teixeira MD [address] [facility] [place] [address] PCP - General Family Medicine 10/31/20 Patient Care Representative Relationship Specialty Start Date End Date Heri Teixeira MD [address] [facility] [place] [address] PCP - General Family Medicine 10/31/20 Team [...] PA Attending Provider, Referr ing Provider Active Patient Care Representative Relationship Specialty Start Date End Date Heri Teixeira MD [address] [facility] [place] [address] PCP - General Family Medicine 10/31/20 Team Status: Inactive Member Role Status Dates Dr. Adolph Omer MD Primary Care Provider Active Dr. Josemanuel Barbosa , Emergency Provider Active Patient Care Representative Relationship Specialty Start Date End Date Heri Teixeira MD [address] [facility] [place] [address] PCP - General Family Medicine 10/31/20 Patient Care Representative Relationship Specialty Start Date End Date Heri Teixeira MD [address] [facility] [place] [address] PCP - General Family Medicine 10/31/20 Patient Care Representative Relationship Specialty Start Date End Date Heri Teixeira MD [address] [facility] [place] [address] PCP - General Family Medicine 10/31/20 Patient Care Representative Relationship Specialty Start Date End Date Heri Teixeira MD [address] [place] [address] PCP - General Family Medicine 10/31/20 Podlogar, LUIZ RosalesN.ENVIRONMENTAL ENGINEERING TECHNICIAN [address] [place] [address] [facility] Patient Care Representative Relationship Specialty Start Date End Date Heri Teixeira MD [address] [place] [address] PCP - General Family Medicine 10/31/20 Podlogar, ANTONIA Rosales.ENVIRONMENTAL ENGINEERING TECHNICIAN [address] [place] [address] [facility]/07/24 Patient Care Representative Relationship Specialty Start Date End Date Heri Teixeira MD [address] [place] [address] PCP - General Family Medicine 10/31/20 Podlogar, Connie MUD TANK OPERATOR.ENVIRONMENTAL ENGINEERING TECHNICIAN [address] [place] [address] [facility] 07/07/24 Patient Care Representative Relationship Specialty Start Date End Date Heri Teixeira MD [address] [place] [address] PCP - General Family Medicine 10/31/20 Podlogar, Connie MUD TANK OPERATOR.ENVIRONMENTAL ENGINEERING TECHNICIAN [address] [place] [address] [facility] 07/07/24 Patient Care Representative Relationship Specialty Start Date End Date Heri Teixeira MD [address] [place], [place] [id number] PCP - General Family Medicine 10/31/20 Connie Lira APRN.ENVIRONMENTAL ENGINEERING TECHNICIAN [address] [place], [place] [phone] [facility] 07/07/24 Jonah Valiente APRN.ENVIRONMENTAL ENGINEERING TECHNICIAN [address] [place] [address] [facility] 10/12/24 Team Status: Active Member Role Status [...] October 11, 2024 End: October 11, 2024 Patient Care Representative Relationship Specialty Start Date End Date Heri Teixeira MD [address] [facility] [place], [place] [phone] PCP - General Family Medicine 10/31/20 Connie Lira APRN.ENVIRONMENTAL ENGINEERING TECHNICIAN [address] [place], [place] [id number] [facility] 07/07/24 Jonah Valiente, MUD TANK OPERATOR.ENVIRONMENTAL ENGINEERING TECHNICIAN [address] [place] [address] [facility] 10/22/24 Team Status: Inactive Member Role Status [...] 2024 End: November 22, 2024 Rex Edwards CLOTH SHADER, CLOTH SHADER-C Attending Provider Active S tart: November 22, 2024 End: November 22, 2024 Team Status: Inactive Member Role Status Dates Dr. Sebastian Teixeira MD Primary Care Provider Acti ve Start: November 22, 2024 End: November 22, 2024 Rex Edwards CLOTH SHADER, CLOTH SHADER-C Attending Provider Active S tart: November 22, 2024 End: November 22, 2024 Rex Edwards CLOTH SHADER, CLOTH SHADER-C Referring Provider Active S tart: November 22, 2024 End: November 22, 2024 Team Status: Active Member Role Status Dates Dr. Sebastian Teixeira MD Primary Care Provider Acti ve Start: November 30, 2024 Rex Edwards CLOTH SHADER, CLOTH SHADER-C Attending Provider Active S tart: November 30, 2024 Rex Edwards CLOTH SHADER, CLOTH SHADER-C Referring Provider Active S tart: November 30, [...] 2025 End: January 04, 2025 Jolie Sorto CLOTH SHADER, CLOTH SHADER-C Attending Provider Active Start: January 04, 2025 End: January 04, 2025 Dr. Sebastian Teixeira MD Primary Care Provider Acti ve Start: January 04, 2025 End: January 04, 2025 Patient Care Representative Relationship Specialty Start Date End Date Heri Teixeira MD [facility] [place], [place] [address] PCP - General Family Medicine 10/31/20 PodlogarConnie APRN.ENVIRONMENTAL ENGINEERING TECHNICIAN [address] [place] [phone] Financial Assistance Specialist Family Medicine 07/07/24 Jonah Valiente APRN.ENVIRONMENTAL ENGINEERING TECHNICIAN [facility] [place], [place] [address] Financial Assistance Specialist Family Medicine 01/10/25 Team Status: Active Member Role/Relationship Status Dates Dr. Sebastian Teixeira MD Primary Care Provider Acti ve Team Status: Inactive Member Role/Relationship Status Dates Dr. Sebastian Teixeira MD Primary Care Provider Acti ve Start: October 11, 2024 End: October 11, 2024 Dr. Brittany Jimenez DO Attending Provider Active Start: October 11, 2024 End: October 11, 2024 Dr. Brittany Jimenez DO Emergency Provider Active Start: October 11, 2024 End: October 11, 2024 Team Status: Inactive Member Role/Relationship Status Dates Dr. Sebastian Teixeira MD Primary Care Provider Acti ve Start: October 17, 2024 End: October 17, 2024 Dr. Sebastian Teixeira MD Referring Provider Active Start: October 17, 2024 End: October 17, 2024 RANDALL Pringle Attending Provider Active St art: October 17, 2024 End: October 17, 2024 Team Status: Active Member Role/Relationship Status Dates Dr. Sebastian Teixeira MD Primary Care Provider Acti ve Start: November 22, 2024 Bijal Amor Attending Provider Active Start: November 22, 2024 Team Status: Inactive Member Role/Relationship Status Dates Dr. Sebastian Teixeira MD Primary Care Provider Acti ve Start: November 22, 2024 End: November 22, 2024 Dr. Sebastian Teixeira MD Referring Provider Active Start: November 22, 2024 End: November 22, 2024 Rex Edwards CLOTH SHADER, CLOTH SHADER-C Attending Provider Active S tart: November 22, 2024 End: November 22, 2024 Team Status: Inactive Member Role/Relationship Status Dates Dr. Sebastian Teixeira MD Primary Care Provider Acti ve Start: November 22, 2024 End: November 22, 2024 Rex Edwards CLOTH SHADER, CLOTH SHADER-C Attending Provider Active S tart: November 22, 2024 End: November 22, 2024 Rex Edwards CLOTH SHADER, CLOTH SHADER-C Referring Provider Active S tart: November 22, 2024 End: November 22, 2024 Team Status: Active Member Role/Relationship Status Dates Dr. Sebastian Teixeira MD Primary Care Provider Acti ve Start: November 30, 2024 Rex Edwards CLOTH SHADER, CLOTH SHADER-C Attending Provider Active S tart: November 30, 2024 Rex Edwards CLOTH SHADER, CLOTH SHADER-C Referring Provider Active S tart: November 30, 2024 Team Status: Active Member Role/Relationship Status Dates Dr. Sebastian Teixeira MD Primary Care Provider Acti ve Start: November 30, 2024 Dr. Juan Manuel Abebe MD Attending Provider Active Start: November 30, 2024 RANDALL Pringle Referring Provider Active St art: November 30, 2024 Team Status: Inactive Member Role/Relationship Status Dates Dr. Sebastian Teixeira MD Primary Care Provider Acti ve Start: January 03, 2025 End: January 03, 2025 Dr. Shiva Sims DO Attending Provider Active Start: January 03, 2025 End: January 03, 2025 Dr. Shiva Sims DO Emergency Provider Active Start: January 03, 2025 End: January 03, 2025 Team Status: Inactive Member Role/Relationship Status Dates Dr. Adolph Omer MD Referring Provider Active Start: January 04, 2025 End: January 04, 2025 Jolie Sorto CLOTH SHADER, CLOTH SHADER-C Attending Provider Active Start: January 04, 2025 End: January 04, 2025 Dr. Sebastian Teixeira MD Primary Care Provider Acti ve Start: January 04, 2025 End: January 04, 2025 Team Status: Inactive Member Role/Relationship Status Dates Dr. Sebastian Teixeira MD Primary Care Provider Acti ve Start: January 26, 2025 End: January 26, 2025 Dr. Phil Miller DO Emergency Provider Active Start: January 26, 2025 End: January 26, 2025 Patient Care Representative Relationship Specialty Start Date End Date Heri Teixeira MD [address] [place], [place] [id number] PCP - General Family Medicine 10/31/20 RheaarConnie, MUD TANK OPERATOR.ENVIRONMENTAL ENGINEERING TECHNICIAN [address] [place], [place] [phone] [facility] Family Medicine 07/07/24 Jonah Valiente, ANTONIA.ENVIRONMENTAL ENGINEERING TECHNICIAN [address] [place], [place] [phone] [facility] Family Medicine 01/10/25 Team Status: Inactive Member Role/Relationship Status Dates Dr. Sebastian Teixeira MD Primary Care Provider Acti ve Start: January 28, 2025 End: January 28, 2025 Dr. Sebastian Teixeira MD Referring Provider Active Start: January 28, 2025 End: January 28, 2025 Jolie Sorto CLOTH SHADER, CLOTH SHADER-C Attending Provider Active Start: January 28, 2025 End: January 28, 2025 Goals (unrecognized section and content) Goals may [...] content) DATE CREATED AUTHOR 11/17/2023 Kimberley Santana [facility] DATE CREATED AUTHOR AUTHOR'S ORGANIZ ATION 11/17/2023 [facility] DATE CREATED AUTHOR AUTHOR'S ORGANIZ ATION 01/28/2025 [facility] DATE CREATED AUTHOR AUTHOR'S ORGANIZ ATION 02/01/2025 [facility] FOR RECORDS PERTAINING TO PATIENTS WHO ARE [...] BE BASED ON THE PRIMARY CLINICAL RECORDS. [employer] provides no warranty or guarantee of the accuracy or completeness of information in this document.
== END | disposition home or self-care (01) ==
PROVIDERS: PCP Family Medicine; Referring Provider Nurse Practitioner Gerontology; Visit Provider Nurse Practitioner Gerontology
DX: I48.0 Paroxysmal atrial fibrillation (principal)
CPT/HCPCS: 93306

== ENCOUNTER → 2025-07-10 | Outpatient (CLI) | payer MEDICARE, SELFPAY ==
[2025-07-10 14:23] LABS: Hematocrit 38.7 % (37-47); Hemoglobin 12.5 g/dL (12.0-15.0); Mean Corp Hgb Conc 32.3 g/dL (32-36); Mean Corpuscular Volume 93.7 fL (81-99); Mean Platelet Vol. 10.1 fl (6.2-12.0); Platelet Count 266 K/mm3 (150-450); RBC Distribution Width CV 12.1 % (11.6-14.6); RBC Distribution Width SD 41.8 fl (35.1-43.9); Red Blood Count 4.13 M/mm3 (4.2-5.4); White Blood Count 5.8 K/mm3 (4.4-11.0)
== END | disposition home or self-care (01) ==
LOC: LAB 13:34
PROVIDERS: PCP Family Medicine; Referring Provider Internal Medicine Cardiovascular Disease; Visit Provider Internal Medicine Cardiovascular Disease
DX: I48.0 Paroxysmal atrial fibrillation (principal)
CPT/HCPCS: 36415; 85027